=== PATIENT | female | born 1945 | race Caucasian/White ===

== ENCOUNTER 2023-02-20 19:43 | Inpatient (IN) | payer OTHER, SELFPAY ==
[2023-02-20] VITALS (12 sets, daily range): BP systolic 104–128; BP diastolic 59–62; PULSE 92–109; RESP 12–20; TEMP 37.7; O2SAT 92–95
--- NOTE | ~2023-02-20 | US_ITS ---
EXAMINATION:US venous doppler LE LT INDICATION:Left lower extremity redness TECHNIQUE: Multiple grayscale, color flow and Doppler images of the left lower extremity deep venous systems were obtained and reviewed. COMPARISON:No prior studies for comparison. FINDINGS: The common femoral, superficial femoral and popliteal veins demonstrate normal respiratory variation, augmentation and compressibility. Color flow is also seen within the posterior tibial, pe roneal, greater saphenous and profunda veins. IMPRESSION: 1: No lower extremity deep venous thrombosis. Reviewed, dictated and finalized at location A.
--- NOTE | ~2023-02-20 | CT_ITS ---
EXAMINATION: CT pelvis w con DATE: 02/21/2023 14:33 INDICATION: Cellulitis. Concern for pelvic abscess. TECHNIQUE: Computed tomography (CT) of the pelvis was performed with 100 mL Omnipaque-350 intravenous contrast. Automated exposure control and iterative reconstruction technique were employed.The dose-l ength product was 977.03 mGy-cm. COMPARISON: None FINDINGS: The anterior wall of the sigmoid colon extends into a widemouthed ventral hernia. There is a smaller more caudal fat-containing ventral hernia. Status post bilateral ureterostomies with ureters extendin g to a right lower quadrant ileal conduit. Decompressed bladder. No bowel obstruction. Partially visu alized exophytic cyst measuring at least 6.4 cm arising from the lower pole of the left kidney. The u terus is not identified and has likely been surgically resected. No free intraperitoneal fluid in the visualized pelvis. Moderate asymmetric fatty atrophy of the musculature of the pelvis mild fatty atr ophy of the musculature in the proximal thighs. Bilateral severe lower lumbar facet osteoarthritis. S clerotic lesion at the right iliac crest has likely either a bone island or enchondroma. There is juan e skin thickening and stranding in the underlying subcutaneous fat overlying the left hip. Due to pat ient body habitus a portion of the subcutaneous tissues are excluded from the field of view. No hip j oint effusion, abscess or other abnormal fluid collections. IMPRESSION: 1. Skin thickening and subcutaneous stranding overlying the left hip consistent with provided history of cellulitis. No abscess identified although a small portion of the superficial subcutaneous tissue s are excluded from the dfrli-od-kfxz due to patient body habitus. 2. Ventral hernias containing fat and anterior portion of a short segment of nonobstructed sigmoid co dee. 3. Bilateral ureterostomies with right lower quadrant ileal conduit. Reviewed, dictated and finalized at location A. IMPRESSION: 1. Skin thickening and subcutaneous stranding overlying the left hip consistent with provided history of cellulitis. No abscess identified although a small po rtion of the superficial subcutaneous tissues are excluded from the field-of-vi ew due to patient body habitus. 2. Ventral hernias containing fat and anterior portion of a short segment of no nobstructed sigmoid colon. 3. Bilateral ureterostomies with right lower quadrant ileal conduit.
--- NOTE | 2023-02-20 20:04 | ED.WOUNDLAC ---
HPI - Wound/Laceration General Chief Complaint: Wound/Laceration Stated Complaint: red spot on hip Time Seen by Provider: 02/20/23 19:50 History of Present Illness HPI narrative: Patient is a 77 year old female with history of Spina bifida here with leg redness from her facility. she thinks that the leg redness began about a week ago. She notes that it is painful over the region of her hip and seems to be worsening. It has been associated with a subjective fever as well as decreased appetite over the same amount of time. As a result, she has had decreased PO intake. She does note that not too long ago she had cellulitis in the same area, was treated with clindamycin, believes that is what she needs now. She notes allergy to penicillins. She denies any prior cardiac history or history of PE/DVT. Does not take any blood thinners. Related Data Allergies Allergy/AdvReac Type Severity Reaction Status Date / Time codeine Allergy Unknown Verified 02/20/23 20:04 NSAIDS (Non-Steroidal Allergy Unknown Verified 02/20/23 20:04 Anti-Inflamma Penicillins Allergy Hives Verified 02/20/23 20:04 Sulfa (Sulfonamide Allergy Hives Verified 02/20/23 20:04 Antibiotics) Review of Systems Review of Systems: All systems reviewed & are unremarkable except as noted in HPI and below Exam Narrative: GENERAL: Well-appearing, well-nourished, and in no acute distress. HEAD: Normocephalic, atraumatic. EYES: PERRLA and EOMI. ENT: Nares clear. Mucous membranes moist. NECK: Supple. CHEST: Clear to auscultation. No respiratory distress. HEART: Regular rate and rhythm. Normal peripheral pulses. ABDOMEN: Soft, nontender, nondistended. Urostomy present in RLQ, appears clean and dry. EXTREMITIES: Normal range of motion. Edema present on LLE diffusely. SKIN: Warm, erythema present over the lateral left thigh extending from the hip to about 3 inches above the knee. Warm to touch, no crepitus. She has some additional redness in the medial aspect of the left thigh, does not extend to the genital region. NEURO: No focal deficits. Alert and oriented x3. PSYCH: Normal mood and affect. Course Course Emergency Course: Chart review performed. Patient her with L red thigh and hip pain. Triage vitals show febrile at 100F. No prior visits in our system. Patient seen evaluated, no acute distress. Exam consistent with cellulitis over the left leg, no crepitus or blistering, very low suspicion for necrotizing infection. Sepsis orders placed. LLE doppler ordered. Anticipate admission given sheer volume of extremity covered. Vancomycin ordered. Lab work reviewed, white blood cell count of 22.9, lactic normal. CMP grossly normal. Troponin negative. Urine concerning for UTI, will add on coverage for UTI. Doppler negative for DVT. Will work on admitting. Patient reevaluated and updated on plan of care. She is agreeable. I attempted to contact listed guardian, Daniella Chilel at [phone], no answer. DNR code status listed on prison paperwork. Spoke with Dr. Mack, accepts patient for admission. Vital Signs Vital signs: Vital Signs Temperature 100 F H 02/20/23 19:50 Pulse Rate 99 02/20/23 19:50 Respiratory Rate 14 02/20/23 19:50 Blood Pressure 104/62 02/20/23 19:50 Pulse Oximetry 95 02/20/23 19:50 Oxygen Delivery Room Air 02/20/23 19:50 Temperature 100 F H 02/20/23 19:50 Pulse Rate 99 02/20/23 19:50 Respiratory Rate 14 02/20/23 19:50 Blood Pressure 104/62 02/20/23 19:50 Pulse Oximetry 95 02/20/23 19:50 Oxygen Delivery Room Air 02/20/23 19:50 MDM - Wound/Laceration Lab Data 02/20/23 21:04 02/20/23 21:04 Labs: Lab Results 02/20/23 02/20/23 Range/Units 21:04 21:32 WBC 22.9 H (4.5-10.0) K/mm3 RBC 4.22 (4.2-5.4) M/mm3 Hgb 12.2 (12.0-15.0) g/dL Hct 37.9 (37.0-47.0) % MCV 89.8 (80-100) fl MCH 28.9 (26-34) pg MCHC 32.2 (32-36)
[2023-02-20] MEDS: SODIUM CHLORIDE 0.9% IV 1,000 ML 999 ML IV CONT (21:03)
[2023-02-20] MEDS: ACETAMINOPHEN 500 MG TABLET 1000 MG PO (21:03)
[2023-02-20 21:13] LABS: Basophils Absolute Auto 0.1 K/mm3 (0.0-0.1); Basophils Percent Auto 0.3 % (0.2-1.2); Hematocrit 37.9 % (37.0-47.0); Hemoglobin 12.2 g/dL (12.0-15.0); Immature Granulocyte Absolute 0.12 K/mm3 (0.00-0.031); Immature Granulocyte Percent A 0.5 % (0-0.5); Lymphocytes Absolute Auto 1.73 K/mm3 (0.9-3.2); Lymphocytes Percent Auto 7.6 % (18.3-44.2); Mean Corpuscular HGB Conc 32.2 g/dl (32-36); Mean Corpuscular Hemoglobin 28.9 pg (26-34); Mean Corpuscular Volume 89.8 fl (80-100); Mean Platelet Volume 9.8 fl (7.4-10.4); Monocytes Absolute Auto 0.8 K/mm3 (0.1-0.6); Monocytes Percent Auto 3.5 % (2.6-8.5); Neutrophils Absolute Auto 20.2 K/mm3 (1.3-6.7); Neutrophils Percent Auto 88.1 % (45.5-73.1); Platelet Count Result 344 k/mm3 (150-375); Red Blood Count 4.22 M/mm3 (4.2-5.4); Red Cell Distribution Width 14.9 % (11.5-14.5); White Blood Count 22.9 K/mm3 (4.5-10.0)
[2023-02-20 21:24] LABS: INR 1.1; Prothrombin Time 15.1 Seconds (11.1-14.7)
[2023-02-20 21:25] LABS: Lactic Acid Reflex 1.2 mmol/L (0.7-2.0); Partial Thromboplastin Time 32.9 SECONDS (22.3-36.8)
[2023-02-20 21:33] LABS: Alanine Aminotransferase 30 U/L (6-35); Albumin Level 4.1 g/dL (3.5-5.1); Alkaline Phosphatase 129 U/L (38-126); Anion Gap 10 mmol/L (8-16); Aspartate Amino Transferase 32 U/L (14-36); Blood Urea Nitrogen 21 mg/dL (7-17); Calcium 9.2 mg/dL (8.4-10.2); Carbon Dioxide 28 mmol/L (22-30); Chloride 97 mmol/L (98-107); Estimated CRCL calculation 72 ml/min; Estimated Glomerular Filt Rate > 60; Glucose 129 mg/dL (65-110); Potassium 3.6 mmol/L (3.4-5.0); Sodium 135 mmol/L (137-145)
[2023-02-20 21:38] LABS: Troponin I < 0.012 ng/mL (0.000-0.034)
[2023-02-20 22:06] LABS: Appearance Urine Turbid (Clear); Bacteria Urine 4+ /hpf; Bilirubin Urine Negative (Negative); Blood Urine 1+ (Negative); Color Urine Dark Yellow (Yellow); Glucose Urine UA Negative (Negative); Ketones Urine Negative (Negative); Leukocyte Esterase Ur 3+ LEU/UL (Negative); Need Manual Microscopic Reviewed; Nitrate Urine Negative (Negative); Protein Urine 1+ mg/dL (Negative); Specific Grav Ur 1.017 (1.001-1.035); Squamous Epithelial Cell Urine None seen /hpf (Few); WBC Urine >100 /hpf
[2023-02-20 22:08] LABS: Add Urine Microscopic? YES
[2023-02-20 23:30] LABS: CRP 33.6 mg/dL (<1.0)
--- NOTE | 2023-02-20 23:54 | PM.IMHP ---
H&P: HPI History of Present Illness Date/Time: 02/20/23 23:54 Chief Complaint: Patient sent to the ER for evaluation from her nursing facility with left leg redness Narrative: She is very unfortunate paraplegic lady with spinal bifida who is complaining of pain and redness over her left hip for the last couple of days which is worsening. She also gives history of fever and decreased appetite as well. She is not eating or drinking much. She lives in a nursing facility which got concerned and sent patient to ER for evaluation. Workup was done which shows cellulitis of the left leg as well as UTI. Patient has a chronic urostomy tube in place. She has been started on IV antibiotics and is being admitted for medical management, Urology evaluation and close monitoring. Review of Systems Review of Systems: she denies any chest pain, falls, abdominal pain or any loss of consciousness All systems reviewed & are unremarkable except as noted in HPI and below PMFSH Past Medical History Medical History (Updated 02/21/23 @ 02:58 by Matt Mack MD) Morbid obesity due to excess calories Presence of urostomy Spina bifida of lumbar spine Social History Social History Smoking status: Former smoker Alcohol intake: never Substance use: never Lack of Transportation: No Lack of Food: Never True Current Housing: I Have Housing Concerned About Future Housing: No Difficulty Paying Gas/Electric Bills: No Difficulty Paying for Meds: No Currently Unemployed: No Education: High School Diploma/GED Difficulty w/ Childcare or Family Care: No Spiritual care concerns: No Meds Home Medications and Allergies Home Medications Medication Instructions Recorded Confirmed Type Ca 600 mg-D3 800 unit-magnes 40 1 tablet PO BID 02/21/23 02/21/23 History ki-xnlz-ent-leydi-boron chewable tablet (Caltrate 600-D Plus Minerals) acetaminophen 650 mg tablet 650 mg PO Q4H PRN mild pain 02/21/23 02/21/23 History atorvastatin 10 mg tablet 10 mg PO HS 02/21/23 02/21/23 History bisacodyl 10 mg rectal suppository 10 mg RECTAL DAILY PRN if no 02/21/23 02/21/23 [place] [facility] [place] 6.5 % ear drops 5 drp EACH EAR Q12H 02/21/23 02/21/23 History (Debrox) collagenase clostridium histo. 250 1 applic topical DAILY 02/21/23 02/21/23 History unit/gram topical ointment (Santyl) duloxetine 60 mg capsule,delayed 60 mg PO DAILY 02/21/23 02/21/23 History release fluticasone propionate 50 2 spray intranasal DAILY 02/21/23 02/21/23 History mcg/actuation nasal spray,suspension (Flonase Allergy Relief) furosemide 20 mg tablet (Lasix) 20 mg PO DAILY 02/21/23 02/21/23 History furosemide 40 mg tablet (Lasix) 40 mg PO DAILY 02/21/23 02/21/23 History guaifenesin 400 mg tablet 400 mg PO Q4H PRN cough or 02/21/23 02/21/23 History congestion guaifenesin 600 mg tablet, 600 mg PO BID 02/21/23 02/21/23 History extended release 12 hr (Mucinex) loratadine 10 mg tablet 10 mg PO DAILY 02/21/23 02/21/23 History magnesium hydroxide 400 mg/5 mL 400 mg PO HS PRN constipation if 02/21/23 02/21/23 History oral suspension no BM for 3 days nystatin 100,000 unit/gram topical 1 applic topical TID 02/21/23 02/21/23 History powder ondansetron 4 mg disintegrating 4 mg PO Q6H PRN Nausea 02/21/23 02/21/23 History tablet polyethylene glycol 3350 17 gram 17 g PO DAILY 02/21/23 02/21/23 History oral powder packet (Miralax) potassium chloride 10 mEq 10 meq PO DAILY 02/21/23 02/21/23 History capsule,extended release trazodone 100 mg tablet 100 mg PO HS 02/21/23 02/21/23 History Allergies Allergy/AdvReac Type Severity Reaction Status Date / Time codeine Allergy Unknown Verified 02/20/23 20:04 NSAIDS (Non-Steroidal Allergy Unknown Verified 02/20/23 20:04 Anti-Inflamma Penicillins Allergy Hives Verified 02/20/23 20:04 Sulfa (Sulfonamide A
[2023-02-21] VITALS (9 sets, daily range): BP systolic 95–121; BP diastolic 49–62; PULSE 85–99; RESP 16–17; TEMP 36.2–36.5; O2SAT 95–100; BMI 38.3
--- NOTE | 2023-02-21 01:10 | ADMGEN ---
This patient, Sadia Toledo, was admitted to [facility] Surg Room 330-01. Patient/family oriented to hospital policies and general routines including ID bracelet, bed and alarms, visiting hours, pain management, procedures, bathroom and other care routines, personal items, smoking policy, room service/diet, and visiting hours. Information on how to activate the Rapid Response Team has been discussed. Patient/Family are encouraged to report perceived risks to care and to ask questions if they do not understand what they are told or what they should do.
[2023-02-21] MEDS: KCL 20 MEQ/D5/0.45% SOD CHL 1,000 ML 100 ML IV CONT (05:48)
[2023-02-21 06:30] LABS: Basophils Absolute Auto 0.1 K/mm3 (0.0-0.1); Basophils Percent Auto 0.4 % (0.2-1.2); Eosinophils Absolute Auto 0.1 K/mm3 (0-0.3); Eosinophils Percent Auto 0.3 % (0-4.4); Hematocrit 36.4 % (37.0-47.0); Hemoglobin 10.6 g/dL (12.0-15.0); Immature Granulocyte Absolute 0.07 K/mm3 (0.00-0.031); Immature Granulocyte Percent A 0.4 % (0-0.5); Lymphocytes Absolute Auto 2.02 K/mm3 (0.9-3.2); Lymphocytes Percent Auto 12.2 % (18.3-44.2); Mean Corpuscular HGB Conc 29.1 g/dl (32-36); Mean Corpuscular Hemoglobin 29.1 pg (26-34); Mean Platelet Volume 9.5 fl (7.4-10.4); Monocytes Absolute Auto 0.8 K/mm3 (0.1-0.6); Monocytes Percent Auto 4.8 % (2.6-8.5); Neutrophils Absolute Auto 13.5 K/mm3 (1.3-6.7); Neutrophils Percent Auto 81.9 % (45.5-73.1); Platelet Count Result 277 k/mm3 (150-375); Red Blood Count 3.64 M/mm3 (4.2-5.4); White Blood Count 16.5 K/mm3 (4.5-10.0)
[2023-02-21 08:12] LABS: Anion Gap 6 mmol/L (8-16); Blood Urea Nitrogen 19 mg/dL (7-17); CRP 24.1 mg/dL (<1.0); Calcium 8.8 mg/dL (8.4-10.2); Carbon Dioxide 30 mmol/L (22-30); Chloride 99 mmol/L (98-107); Estimated CRCL calculation 79 ml/min; Estimated Glomerular Filt Rate > 60; Glucose 112 mg/dL (65-110); Potassium 3.6 mmol/L (3.4-5.0); Sodium 135 mmol/L (137-145)
[2023-02-21] MEDS: LORATADINE 10 MG TABLET PO (08:42)
[2023-02-21] MEDS: polyethylene glycoL 3350 17 GM POWD.PACK PO (08:42)
[2023-02-21] MEDS: guaiFENesin 12 HR 600 MG TABCR PO ×2 (08:42→21:44)
[2023-02-21] MEDS: POTASSIUM CHLORIDE 10 MEQ ER TABLET PO (08:42)
[2023-02-21] MEDS: FUROSEMIDE 20 MG TABLET PO (08:42)
[2023-02-21] MEDS: FLUTICASONE PROPIONATE 0.05% NA SPR 16 GM BTL (*BKC) 2 SPRAY NASAL (08:42)
[2023-02-21] MEDS: DULoxetine HCL 60 MG CAPSULE.DR PO (08:42)
[2023-02-21] MEDS: TOLNAFTATE 1% POWDER 45 GM BTL 1 APPLIC TOPICAL ×2 (08:43→22:36)
[2023-02-21] MEDS: CARBAMIDE PEROXIDE 6.5% OT SOLN 15 ML BTL 5 DROP EACH EAR ×2 (08:43→21:44)
--- NOTE | 2023-02-21 09:51 | WPDURCON ---
Assessment and Plan Assessment and plan (1) Presence of urostomy: Code(s): Z93.6 - Other artificial openings of urinary tract status Status: Acute (2) Spina bifida of lumbar spine: Code(s): Q05.7 - Lumbar spina bifida without hydrocephalus Status: Acute (3) Asymptomatic bacteriuria: Code(s): R82.71 - Bacteriuria Status: Acute Plan She has had urostomy since age 16. She has no particular complaints related to this urostomy. She clinically does not have a urinary tract infection. 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 All patients with urostomy have chronic colonization. It is impossible to sterilize the urinary system. As long as she is not having blood in the urine or other symptoms that could be attributable to urinary tract infection this does not require active treatment. Her infection symptoms are likely more related to her cellulitis than urinary tract. Urology Consult Note HPI Date Seen: 02/21/23 Requesting Physician: Matt Mack MD Primary Care Provider: Mook Herrera MD Consult Narrative Narrative: Sadia Toledo is a 77 year old female with a history of spina bifida. She has urostomy. She has had this since age 16. She has no particular issues relating to her urostomy. She is currently admitted for cellulitis of the left hip area. She has an abnormal urinalysis. This represents colonization and is due to her presence of urostomy. She has no clinical urinary tract infection symptoms. No visible blood in the urine. No cloudy urine. No fevers. She is on antibiotics for her cellulitis she has a normal creatinine. Review of Systems Review of Systems: All systems reviewed & are unremarkable except as noted in HPI and below PMFSH Past Medical History Medical History Morbid obesity due to excess calories Presence of urostomy Spina bifida of lumbar spine Social History Social History Smoking status: Former smoker Alcohol intake: never Substance use: never Lack of Transportation: No Lack of Food: Never True Current Housing: I Have Housing Concerned About Future Housing: No Difficulty Paying Gas/Electric Bills: No Difficulty Paying for Meds: No Currently Unemployed: No Education: High School Diploma/GED Difficulty w/ Childcare or Family Care: No Spiritual care concerns: No Meds Home Medications and Allergies Home Medications Medication Instructions Recorded Confirmed Type Ca 600 mg-D3 800 unit-magnes 40 1 tablet PO BID 02/21/23 02/21/23 History kf-mmfz-zrq-leydi-boron chewable tablet (Caltrate 600-D Plus Minerals) acetaminophen 650 mg tablet 650 mg PO Q4H PRN mild pain 02/21/23 02/21/23 History atorvastatin 10 mg tablet 10 mg PO HS 02/21/23 02/21/23 History bisacodyl 10 mg rectal suppository 10 mg RECTAL DAILY PRN if no 02/21/23 02/21/23 History results from [facility] carbamide peroxide 6.5 % ear drops 5 drp EACH EAR Q12H 02/21/23 02/21/23 History (Debrox) collagenase clostridium histo. 250 1 applic topical DAILY 02/21/23 02/21/23 History unit/gram topical ointment (Santyl) duloxetine 60 mg capsule,delayed 60 mg PO DAILY 02/21/23 02/21/23 History release fluticasone propionate 50 2 spray intranasal DAILY 02/21/23 02/21/23 History mcg/actuation nasal spray,suspension (Flonase Allergy Relief) furosemide 20 mg tablet (Lasix) 20 mg PO DAILY 02/21/23 02/21/23 History furosemide 40 mg tablet (Lasix) 40 mg PO DAILY 02/21/23 02/21/23 History guaifenesin 400 mg tablet 400 mg PO Q4H PRN cough or 02/21/23 02/21/23 History congestion guaifenesin 600 mg tablet, 600 mg PO BID 02/21/23 02/21/23 History extended release 12 hr (Mucinex) loratadine 10 mg tablet 10 mg PO DAILY 02/21/23 02/21/23 History magnesium hydroxide 400 mg/5 mL 400 mg PO HS PRN constipation if 02/21/23 02/21/23 History
[2023-02-21] MEDS: ENOXAPARIN 40 MG/0.4 ML SYRINGE SUB-Q (10:57)
--- NOTE | 2023-02-21 11:17 | PM.IMPN ---
Progress Note: A&P Assessment and Plan (1) Cellulitis of left leg: Code(s): L03.116 - Cellulitis of left lower limb Status: Acute Assessment and Plan: IV antibiotics, monitor symptoms closely Check CT hip, r/u SQ air/abscess (2) Acute urinary tract infection: Code(s): N39.0 - Urinary tract infection, site not specified Status: Acute Assessment and Plan: Do not suspect active infection, appreciate urology consultation (3) Presence of urostomy: Code(s): Z93.6 - Other artificial openings of urinary tract status Status: Acute (4) Leukocytosis: Code(s): D72.829 - Elevated white blood cell count, unspecified Status: Acute (5) Paraplegia: Code(s): G82.20 - Paraplegia, unspecified Status: Acute (6) Spina bifida of lumbar spine: Code(s): Q05.7 - Lumbar spina bifida without hydrocephalus Status: Acute (7) Morbid obesity due to excess calories: Code(s): E66.01 - Morbid (severe) obesity due to excess calories Status: Acute Plan DVT prophylaxis with SCDs GI prophylaxis not indicated Code status DNR Subjective Date/time seen: 02/21/23 11:17 Interval history: 77-year-old female with spina bifida, paraplegia and chronic indwelling urostomy is presenting with hip pain and redness and is currently being treated for cellulitis. No overnight events noted. No chest pain or shortness of breath. No nausea, vomiting or diarrhea. No fevers or chills. Review of Systems Review of Systems: 12 point review of systems was assessed and was negative except as noted in the HPI Exam Narrative: General: No acute distress, alert and oriented per baseline HEENT: Atraumatic, normocephalic, mucous membranes moist CV: Regular rate and rhythm, S1, S2 Lungs: Clear to auscultation bilaterally, no rales or crackles noted, no wheezes, good air entry Abdomen: Soft, nontender, nondistended Extremities: significant redness and swelling noted over left lateral hip Skin: No rashes noted, no lesions or wounds seen Psych: Euthymic, normal affect Objective Data Vital Signs Vital Signs: Vital Signs - 24 hr 02/20/23 19:50 02/20/23 19:55 02/20/23 19:59 Temperature 100 F H Pulse Rate 99 98 102 H Respiratory Rate 14 17 12 Blood Pressure 104/62 104/62 Pulse Oximetry 95 94 93 Oxygen Delivery Room Air 02/20/23 20:00 02/20/23 20:15 02/20/23 20:30 Temperature Pulse Rate 107 H 92 109 H Respiratory Rate 17 16 16 Blood Pressure Pulse Oximetry 95 95 94 Oxygen Delivery 02/20/23 20:35 02/20/23 20:45 02/20/23 21:00 Temperature Pulse Rate 108 H 105 H 104 H Respiratory Rate 12 12 13 Blood Pressure 128/59 L Pulse Oximetry 93 94 Oxygen Delivery 02/20/23 21:15 02/20/23 21:30 02/20/23 22:58 Temperature Pulse Rate 102 H 96 102 H Respiratory Rate 16 15 20 Blood Pressure 112/60 Pulse Oximetry 93 94 92 Oxygen Delivery 02/21/23 01:05 02/21/23 02:38 02/21/23 05:20 Temperature 97.5 F L 97.2 F L Pulse Rate 89 95 Respiratory Rate 16 16 Blood Pressure 95/49 L 99/49 L Pulse Oximetry 100 95 Oxygen Delivery Room Air 02/21/23 07:54 02/21/23 08:00 02/21/23 01:24 Temperature 97.4 F L 97.5 F L Pulse Rate 85 85 89 Respiratory Rate 17 17 16 Blood Pressure 121/60 95/49 L Pulse Oximetry 99 99 100 Oxygen Delivery Room Air Intake/Output Intake/Output: Intake & Output 02/18/23 02/19/23 02/20/23 02/21/23 23:59 23:59 23:59 23:59 Intake Total 1050 500 Output Total 450 Balance 1050 50 Meds/Results Medications: Active Medications Generic Name Dose Route Start Last Admin Trade Name Freq PRN Reason Stop Dose Admin Acetaminophen 650 mg 02/21/23 03:04 Acetaminophen 325 Mg Tablet PO Q4H PRN Mild Pain (1-3) or Fever Al Hydrox/Mg Hydrox/Simethicone 30 ml 02/21/23 03:04 Mag Hydrox/Al Hydrox/Simeth 30 Ml Udc PO QID PRN Dysp
[2023-02-21] MEDS: COLLAGENASE OINT 30 GM TUBE 1 APPLIC TOPICAL (15:21)
[2023-02-21] MEDS: traZODone HCL 50 MG TABLET 100 MG PO (21:44)
[2023-02-21] MEDS: ATORVASTATIN 10 MG TABLET PO (21:44)
[2023-02-21] MEDS: ACETAMINOPHEN 325 MG TABLET 650 MG PO (22:29)
[2023-02-22 00:17] VITALS: BP 91/63; PULSE 8; RESP 14; TEMP 36.4; O2SAT 92
[2023-02-22 04:55] VITALS: BP 90/48; PULSE 87; RESP 16; TEMP 36.3; O2SAT 93
[2023-02-22 05:48] LABS: Basophils Absolute Auto 0.1 K/mm3 (0.0-0.1); Basophils Percent Auto 0.5 % (0.2-1.2); Eosinophils Absolute Auto 0.3 K/mm3 (0-0.3); Eosinophils Percent Auto 3.2 % (0-4.4); Hematocrit 34.3 % (37.0-47.0); Hemoglobin 10.6 g/dL (12.0-15.0); Immature Granulocyte Absolute 0.06 K/mm3 (0.00-0.031); Immature Granulocyte Percent A 0.6 % (0-0.5); Lymphocytes Absolute Auto 2.02 K/mm3 (0.9-3.2); Lymphocytes Percent Auto 18.8 % (18.3-44.2); Mean Corpuscular HGB Conc 30.9 g/dl (32-36); Monocytes Absolute Auto 0.6 K/mm3 (0.1-0.6); Monocytes Percent Auto 5.9 % (2.6-8.5); Neutrophils Absolute Auto 7.7 K/mm3 (1.3-6.7); Platelet Count Result 276 k/mm3 (150-375); Red Blood Count 3.65 M/mm3 (4.2-5.4); Red Cell Distribution Width 14.8 % (11.5-14.5); White Blood Count 10.8 K/mm3 (4.5-10.0)
[2023-02-22 06:19] LABS: Anion Gap 6 mmol/L (8-16); Blood Urea Nitrogen 13 mg/dL (7-17); Calcium 8.7 mg/dL (8.4-10.2); Carbon Dioxide 28 mmol/L (22-30); Chloride 98 mmol/L (98-107); Estimated CRCL calculation 79 ml/min; Estimated Glomerular Filt Rate > 60; Glucose 90 mg/dL (65-110); Potassium 3.6 mmol/L (3.4-5.0); Sodium 132 mmol/L (137-145)
[2023-02-22 06:29] LABS: CRP 17.8 mg/dL (<1.0)
--- NOTE | 2023-02-22 09:39 | PM.IMPN ---
Progress Note: A&P Assessment and Plan (1) Cellulitis of left leg: Code(s): L03.116 - Cellulitis of left lower limb Status: Acute Assessment and Plan: Continue vancomycin, initiated 02/20, monitor symptoms closely, clinically improving 02/21: check CT hip, r/o SQ air/abscess: No abscess seen (2) Acute urinary tract infection: Code(s): N39.0 - Urinary tract infection, site not specified Status: Acute Assessment and Plan: Do not suspect active infection, appreciate urology consultation (3) Presence of urostomy: Code(s): Z93.6 - Other artificial openings of urinary tract status Status: Acute (4) Leukocytosis: Code(s): D72.829 - Elevated white blood cell count, unspecified Status: Acute (5) Paraplegia: Code(s): G82.20 - Paraplegia, unspecified Status: Acute (6) Spina bifida of lumbar spine: Code(s): Q05.7 - Lumbar spina bifida without hydrocephalus Status: Acute (7) Morbid obesity due to excess calories: Code(s): E66.01 - Morbid (severe) obesity due to excess calories Status: Acute Plan DVT prophylaxis with SCDs GI prophylaxis not indicated Code status DNR Subjective Date/time seen: 02/22/23 09:39 Interval history: 77-year-old female with spina bifida, paraplegia and chronic indwelling urostomy is presenting with hip pain and redness and is currently being treated for cellulitis. No overnight events noted. No chest pain or shortness of breath. No nausea, vomiting or diarrhea. No fevers or chills. Patient states her hip feels a little less painful today than yesterday. Review of Systems Review of Systems: 12 point review of systems was assessed and was negative except as noted in the HPI Exam Narrative: General: No acute distress, alert and oriented per baseline HEENT: Atraumatic, normocephalic, mucous membranes moist CV: Regular rate and rhythm, S1, S2 Lungs: Clear to auscultation bilaterally, no rales or crackles noted, no wheezes, good air entry Abdomen: Soft, nontender, nondistended Extremities: significant redness and swelling noted over left lateral hip, erythema much improved from yesterday Skin: No rashes noted, no lesions or wounds seen Psych: Euthymic, normal affect Objective Data Vital Signs Vital Signs: Vital Signs - 24 hr 02/21/23 11:51 02/21/23 16:44 02/21/23 20:34 Temperature 97.7 F 97.2 F L 97.7 F Pulse Rate 99 90 96 Respiratory Rate 17 17 16 Blood Pressure 110/57 L 107/62 104/61 Pulse Oximetry 96 98 98 Oxygen Delivery 02/22/23 00:17 02/21/23 20:48 02/22/23 04:55 Temperature 97.5 F L 97.3 F L Pulse Rate 8 L 87 Respiratory Rate 14 16 Blood Pressure 91/63 L 90/48 L Pulse Oximetry 92 98 93 Oxygen Delivery Room Air Intake/Output Intake/Output: Intake & Output 02/19/23 02/20/23 02/21/23 02/22/23 23:59 23:59 23:59 23:59 Intake Total 1050 740 Output Total 1100 400 Balance 1050 -360 -400 Meds/Results Medications: Active Medications Generic Name Dose Route Start Last Admin Trade Name Ronaldq PRN Reason Stop Dose Admin Acetaminophen 650 mg 02/21/23 03:04 02/21/23 22:29 Acetaminophen 325 Mg Tablet PO 650 mg Q4H PRN Administration Mild Pain (1-3) or Fever Al Hydrox/Mg Hydrox/Simethicone 30 ml 02/21/23 03:04 Mag Hydrox/Al Hydrox/Simeth 30 Ml Udc PO QID PRN Dyspepsia Atorvastatin Calcium 10 mg 02/21/23 21:00 02/21/23 21:44 Atorvastatin 10 Mg Tablet PO 10 mg HS ALEXIS Administration Bisacodyl 10 mg 02/21/23 03:13 Bisacodyl 10 Mg Suppository RECTAL DAILY PRN if no [place] [facility] [place]cium Carbonate 500 mg 02/21/23 09:00 02/21/23 16:42 Calcium/Vitamin D 500 Mg Tablet PO 500 mg BID ALEXIS Administration Carbamide Peroxide 5 drop 02/21/23 09:00 02/21/23 21:44 Carbamide Peroxide 6.5% Ot Soln 15 Ml Btl EACH EAR 5 drop Q12HR ALEXIS Administration Colla
[2023-02-22] MEDS: POTASSIUM CHLORIDE 10 MEQ ER TABLET PO (10:21)
[2023-02-22] MEDS: guaiFENesin 12 HR 600 MG TABCR PO ×2 (10:21→20:51)
[2023-02-22] MEDS: FUROSEMIDE 20 MG TABLET PO (10:21)
[2023-02-22] MEDS: polyethylene glycoL 3350 17 GM POWD.PACK PO (10:21)
[2023-02-22] MEDS: DULoxetine HCL 60 MG CAPSULE.DR PO (10:21)
[2023-02-22] MEDS: LORATADINE 10 MG TABLET PO (10:21)
[2023-02-22] MEDS: ENOXAPARIN 40 MG/0.4 ML SYRINGE SUB-Q (10:22)
[2023-02-22 10:40] VITALS: BP 109/50; PULSE 82; RESP 16; TEMP 36.8; O2SAT 98
--- NOTE | 2023-02-22 10:41 | PCPTNOTE ---
Per chart review, pt appears to be at baseline being a depending [facility] resident. Attempted to call resident but was unable to contact at this time. Will reattempt contact for verification to cancel PT orders.
--- NOTE | 2023-02-22 12:28 | PCPTNOTE ---
Spoke with provider, pt appears to be at baseline dependent for mobility and is halfway resident. Thus not appropriate for PT at this time.
[2023-02-22] MEDS: CARBAMIDE PEROXIDE 6.5% OT SOLN 15 ML BTL 5 DROP EACH EAR (13:39)
[2023-02-22] MEDS: TOLNAFTATE 1% POWDER 45 GM BTL 1 APPLIC TOPICAL ×2 (13:40→20:51)
[2023-02-22] MEDS: FLUTICASONE PROPIONATE 0.05% NA SPR 16 GM BTL (*BKC) 2 SPRAY NASAL (13:40)
[2023-02-22] MEDS: COLLAGENASE OINT 30 GM TUBE 1 APPLIC TOPICAL (13:40)
[2023-02-22 14:40] VITALS: BP 100/69; PULSE 87; RESP 18; TEMP 37; O2SAT 97
[2023-02-22] MEDS: KCL 20 MEQ/D5/0.45% SOD CHL 1,000 ML 100 ML IV CONT (16:43)
[2023-02-22 20:32] VITALS: BP 105/51; PULSE 86; RESP 28; TEMP 36.3; O2SAT 94
[2023-02-22] MEDS: traZODone HCL 50 MG TABLET 100 MG PO (20:50)
[2023-02-22] MEDS: ATORVASTATIN 10 MG TABLET PO (20:50)
[2023-02-23] VITALS (7 sets, daily range): BP systolic 108–129; BP diastolic 47–84; PULSE 77–102; RESP 14–20; TEMP 36.3–37.1; O2SAT 95–100
--- NOTE | 2023-02-23 01:22 | PC.NURSE ---
Daylight Savings Time For Daylight Savings Time Ending in the Fall - Clocks are moved back. For Daylight Savings Time Beginning in the Spring - Clocks are moved ahead. For [facility], the time of change occurs at 0200 hrs. Time is taken from the locomotive observer. This entry on the patient's chart recognizes the change in time reflected during documentation. Example: 2 entries for vital signs may be charted for 0200 hrs.
[2023-02-23] MEDS: KCL 20 MEQ/D5/0.45% SOD CHL 1,000 ML 100 ML IV CONT ×3 (01:55→22:51)
[2023-02-23 03:35] LABS: Basophils Percent Auto 0.5 % (0.2-1.2); Eosinophils Absolute Auto 0.3 K/mm3 (0-0.3); Eosinophils Percent Auto 3.3 % (0-4.4); Hematocrit 34.3 % (37.0-47.0); Hemoglobin 11.1 g/dL (12.0-15.0); Immature Granulocyte Absolute 0.03 K/mm3 (0.00-0.031); Immature Granulocyte Percent A 0.3 % (0-0.5); Lymphocytes Absolute Auto 2.24 K/mm3 (0.9-3.2); Mean Corpuscular HGB Conc 32.4 g/dl (32-36); Mean Corpuscular Volume 89.6 fl (80-100); Mean Platelet Volume 9.8 fl (7.4-10.4); Monocytes Absolute Auto 0.6 K/mm3 (0.1-0.6); Monocytes Percent Auto 7.2 % (2.6-8.5); Neutrophils Absolute Auto 5.4 K/mm3 (1.3-6.7); Neutrophils Percent Auto 62.7 % (45.5-73.1); Platelet Count Result 313 k/mm3 (150-375); Red Blood Count 3.83 M/mm3 (4.2-5.4); Red Cell Distribution Width 14.5 % (11.5-14.5); White Blood Count 8.6 K/mm3 (4.5-10.0)
[2023-02-23 03:53] LABS: Anion Gap 5 mmol/L (8-16); Blood Urea Nitrogen 9 mg/dL (7-17); CRP 7.8 mg/dL (<1.0); Carbon Dioxide 29 mmol/L (22-30); Chloride 101 mmol/L (98-107); Estimated CRCL calculation 79 ml/min; Estimated Glomerular Filt Rate > 60; Glucose 121 mg/dL (65-110); Potassium 3.5 mmol/L (3.4-5.0); Sodium 135 mmol/L (137-145)
[2023-02-23] MEDS: guaiFENesin 12 HR 600 MG TABCR PO ×2 (10:38→21:11)
[2023-02-23] MEDS: POTASSIUM CHLORIDE 10 MEQ ER TABLET PO (10:38)
[2023-02-23] MEDS: FUROSEMIDE 20 MG TABLET PO (10:39)
[2023-02-23] MEDS: LORATADINE 10 MG TABLET PO (10:39)
[2023-02-23] MEDS: DULoxetine HCL 60 MG CAPSULE.DR PO (10:39)
[2023-02-23] MEDS: ENOXAPARIN 40 MG/0.4 ML SYRINGE SUB-Q (10:39)
[2023-02-23] MEDS: CARBAMIDE PEROXIDE 6.5% OT SOLN 15 ML BTL 5 DROP EACH EAR ×2 (10:40→21:12)
[2023-02-23] MEDS: FLUTICASONE PROPIONATE 0.05% NA SPR 16 GM BTL (*BKC) 2 SPRAY NASAL (10:40)
[2023-02-23] MEDS: TOLNAFTATE 1% POWDER 45 GM BTL 1 APPLIC TOPICAL ×2 (10:41→21:12)
--- NOTE | 2023-02-23 11:47 | PCOTNOTE ---
Per chart review, pt appears to be at baseline being a depending [facility] resident. Attempted to call resident but was unable to contact at this time. Will reattempt contact for verification to cancel OT orders.
--- NOTE | 2023-02-23 15:50 | PM.IMPN ---
Progress Note: A&P Assessment and Plan (1) Cellulitis of left leg: Code(s): L03.116 - Cellulitis of left lower limb Status: Acute Assessment and Plan: Continue vancomycin, initiated 02/20, monitor symptoms closely, clinically improving 02/21: check CT hip, r/o SQ air/abscess: No abscess seen 02/23: improving (2) Acute urinary tract infection: Code(s): N39.0 - Urinary tract infection, site not specified Status: Acute Assessment and Plan: Do not suspect active infection, appreciate urology consultation (3) Presence of urostomy: Code(s): Z93.6 - Other artificial openings of urinary tract status Status: Acute (4) Leukocytosis: Code(s): D72.829 - Elevated white blood cell count, unspecified Status: Acute (5) Paraplegia: Code(s): G82.20 - Paraplegia, unspecified Status: Acute (6) Spina bifida of lumbar spine: Code(s): Q05.7 - Lumbar spina bifida without hydrocephalus Status: Acute (7) Morbid obesity due to excess calories: Code(s): E66.01 - Morbid (severe) obesity due to excess calories Status: Acute Plan DVT prophylaxis with SCDs GI prophylaxis not indicated Code status DNR Subjective Date/time seen: 02/23/23 15:50 Interval history: 77-year-old female with spina bifida, paraplegia and chronic indwelling urostomy is presenting with hip pain and redness and is currently being treated for cellulitis. No overnight events noted. No chest pain or shortness of breath. No nausea, vomiting or diarrhea. No fevers or chills. Patient's hip pain is much improved and swelling is improved. Review of Systems Review of Systems: 12 point review of systems was assessed and was negative except as noted in the HPI Exam Narrative: General: No acute distress, alert and oriented per baseline HEENT: Atraumatic, normocephalic, mucous membranes moist CV: Regular rate and rhythm, S1, S2 Lungs: Clear to auscultation bilaterally, no rales or crackles noted, no wheezes, good air entry Abdomen: Soft, nontender, nondistended Extremities: minimal erythema and swelling, much improved Skin: No rashes noted, no lesions or wounds seen Psych: Euthymic, normal affect Objective Data Vital Signs Vital Signs: Vital Signs - 24 hr 02/22/23 20:32 02/22/23 20:00 02/23/23 00:00 Temperature 97.4 F L 97.4 F L Pulse Rate 86 79 Respiratory Rate 28 H 20 Blood Pressure 105/51 L 116/84 Pulse Oximetry 94 97 Oxygen Delivery Room Air 02/23/23 04:25 02/23/23 08:00 02/23/23 12:00 Temperature 97.3 F L 97.7 F 97.9 F Pulse Rate 77 85 96 Respiratory Rate 18 19 16 Blood Pressure 108/57 L 124/58 L 109/47 L Pulse Oximetry 97 97 100 Oxygen Delivery Intake/Output Intake/Output: Intake & Output 02/20/23 02/21/23 02/22/23 02/23/23 23:59 23:59 23:59 22:59 Intake Total 1050 1240 2330 2670 Output Total 4164 581 6540 Balance 5750 006 7304 -230 Meds/Results Medications: Active Medications Generic Name Dose Route Start Last Admin Trade Name Freq PRN Reason Stop Dose Admin Acetaminophen 650 mg 02/21/23 03:04 02/21/23 22:29 Acetaminophen 325 Mg Tablet PO 650 mg Q4H PRN Administration Mild Pain (1-3) or Fever Al Hydrox/Mg Hydrox/Simethicone 30 ml 02/21/23 03:04 Mag Hydrox/Al Hydrox/Simeth 30 Ml Udc PO QID PRN Dyspepsia Atorvastatin Calcium 10 mg 02/21/23 21:00 02/22/23 20:50 Atorvastatin 10 Mg Tablet PO 10 mg HS ALEXIS Administration Bisacodyl 10 mg 02/21/23 03:13 Bisacodyl 10 Mg Suppository RECTAL DAILY PRN if no results from [facility] Calcium Carbonate 500 mg 02/21/23 09:00 02/23/23 10:38 Calcium/Vitamin D 500 Mg Tablet PO 500 mg BID ALEXIS Administration Carbamide Peroxide 5 drop 02/21/23 09:00 02/23/23 10:40 Carbamide Peroxide 6.5% Ot Soln 15 Ml Btl EACH EAR 5 drop Q12HR ALEXIS Administration Collagenase 1 applic 02/21/23
[2023-02-23] MEDS: ACETAMINOPHEN 325 MG TABLET 650 MG PO (18:11)
[2023-02-23] MEDS: traZODone HCL 50 MG TABLET 100 MG PO (21:12)
[2023-02-23] MEDS: ATORVASTATIN 10 MG TABLET PO (21:12)
[2023-02-24] VITALS: BP 117/52; PULSE 82; RESP 20; TEMP 36.1; O2SAT 93
[2023-02-24 04:00] VITALS: BP 120/72; PULSE 85; RESP 18; TEMP 35.7; O2SAT 98
[2023-02-24 06:32] LABS: Basophils Absolute Auto 0.1 K/mm3 (0.0-0.1); Basophils Percent Auto 0.7 % (0.2-1.2); Eosinophils Absolute Auto 0.3 K/mm3 (0-0.3); Eosinophils Percent Auto 4.5 % (0-4.4); Hematocrit 36.6 % (37.0-47.0); Hemoglobin 11.4 g/dL (12.0-15.0); Immature Granulocyte Absolute 0.06 K/mm3 (0.00-0.031); Immature Granulocyte Percent A 0.9 % (0-0.5); Lymphocytes Absolute Auto 2.34 K/mm3 (0.9-3.2); Lymphocytes Percent Auto 34.1 % (18.3-44.2); Mean Corpuscular HGB Conc 31.1 g/dl (32-36); Mean Corpuscular Hemoglobin 28.4 pg (26-34); Mean Platelet Volume 9.6 fl (7.4-10.4); Monocytes Absolute Auto 0.6 K/mm3 (0.1-0.6); Monocytes Percent Auto 9.2 % (2.6-8.5); Neutrophils Absolute Auto 3.5 K/mm3 (1.3-6.7); Neutrophils Percent Auto 50.6 % (45.5-73.1); Platelet Count Result 369 k/mm3 (150-375); Red Blood Count 4.02 M/mm3 (4.2-5.4); Red Cell Distribution Width 14.4 % (11.5-14.5); White Blood Count 6.9 K/mm3 (4.5-10.0)
[2023-02-24 06:41] LABS: Anion Gap 3 mmol/L (8-16); Blood Urea Nitrogen 5 mg/dL (7-17); Calcium 9.1 mg/dL (8.4-10.2); Carbon Dioxide 32 mmol/L (22-30); Chloride 106 mmol/L (98-107); Estimated CRCL calculation 79 ml/min; Estimated Glomerular Filt Rate > 60; Glucose 120 mg/dL (65-110); Potassium 3.5 mmol/L (3.4-5.0); Sodium 141 mmol/L (137-145)
[2023-02-24 08:00] VITALS: BP 120/65; PULSE 84; RESP 22; TEMP 36.2; O2SAT 99
[2023-02-24] MEDS: KCL 20 MEQ/D5/0.45% SOD CHL 1,000 ML 100 ML IV CONT (10:16)
[2023-02-24] MEDS: ENOXAPARIN 40 MG/0.4 ML SYRINGE SUB-Q (10:16)
[2023-02-24] MEDS: guaiFENesin 12 HR 600 MG TABCR PO ×2 (10:17→21:15)
[2023-02-24] MEDS: POTASSIUM CHLORIDE 10 MEQ ER TABLET PO (10:17)
[2023-02-24] MEDS: polyethylene glycoL 3350 17 GM POWD.PACK PO (10:17)
[2023-02-24] MEDS: DULoxetine HCL 60 MG CAPSULE.DR PO (10:17)
[2023-02-24] MEDS: ACETAMINOPHEN 325 MG TABLET 650 MG PO ×2 (10:18→16:41)
[2023-02-24] MEDS: FUROSEMIDE 20 MG TABLET PO (10:18)
[2023-02-24] MEDS: LORATADINE 10 MG TABLET PO (10:18)
[2023-02-24] MEDS: TOLNAFTATE 1% POWDER 45 GM BTL 1 APPLIC TOPICAL ×2 (10:20→21:16)
[2023-02-24] MEDS: CARBAMIDE PEROXIDE 6.5% OT SOLN 15 ML BTL 5 DROP EACH EAR ×2 (10:20→21:17)
[2023-02-24] MEDS: FLUTICASONE PROPIONATE 0.05% NA SPR 16 GM BTL (*BKC) 2 SPRAY NASAL (10:21)
[2023-02-24] MEDS: COLLAGENASE OINT 30 GM TUBE 1 APPLIC TOPICAL (10:21)
[2023-02-24 12:00] VITALS: BP 130/84; PULSE 84; RESP 20; TEMP 36.3; O2SAT 98
--- NOTE | 2023-02-24 13:58 | PM.DS ---
DS: Admitting Diagnosis Discharge Date 02/24/23 Admitting Diagnosis hip pain DS: Discharge Diagnosis Discharge Diagnosis (1) Cellulitis of left leg: Code(s): L03.116 - Cellulitis of left lower limb Status: Acute Assessment and Plan: Continue vancomycin, initiated 02/20, monitor symptoms closely, clinically improving 02/21: check CT hip, r/o SQ air/abscess: No abscess seen 02/23: improving (2) Acute urinary tract infection: Code(s): N39.0 - Urinary tract infection, site not specified Status: Acute Assessment and Plan: Do not suspect active infection, appreciate urology consultation (3) Presence of urostomy: Code(s): Z93.6 - Other artificial openings of urinary tract status Status: Acute (4) Leukocytosis: Code(s): D72.829 - Elevated white blood cell count, unspecified Status: Acute (5) Paraplegia: Code(s): G82.20 - Paraplegia, unspecified Status: Acute (6) Spina bifida of lumbar spine: Code(s): Q05.7 - Lumbar spina bifida without hydrocephalus Status: Acute (7) Morbid obesity due to excess calories: Code(s): E66.01 - Morbid (severe) obesity due to excess calories Status: Acute Plan DVT prophylaxis with SCDs GI prophylaxis not indicated Code status DNR DS: Summary Hospital Course Hospital Course: 77-year-old female with spina bifida, paraplegia and chronic indwelling urostomy is presenting with hip pain and redness and is currently being treated for cellulitis. Patient's symptoms improved dramatically on vancomycin. Urine culture negative for infection. Blood cultures negative for infection. She was discharged in stable condition with close outpatient follow-up on oral doxycycline. Please see above and med rec for details. Time Spent with Patient Time attestation: Total time spent providing and/or coordinating discharge services: Exam Narrative: General: No acute distress, alert and oriented per baseline HEENT: Atraumatic, normocephalic, mucous membranes moist CV: Regular rate and rhythm, S1, S2 Lungs: Clear to auscultation bilaterally, no rales or crackles noted, no wheezes, good air entry Abdomen: Soft, nontender, nondistended Extremities: minimal erythema and swelling, much improved Skin: No rashes noted, no lesions or wounds seen Psych: Euthymic, normal affect DS: Data Data Completed and Pending Labs on day of discharge: Labs from last 24 hours 02/24/23 06:15 WBC 6.9 RBC 4.02 L Hgb 11.4 L Hct 36.6 L MCV 91.0 MCH 28.4 MCHC 31.1 L RDW 14.4 Plt Count 369 MPV 9.6 Immature Gran % (Auto) 0.9 H Neut % (Auto) 50.6 Lymph % (Auto) 34.1 [place] % (Auto) 9.2 H Eos % (Auto) 4.5 H Baso % (Auto) 0.7 Lymph # (Auto) 2.34 [place] # (Auto) 0.6 Eos # (Auto) 0.3 Baso # (Auto) 0.1 Abs Immat Gran (auto) 0.06 H Absolute Neuts (auto) 3.5 Absolute Nucleated RBC 0.0 Nucleated RBC % 0.0 Sodium 141 Potassium 3.5 Chloride 106 Carbon Dioxide 32 H Anion Gap 3 L BUN 5 L Creatinine 0.50 L Estim Creat Clear Calc 79 Estimated GFR > 60 Glucose 120 H Calcium 9.1 Preliminary micro results at discharge 02/20/23 20:46 Blood Culture - Preliminary Blood 02/20/23 21:04 Blood Culture - Preliminary Blood Discharge Plan Discharge Attending physician on discharge: Thais Sutton Consulting providers: Tereso Hurtado Discharging Clinician: Thais Sutton Patient Disposition: SNF Activity: as tolerated Diet: as tolerated Patient Instructions: Antibiotic Form Stand Alone Forms: General Discharge Information Follow-up/Referrals: Tereso Hurtado MD [Physician] - Mook Herrera MD [Primary Care Provider] - Discharge Medications: New doxycycline hyclate 100 mg Tablet 100 mg PO Q12HR 8 Days Qty: 16 0RF Continued atorvastatin 10 mg tablet 10 mg PO HS acetaminophen 650 mg Tablet 650 mg PO Q4H
--- NOTE | 2023-02-24 14:41 | PCPTNOTE ---
Spoke with current hospitalist, Dr. Lesley SALDANA to discharge therapy orders due to pt being dependent at baseline.
[2023-02-24 16:00] VITALS: BP 100/49; PULSE 88; RESP 18; TEMP 36.5; O2SAT 94
[2023-02-24] MEDS: DOXYCYCLINE HYCLATE 100 MG TABLET PO ×2 (16:36→21:15)
[2023-02-24 18:50] LABS: SARS-CoV-2 RNA PCR Negative (Negative)
[2023-02-24] MEDS: ATORVASTATIN 10 MG TABLET PO (21:15)
[2023-02-24] MEDS: traZODone HCL 50 MG TABLET 100 MG PO (21:15)
== END 2023-02-24 20:45 | DRG 603 ==
LOC: ANHED 23:50 → ANH3MEDSUR 02-21 00:27
PROVIDERS: Admitting Provider Family Medicine; Emergency Provider Student in an Organized Health Care Education/Training Program; PCP Hospitalist; Visit Provider Student in an Organized Health Care Education/Training Program
DX: L03.116 Cellulitis of left lower limb (principal); G82.20 Paraplegia, unspecified; D72.829 Elevated white blood cell count, unspecified; R82.71 Bacteriuria; E66.01 Morbid (severe) obesity due to excess calories; Z68.38 Body mass index [BMI] 38.0-38.9, adult; Z93.6 Other artificial openings of urinary tract status; Q05.7 Lumbar spina bifida without hydrocephalus; Z11.52 Encounter for screening for COVID-19; Z66 Do not resuscitate
CPT/HCPCS: 36415; 72193; 80048; 80053; 80202; 81001; 83605; 83735; 84100; 84484; 85025; 85610; 85730; 86140; 87040; 87077; 87081; 87086; 87186; 87635; 93971; 96361; 96365; 99285; A9270; J0696; J1650; J3370; J3480; J7030; Q9967

== ENCOUNTER 2024-07-07 20:41 | Inpatient (IN) | payer OTHER, SELFPAY ==
--- NOTE | ~2024-07-07 | XR_ITS ---
CHEST RADIOGRAPH CLINICAL HISTORY: Nausea vomiting . COMPARISON: None available TECHNIQUE: Single portable view of the chest. FINDINGS A small bore catheter extends from the right lateral soft tissues of the neck into the (presumed) rig ht atrium. The remainder of the cardiomediastinal silhouette is otherwise unremarkable. The lungs are clear. Within the minimally visualized stomach are multiple loops of significantly dilated bowel, for which plain film evaluation of the abdomen and pelvis is recommended (versus IV contrast enhanced cross-sec tional imaging). IMPRESSION: No focal infiltrate or effusion. Small bore catheter originates within the right lateral soft tissues of the neck, possibly entering t he right atrium. Multiple loops of dilated bowel within the minimally visualized upper abdomen. Reviewed, dictated and finalized at location A. IMPRESSION: No focal infiltrate or effusion. Small bore catheter originates within the right lateral soft tissues of the nec k, possibly entering the right atrium. Multiple loops of dilated bowel within the minimally visualized upper abdomen.
--- NOTE | ~2024-07-07 | XR_ITS ---
XR abdomen/kub 1V Ordering provider: Bal Camargo MD History: . Right urteral stone . Comparison: None. FINDINGS: BOWEL: Distended bowel loops with gases. Nonobstructive bowel gas pattern. Sigmoid colon is slightly distended but no definite evidence of volvulus seen. ORGANOMEGALY: None. SIGNIFICANT PATHOLOGIC CALCIFICATIONS: 01/09/2020 Stone in the right kidney is highly suggestive. OTHER: No free air is seen under the diaphragm. IMPRESSION: NO ACUTE ABDOMINAL FINDINGS. Highly suggestive stone in the right kidney. Reviewed, dictated and finalized at location A.
--- NOTE | ~2024-07-07 | XR_ITS ---
CHEST RADIOGRAPH CLINICAL HISTORY: Leukocytosis . COMPARISON: 07/07/2024 TECHNIQUE: Single portable view of the chest. FINDINGS Redemonstration of a small bore catheter extending from the soft tissues of the right lateral neck, i nto the right atrium and right ventricle (as seen on CT examination performed 24 hours earlier). The remainder of the cardiomediastinal silhouette is otherwise unremarkable. The lungs are clear. IMPRESSION: No focal infiltrate or effusion. Reviewed, dictated and finalized at location A.
--- NOTE | ~2024-07-07 | XR_ITS ---
Supine and upright views of the abdomen Clinical history: Large amount of stool right colon COMPARISON: 07/08/2024 Findings: There is prominent stool at the rectum. There is gaseous distention of large and small eveline l loops. No free air evident. No abnormal mass lesion or calcification is seen. Osseous structures ar e intact. Impression: Prominent stool at the rectum. Correlate for fecal impaction. Air distended large and small bowel. Reviewed, dictated and finalized at location . Impression: Prominent stool at the rectum. Correlate for fecal impaction. Air distended large and small bowel.
--- NOTE | ~2024-07-07 | XR_ITS ---
Supine and upright views of the abdomen Clinical history: Constipation Findings: Large amount of stool again present. There are air distended large and and small bowel loop s. No definite free air. No abnormal mass lesion or calcification is seen. Osseous structures are int act. Impression: Prominent stool again noted at the rectum and right colon particular. Diffuse air distention of large and small bowel. Reviewed, dictated and finalized at location M. Impression: Prominent stool again noted at the rectum and right colon particular. Diffuse air distention of large and small bowel.
--- NOTE | ~2024-07-07 | CT_ITS ---
CLINICAL INDICATION: Abdominal pain, nausea and vomiting COMPARISON: None. TECHNIQUE: Multiple contiguous axial images of the abdomen and pelvis were performed following the ad ministration of with 100 mL Omnipaque-350 intravenous contrast The dose-length product (DLP) was 1146.52 mGy-cm. Automated exposure control and iterative reconstruction technique were employed. FINDINGS/OBSERVATIONS: Visualized lower thorax: Right basilar atelectasis. A bilobed nodule is identified within the left lung base measuring 19 x 22 mm and 10 x 11 mm, respect ively (axial series, image 17). An additional pulmonary nodule detected within the left lower lobe measuring 8.3 x 7.7 mm (axial seri es, image 10). The heart is enlarged, without pericardial effusion. Small hiatal hernia is present. Liver: Multiple rounded foci of fluid attenuation are identified within the liver, suggesting simple cysts. The remainder of the liver demonstrates otherwise homogeneous enhancement and is not enlarged measuri ng 16 cm in longitudinal dimension. Gallbladder and biliary system: The gallbladder is only minimally distended, and otherwise unremarkable. Pancreas: The pancreas enhances homogeneously without ductal dilatation. Spleen: The spleen enhances homogeneously and is not enlarged measuring 6 cm in longitudinal dimension. Kidneys: Right-sided hydroureteronephrosis extending to the proximal right ureter where a 7 mm stone is identi fied. Hyperemia of the worrell of the collecting system are present consistent with ureteritis. Multiple nonobstructing stones are identified within the right kidney, the largest within the lower p ole measuring 7 mm. Hyperenhancement of the worrell of the left sided ureter and collecting system are also noted consistent with left-sided ureteritis. Adrenal glands: Unremarkable. Gastrointestinal tract: Significant fecal stasis is identified distending the rectum to the level of the L1 vertebral body. Fecal stasis is identified within the remainder of the air and stool-filled colon which is markedly d ilated. The dilatation from the colon demonstrates mass effect on the patient's ileal conduit, likely causing patient's infection (in addition to the obstructing stone). Vasculature: Calcified atherosclerotic disease. Lymph nodes: No pathologically enlarged or morphologically suspicious lymph nodes within the retroperitoneum or at the root of the mesentery. Body wall and musculoskeletal: Stoma extends along the right lower quadrant. Diffuse degenerative disease within the lower thoracic and lumbosacral spines. IMPRESSION: Right-sided hydroureteronephrosis secondary to a 7 mm calculus within the proximal right ureter. Bilateral ureteritis with ascending infection on the left secondary to stasis of the urine within pat ient's urostomy from mass effect of the significantly dilated stool-filled distended colon. Reviewed, dictated and finalized at location A. IMPRESSION: Right-sided hydroureteronephrosis secondary to a 7 mm calculus within the proxi mal right ureter. Bilateral ureteritis with ascending infection on the left secondary to stasis o f the urine within patient's urostomy from mass effect of the significantly dil ated stool-filled distended colon.
[2024-07-07 20:45] VITALS: BP 148/95; PULSE 106; RESP 13; TEMP 36.7; O2SAT 94
--- NOTE | 2024-07-07 20:57 | ECG_ITS ---
Test Date: 2024-07-07 21:23:05 Measurements Intervals [place] Rate: 104 P: 54 CO: 136 QRS: -1 QRSD: 84 T: 10 QT: 348 QTc: 460 Interpretive Statements SINUS TACHYCARDIA WITH OCCASIONAL ECTOPIC PREMATURE COMPLEXES MODERATE T-WAVE ABNORMALITY, CONSIDER ANTERIOR ISCHEMIA [-0.1+ mV T-WAVE IN V3/V4] No previous ECG available for comparison Electronically Signed On 07-08-2024 09:19:48 CDT by Alfa Valero M.D.
[2024-07-07 22:00] VITALS: BP 117/79; PULSE 94; RESP 18; O2SAT 97
--- NOTE | 2024-07-07 22:01 | PC.NURSE ---
Urine sample collected from patient's urostomy bag per ED Charge VOR[facility].
[2024-07-07 22:04] LABS: Basophils Absolute Auto 0.1 K/mm3 (0.0-0.1); Basophils Percent Auto 0.3 % (0.2-1.2); Eosinophils Absolute Auto 0.1 K/mm3 (0-0.3); Eosinophils Percent Auto 0.8 % (0-4.4); Hematocrit 38.4 % (37.0-47.0); Hemoglobin 12.8 g/dL (12.0-15.0); Immature Granulocyte Absolute 0.11 K/mm3 (0.00-0.031); Immature Granulocyte Percent A 0.7 % (0-0.5); Lymphocytes Percent Auto 21.3 % (18.3-44.2); Mean Corpuscular HGB Conc 33.3 g/dl (32-36); Mean Corpuscular Volume 86.9 fl (80-100); Mean Platelet Volume 9.4 fl (7.4-10.4); Monocytes Absolute Auto 0.8 K/mm3 (0.1-0.6); Monocytes Percent Auto 4.8 % (2.6-8.5); Neutrophils Absolute Auto 11.5 K/mm3 (1.3-6.7); Neutrophils Percent Auto 72.1 % (45.5-73.1); Platelet Count Result 671 k/mm3 (150-375); Red Blood Count 4.42 M/mm3 (4.2-5.4); Red Cell Distribution Width 13.6 % (11.5-14.5)
[2024-07-07 22:14] LABS: Alanine Aminotransferase 13 U/L (6-35); Albumin Level 3.8 g/dL (3.5-5.1); Alkaline Phosphatase 122 U/L (38-126); Anion Gap 8 mmol/L (4-12); Aspartate Amino Transferase 25 U/L (14-36); Bilirubin,Total 0.5 mg/dL (0.2-1.3); Blood Urea Nitrogen 18 mg/dL (7-17); Calcium 9.5 mg/dL (8.4-10.2); Carbon Dioxide 33 mmol/L (22-30); Chloride 94 mmol/L (98-107); Estimated CRCL calculation 71 ml/min; Estimated Glomerular Filt Rate > 60; Glucose 108 mg/dL (65-110); Lipase 37 U/L (23-300); Magnesium 1.6 mg/dL (1.6-2.3); Sodium 135 mmol/L (137-145)
[2024-07-07 22:15] LABS: Lactic Acid Reflex 1.1 mmol/L (0.7-2.0); Partial Thromboplastin Time 29.8 Seconds (22.3-36.8); Prothrombin Time 13.8 Seconds (11.1-14.7)
[2024-07-07 22:16] LABS: Add Urine Microscopic? YES; Appearance Urine Turbid (Clear); Bacteria Urine 4+ /hpf; Bilirubin Urine Negative (Negative); Blood Urine Negative (Negative); Color Urine Yellow (Yellow); Glucose Urine UA Negative (Negative); Ketones Urine Trace mg/dL (Negative); Leukocyte Esterase Ur 3+ LEU/UL (Negative); Need Manual Microscopic Reviewed; Nitrate Urine Negative (Negative); Protein Urine 2+ mg/dL (Negative); RBC Urine >100 /hpf (0-2); Specific Grav Ur 1.015 (1.001-1.035); Squamous Epithelial Cell Urine Many /hpf (Few); Urobilinogen Urine 0.2 mg/dL (<2.0); WBC Urine >100 /hpf (0-3); pH Urine 8.5 (5.0-9.0)
[2024-07-07 22:26] LABS: Troponin I < 0.012 ng/mL (0.000-0.034)
--- NOTE | 2024-07-07 23:50 | ED_ITS ---
HPI - General Adult General Chief complaint: Abdominal Pain Stated complaint: GEN ABD PAIN & DISTENTION Time Seen by Provider: 07/07/24 20:46 History of Present Illness HPI narrative: Patient is a 78-year-old female presents from her [facility] after a been having abdominal pain and nausea vomiting. The patient reports been noticing a last several weeks her abdomen has become progressively more distended reports that she had an episode of brownish vomit today the patient has history of colitis also history of spina bifida has a urostomy the patient reports no fever Related Data Home Medications ?Medication ?Instructions ?Recorded ?Confirmed ?Last Taken ?Type acetaminophen 650 mg tablet 650 mg PO Q4H PRN mild pain 02/21/23 02/21/23 Unknown History atorvastatin 10 mg tablet 10 mg PO HS 02/21/23 02/21/23 Unknown History bisacodyl 10 mg rectal suppository 10 mg RECTAL DAILY PRN if no 02/21/23 02/21/23 Unknown History results from [facility] calcium 600 mg-D3 800 unit-mag 40 1 tablet PO BID 02/21/23 02/21/23 Unknown History nk-ggrd-rtfd-leydi-boron chew tablet (Caltrate 600-D Plus Minerals) carbamide peroxide 6.5 % ear drops 5 drp EACH EAR Q12H 02/21/23 02/21/23 Unknown History (Debrox) collagenase clostridium histo. 250 1 applic topical DAILY 02/21/23 02/21/23 Unknown History unit/gram topical ointment (Santyl) duloxetine 60 mg capsule,delayed 60 mg PO DAILY 02/21/23 02/21/23 Unknown History release fluticasone propionate 50 2 spray intranasal DAILY 02/21/23 02/21/23 Unknown History mcg/actuation nasal spray,suspension (Flonase Allergy Relief) furosemide 20 mg tablet (Lasix) 20 mg PO DAILY 02/21/23 02/21/23 Unknown History guaifenesin 400 mg tablet 400 mg PO Q4H PRN cough or 02/21/23 02/21/23 Unknown History congestion guaifenesin 600 mg tablet, 600 mg PO BID 02/21/23 02/21/23 Unknown History extended release 12 hr (Mucinex) loratadine 10 mg tablet 10 mg PO DAILY 02/21/23 02/21/23 Unknown History magnesium hydroxide 400 mg/5 mL 400 mg PO HS PRN constipation if 02/21/23 02/21/23 Unknown History oral suspension no BM for 3 days nystatin 100,000 unit/gram topical 1 applic topical TID 02/21/23 02/21/23 Unknown History powder ondansetron 4 mg disintegrating 4 mg PO Q6H PRN Nausea 02/21/23 02/21/23 Unknown History tablet polyethylene glycol 3350 17 gram 17 g PO DAILY 02/21/23 02/21/23 Unknown History oral powder packet (Miralax) potassium chloride 10 mEq 10 meq PO DAILY 02/21/23 02/21/23 Unknown History capsule,extended release trazodone 100 mg tablet 100 mg PO HS 02/21/23 02/21/23 Unknown History Allergies Allergy/AdvReac Type Severity Reaction Status Date / Time codeine Allergy Unknown Verified 02/20/23 20:04 NSAIDS (Non-Steroidal Allergy Unknown Verified 02/20/23 20:04 Anti-Inflamma Penicillins Allergy Hives Verified 02/20/23 20:04 Sulfa (Sulfonamide Allergy Hives Verified 02/20/23 20:04 Antibiotics) Review of Systems 2 Review of Systems: A 10 system review of systems was completed on the patient and is negative except for what is stated in the HPI. Nursing and ancillary documentation was reviewed. [facility] Past Medical History Medical History Morbid obesity due to excess calories Spina bifida of lumbar spine Presence of urostomy Social History Social History Smoking status: Former smoker Alcohol intake: never Substance use: never Lack of Transportation: No Lack of Food: Never True Current Housing: I Have Housing Concerned About Future Housing: No Difficulty Paying Gas/Electric Bills: No Difficulty Paying for Meds: No Currently Unemployed: No Education: High School Diploma/GED Difficulty w/ Childcare or Family Care: No Spiritual care concerns: No Exam 2 Narrative: GENERAL: Well-appearing, well-nourished, and in no acute distress. HEAD: Normocephalic, atraumatic. EYES: PERRLA and EOMI. ENT: Nares clear, no rhinorrhea or epistaxis. Mucous membranes moist. NECK: Supple. CHEST: Clear to auscultation. No respiratory distress. HEART: Regular rate and rhythm. No murmur heard. Normal peripheral pulses. ABDOMEN: Soft, diffuse mild tenderness, abdominal distension, normal active bowel sounds. EXTREMITIES: Normal range of motion. No edema. SKIN: Warm, dry, no rash. NEURO: No focal deficits. Alert and oriented x3. PSYCH: Normal mood and affect. Course Vital Signs Vital signs: Vital Signs Temperature 36.7 C 07/07/24 20:45 Pulse Rate 106 H 07/07/24 20:45 Respiratory Rate 13 07/07/24 20:45 Blood Pressure 148/95 H 07/07/24 20:45 Pulse Oximetry 94 07/07/24 20:45 Oxygen Delivery Room Air 07/07/24 20:45 Temperature 36.7 C 07/07/24 20:45 Pulse Rate 94 07/07/24 22:00 Respiratory Rate 18 07/07/24 22:00 Blood Pressure 117/79 07/07/24 22:00 Pulse Oximetry 97 07/07/24 22:00 Oxygen Delivery Room Air 07/07/24 20:45 Medical Decision Making MDM Narrative Medical decision making narrative: Differential diagnosis includes bowel obstruction, ureterolithiasis, pyelonephritis, intra-abdominal infection, colitis, diverticulitis CT scan showed evidence of large stool burden also there was evidence of hydroureteronephrosis and a 6 ureteral stone causing mild hydro the patient did also have a UTI the patient was started on Rocephin cultures were obtained urology was consulted and also the patient be admitted to the hospitalist service with methods to alter the patient's bowel regimen Vital Signs Vital Signs: Vital Signs Temperature 36.7 C 07/07/24 20:45 Pulse Rate 106 H 07/07/24 20:45 Respiratory Rate 13 07/07/24 20:45 Blood Pressure 148/95 H 07/07/24 20:45 Pulse Oximetry 94 07/07/24 20:45 Oxygen Delivery Room Air 07/07/24 20:45 Temperature 36.7 C 07/07/24 20:45 Pulse Rate 94 07/07/24 22:00 Respiratory Rate 18 07/07/24 22:00 Blood Pressure 117/79 07/07/24 22:00 Pulse Oximetry 97 07/07/24 22:00 Oxygen Delivery Room Air 07/07/24 20:45 Lab Data 07/07/24 21:56 07/07/24 21:56 Labs: Lab Results 07/07/24 Range/Units 21:56 WBC 16.0 H (4.5-10.0) K/mm3 RBC 4.42 (4.2-5.4) M/mm3 Hgb 12.8 (12.0-15.0) g/dL Hct 38.4 (37.0-47.0) % MCV 86.9 (80-100) fl MCH 29.0 (26-34) pg MCHC 33.3 (32-36) g/dl RDW 13.6 (11.5-14.5) % Plt Count 671 H D (150-375) k/mm3 MPV 9.4 (7.4-10.4) fl Immature Gran % (Auto) 0.7 H (0-0.5) % Neut % (Auto) 72.1 (45.5-73.1) % Lymph % (Auto) 21.3 (18.3-44.2) % [place] % (Auto) 4.8 (2.6-8.5) % Eos % (Auto) 0.8 (0-4.4) % Baso % (Auto) 0.3 (0.2-1.2) % Lymph # (Auto) 3.40 H (0.9-3.2) K/mm3 [place] # (Auto) 0.8 H (0.1-0.6) K/mm3 Eos # (Auto) 0.1 (0-0.3) K/mm3 Baso # (Auto) 0.1 (0.0-0.1) K/mm3 Abs Immat Gran (auto) 0.11 H (0.00-0.031) K/mm3 Absolute Neuts (auto) 11.5 H (1.3-6.7) K/mm3 Absolute Nucleated RBC 0.000 (0.0-0.012) K/mm3 Nucleated RBC % 0.0 (0.0-0.2) % PT 13.8 (11.1-14.7) Seconds INR 1.0 APTT 29.8 (22.3-36.8) Seconds Sodium 135 L (137-145) mmol/L Potassium 3.0 L (3.4-5.0) mmol/L Chloride 94 L (98-107) mmol/L Carbon Dioxide 33 H (22-30) mmol/L Anion Gap 8 (4-12) mmol/L BUN 18 H D (7-17) mg/dL Creatinine 0.54 L (0.7-1.0) mg/dL Estim Creat Clear Calc 71 ml/min Estimated GFR > 60 (59 - ) Glucose 108 (65-110) mg/dL Lactic Acid 1.1 (0.7-2.0) mmol/L Calcium 9.5 (8.4-10.2) mg/dL Magnesium 1.6 (1.6-2.3) mg/dL Total Bilirubin 0.5 (0.2-1.3) mg/dL AST 25 (14-36) U/L ALT 13 (6-35) U/L Alkaline Phosphatase 122 (38-126) U/L Troponin I < 0.012 (0.000-0.034) ng/mL Total Protein 8.0 (6.3-8.2) g/dL Albumin 3.8 (3.5-5.1) g/dL Lipase 37 (23-300) U/L Urine Color Yellow (Yellow) Urine Appearance Turbid H (Clear) Urine pH 8.5 (5.0-9.0) Ur Specific [place] 1.015 (1.001-1.035) Urine Protein 2+ H (Negative) mg/dL Urine Glucose (UA) Negative (Negative) mg/dL Urine Ketones Trace H (Negative) mg/dL Ur Blood (Man) Negative (Negative) Urine Nitrate Negative (Negative) Urine Bilirubin Negative (Negative) Urine Urobilinogen 0.2 (<2.0) mg/dL Add Ur Microanalysis Reviewed Leukocyte Esterase Rfl 3+ H (Negative) MARIA LUISA/UL Urine RBC >100 H (0-2) /hpf Urine WBC >100 H (0-3) /hpf Ur Squamous Epith Cells Many H (Few) /hpf Urine Bacteria 4+ /hpf Urine Casts 11-20 Discharge Plan Discharge Clinical Impression: Abdominal pain, Acute UTI, Ureterolithiasis, Constipation Patient Disposition: Still a Patient Condition: Stable Instructions: Antibiotic Form Patient Language: [place] Prescriptions: No Action atorvastatin 10 mg tablet 10 mg PO HS acetaminophen 650 mg Tablet 650 mg PO Q4H PRN (Reason: mild pain) bisacodyl 10 mg Suppository 10 mg RECTAL DAILY PRN (Reason: if no results from [facility]) Debrox 6.5 % Drops 5 drp EACH EAR Q12H fluticasone propionate [Flonase Allergy Relief] 50 mcg/actuation [place],Suspension 2 spray INTRANASAL DAILY Rx Instructions: administer into each nostril duloxetine 60 mg capsule,delayed release(DR/EC) 60 mg PO DAILY Caltrate 600-D Plus Minerals 600 mg calcium- 800 unit-40 mg Tablet,Chewable 1 tablet PO BID polyethylene glycol 3350 [Miralax] 17 gram Powder In Packet 17 g PO DAILY magnesium hydroxide 400 mg/5 mL Suspension 400 mg PO HS PRN (Reason: constipation if no BM for 3 days) furosemide [Lasix] 20 mg Tablet 20 mg PO DAILY loratadine 10 mg Tablet 10 mg PO DAILY guaifenesin 400 mg Tablet 400 mg PO Q4H PRN (Reason: cough or congestion) guaifenesin [Mucinex] 600 mg Tablet Extended Release 12hr 600 mg PO BID potassium chloride 10 mEq Capsule, Extended Release 10 meq PO DAILY trazodone 100 mg Tablet 100 mg PO HS nystatin 100,000 unit/gram Powder 1 applic TOPICAL TID Santyl 250 unit/gram Ointment 1 applic TOPICAL DAILY ondansetron 4 mg Tablet,Disintegrating 4 mg PO Q6H PRN (Reason: Nausea) doxycycline hyclate 100 mg Tablet 100 mg PO Q12HR 8 Days Qty: 16 0RF Follow-up/Referrals: UNKNOWN,DOCTOR [Primary Care Provider] - Time of Disposition: 23:54
[2024-07-08 01:03] VITALS: PULSE 102; RESP 72; O2SAT 94
--- NOTE | 2024-07-08 01:03 | PC.NURSE ---
Report called to NISHA Ying. Pt to be taken to floor when phlebotomy obtains blood cultures.
--- NOTE | 2024-07-08 01:48 | ADMGEN ---
This patient, Sadia Toledo, was admitted to Medical Room 345-. Patient/family oriented to hospital policies and general routines including ID bracelet, bed and alarms, visiting hours, pain management, procedures, bathroom and other care routines, personal items, smoking policy, room service/diet, and visiting hours. Information on how to activate the Rapid Response Team has been discussed. Patient/Family are encouraged to report perceived risks to care and to ask questions if they do not understand what they are told or what they should do.
[2024-07-08 01:55] VITALS: BP 104/74; PULSE 105; RESP 18; TEMP 36.4; O2SAT 94; BMI 32.5
[2024-07-08] MEDS: BISACODYL 10 MG SUPPOSITORY RECTAL (02:50)
--- NOTE | 2024-07-08 04:15 | PM.IMHP ---
H&P: HPI History of Present Illness Date/Time: 07/08/24 04:15 Chief Complaint: Abdominal pain. 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 The patient provides the following history. She gives a several week history of generalized abdominal discomfort and abdominal distension which has gotten worse the last 24 hours or so. She feels bloated and constipated. Additionally she reports ongoing nausea and reports having an episode of brownish colored emesis earlier today. She denies fever, chills, sweats, chest pain, shortness of breath, melena, hematochezia, and low back pain. No known sick contacts. In the ED: Vital signs were stable on arrival. Labs were significant for WBC count of 16.0, sodium 135, potassium 3.0, chloride 94, carbon dioxide 33, BUN 18, creatinine 0.54. CT of the abdomen pelvis showed right-sided hydroureteronephrosis secondary to 7 mm calculus within the proximal right ureter, bilateral urethra right S with ascending infection on the left secondary to stasis of urine within patient's urostomy from mass effect of the significantly dilated stool-filled distended colon. She was given ceftriaxone 1 g, a soapsuds enema, and Dulcolax suppository and she is being admitted in this setting for further treatment and evaluation. Review of Systems Review of Systems: 12 systems were reviewed and are negative except for as per HPI. [facility] Past Medical History Medical History (Updated 07/08/24 @ 04:22 by Demi Rain PA-C) Hyperlipidemia Depression with anxiety Spina bifida of lumbar spine Surgical History Surgical History (Updated 07/08/24 @ 04:20 by Demi Rain PA-C) History of hysterectomy History of tonsillectomy History of appendectomy History of urostomy Family History Family History Father Cancer Social History Social History (Updated 07/08/24 @ 04:21 by Demi Rain PA-C) Social History: Legal guardian: Daniella Chilel ([phone]). Code status: Do not resuscitate. Smoking status: Never smoker Alcohol intake: never Substance use: never Substance use type: does not use Do You Feel Safe in your Home?: Yes Lack of Transportation: No Lack of Food: Never True Current Housing: I Have Housing Concerned About Future Housing: No Difficulty Paying Gas/Electric Bills: No Difficulty Paying for Meds: No Currently Unemployed: No Education: High School Diploma/GED Difficulty w/ Childcare or Family Care: No Spiritual care concerns: No Meds Home Medications and Allergies Home Medications ?Medication ?Instructions ?Recorded ?Confirmed ?Type acetaminophen 650 mg tablet 650 mg PO Q4H PRN mild pain 02/21/23 07/08/24 History atorvastatin 10 mg tablet 10 mg PO HS 02/21/23 07/08/24 History calcium 600 mg-D3 800 unit-mag 40 1 tablet PO BID 02/21/23 07/08/24 History tx-enlt-fsja-leydi-boron chew tablet (Caltrate 600-D Plus Minerals) duloxetine 60 mg capsule,delayed 60 mg PO DAILY 02/21/23 07/08/24 History release fluticasone propionate 50 2 spray intranasal DAILY 02/21/23 07/08/24 History mcg/actuation nasal spray,suspension (Flonase Allergy Relief) furosemide 20 mg tablet (Lasix) 60 mg PO DAILY 02/21/23 07/08/24 History guaifenesin 600 mg tablet, 600 mg PO BID 02/21/23 07/08/24 History extended release 12 hr (Mucinex) loratadine 10 mg tablet 10 mg PO DAILY 02/21/23 07/08/24 History magnesium hydroxide 400 mg/5 mL 400 mg PO HS PRN constipation if 02/21/23 07/08/24 History oral suspension no BM for 3 days nystatin 100,000 unit/gram topical 1 applic topical DAILY PRN moistu 02/21/23 07/08/24 History powder polyethylene glycol 3350 17 gram 17 g PO DAILY 02/21/23 07/08/24 History oral powder packet (Miralax) potassium chloride 10 mEq 10 meq PO DAILY 02/21/23 07/08/24 History capsule,extended release trazodone 100 mg tablet 100 mg PO HS 02/21/23 07/08/24 History cholecalciferol (vitamin D3) 50 50 mcg PO DAILY 07/08/24 07/08/24 History mcg (2,000 unit) capsule multivitamin (Daily Multi-Vitamin 1 tablet PO DAILY 07/08/24 07/08/24 History tablet) Allergies Allergy/AdvReac Type Severity Reaction Status Date / Time codeine Allergy Unknown Verified 02/20/23 20:04 NSAIDS (Non-Steroidal Allergy Unknown Verified 02/20/23 20:04 Anti-Inflamma Penicillins Allergy Hives Verified 02/20/23 20:04 Sulfa (Sulfonamide Allergy Hives Verified 02/20/23 20:04 Antibiotics) Vital Signs Vital Signs - 24 hr 07/07/24 20:45 07/07/24 22:00 07/08/24 01:03 Temperature 98.0 F Pulse Rate 106 H 94 102 H Respiratory Rate 13 18 72 H Blood Pressure 148/95 H 117/79 Pulse Oximetry 94 97 94 Oxygen Delivery Room Air 07/08/24 01:55 07/08/24 02:29 Temperature 97.5 F L Pulse Rate 105 H Respiratory Rate 18 Blood Pressure 104/74 Pulse Oximetry 94 Oxygen Delivery Room Air Exam Narrative: General: Nontoxic-appearing female in the semi-Peacock position in bed in no acute distress. Weight: 75.7 kg. BMI: 32.6. HEENT: Dysconjugate gaze. Conjunctiva mildly injected. Tacky mucous membranes. Neck: Supple. Respiratory: Respirations are nonlabored and lungs are clear to auscultation. Cardiovascular: Regular rate and rhythm with S1-S2. Gastrointestinal: Abdomen is slightly firm and distended with positive bowel sounds. Patient remarks that her abdomen is significantly softer after having a bowel movement. Urostomy bag draining clear yellow urine. Skin: Warm and dry. Extremities: No cyanosis or clubbing. Mild lower extremity edema. Neurological: Alert. Cranial nerves 2-12 are grossly intact. No gross focal deficits to casual conversation. Psychiatric: Pleasant and cooperative with appropriate mood. H&P: Results Labs Labs: Short CBC 07/07/24 Range/Units 21:56 WBC 16.0 H (4.5-10.0) K/mm3 Hgb 12.8 (12.0-15.0) g/dL Hct 38.4 (37.0-47.0) % Plt Count 671 H D (150-375) k/mm3 BMP 07/07/24 21:56 Sodium 135 L Potassium 3.0 L Chloride 94 L Carbon Dioxide 33 H BUN 18 H D Creatinine 0.54 L Glucose 108 Calcium 9.5 Cardiac Enzymes 07/07/24 Range/Units 21:56 Troponin I < 0.012 (0.000-0.034) ng/mL Liver Function 07/07/24 Range/Units 21:56 Total Bilirubin 0.5 (0.2-1.3) mg/dL AST 25 (14-36) U/L ALT 13 (6-35) U/L Alkaline Phosphatase 122 (38-126) U/L Albumin 3.8 (3.5-5.1) g/dL Urine 07/07/24 Range/Units 21:56 Urine Color Yellow (Yellow) Urine Appearance Turbid H (Clear) Urine pH 8.5 (5.0-9.0) Ur Specific [place] 1.015 (1.001-1.035) Urine Protein 2+ H (Negative) mg/dL Urine Glucose (UA) Negative (Negative) mg/dL Impressions Chest X-Ray 07/07/24 21:51 IMPRESSION: No focal infiltrate or effusion. Small bore catheter originates within the right lateral soft tissues of the neck, possibly entering the right atrium. Multiple loops of dilated bowel within the minimally visualized upper abdomen. Abdomen/Pelvis CT 07/07/24 22:55 IMPRESSION: Right-sided hydroureteronephrosis secondary to a 7 mm calculus within the proximal right ureter. Bilateral ureteritis with ascending infection on the left secondary to stasis of the urine within patient's urostomy from mass effect of the significantly dilated stool-filled distended colon. Assessment and Plan Assessment and plan (1) Right ureteral stone: Code(s): N20.1 - Calculus of ureter Status: Acute (2) Hydroureteronephrosis: Code(s): N13.30 - Unspecified hydronephrosis Status: Acute (3) Electrolyte abnormality: Code(s): E87.8 - Other disorders of electrolyte and fluid balance, not elsewhere classified Status: Acute (4) Constipation: Code(s): K59.00 - Constipation, unspecified Status: Acute (5) Spina bifida of lumbar spine: Code(s): Q05.7 - Lumbar spina bifida without hydrocephalus Status: Acute Plan The patient presented to the emergency department for evaluation of abdominal pain and distension as detailed in HPI. Labs, imaging, EKG, and all reports were personally reviewed. CT scan showed fecal stasis distending the rectum to the level of L1 vertebral body. She was given an enema and Dulcolax suppository with some results however she will probably need another enema later on today. Dilation of the colon seems to be exerting mass effect on her ileal conduit leading to right-sided hydroureteronephrosis in addition to a 7 mm stone in the proximal right ureter. Urology has been consulted history will be NPO after midnight as she may need go to the OR. Potassium will be replaced and monitored. She looks a bit dry on exam and by labs and will be hydrated overnight. Vital signs were reviewed and they are stable. Her home medications will be reviewed and resumed as appropriate. Findings and treatment plan were discussed with the patient. Questions were solicited and answered to satisfaction. The patient's medical management will be taken over by the hospitalist team in a.m. Quality VTE Prophylaxis VTE prophylaxis: mechanical ordered If No VTE Prophylaxis Answer both mechanical and pharmacologic: Reason no pharmacologic proph: medical contraindication (may need to go to the OR) The patient has been admitted under observation status. Hospitalist [facility] Advance Care Plan I have confirmed that the patient's Advanced Care Plan is present, code status is documented, or surrogate decision maker is listed in patient medical record.: Yes Medication Reconciliation I have utilized all available resources to obtain, update and review the patients current medications (includes all prescriptions, OTC, herbals, cannabis, and nutritional supplements).: Yes
[2024-07-08] MEDS: POTASSIUM CHLORIDE INJ 40 MEQ in SODIUM CHLORIDE 0.9% IV 500 ML 130 MEQ IVPB ×2 (05:05→10:29)
[2024-07-08 05:15] VITALS: BP 128/58; PULSE 103; RESP 16; TEMP 36.8; O2SAT 94
[2024-07-08 06:21] LABS: Hematocrit 37.5 % (37.0-47.0); Mean Corpuscular Hemoglobin 29.1 pg (26-34); Mean Platelet Volume 9.5 fl (7.4-10.4); Platelet Count Result 597 k/mm3 (150-375); Red Blood Count 4.12 M/mm3 (4.2-5.4); Red Cell Distribution Width 13.9 % (11.5-14.5); White Blood Count 16.2 K/mm3 (4.5-10.0)
[2024-07-08 06:43] LABS: Anion Gap 10 mmol/L (4-12); Blood Urea Nitrogen 15 mg/dL (7-17); Calcium 9.3 mg/dL (8.4-10.2); Carbon Dioxide 31 mmol/L (22-30); Chloride 96 mmol/L (98-107); Estimated CRCL calculation 68 ml/min; Estimated Glomerular Filt Rate > 60; Glucose 87 mg/dL (65-110); Magnesium 1.5 mg/dL (1.6-2.3); Potassium 3.3 mmol/L (3.4-5.0); Sodium 137 mmol/L (137-145)
--- NOTE | 2024-07-08 07:06 | WPDURCON ---
Assessment and Plan Assessment and plan (1) Right ureteral stone: Code(s): N20.1 - Calculus of ureter Status: Acute (2) Hydroureteronephrosis: Code(s): N13.30 - Unspecified hydronephrosis Status: Acute (3) Asymptomatic bacteriuria: Code(s): R82.71 - Bacteriuria Status: Acute (4) Presence of urostomy: Code(s): Z93.6 - Other artificial openings of urinary tract status Status: Acute Assessment and Plan: I suspect this 7 mm right proximal ureteral stone is a coincidental finding and, hopefully, not the source of her abdominal pain or leukocytosis. My initial plan will be to treat whatever urinary tract infection she may have followed by elective right ESWL in a couple weeks. 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 He has not noted have any urological problems. She presents to the ER with abdominal pain. CT imaging demonstrates massive constipation and, coincidentally, a 7 mm obstructing right proximal ureteral stone. She denies flank pain and denies fevers chills. Her urine shows pyuria but that can be misleading because of her urinary tract diversion. Overnight, with successful endeavors to alleviate constipation, she is feeling much better. Review of Systems Review of Systems: All systems reviewed & are unremarkable except as noted in HPI and below [facility] Past Medical History Medical History (Updated 07/08/24 @ 04:22 by Demi Rain PA-C) Hyperlipidemia Depression with anxiety Spina bifida of lumbar spine Surgical History Surgical History (Updated 07/08/24 @ 04:20 by Demi Rain PA-C) History of hysterectomy History of tonsillectomy History of appendectomy History of urostomy Family History Family History Father Cancer Social History Social History (Updated 07/08/24 @ 04:21 by Demi Rain PA-C) Social History: Legal guardian: Daniella Chilel ([phone]). Code status: Do not resuscitate. Smoking status: Never smoker Alcohol intake: never Substance use: never Substance use type: does not use Do You Feel Safe in your Home?: Yes Lack of Transportation: No Lack of Food: Never True Current Housing: I Have Housing Concerned About Future Housing: No Difficulty Paying Gas/Electric Bills: No Difficulty Paying for Meds: No Currently Unemployed: No Education: High School Diploma/GED Difficulty w/ Childcare or Family Care: No Spiritual care concerns: No Meds Home Medications and Allergies Home Medications ?Medication ?Instructions ?Recorded ?Confirmed ?Type acetaminophen 650 mg tablet 650 mg PO Q4H PRN mild pain 02/21/23 07/08/24 History atorvastatin 10 mg tablet 10 mg PO HS 02/21/23 07/08/24 History calcium 600 mg-D3 800 unit-mag 40 1 tablet PO BID 02/21/23 07/08/24 History zu-pkbp-vctd-leydi-boron chew tablet (Caltrate 600-D Plus Minerals) duloxetine 60 mg capsule,delayed 60 mg PO DAILY 02/21/23 07/08/24 History release fluticasone propionate 50 2 spray intranasal DAILY 02/21/23 07/08/24 History mcg/actuation nasal spray,suspension (Flonase Allergy Relief) furosemide 20 mg tablet (Lasix) 60 mg PO DAILY 02/21/23 07/08/24 History guaifenesin 600 mg tablet, 600 mg PO BID 02/21/23 07/08/24 History extended release 12 hr (Mucinex) loratadine 10 mg tablet 10 mg PO DAILY 02/21/23 07/08/24 History magnesium hydroxide 400 mg/5 mL 400 mg PO HS PRN constipation if 02/21/23 07/08/24 History oral suspension no BM for 3 days nystatin 100,000 unit/gram topical 1 applic topical DAILY PRN moistu 02/21/23 07/08/24 History powder polyethylene glycol 3350 17 gram 17 g PO DAILY 02/21/23 07/08/24 History oral powder packet (Miralax) potassium chloride 10 mEq 10 meq PO DAILY 02/21/23 07/08/24 History capsule,extended release trazodone 100 mg tablet 100 mg PO HS 02/21/23 07/08/24 History cholecalciferol (vitamin D3) 50 50 mcg PO DAILY 07/08/24 07/08/24 History mcg (2,000 unit) capsule multivitamin (Daily Multi-Vitamin 1 tablet PO DAILY 07/08/24 07/08/24 History tablet) Allergies Allergy/AdvReac Type Severity Reaction Status Date / Time codeine Allergy Unknown Verified 02/20/23 20:04 NSAIDS (Non-Steroidal Allergy Unknown Verified 02/20/23 20:04 Anti-Inflamma Penicillins Allergy Hives Verified 02/20/23 20:04 Sulfa (Sulfonamide Allergy Hives Verified 02/20/23 20:04 Antibiotics) Vital Signs Vital Signs - 24 hr 07/07/24 20:45 07/07/24 22:00 07/08/24 01:03 Temperature 98.0 F Pulse Rate 106 H 94 102 H Respiratory Rate 13 18 72 H Blood Pressure 148/95 H 117/79 Pulse Oximetry 94 97 94 Oxygen Delivery Room Air 07/08/24 01:55 07/08/24 02:29 07/08/24 05:15 Temperature 97.5 F L 98.3 F Pulse Rate 105 H 103 H Respiratory Rate 18 16 Blood Pressure 104/74 128/58 L Pulse Oximetry 94 94 Oxygen Delivery Room Air Results Labs 07/08/24 05:44 07/08/24 05:44 Labs: Short CBC 07/07/24 07/08/24 Range/Units 21:56 05:44 WBC 16.0 H 16.2 H (4.5-10.0) K/mm3 Hgb 12.8 12.0 (12.0-15.0) g/dL Hct 38.4 37.5 (37.0-47.0) % Plt Count 671 H D 597 H (150-375) k/mm3 BMP 07/07/24 07/08/24 21:56 05:44 Sodium 135 L 137 Potassium 3.0 L 3.3 L Chloride 94 L 96 L Carbon Dioxide 33 H 31 H BUN 18 H D 15 Creatinine 0.54 L 0.53 L Glucose 108 87 Calcium 9.5 9.3 Cardiac Enzymes 07/07/24 Range/Units 21:56 Troponin I < 0.012 (0.000-0.034) ng/mL Liver Function 07/07/24 Range/Units 21:56 Total Bilirubin 0.5 (0.2-1.3) mg/dL AST 25 (14-36) U/L ALT 13 (6-35) U/L Alkaline Phosphatase 122 (38-126) U/L Albumin 3.8 (3.5-5.1) g/dL Urine 07/07/24 Range/Units 21:56 Urine Color Yellow (Yellow) Urine Appearance Turbid H (Clear) Urine pH 8.5 (5.0-9.0) Ur Specific [place] 1.015 (1.001-1.035) Urine Protein 2+ H (Negative) mg/dL Urine Glucose (UA) Negative (Negative) mg/dL
--- NOTE | 2024-07-08 09:24 | P.PNIM_ITS ---
Progress Note: A&P Assessment and Plan (1) Right ureteral stone: Code(s): N20.1 - Calculus of ureter Status: Acute Assessment and Plan: Urology consulted Likely not the cause of her abdominal pain Recommendations for Treat urinary tract infection she may have followed by elective right ESWL in a couple weeks (2) Hydroureteronephrosis: Code(s): N13.30 - Unspecified hydronephrosis Status: Acute Assessment and Plan: Secondary to above If she fails to improve with management of her constipation and supportive care urology may have to consider placement of a right percutaneous nephrostomy tube (3) Electrolyte abnormality: Code(s): E87.8 - Other disorders of electrolyte and fluid balance, not elsewhere classified Status: Acute Assessment and Plan: Hypo magnesium and hypokalemia Replete as needed Daily BMP, Mag phos (4) Constipation: Code(s): K59.00 - Constipation, unspecified Status: Acute Assessment and Plan: KUB Prominent stool again noted at the rectum and right colon particular. Lactulose enema GI consulted recommendations for optimize bowel regimen, no need to repeat colonoscopy. Okay for diet discharged on Prucalopride 2 mg daily and Miralax as needed if she goes more than 2 days without a BM. Unable to start the patient on the medication while inpatient as it is not formulary. Prucalorpide will replace daily Miralax and PRN magnesium. Lactulose b.i.d. Mag citrate Repeat KUB in morning (5) Spina bifida of lumbar spine: Code(s): Q05.7 - Lumbar spina bifida without hydrocephalus Status: Acute Assessment and Plan: Chronic (6) Leukocytosis: Qualifiers: Leukocytosis type: unspecified Qualified Code(s): D72.829 - Elevated white blood cell count, unspecified Code(s): D72.829 - Elevated white blood cell count, unspecified Status: Acute Assessment and Plan: Unknown cause UA appears to be contaminated Blood cultures pending Chest x-ray pending No signs of soft tissue infection (7) History of urostomy: Code(s): Z98.890 - Other specified postprocedural states Status: Acute Assessment and Plan: UA appears to be contaminated No antibiotics indicated at this time Time Spent With Patient Time with patient: Greater than 35 minutes Subjective Date/time seen: 07/08/24 09:24 Interval history: 78-year-old female with paraplegia related to spinal 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 She denies fever, chills, sweats, chest pain, shortness of breath, melena, hematochezia, and low back pain. Patient was seen by Urology and bleeds of the stone is not the cause of her pain. Her pain is improved this morning bowel movement, acute abdominal pain is likely due to large amount stool in the ascending colon. Review of Systems Review of Systems: 12 systems were reviewed and are negativ e except for as per HPI. Exam Narrative: General: Nontoxic-appearing female in the semi-Peacock position in bed in no acute distress. Weight: 75.7 kg. BMI: 32.6. HEENT: Dysconjugate gaze. Conjunctiva mildly injected. Moist mucous membranes. Neck: Supple. Respiratory: Respirations are nonlabored and lungs are clear to auscultation. Cardiovascular: Regular rate and rhythm with S1-S2. Gastrointestinal: Abdomen is slightly soft and distended with positive bowel sounds. Patient remarks that her abdomen is significantly softer after having a bowel movement. Urostomy bag draining clear yellow urine. Skin: Warm and dry. Extremities: No cyanosis or clubbing. Mild lower extremity edema. Neurological: Alert. No gross focal deficits to casual conversation. Psychiatric: Pleasant and cooperative with appropriate mood. Objective Data Vital Signs Vital Signs: Vital Signs - 24 hr 07/07/24 20:45 07/07/24 22:00 07/08/24 01:03 Temperature 98.0 F Pulse Rate 106 H 94 102 H Respiratory Rate 13 18 72 H Blood Pressure 148/95 H 117/79 Pulse Oximetry 94 97 94 Oxygen Delivery Room Air 07/08/24 01:55 07/08/24 02:29 07/08/24 05:15 Temperature 97.5 F L 98.3 F Pulse Rate 105 H 103 H Respiratory Rate 18 16 Blood Pressure 104/74 128/58 L Pulse Oximetry 94 94 Oxygen Delivery Room Air Intake/Output Intake/Output: Intake & Output 07/05/24 07/06/24 07/07/24 07/08/24 23:59 23:59 23:59 23:59 Intake Total 50 Output Total 200 Balance -150 Meds/Results Medications: Active Medications Generic Name Dose Route Start Last Admin Trade Name Freq PRN Reason Stop Dose Admin Fluticasone Propionate 2 spray 07/08/24 09:00 Fluticasone Propionate 0.05% Na Spr 16 Gm Btl (*Bkc) NASAL DAILY ALEXIS Ceftriaxone Sodium 1 gm in 50 mls @ 100 mls/hr 07/08/24 23:00 Rocephin 1 Gm/Ns 50 Ml IVPB Q24H ALEXIS Sodium Chloride 1,000 mls @ 100 mls/hr 07/08/24 04:25 Normal Saline Iv IV CONT 07/08/24 14:24 .Q10H ONE Radiology Results: ITS Impressions Chest X-Ray 07/07/24 21:51 IMPRESSION: No focal infiltrate or effusion. Small bore catheter originates within the right lateral soft tissues of the neck, possibly entering the right atrium. Multiple loops of dilated bowel within the minimally visualized upper abdomen. Abdomen/Pelvis CT 07/07/24 22:55 IMPRESSION: Right-sided hydroureteronephrosis secondary to a 7 mm calculus within the proximal right ureter. Bilateral ureteritis with ascending infection on the left secondary to stasis of the urine within patient's urostomy from mass effect of the significantly dilat ed stool-filled distended colon. Abdomen X-Ray 07/08/24 07:40 Impression: Prominent stool again noted at the rectum and right colon particular. Diffuse air distention of large and small bowel. Labs Labs: Laboratory Results - last 24 hr 07/07/24 07/08/24 21:56 05:44 WBC 16.0 H 16.2 H RBC 4.42 4.12 L Hgb 12.8 12.0 Hct 38.4 37.5 MCV 86.9 91.0 MCH 29.0 29.1 MCHC 33.3 32.0 RDW 13.6 13.9 Plt Count 671 H D 597 H MPV 9.4 9.5 Immature Gran % (Auto) 0.7 H Neut % (Auto) 72.1 Lymph % (Auto) 21.3 Wake % (Auto) 4.8 Eos % (Auto) 0.8 Baso % (Auto) 0.3 Lymph # (Auto) 3.40 H [place] # (Auto) 0.8 H Eos # (Auto) 0.1 Baso # (Auto) 0.1 Abs Immat Gran (auto) 0.11 H Absolute Neuts (auto) 11.5 H Absolute Nucleated RBC 0.000 Nucleated RBC % 0.0 PT 13.8 INR 1.0 APTT 29.8 Sodium 135 L 137 Potassium 3.0 L 3.3 L Chloride 94 L 96 L Carbon Dioxide 33 H 31 H Anion Gap 8 10 BUN 18 H D 15 Creatinine 0.54 L 0.53 L Estim Creat Clear Calc 71 68 Estimated GFR > 60 > 60 Glucose 108 87 Lactic Acid 1.1 Calcium 9.5 9.3 Magnesium 1.6 1.5 L Total Bilirubin 0.5 AST 25 ALT 13 Alkaline Phosphatase 122 Troponin I < 0.012 Total Protein 8.0 Albumin 3.8 Lipase 37 Urine Color Yellow Urine Appearance Turbid H Urine pH 8.5 Ur Specific [place] 1.015 Urine Protein 2+ H Urine Glucose (UA) Negative Urine Ketones Trace H Ur Blood (Man) Negative Urine Nitrate Negative Urine Bilirubin Negative Urine Urobilinogen 0.2 Add Ur Microanalysis Reviewed Leukocyte Esterase Rfl 3+ H Urine RBC >100 H Urine WBC >100 H Ur Squamous Epith Cells Many H Urine Bacteria 4+ Urine Casts 11-20 Quality VTE Prophylaxis VTE prophylaxis: mechanical ordered
[2024-07-08] MEDS: SODIUM CHLORIDE 0.9% IV 1,000 ML 100 ML IV CONT (10:25)
[2024-07-08] MEDS: MAGNESIUM SULF 2 GM/WATER 50ML 2 GM/50 ML BAG IVPB (10:27)
[2024-07-08] MEDS: FLUTICASONE PROPIONATE 0.05% NA SPR 16 GM BTL (*BKC) 2 SPRAY NASAL (10:43)
--- NOTE | 2024-07-08 10:48 | P.CONGI_ITS ---
Assessment and Plan Assessment and plan (1) Chronic constipation: Code(s): K59.09 - Other constipation Status: Acute (2) Abdominal pain: Qualifiers: Abdominal location: generalized Qualified Code(s): R10.84 - Generalized abdominal pain Code(s): R10.9 - Unspecified abdominal pain Status: Acute (3) Abdominal distention: Code(s): R14.0 - Abdominal distension (gaseous) Status: Acute (4) Acute UTI: Code(s): N39.0 - Urinary tract infection, site not specified Status: Acute (5) Hydroureteronephrosis: Code(s): N13.30 - Unspecified hydronephrosis Status: Acute (6) Paraplegia: Code(s): G82.20 - Paraplegia, unspecified Status: Acute (7) Spina bifida of lumbar spine: Qualifiers: Presence of hydrocephalus: unspecified hydrocephalus presence Qualified Code(s): Q05.7 - Lumbar spina bifida without hydrocephalus Code(s): Q05.7 - Lumbar spina bifida without hydrocephalus Status: Acute (8) Leukocytosis: Qualifiers: Leukocytosis type: unspecified Qualified Code(s): D72.829 - Elevated white blood cell count, unspecified Code(s): D72.829 - Elevated white blood cell count, unspecified Status: Acute Plan 1. Chronic constipation/generalized abdominal pain/abdominal distention/spina bifida/paraplegia: Per patient her last colonoscopy was performed in [facility] around 2 years ago and she denies any known Hx of abnormal colonoscopy. Family Hx negative for CRC or IBD. Patient was given an lactulose enema and Dulcolax suppository in the ER with some response but there is likely a large amount of stool still in the colon given what was shown on imaging. Abdominal X-Ray yesterday showed a large amount of stool again present. There are air distended large and and small bowel loops. No definite free air. No abnormal mass lesion or calcification is seen. CT showed bilateral ureteritis with ascending infection on the left secondary to stasis of the urine within patient's urostomy from mass effect of the significantly dilated stool-filled distended colon. Prior to admission it appears that the patient was on Miralax daily and magnesium hydroxide 400 mg as needed if she went 3 days without a BM. She states that she normally has a BM every 1-3 days that requires straining and this constipation is chronic for her and she does not feel it is well controlled on her current bowel regimen with daily Miralax and magnesium Q 3 days as needed. Patient states that her abdominal pain has resolved and she is now having only a dull discomfort but still has some abdominal bloating. She is passing gas. DDX: Motility disorder vs medication induced vs low fiber diet vs pelvic floor dysfunction vs other etiology * start more aggressive bowel regimen to help prevent future episodes of severe constipation * Recommend patient be discharged on Prucalopride 2 mg daily and Miralax as needed if she goes more than 2 days without a BM. Unable to start the patient on the medication while inpatient as it is not formulary. Prucalorpide will replace daily Miralax and PRN magnesium. * Repeat enema this evening * Magnesium Citrate 150 ml now and if no BM repeat 150 ml in the evening in combination with enema * while inpatient will use lactulose BID to keep the patient moving to start tomorrow 2. UTI/hydroureteronephrosis/leukocytosis: Patient s/p ileal loop urinary diversion at the age of 16 as a result to spina bifida. No known Hx of chronic urology issues. Problem #1 likely a partial contributing factor to acute infection. Urology on patients case with plans to treat acute UTI and plan for elective right ESWL in a few weeks. * patient on antibiotics * Urology and primary care team to continue monitoring and treat Thank you very much for allowing me to share in the care of this very nice patient. This report may have been done utilizing a voice recognition system. Attempts have been made to correct errors. However, there may be uncorrected grammatical, spelling, and recognition errors present. GI Consult Note Consult date/time: 07/08/24 10:48 Reason for consult: Constipation HPI: Sadia Toledo is a 78 year old female with PMSH of paraplegia secondary to spinal bifida, S/P urostomy done at age 16, HLD, depression, anxiety, hysterectomy and appendectomy. She presented to the ER yesterday with complaints of abdominal pain and distention. GI has been consulted for constipation and colonic distention noted on imaging. Patient was having abdominal pain and distention prior to admission. She struggles with chronic constipation and does not feel that her current bowel regimen of daily Miralax and PRN magnesium is effective. She is normally having a BM every 1-3 days that requires straining. She states that she does have rectal sensation with BM's. Since admission and BM her abdominal pain has almost resolved and her bloating has improved but not resolved. She is passing gas. Denies nausea, vomiting, odynophagia, dysphagia, reflux, regurgitation, appetite loss, weight loss, early satiety, diarrhea, hematochezia or melena. Denies NSAID, aspirin or anticoag use. Family Hx negative for CRC or IBD. ENDOSCOPY HISTORY: EGD: Patient denies prior Hx of EGD COLONOSCOPY: Per patient last colonoscopy < 2 years ago done in [facility] was unremarkable, reports not available at todays visit LABS AND STOOL STUDIES: Labs 07/08/2024: Sodium 137, potassium 3.3, BUN 15, creatinine 0.53, GFR >60 WBC 16, Hgb 12, Hct 38, MCV 91, platelets 597, INR 1.0 Total bilirubin 0.5, AST 25, ALT 13, Alkaline Phos 122, albumin 3.8 Calcium 9.3, magnesium 1.5 and lipase 37 IMAGING: Abdominal Xray 07/07/2024: Findings: Large amount of stool again present. There are air distended large and and small bowel loops. No definite free air. No abnormal mass lesion or calcification is seen. Osseous structures are intact. Impression: Prominent stool again noted at the rectum and right colon particular. Diffuse air distention of large and small bowel. CT abd/pelvis w/contrast 07/07/2024: FINDINGS/OBSERVATIONS: Visualized lower thorax: Right basilar atelectasis. A bilobed nodule is identified within the left lung base measuring 19 x 22 mm and 10 x 11 mm, respectively (axial series, image 17). An additional pulmonary nodule detected within the left lower lobe measuring 8.3 x 7.7 mm (axial series, image 10). The heart is enlarged, without pericardial effusion. Small hiatal hernia is present. Liver: Multiple rounded foci of fluid attenuation are identified within the liver, suggesting simple cysts. The remainder of the liver demonstrates otherwise homogeneous enhancement and is not enlarged measuring 16 cm in longitudinal dimension. Gallbladder and biliary system: The gallbladder is only minimally distended, and otherwise unremarkable. Pancreas: The pancreas enhances homogeneously without ductal dilatation. Spleen: The spleen enhances homogeneously and is not enlarged measuring 6 cm in longitudinal dimension. Kidneys: Right-sided hydroureteronephrosis extending to the proximal right ureter where a 7 mm stone is identified. Hyperemia of the worrell of the collecting system are present consistent with ureteritis. Multiple nonobstructing stones are identified within the right kidney, the largest within the lower pole measuring 7 mm. Hyperenhancement of the worrell of the left sided ureter and collecting system are also noted consistent with left- sided ureteritis. Adrenal glands: Unremarkable. Gastrointestinal tract: Significant fecal stasis is identified distending the rectum to the level of the L1 vertebral body. Fecal stasis is identified within the remainder of the air and stool-filled colon which is markedly dilated. The dilatation from the colon demonstrates mass effect on the patient's ileal conduit, likely causing patient's infection (in addition to the obstructing stone). Vasculature: Calcified atherosclerotic disease. Lymph nodes: No pathologically enlarged or morphologically suspicious lymph nodes within the retroperitoneum or at the root of the mesentery. Body wall and musculoskeletal: Stoma extends along the right lower quadrant. Diffuse degenerative disease within the lower thoracic and lumbosacral spines. IMPRESSION: Right-sided hydroureteronephrosis secondary to a 7 mm calculus within the proximal right ureter. Bilateral ureteritis with ascending infection on the left secondary to stasis of the urine within patient's urostomy from mass effect of the significantly dilated stool-filled distended colon. Review of Systems 2 Constitutional: Constitutional: Reports as per HPI ENT: Reports as per HPI Cardiovascular: Cardiovascular: Reports as per HPI, Denies chest pain, Denies leg edema, Denies palpitations and Denies dyspnea Respiratory: Respiratory: Denies cough and Denies dyspnea Gastrointestinal: Gastrointestinal: Reports as per HPI Genitourinary: Comments: urostomy Musculoskeletal: Musculoskeletal: Reports as per HPI Integumentary/Breasts: Skin/Breast: Reports as per HPI Neurologic: Comments: paraplegic Psychiatric: Psychiatric: Reports as per HPI Endocrine: Endocrine: Reports no additional endocrine complaints Hematologic/Lymphatic: Hematologic/Lymphatic: Reports no additional hematologic/lymphatic complaints FOR[facility]LY [facility], [facility] Past Medical History Medical History (Updated 03/20/25 @ 10:55 by Zoey Avendaño APRN) Hyperlipidemia Depression with anxiety Spina bifida of lumbar spine Surgical History Surgical History (Updated 07/08/24 @ 04:20 by Demi Rain PA-C) History of hysterectomy History of tonsillectomy History of appendectomy History of urostomy Family History Family History Father Cancer Social History Social History (Updated 07/08/24 @ 04:21 by Demi Rain PA-C) Social History: Legal guardian: Daniella Chilel ([phone]). Code status: Do not resuscitate. Smoking status: Never smoker Alcohol intake: never Substance use: never Substance use type: does not use Do You Feel Safe in your Home?: Yes Lack of Transportation: No Lack of Food: Never True Current Housing: I Have Housing Concerned About Future Housing: No Difficulty Paying Gas/Electric Bills: No Difficulty Paying for Meds: No Currently Unemployed: No Education: High School Diploma/GED Difficulty w/ Childcare or Family Care: No Spiritual care concerns: No Meds Home Medications and Allergies Home Medications ?Medication ?Instructions ?Recorded ?Confirmed ?Type acetaminophen 650 mg tablet 650 mg PO Q4H PRN mild pain 02/21/23 07/08/24 History atorvastatin 10 mg tablet 10 mg PO HS 02/21/23 07/08/24 History calcium 600 mg-D3 800 unit-mag 40 1 tablet PO BID 02/21/23 07/08/24 History ci-ledo-cfza-leydi-boron chew tablet (Caltrate 600-D Plus Minerals) duloxetine 60 mg capsule,delayed 60 mg PO DAILY 02/21/23 07/08/24 History release fluticasone propionate 50 2 spray intranasal DAILY 02/21/23 07/08/24 History mcg/actuation nasal spray,suspension (Flonase Allergy Relief) furosemide 20 mg tablet (Lasix) 60 mg PO DAILY 02/21/23 07/08/24 History guaifenesin 600 mg tablet, 600 mg PO BID 02/21/23 07/08/24 History extended release 12 hr (Mucinex) loratadine 10 mg tablet 10 mg PO DAILY 02/21/23 07/08/24 History magnesium hydroxide 400 mg/5 mL 400 mg PO HS PRN constipation if 02/21/23 07/08/24 History oral suspension no BM for 3 days nystatin 100,000 unit/gram topical 1 applic topical DAILY PRN moistu 02/21/23 07/08/24 History powder polyethylene glycol 3350 17 gram 17 g PO DAILY 02/21/23 07/08/24 History oral powder packet (Miralax) potassium chloride 10 mEq 10 meq PO DAILY 02/21/23 07/08/24 History capsule,extended release trazodone 100 mg tablet 100 mg PO HS 02/21/23 07/08/24 History cholecalciferol (vitamin D3) 50 50 mcg PO DAILY 07/08/24 07/08/24 History mcg (2,000 unit) capsule multivitamin (Daily Multi-Vitamin 1 tablet PO DAILY 07/08/24 07/08/24 History tablet) Allergies Allergy/AdvReac Type Severity Reaction Status Date / Time codeine Allergy Unknown Verified 02/20/23 20:04 NSAIDS (Non-Steroidal Allergy Unknown Verified 02/20/23 20:04 Anti-Inflamma Penicillins Allergy Hives Verified 02/20/23 20:04 Sulfa (Sulfonamide Allergy Hives Verified 02/20/23 20:04 Antibiotics) Vital Signs Vital Signs - 24 hr 07/07/24 20:45 07/07/24 22:00 07/08/24 01:03 Temperature 98.0 F Pulse Rate 106 H 94 102 H Respiratory Rate 13 18 72 H Blood Pressure 148/95 H 117/79 Pulse Oximetry 94 97 94 Oxygen Delivery Room Air 07/08/24 01:55 07/08/24 02:29 07/08/24 05:15 Temperature 97.5 F L 98.3 F Pulse Rate 105 H 103 H Respiratory Rate 18 16 Blood Pressure 104/74 128/58 L Pulse Oximetry 94 94 Oxygen Delivery Room Air Exam 2 Const: General: cooperative, healthy appearing, comfortable, no acute distress and well developed Orientation/consciousness: oriented to person, oriented to place, oriented to time and patient oriented x3 HENMT: Head: normal to inspection, normocephalic and atraumatic Mouth: Yes Normal oral and palatal mucosa present and Yes moist mucous membranes Eyes: General: appearance normal, both eyes and all related structures C onjunctivae: conjunctivae normal Sclera: sclerae normal Pupils: Equal, round and reactive pupils present Neck: Neck: normal visual inspection Chest: Chest palpation & inspection: normal inspection of the chest Resp: Effort & Inspection: normal respiratory effort and able to speak in complete sentences Auscultation: clear to auscultation bilaterally Cardio: Jugular venous distension: no JVD Rate: regular rate Rhythm: r egular rhythm Heart sounds: S1 normal heart sound present and S2 normal heart sound present GI: Inspection: normal to inspection GI Palp: Yes Soft to palpation, No Firmness to palpation present (GI), No Tenderness to palpation present (GI), No Guarding due to palpation present (GI) and Yes No hepatosplenomegaly present Auscultation: normal bowel sounds Rectal Exam: deferred Skin: General skin exam: normal color and no rashes or lesions noted Neuro: General: oriented to person, oriented to place, oriented to time and patient oriented x3 Cranial nerves: Yes Equal, round and reactive pupils present Speech: normal speech Other: paraplegic Extrem: General: normal to inspection, no clubbing, cyanosis or edema, no edema and no pedal edema Psych: Appearance: grossly normal and well kempt Affect: normal affect Results Labs 07/08/24 05:44 07/08/24 05:44 Labs: Short CBC 07/07/24 07/08/24 Range/Units 21:56 05:44 WBC 16.0 H 16.2 H (4.5-10.0) K/mm3 Hgb 12.8 12.0 (12.0-15.0) g/dL Hct 38.4 37.5 (37.0-47.0) % Plt Count 671 H D 597 H (150-375) k/mm3 BMP 07/07/24 07/08/24 21:56 05:44 Sodium 135 L 137 Potassium 3.0 L 3.3 L Chloride 94 L 96 L Carbon Dioxide 33 H 31 H BUN 18 H D 15 Creatinine 0.54 L 0.53 L Glucose 108 87 Calcium 9.5 9.3 Cardiac Enzymes 07/07/24 Range/Units 21:56 Troponin I < 0.012 (0.000-0.034) ng/mL Liver Function 07/07/24 Range/Units 21:56 Total Bilirubin 0.5 (0.2-1.3) mg/dL AST 25 (14-36) U/L ALT 13 (6-35) U/L Alkaline Phosphatase 122 (38-126) U/L Albumin 3.8 (3.5-5.1) g/dL Urine 07/07/24 Range/Units 21:56 Urine Color Yellow (Yellow) Urine Appearance Turbid H (Clear) Urine pH 8.5 (5.0-9.0) Ur Specific [place] 1.015 (1.001-1.035) Urine Protein 2+ H (Negative) mg/dL Urine Glucose (UA) Negative (Negative) mg/dL
[2024-07-08] MEDS: LACTULOSE ENEMA 200 GM/1,000 ML ENEMA RECTAL (11:30)
--- NOTE | 2024-07-08 13:07 | PC.NURSE ---
Unable to obtain IV access at this time. Pt does not have appropriate veins for mid or picc at this time as well. Ok to have no IV per hospitalist.
[2024-07-08 14:49] VITALS: BP 115/77; PULSE 68; RESP 18; TEMP 36.3; O2SAT 100
[2024-07-08] MEDS: MAGNESIUM CITRATE 300 ML BTL PO (15:06)
[2024-07-08 20:15] VITALS: BP 118/70; PULSE 110; RESP 16; TEMP 36.4; O2SAT 94
[2024-07-09 05:53] LABS: Hematocrit 39.6 % (37.0-47.0); Hemoglobin 12.6 g/dL (12.0-15.0); Mean Corpuscular HGB Conc 31.8 g/dl (32-36); Mean Corpuscular Hemoglobin 28.8 pg (26-34); Mean Corpuscular Volume 90.4 fl (80-100); Mean Platelet Volume 9.3 fl (7.4-10.4); Platelet Count Result 671 k/mm3 (150-375); Red Blood Count 4.38 M/mm3 (4.2-5.4); Red Cell Distribution Width 13.9 % (11.5-14.5); White Blood Count 13.1 K/mm3 (4.5-10.0)
[2024-07-09 06:00] VITALS: BP 127/89; PULSE 94; RESP 18; TEMP 36.3; O2SAT 96
[2024-07-09 06:10] LABS: Anion Gap 8 mmol/L (4-12); Blood Urea Nitrogen 11 mg/dL (7-17); Calcium 8.4 mg/dL (8.4-10.2); Carbon Dioxide 33 mmol/L (22-30); Chloride 100 mmol/L (98-107); Estimated CRCL calculation 62 ml/min; Estimated Glomerular Filt Rate > 60; Glucose 89 mg/dL (65-110); Magnesium 2.5 mg/dL (1.6-2.3); Phosphorus 3.3 mg/dL (2.5-4.5); Potassium 2.7 mmol/L (3.4-5.0); Sodium 141 mmol/L (137-145)
[2024-07-09] MEDS: POTASSIUM CHLORIDE 20 MEQ PACKET (FOR LIQUID) PO (06:56)
--- NOTE | 2024-07-09 07:11 | P.PNUR_ITS ---
Progress Note: A&P Assessment and Plan (1) Right ureteral stone: Code(s): N20.1 - Calculus of ureter Status: Acute Assessment and Plan: * Comfortable, afebrile and improving leukocytosis. * No indication for placement right nephrostomy tube acutely. * Will plan outpatient right ESWL in next several weeks. Subjective Subjective Date/Time Seen: 07/09/24 07:11 Interval history: Feels much better, abd. discomfort resolved Review of Systems Review of Systems: All systems reviewed & are unremarkable except as noted in HPI and below Exam Const: General: no acute distress Resp: Effort & Inspection: normal respiratory effort GI: Inspection: non-distended GI Palp: No abdominal tenderness and No Guarding due to palpation present (GI) Auscultation: normal bowel sounds Objective Data Vital Signs Vital Signs: Vital Signs - 24 hr 07/08/24 08:00 07/08/24 14:49 07/08/24 20:15 Temperature 97.4 F L 97.5 F L Pulse Rate 68 110 H Respiratory Rate 18 16 Blood Pressure 115/77 118/70 Pulse Oximetry 100 94 Oxygen Delivery Room Air 07/09/24 06:00 Temperature 97.4 F L Pulse Rate 94 Respiratory Rate 18 Blood Pressure 127/89 Pulse Oximetry 96 Oxygen Delivery Intake/Output Intake/Output: Intake & Output 07/06/24 07/07/24 07/08/24 07/09/24 23:59 23:59 23:59 23:59 Intake Total 50 300 Output Total 500 800 Balance -450 -500 Meds/Results Medications: Active Medications Generic Name Dose Route Start Last Admin Trade Name Freq PRN Reason Stop Dose Admin Acetaminophen 650 mg 07/08/24 17:10 Acetaminophen 325 Mg Tablet PO Q4H PRN Mild Pain (1-3) or Fever Enoxaparin Sodium 40 mg 07/09/24 09:00 Enoxaparin 40 Mg/0.4 Ml Syringe SUB-Q DAILY [facility] Fluticasone Propionate 2 spray 07/08/24 09:00 07/08/24 10:43 Fluticasone Propionate 0.05% Na Spr 16 Gm Btl (*Bkc) NASAL 2 spray DAILY ALEXIS Administration Potassium Chloride 40 meq/ 520 mls @ 130 mls/hr 07/09/24 06:35 Sodium Chloride IVPB 07/09/24 10:34 ONCE ONE Lactulose 20 gm 07/09/24 09:00 Lactulose 20 Gm/30 Ml Udc PO BID [facility] Radiology Results: ITS Impressions Abdomen/Pelvis CT 07/07/24 22:55 IMPRESSION: Right-sided hydroureteronephrosis secondary to a 7 mm calculus within the proximal right ureter. Bilateral ureteritis with ascending infection on the left secondary to stasis of the urine within patient's urostomy from mass effect of the significantly dilated stool-filled distended colon. Chest X-Ray 07/08/24 18:12 IMPRESSION: No focal infiltrate or effusion. Abdomen X-Ray 07/09/24 06:30 Impression: Prominent stool at the rectum. Correlate for fecal impaction. Air distended large and small bowel. Labs Labs: Laboratory Results - last 24 hr 07/09/24 05:31 WBC 13.1 H RBC 4.38 Hgb 12.6 Hct 39.6 MCV 90.4 MCH 28.8 MCHC 31.8 L RDW 13.9 Plt Count 671 H MPV 9.3 Sodium 141 Potassium 2.7 L* Chloride 100 Carbon Dioxide 33 H Anion Gap 8 BUN 11 Creatinine 0.59 L Estim Creat Clear Calc 62 Estimated GFR > 60 Glucose 89 Calcium 8.4 Phosphorus 3.3 Magnesium 2.5 H
--- NOTE | 2024-07-09 07:33 | P.PNIM_ITS ---
Progress Note: A&P Assessment and Plan (1) Right ureteral stone: Code(s): N20.1 - Calculus of ureter Status: Acute Assessment and Plan: Urology consulted Likely not the cause of her abdominal pain Recommendations for Treat urinary tract infection she may have followed by elective right ESWL in a couple weeks (2) Hydroureteronephrosis: Code(s): N13.30 - Unspecified hydronephrosis Status: Acute Assessment and Plan: Secondary to above If she fails to improve with management of her constipation and supportive care urology may have to consider placement of a right percutaneous nephrostomy tube (3) Electrolyte abnormality: Code(s): E87.8 - Other disorders of electrolyte and fluid balance, not elsewhere classified Status: Acute Assessment and Plan: Hypo magnesium and hypokalemia Replete as needed Daily BMP, Mag phos 07/09: K 2.7, will replace 40 meq KCl and will monitor (4) Constipation: Code(s): K59.00 - Constipation, unspecified Status: Acute Assessment and Plan: KUB Prominent stool again noted at the rectum and right colon particular. Lactulose enema GI consulted recommendations for optimize bowel regimen, no need to repeat colonoscopy. Okay for diet discharged on Prucalopride 2 mg daily and Miralax as needed if she goes more than 2 days without a BM. Unable to start the patient on the medication while inpatient as it is not formulary. Prucalorpide will replace daily Miralax and PRN magnesium. Lactulose b.i.d. Mag citrate Repeat KUB on 07/09: NO ACUTE ABDOMINAL FINDINGS. Highly suggestive stone in the right kidney (5) Spina bifida of lumbar spine: Qualifiers: Presence of hydrocephalus: unspecified hydrocephalus presence Qualified Code(s): Q05.7 - Lumbar spina bifida without hydrocephalus Code(s): Q05.7 - Lumbar spina bifida without hydrocephalus Status: Acute Assessment and Plan: Chronic (6) Leukocytosis: Qualifiers: Leukocytosis type: unspecified Qualified Code(s): D72.829 - Elevated white blood cell count, unspecified Code(s): D72.829 - Elevated white blood cell count, unspecified Status: Acute Assessment and Plan: Unknown cause UA appears to be contaminated Blood cultures pending Chest x-ray pending No signs of soft tissue infection (7) History of urostomy: Code(s): Z98.890 - Other specified postprocedural states Status: Acute Assessment and Plan: UA appears to be contaminated No antibiotics indicated at this time Subjective Date/time seen: 07/09/24 07:33 Interval history: 78-year-old female with paraplegia 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 She denies fever, chills, sweats, chest pain, shortness of breath, melena, hematochezia, and low back pain. 07/09/24 Patient is sitting comfortably at bedside. She denies any chest pain, shortness a breath, nausea/vomiting, or abdominal pain at this time. She reports passing of stool yesterday but no bowel movements today. Seen by urology today, no indication for placement of right nephrostomy tube, will plan outpatient right ESWL in next few weeks. WBC 13.1, unknown origin. Urine culture likely contaminated, no idications for antibiotics. Monitor bowel movements and advance diet as necessary. Plan for d/c tomorrow if symptoms continue to improve. Review of Systems Review of Systems: 12 systems were reviewed and are negativ e except for as per HPI. Exam Narrative: General: Nontoxic-appearing female in the semi-Peacock position in bed in no acute distress. Weight: 75.7 kg. BMI: 32.6. HEENT: Dysconjugate gaze. Conjunctiva mildly injected. Moist mucous membranes. Neck: Supple. Respiratory: Respirations are nonlabored and lungs are clear to auscultation. Cardiovascular: Regular rate and rhythm with S1-S2. Gastrointestinal: Abdomen is slightly soft and distended with positive bowel sounds. Patient remarks that her abdomen is significantly softer after having a bowel movement. Urostomy bag draining clear yellow urine. Skin: Warm and dry. Extremities: No cyanosis or clubbing. Mild lower extremity edema. Neurological: Alert. No gross focal deficits to casual conversation. Psychiatric: Pleasant and cooperative with appropriate mood. Objective Data Vital Signs Vital Signs: Vital Signs - 24 hr 07/08/24 08:00 07/08/24 14:49 07/08/24 20:15 Temperature 97.4 F L 97.5 F L Pulse Rate 68 110 H Respiratory Rate 18 16 Blood Pressure 115/77 118/70 Pulse Oximetry 100 94 Oxygen Delivery Room Air 07/09/24 06:00 Temperature 97.4 F L Pulse Rate 94 Respiratory Rate 18 Blood Pressure 127/89 Pulse Oximetry 96 Oxygen Delivery Intake/Output Intake/Output: Intake & Output 07/06/24 07/07/24 07/08/24 07/09/24 23:59 23:59 23:59 23:59 Intake Total 50 300 Output Total 500 800 Balance -450 -500 Meds/Results Medications: Active Medications Generic Name Dose Route Start Last Admin Trade Name Freq PRN Reason Stop Dose Admin Acetaminophen 650 mg 07/08/24 17:10 Acetaminophen 325 Mg Tablet PO Q4H PRN Mild Pain (1-3) or Fever Enoxaparin Sodium 40 mg 07/09/24 09:00 Enoxaparin 40 Mg/0.4 Ml Syringe SUB-Q DAILY [facility] Fluticasone Propionate 2 spray 07/08/24 09:00 07/08/24 10:43 Fluticasone Propionate 0.05% Na Spr 16 Gm Btl (*Bkc) NASAL 2 spray DAILY ALEXIS Administration Potassium Chloride 40 meq/ 520 mls @ 130 mls/hr 07/09/24 06:35 Sodium Chloride IVPB 07/09/24 10:34 ONCE ONE Lactulose 20 gm 07/09/24 09:00 Lactulose 20 Gm/30 Ml Udc PO BID [facility] Potassium Chloride 40 meq 07/09/24 09:00 Potassium Chloride 20 Meq Packet (For Liquid) PO BID [facility] Radiology Results: ITS Impressions Abdomen/Pelvis CT 07/07/24 22:55 IMPRESSION: Right-sided hydroureteronephrosis secondary to a 7 mm calculus within the proximal right ureter. Bilateral ureteritis with ascending infection on the left secondary to stasis of the urine within patient's urostomy from mass effect of the significantly dilated stool-filled distended colon. Chest X-Ray 07/08/24 18:12 IMPRESSION: No focal infiltrate or effusion. Abdomen X-Ray 07/09/24 06:30 Impression: Prominent stool at the rectum. Correlate for fecal impaction. Air distended large and small bowel. Labs Labs: Laboratory Results - last 24 hr 07/09/24 05:31 WBC 13.1 H RBC 4.38 Hgb 12.6 Hct 39.6 MCV 90.4 MCH 28.8 MCHC 31.8 L RDW 13.9 Plt Count 671 H MPV 9.3 Sodium 141 Potassium 2.7 L* Chloride 100 Carbon Dioxide 33 H Anion Gap 8 BUN 11 Creatinine 0.59 L Estim Creat Clear Calc 62 Estimated GFR > 60 Glucose 89 Calcium 8.4 Phosphorus 3.3 Magnesium 2.5 H Quality VTE Prophylaxis VTE prophylaxis: mechanical ordered
[2024-07-09 09:00] VITALS: O2SAT 96
[2024-07-09] MEDS: LACTULOSE 20 GM/30 ML UDC PO ×2 (09:01→17:16)
[2024-07-09] MEDS: ENOXAPARIN 40 MG/0.4 ML SYRINGE SUB-Q (09:01)
[2024-07-09] MEDS: FLUTICASONE PROPIONATE 0.05% NA SPR 16 GM BTL (*BKC) 2 SPRAY NASAL (09:02)
[2024-07-09] MEDS: POTASSIUM CHLORIDE 20 MEQ ER TABLET 40 MEQ PO ×2 (10:45→12:57)
[2024-07-09 14:00] VITALS: BP 103/54; PULSE 102; RESP 18; TEMP 36.3; O2SAT 100
--- NOTE | 2024-07-09 15:43 | WPDGIPROGNO ---
Progress Note: A&P Assessment and Plan (1) Chronic constipation: Code(s): K59.09 - Other constipation Status: Acute Assessment and Plan: continue medical management no new issue abdominal pain almost gone and comfortable, good appetite will follow only as needed (2) Abdominal distention: Code(s): R14.0 - Abdominal distension (gaseous) Status: Acute (3) Right ureteral stone: Code(s): N20.1 - Calculus of ureter Status: Acute Assessment and Plan: urology on board (4) History of urostomy: Code(s): Z98.890 - Other specified postprocedural states Status: Acute (5) Paraplegia: Code(s): G82.20 - Paraplegia, unspecified Status: Acute (6) Spina bifida of lumbar spine: Qualifiers: Presence of hydrocephalus: unspecified hydrocephalus presence Qualified Code(s): Q05.7 - Lumbar spina bifida without hydrocephalus Code(s): Q05.7 - Lumbar spina bifida without hydrocephalus Status: Acute Subjective Date/time seen: 07/09/24 15:43 Interval history: she is comfortable, eating, no new issues Review of Systems Review of Systems: All systems reviewed & are unremarkable except as noted in HPI and below Exam Narrative: General: Nontoxic-appearing female HEENT: Dysconjugate gaze. Neck: Supple. Respiratory: lungs are clear to auscultation. Cardiovascular: Regular rate Gastrointestinal: Abdomen is soft. Urostomy bag draining clear yellow urine. Skin: Warm and dry. Extremities: No cyanosis or clubbing. Neurological: Alert. No gross focal deficits Psychiatric: Pleasant and cooperative with appropriate mood. Objective Data Vital Signs Vital Signs: Vital Signs - 24 hr 07/08/24 20:15 07/09/24 06:00 07/09/24 09:00 Temperature 97.5 F L 97.4 F L Pulse Rate 110 H 94 Respiratory Rate 16 18 Blood Pressure 118/70 127/89 Pulse Oximetry 94 96 96 Oxygen Delivery Room Air 07/09/24 14:00 Temperature 97.3 F L Pulse Rate 102 H Respiratory Rate 18 Blood Pressure 103/54 L Pulse Oximetry 100 Oxygen Delivery Intake/Output Intake/Output: Intake & Output 07/06/24 07/07/24 07/08/24 07/09/24 23:59 23:59 23:59 23:59 Intake Total 50 800 Output Total 500 800 Balance -450 0 Meds/Results Medications: Active Medications Generic Name Dose Route Start Last Admin Trade Name Freq PRN Reason Stop Dose Admin Acetaminophen 650 mg 07/08/24 17:10 Acetaminophen 325 Mg Tablet PO Q4H PRN Mild Pain (1-3) or Fever Enoxaparin Sodium 40 mg 07/09/24 09:00 07/09/24 09:01 Enoxaparin 40 Mg/0.4 Ml Syringe SUB-Q 40 mg DAILY ALEXIS Administration Fluticasone Propionate 2 spray 07/08/24 09:00 07/09/24 09:02 Fluticasone Propionate 0.05% Na Spr 16 Gm Btl (*Bkc) NASAL 2 spray DAILY ALEXIS Administration Lactulose 20 gm 07/09/24 09:00 07/09/24 09:01 Lactulose 20 Gm/30 Ml Udc PO 20 gm BID [facility] Administration Radiology Results: ITS Impressions Abdomen/Pelvis CT 07/07/24 22:55 IMPRESSION: Right-sided hydroureteronephrosis secondary to a 7 mm calculus within the proximal right ureter. Bilateral ureteritis with ascending infection on the left secondary to stasis of the urine within patient's urostomy from mass effect of the significantly dilated stool-filled distended colon. Chest X-Ray 07/08/24 18:12 IMPRESSION: No focal infiltrate or effusion. Abdomen X-Ray 07/09/24 10:37 IMPRESSION: NO ACUTE ABDOMINAL FINDINGS. Highly suggestive stone in the right kidney. Labs Labs: Laboratory Results - last 24 hr 07/09/24 05:31 WBC 13.1 H RBC 4.38 Hgb 12.6 Hct 39.6 MCV 90.4 MCH 28.8 MCHC 31.8 L RDW 13.9 Plt Count 671 H MPV 9.3 Sodium 141 Potassium 2.7 L* Chloride 100 Carbon Dioxide 33 H Anion Gap 8 BUN 11 Creatinine 0.59 L Estim Creat Clear Calc 62 Estimated GFR > 60 Glucose 89 Calcium 8.4 Phosphorus 3.3 Magnesium 2.5 H
[2024-07-09 15:48] LABS: Alanine Aminotransferase 15 U/L (6-35); Albumin Level 3.5 g/dL (3.5-5.1); Alkaline Phosphatase 115 U/L (38-126); Anion Gap 8 mmol/L (4-12); Aspartate Amino Transferase 22 U/L (14-36); Bilirubin,Total 0.4 mg/dL (0.2-1.3); Blood Urea Nitrogen 10 mg/dL (7-17); Calcium 8.1 mg/dL (8.4-10.2); Carbon Dioxide 32 mmol/L (22-30); Chloride 99 mmol/L (98-107); Estimated CRCL calculation 58 ml/min; Estimated Glomerular Filt Rate > 60; Glucose 117 mg/dL (65-110); Potassium 3.7 mmol/L (3.4-5.0); Sodium 139 mmol/L (137-145)
[2024-07-09 22:00] VITALS: BP 105/63; PULSE 92; RESP 16; TEMP 36.3; O2SAT 93
[2024-07-10 06:00] VITALS: BP 108/62; PULSE 90; RESP 18; TEMP 36.3; O2SAT 97
[2024-07-10 08:36] LABS: Basophils Absolute Auto 0.1 K/mm3 (0.0-0.1); Basophils Percent Auto 0.5 % (0.2-1.2); Eosinophils Absolute Auto 0.2 K/mm3 (0-0.3); Eosinophils Percent Auto 2.2 % (0-4.4); Hematocrit 34.7 % (37.0-47.0); Immature Granulocyte Absolute 0.15 K/mm3 (0.00-0.031); Immature Granulocyte Percent A 1.4 % (0-0.5); Lymphocytes Percent Auto 36.6 % (18.3-44.2); Mean Corpuscular HGB Conc 31.7 g/dl (32-36); Mean Corpuscular Hemoglobin 28.8 pg (26-34); Mean Corpuscular Volume 90.8 fl (80-100); Mean Platelet Volume 9.3 fl (7.4-10.4); Monocytes Absolute Auto 0.8 K/mm3 (0.1-0.6); Monocytes Percent Auto 7.3 % (2.6-8.5); Neutrophils Absolute Auto 5.4 K/mm3 (1.3-6.7); Platelet Count Result 543 k/mm3 (150-375); Red Blood Count 3.82 M/mm3 (4.2-5.4); Red Cell Distribution Width 14.1 % (11.5-14.5); White Blood Count 10.4 K/mm3 (4.5-10.0)
[2024-07-10 08:49] LABS: Alanine Aminotransferase 12 U/L (6-35); Alkaline Phosphatase 96 U/L (38-126); Anion Gap 5 mmol/L (4-12); Aspartate Amino Transferase 20 U/L (14-36); Bilirubin,Total 0.3 mg/dL (0.2-1.3); Blood Urea Nitrogen 6 mg/dL (7-17); Calcium 8.1 mg/dL (8.4-10.2); Carbon Dioxide 30 mmol/L (22-30); Chloride 103 mmol/L (98-107); Estimated CRCL calculation 84 ml/min; Estimated Glomerular Filt Rate > 60; Glucose 100 mg/dL (65-110); Potassium 3.4 mmol/L (3.4-5.0); Sodium 138 mmol/L (137-145)
[2024-07-10] MEDS: FLUTICASONE PROPIONATE 0.05% NA SPR 16 GM BTL (*BKC) 2 SPRAY NASAL (09:02)
[2024-07-10] MEDS: LACTULOSE 20 GM/30 ML UDC PO (09:03)
[2024-07-10] MEDS: ENOXAPARIN 40 MG/0.4 ML SYRINGE SUB-Q (09:03)
--- NOTE | 2024-07-10 11:45 | P.DS_ITS ---
DS: Admitting Diagnosis Discharge Date 07/10/24 Admitting Diagnosis Right Ureteral Stone, Hydroureteronephrosis, Electrolyte abnormality, Constipation, Spina Bifida DS: Discharge Diagnosis Discharge Diagnosis (1) Right ureteral stone: Code(s): N20.1 - Calculus of ureter Status: Acute Assessment and Plan: Urology consulted Likely not the cause of her abdominal pain Recommendations for Treat urinary tract infection she may have followed by elective right ESWL in a couple weeks 07/10/24: * Keep follow up appointment with Urology as planned. * Abdominal pain has now resolved. (2) Hydroureteronephrosis: Code(s): N13.30 - Unspecified hydronephrosis Status: Acute Assessment and Plan: Secondary to above If she fails to improve with management of her constipation and supportive care urology may have to consider placement of a right percutaneous nephrostomy tube 07/10/24: * See #1 above (3) Electrolyte abnormality: Code(s): E87.8 - Other disorders of electrolyte and fluid balance, not elsewhere classified Status: Acute Assessment and Plan: Hypo magnesium and hypokalemia Replete as needed Daily BMP, Mag phos 07/09: K 2.7, will replace 40 meq KCl and will monitor 07/10/24: * Potassium today improved to 3.4. * Recommend rechecking outpt labs in 3 days. (4) Constipation: Code(s): K59.00 - Constipation, unspecified Status: Resolved Assessment and Plan: KUB Prominent stool again noted at the rectum and right colon particular. Lactulose enema GI consulted recommendations for optimize bowel regimen, no need to repeat colonoscopy. Okay for diet discharged on Prucalopride 2 mg daily and Miralax as needed if she goes more than 2 days without a BM. Unable to start the patient on the medication while inpatient as it is not formulary. Prucalorpide will replace daily Miralax and PRN magnesium. Lactulose b.i.d. Mag citrate Repeat KUB on 07/09: NO ACUTE ABDOMINAL FINDINGS. Highly suggestive stone in the right kidney 07/10/24: * Interval resolution of constipation. * Continue current bowel regimen at discharge. (5) Spina bifida of lumbar spine: Qualifiers: Presence of hydrocephalus: unspecified hydrocephalus presence Qualified Code(s): Q05.7 - Lumbar spina bifida without hydrocephalus Code(s): Q05.7 - Lumbar spina bifida without hydrocephalus Status: Chronic Assessment and Plan: Chronic (6) Leukocytosis: Qualifiers: Leukocytosis type: unspecified Qualified Code(s): D72.829 - Elevated white blood cell count, unspecified Code(s): D72.829 - Elevated white blood cell count, unspecified Status: Resolved Assessment and Plan: Unknown cause UA appears to be contaminated Blood cultures pending Chest x-ray pending No signs of soft tissue infection 07/10/24: * Stable and decreased WBC count. * Urine cx showed contaminate. NO need for outpt abx. 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 She endorsed that for several weeks she experienced a generalized abdominal discomfort and abdominal distension which had worsened over the previous 24 hours prior to presentation to ER. She reported feeling bloated and constipated. Additionally she reported ongoing nausea and reports having an episode of brownish colored emesis earlier in the day. She denied any fever, chills, sweats, chest pain, shortness of breath, melena, hematochezia, and low back pain. No known sick contacts. In the ED: Vital signs were stable on arrival. Labs were significant for WBC count of 16.0, sodium 135, potassium 3.0, chloride 94, carbon dioxide 33, BUN 18, creatinine 0.54. CT of the abdomen pelvis showed right-sided hydroureteronephrosis secondary to 7 mm calculus within the proximal right u reter, bilateral urethra right S with ascending infection on the left secondary to stasis of urine within patient's urostomy from mass effect of the significantly dilated stool-filled distended colon. She was given ceftriaxone 1 g, a soapsuds enema, and Dulcolax suppository. Pt with favorable results from the bowel regimen. Urology was consulted with suggestions that the 7 mm proximal right ureteral stone was a coincidental finding and not the source of her pain or elevated WBC's. He suggested to treat infection and will follow up in a couple of weeks to have right ESWL. Her urine culture ultimately returned contaminated and abx were discontinued. Her pain drastically improved after having bowel movements and she currently is without pain. GI was consulted and it is noted that pt has no new issues for them to address at this time and she is stable for discharge with follow up being in two weeks. Her potassium was low yesterday, (Likely due to the bowel regimen), so she did receive replacement Potassium that is now stable at 3.4. She will need labs drawn in three days to reassess level of electrolytes. Status at Discharge Cognitive/behavioral status at discharge: At baseline Functional status at discharge: wheelchair bound Overall status at discharge: patient is back to baseline Time Spent with Patient Time attestation: Total time spent providing and/or coordinating discharge services: Time spent: Greater than 30 minutes Specific discharge activities: follow up, development of bowel regimen plan for outpt Exam Narrative: General: Nontoxic-appearing female in the semi-Peacock position in bed in no acute distress. Weight: 75.7 kg. BMI: 32.6. HEENT: Dysconjugate gaze. Conjunctiva mildly injected. Moist mucous membranes. Neck: Supple. Respiratory: Respirations are nonlabored and lungs are clear to auscultation. Cardiovascular: Regular rate and rhythm with S1-S2. Gastrointestinal: Abdomen is slightly soft and distended with positive bowel sounds. Patient remarks that her abdomen is significantly softer after having a bowel movement. Urostomy bag draining clear yellow urine. Skin: Warm and dry. Extremities: No cyanosis or clubbing. Mild lower extremity edema. Neurological: Alert. No gross focal deficits to casual conversation. Psychiatric: Pleasant and cooperative with appropriate mood. DS: Data Data Completed and Pending Completed studies during hospitalization: ITS Impressions Chest X-Ray 07/07/24 21:51 IMPRESSION: No focal infiltrate or effusion. Small bore catheter originates within the right lateral soft tissues of the neck, possibly entering the right atrium. Multiple loops of dilated bowel within the minimally visualized upper abdomen. Abdomen/Pelvis CT 07/07/24 22:55 IMPRESSION: Right-sided hydroureteronephrosis secondary to a 7 mm calculus within the proximal right ureter. Bilateral ureteritis with ascending infection on the left secondary to stasis of the urine within patient's urostomy from mass effect of the significantly dilated stool-filled distended colon. Abdomen X-Ray 07/08/24 07:40 Impression: Prominent stool again noted at the rectum and right colon particular. Diffuse air distention of large and small bowel. Chest X-Ray 07/08/24 18:12 IMPRESSION: No focal infiltrate or effusion. Abdomen X-Ray 07/09/24 06:30 Impression: Prominent stool at the rectum. Correlate for fecal impaction. Air distended large and small bowel. Abdomen X-Ray 07/09/24 10:37 IMPRESSION: NO ACUTE ABDOMINAL FINDINGS. Highly suggestive stone in the right kidney. Labs on day of discharge: Labs from last 24 hours 07/10/24 07/09/24 08:23 15:27 WBC 10.4 H RBC 3.82 L Hgb 11.0 L Hct 34.7 L MCV 90.8 MCH 28.8 MCHC 31.7 L RDW 14.1 Plt Count 543 H MPV 9.3 Immature Gran % (Auto) 1.4 H Neut % (Auto) 52.0 Lymph % (Auto) 36.6 [place] % (Auto) 7.3 Eos % (Auto) 2.2 Baso % (Auto) 0.5 Lymph # (Auto) 3.80 H [place] # (Auto) 0.8 H Eos # (Auto) 0.2 Baso # (Auto) 0.1 Abs Immat Gran (auto) 0.15 H Absolute Neuts (auto) 5.4 Absolute Nucleated RBC 0.000 Nucleated RBC % 0.0 Sodium 138 139 Potassium 3.4 3.7 Chloride 103 99 Carbon Dioxide 30 32 H Anion Gap 5 8 BUN 6 L 10 Creatinine 0.42 L 0.64 L Estim Creat Clear Calc 84 58 Estimated GFR > 60 > 60 Glucose 100 117 H Calcium 8.1 L 8.1 L Total Bilirubin 0.3 0.4 AST 20 22 ALT 12 15 Alkaline Phosphatase 96 115 Total Protein 6.0 L 7.0 Albumin 3.0 L 3.5 Preliminary micro results at discharge 07/08/24 01:19 Blood Culture - Preliminary Blood 07/08/24 01:19 Blood Culture - Preliminary Blood Discharge Plan Discharge Attending physician on discharge: Tootie Joseph Consulting providers: Bal Camargo; Jose E العراقي Discharging Clinician: Tootie Joseph Anticipated Discharge Date/Time: 07/10/24 11:59 Patient Disposition: [facility] Nursing Home/Asst Living Activity: as tolerated and other - see discharge instructions Diet: as tolerated and regular Discharge Instructions: Continue assistive devices of Wheelchair/Ramirez as needed. Keep upcoming appointment with Urology in two weeks. No abx needed for discharge as her urine culture appeared contaminated and pt is having improved pain. Patient Language: Czech Stand Alone Forms: [facility] Discharge Follow-up/Referrals: Abigail,MD Jimmy [Primary Care Provider] - Call for Appointment Bal Camargo MD [Physician] - 2 Weeks Discharge Medications: New lactulose 10 gram/15 mL solution 10 g PO DAILY PRN (Reason: constipation) Qty: 473 0RF Rx Instructions: Give if no BM within 72 hours prior, or if feeling constipated. Continued atorvastatin 10 mg tablet 10 mg PO HS acetaminophen 650 mg Tablet 650 mg PO Q4H PRN (Reason: mild pain) fluticasone propionate [Flonase Allergy Relief] 50 mcg/actuation [place],Suspension 2 spray INTRANASAL DAILY Rx Instructions: administer into each nostril duloxetine 60 mg capsule,delayed release(DR/EC) 60 mg PO DAILY Caltrate 600-D Plus Minerals 600 mg calcium- 800 unit-40 mg Tablet,Chewable 1 tablet PO BID polyethylene glycol 3350 [Miralax] 17 gram Powder In Packet 17 g PO DAILY magnesium hydroxide 400 mg/5 mL Suspension 400 mg PO HS PRN (Reason: constipation if no BM for 3 days) furosemide [Lasix] 20 mg Tablet 60 mg PO DAILY loratadine 10 mg Tablet 10 mg PO DAILY guaifenesin [Mucinex] 600 mg Tablet Extended Release 12hr 600 mg PO BID potassium chloride 10 mEq Capsule, Extended Release 10 meq PO DAILY trazodone 100 mg Tablet 100 mg PO HS nystatin 100,000 unit/gram Powder 1 applic TOPICAL DAILY PRN (Reason: moistu) cholecalciferol (vitamin D3) 50 mcg (2,000 unit) capsule 50 mcg PO DAILY multivitamin [Daily Multi-Vitamin] Tablet 1 tablet PO DAILY Other Ambulatory Orders: Complete Blood Count with Diff (Routine) Timeframe: 3 Days Location: Determined by Patient Ordered By: Tootie Joseph Comprehensive Metabolic Panel (Routine) Timeframe: 3 Days Location: Determined by Patient Ordered By: Tootie Joseph Date of admission: 07/08/24 11:26 Primary Care Provider: AbigailJimmy Admitting Provider: Nakul Blackwood Attending physician on admission: Tootie Joseph Condition: Stable Quality VTE Prophylaxis VTE prophylaxis: pharmacologic ordered Hospitalist MIPS Heart Failure (Exclusion) Patient has history of Heart Transplant or Left Ventricular Assistive Device?: No IF YES, STOP HERE Heart Failure (Qualifier) Patient has current or prior documentation of LVEF less than or equal to 40%, or mod/servere depressed LVSF?: No IF NO, STOP HERE
[2024-07-10 14:06] VITALS: BP 119/71; PULSE 89; RESP 17; TEMP 36.9; O2SAT 97
--- NOTE | 2024-07-12 06:32 | P.CDI_ITS ---
CDI Query Clarification Request Please clarify if UTI was ruled in or ruled out Patient is a 78-year-old female presents from her [facility] after a been having abdominal pain and nausea vomiting. The patient reports been noticing a last several weeks her abdomen has become progressively more distended reports that she had an episode of brownish vomit today the patient has history of colitis also history of spina bifida has a urostomy the patient reports no fever Documented UTI in ER Urology documented: * I suspect this 7 mm right proximal ureteral stone is a coincidental finding and, hopefully, not the source of her abdominal pain or leukocytosis. * My initial plan will be to treat whatever urinary tract infection she may have followed by elective right ESWL in a couple weeks. * If she fails to improve with management of her constipation and supportive care we may have to consider placement of a righht percutaneous nephrostomy tube Hospitalist documented: (7) History of urostomy: Code(s): Z98.890 - Other specified postprocedural states Status: Acute Assessment and Plan: UA appears to be contaminated No antibiotics indicated at this time treatment: IV abx <Alyssa Bailey RN - Last Filed: 07/12/24 06:38> Clarified Diagnosis Clarified Diagnosis: Acute Urinary Tract Infection - Providencia stuartii - Treatment per PCP. <FLOWER Hanson - Last Filed: 08/04/24 09:01>
== END 2024-07-10 16:55 | DRG 690 ==
LOC: ANHED 23:54 → ANH3MED 07-08 00:35
PROVIDERS: Nurse Practitioner Gerontology; Physician Assistant; Admitting Provider Hospitalist; Emergency Provider Emergency Medicine; PCP Internal Medicine; Visit Provider Nurse Practitioner Adult Health
DX: N13.6 Pyonephrosis (principal); G82.20 Paraplegia, unspecified; F41.8 Other specified anxiety disorders; K59.09 Other constipation; E83.42 Hypomagnesemia; E87.6 Hypokalemia; E78.5 Hyperlipidemia, unspecified; D72.829 Elevated white blood cell count, unspecified; Z66 Do not resuscitate; Q05.7 Lumbar spina bifida without hydrocephalus; Z98.890 Other specified postprocedural states; Z93.6 Other artificial openings of urinary tract status; Z90.49 Acquired absence of other specified parts of digestive tract; Z90.710 Acquired absence of both cervix and uterus
CPT/HCPCS: 36415; 71045; 74018; 74177; 80048; 80053; 81001; 83605; 83690; 83735; 84100; 84484; 85025; 85027; 85610; 85730; 87040; 93005; 96365; 96375; 99285; A9270; G0378; J0696; J1650; J3475; J3480; J7030; J7040; Q9967

== ENCOUNTER 2024-12-07 11:49 | Inpatient (IN) | payer MEDICARE, MEDICAID, SELFPAY ==
--- NOTE | ~2024-12-07 | CT_ITS ---
EXAMINATION: CT biopsy lung w/imaging DATE: 12/09/2024 12:08 INDICATION: Left lung mass TECHNIQUE: The procedure including the risks and benefits was discussed with the patient's niece and power of compliance attorney. Risks discussed included infection, symptomatic hemorrhage beyond mild hemoptysis, pneumothorax, potentially severe enough to warrant chest tube placement. The patient's niece understood the risks and agreed to proceed. The patient was placed in the right lateral decubitus position. The skin overlying the posterior left lower chest was prepped and draped in sterile fashion. Anesthetic was administered with 1% lidocaine subcutaneously. A 19 gauge outer needle was advanced under CT guidance to the lesion of interest. A 20 gauge core biopsy needle was then used to obtain 5 core biopsy specimens. The needle was removed and the entry site was cleaned and dressed. There were no immediate complications. The dose-length product was 214.19 mGy-cm. FINDINGS: CT images demonstrate the outer needle tip just within a 3.1 x 2.5 cm partially cavitary mass with spiculated margins in the left lower lobe. IMPRESSION: 1. Successful CT-guided biopsy of a 3.1 x 2.5 cm left lower lobe mass. Reviewed, dictated and finalized at location A.
--- NOTE | ~2024-12-07 | XR_ITS ---
EXAMINATION: XR chest 1V 12/09/2024 12:12 INDICATION: Post left lung biopsy. TECHNIQUE:A single AP sitting frontal image of the chest was obtained. COMPARISON: CTA chest 12/08/2024 FINDINGS: Heart is not enlarged. No pneumothorax identified. No free air under the diaphragm. There is a known spiculated mass in the left lower lobe and loculated masslike structures in the right lower lobe. Right-sided central venous catheter with its tip bending to the left and projects over the left mid cardiomediastinal silhouette The central venous catheter should the replaced IMPRESSION: 1: No pneumothorax identified. 2. There is a known spiculated mass in the left lower lobe and loculated masslike structures in the right lower lobe. 3. Right-sided central venous catheter with its tip bending to the left and projects over the left mid cardiomediastinal silhouette. The central venous catheter should the replaced Reviewed, dictated and finalized at location A. IMPRESSION: 1: No pneumothorax identified. 2. There is a known spiculated mass in the left lower lobe and loculated massl charles structures in the right lower lobe. 3. Right-sided central venous catheter with its tip bending to the left and pr ojects over the left mid cardiomediastinal silhouette. The central venous emily ter should the replaced
--- NOTE | ~2024-12-07 | CT_ITS ---
EXAMINATION: CT abdomen pelvis w con DATE: 12/07/2024 15:32 INDICATION: Left lower quadrant abdominal pain. Tunneling coccygeal wound. TECHNIQUE: Computed tomography (CT) of the abdomen and pelvis was performed with 100 mL Omnipaque-350 intravenous contrast. Automated exposure control and iterative reconstruction technique were employed. The dose-length product was 1116.55 mGy-cm. COMPARISON: CT dated 07/07/2024 FINDINGS: Interval increase in size of a 3.4 x 2.1 cm mass in the posterior left lower lobe with some gas-filled central cavitation. No significant change in a more medial 7 mm satellite nodule. Persistent volume loss in the right lower lobe with no interval change in a few thoracic bandlike opacities in the dependent right lower lobe with configuration most consistent with atelectasis. Portion of the posterior medial aspect of the band of likely atelectasis has a more discrete nodular appearance measuring 1.3 x 1.0 cm. Heart size is normal. There is a catheter extending caudally from the visualized caudal superior vena cava into the right ventricle with distal tip near the pulmonary outflow tract. This potentially represents a ventricular shunt given reported history of hydrocephalus and the suggestion of the catheter extends cephalad along the right neck on prior radiograph dated 07/08/2024. No pericardial or pleural effusion. Multiple well-defined fluid attenuation hepatic cysts the largest measuring up to 5.2 cm. There is more irregular subcapsular region of decreased attenuation with multiple small peripheral foci of high attenuation material along the anterior dome of the liver with appearance suggesting a decompressed cavitary lesion with either peripheral dystrophic calcifications or potentially prior embolization material. Gallbladder, spleen, pancreas and right adrenal gland are normal. Unchanged nodular thickening of the left adrenal gland. Moderate right renal atrophy with multiple small regions of cortical scarring likely sequela prior infection or infarction. 2 mm nonobstructive stone in upper pole calyx of right kidney and larger 9 mm stone at a lower pole calyx. Couple small nonobstructing stones in left kidney the largest measuring 2 mm. There are also couple left renal cysts the largest measuring 6.3 cm. 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 No hydronephrosis. Large amount of stool in the sigmoid colon and rectum measuring up to 8 cm maximal diameter with associated wall thickening and some perirectal inflammatory stranding consistent with stercoral colitis. No dilated small bowel to suggest obstruction. The anterior portion of a short segment of the proximal transverse colon extends into a widemouthed ventral hernia. There is also a more caudal small fat-containing ventral hernia along a midline surgical scar. No free intraperitoneal gas or fluid. No pathologically enlarged abdominal or pelvic lymphadenopathy. There is a deep sacral decubitus ulcer with packing material which extends to contact the posterior margin of the caudal aspect of the sacrum where there is some interval ostial lysis with cortical erosion, new since the prior study and consistent with secondary osteomyelitis. No abscess. Unchanged extensive high attenuation material in the thecal sac of the lumbar and visualized thoracic spine. IMPRESSION: 1. Deep sacral decubitus ulcer with osteomyelitis along the caudal aspect of the sacrum which is new since the prior study. 2. Interval increase in size of a likely cavitary mass at the dependent left lower lobe which raises concern for malignancy. Would recommend CT-guided biopsy. 3. Smaller 1.3 x 1.0 cm nodule along a band of discoid atelectasis in the right lower lobe. Consider either short interval follow-up in 3 months or further evaluation with PET/CT. 4. Stable appearance of a subcapsular flat hypodense region along the dome of the liver suggestive of a collapsed cyst or region of scarring with multiple peripheral high attenuation foci, unclear whether calcifications or potentially embolization material. Correlate with clinical history and with any prior outside imaging for comparison. 5. Bilateral nonobstructing nephrolithiasis. 6. 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 There is urothelial enhancement at the lateral renal collecting systems suspicious for secondary ascending urinary tract infection. Correlate with urinalysis. Recurrent infections could account for the moderate atrophy with cortical scarring at the right kidney. 7. Large amount of stool in the sigmoid colon and rectum with associated wall thickening and perirectal stranding consistent with secondary stercoral colitis. 8. Couple ventral hernias, one containing fat and the second anterior wall of a short segment of nonobstructed proximal transverse colon. 9. Unchanged extensive high attenuation material within the thecal sac the lumbar and visualized lower thoracic spine suggesting retained Pantopaque. Correlate with clinical history. Reviewed, dictated and finalized at location A. IMPRESSION: 1. Deep sacral decubitus ulcer with osteomyelitis along the caudal aspect of th e sacrum which is new since the prior study. 2. Interval increase in size of a likely cavitary mass at the dependent left lo wer lobe which raises concern for malignancy. Would recommend CT-guided biopsy. 3. Smaller 1.3 x 1.0 cm nodule along a band of discoid atelectasis in the right lower lobe. Consider either short interval follow-up in 3 months or further ev aluation with PET/CT. 4. Stable appearance of a subcapsular flat hypodense region along the dome of t he liver suggestive of a collapsed cyst or region of scarring with multiple per ipheral high attenuation foci, unclear whether calcifications or potentially em bolization material. Correlate with clinical history and with any prior outside imaging for comparison. 5. Bilateral nonobstructing nephrolithiasis. 6. Postoperative change of prior cystectomy with right lower quadrant ileal con duit formation. There is urothelial enhancement at the lateral renal collecting systems suspicious for secondary ascending urinary tract infection. Correlate with urinalysis. Recurrent infections could account for the moderate atrophy wi th cortical scarring at the right kidney. 7. Large amount of stool in the sigmoid colon and rectum with associated wall t hickening and perirectal stranding consistent with secondary stercoral colitis. 8. Couple ventral hernias, one containing fat and the second anterior wall of a short segment of nonobstructed proximal transverse colon. 9. Unchanged extensive high attenuation material within the thecal sac the lumb ar and visualized lower thoracic spine suggesting retained Pantopaque. Correlat e with clinical history.
--- NOTE | ~2024-12-07 | XR_ITS ---
Clinical history:Left lung biopsy EXAM:X-ray chest one view portable TECHNIQUE:A single AP semiupright portable frontal image of the chest was obtained. Comparisons:Chest x-ray 07/09/2024; chest CT 12/08/2024 FINDINGS: Heart size is unchanged. Stable biopsied mass projecting over the left infrahilar region. No significant change in the opacities in both lungs as compared to the most recent study from 12/09/2024. Redemonstration of the right ventricular drain chest with its distal tip projecting over the region of the right ventricular outflow tract. IMPRESSION: No pleural effusion. No pneumothorax. Left lower lobe mass. Findings as above. Reviewed, dictated and finalized at location Q.
--- NOTE | ~2024-12-07 | XR_ITS ---
EXAMINATION: XR chest 1V portable DATE: 12/09/2024 13:57 INDICATION: Left lung biopsy TECHNIQUE: frontal view of the chest was obtained. COMPARISON: Chest radiograph dated 12/09/2024 at 12 6:[address] and radiographs dated 12/08/2024 FINDINGS: Unchanged oblique linear band of discoid atelectasis/scarring in the left midlung zone.. The biopsied mass can be seen is a subtle opacity projecting over the infrahilar region of the left lower lung zone. Reticular pattern of hypoattenuation in the right lung base projecting over the right hemidiaphragm suggestive of some aspirated barium. No pleural effusion or pneumothorax. Heart size is normal. Right ventricular drainage shunt with distal tip projecting over the region of the right ventricular outflow tract. IMPRESSION: 1. No pleural effusion or pneumothorax post percutaneous biopsy of a left lower lobar mass concerning for primary bronchogenic carcinoma. Reviewed, dictated and finalized at location A.
--- NOTE | ~2024-12-07 | CT_ITS ---
EXAMINATION: CT diagnostic chest wo con DATE: 12/08/2024 09:41 INDICATION: Lung mass TECHNIQUE: Computed tomography (CT) of the chest was performed without intravenous contrast. The dose-length product was 255.26 mGy-cm. COMPARISON: CT abdomen and pelvis 12/07/2024 and 07/07/2024 FINDINGS: Upper abdomen is similar to the CT study from 12/07/2024. No enlarged mediastinal or hilar lymph nodes. Heart is not enlarged. Thoracic aorta is not aneurysmal. Mild atherosclerotic disease in the thoracic aorta. No pneumothorax. Tiny left-sided pleural effusion. Tracheobronchial tree is patent. The study is slightly limited due to motion artifact. There is a 4.2 x 3.9 x 3.3 cm spiculated mass in the left lower lobe posteriorly which is partially cavitated. A malignant process needs to be excluded. There is a 3.0 x 0 1 x 5.1 cm lobulated masslike structure in the right lower lobe posteriorly. Evaluation is limited due to motion artifact. Differential includes atelectasis, pneumonia or malignancy. A PET/CT and/or biopsy is recommended. There is extensive high attenuation material in the thecal sac in the thorax which is seen extending into the abdomen. Bones appear osteopenic. Multilevel degenerative change in the visualized spine. IMPRESSION: 1. There is a 4.2 x 3.9 x 3.3 cm spiculated mass in the left lower lobe posteriorly which is partially cavitated and extends to the pleura. A malignant process needs to be excluded. A biopsy is recommended. 2. There is a 3.0 x 0 1 x 5.1 cm lobulated masslike structure in the right lower lobe posteriorly which extends to the pleura. Evaluation is limited due to motion artifact. Differential includes atelectasis, pneumonia or malignancy. A PET/CT and/or biopsy is recommended. 3. No lymphadenopathy in the chest. 4. Tiny left-sided pleural effusion. 5. Left adrenal gland is prominent but unchanged. An adrenal mass MRI or PET/CT is recommended. Reviewed, dictated and finalized at location A. IMPRESSION: 1. There is a 4.2 x 3.9 x 3.3 cm spiculated mass in the left lower lobe posteri omar which is partially cavitated and extends to the pleura. A malignant proces s needs to be excluded. A biopsy is recommended. 2. There is a 3.0 x 0 1 x 5.1 cm lobulated masslike structure in the right lowe r lobe posteriorly which extends to the pleura. Evaluation is limited due to mo tion artifact. Differential includes atelectasis, pneumonia or malignancy. A PE T/CT and/or biopsy is recommended. 3. No lymphadenopathy in the chest. 4. Tiny left-sided pleural effusion. 5. Left adrenal gland is prominent but unchanged. An adrenal mass MRI or PET/CT is recommended.
[2024-12-07 11:51] VITALS: BP 111/75; PULSE 105; RESP 14; TEMP 37.1; O2SAT 97
--- OUTSIDE RECORDS SUMMARY | 2024-12-07 12:19 | XMS_ITS | Clinical Summary ---
[facility] Address [address] [place] [address] Care Team Providers Care Muck Hauler Name Role Phone Marii Blackburn MD Primary Care Provider [phone] Allergies Active Allergy Reactions Criticality Noted Date Comments Codeine Nausea only Low Ibuprofen Nsaids (Non-Steroidal Anti-Inflammatory Drug) Penicillins Rash,Hives Medium Reaction: Rash, , Sulfa (Sulfonamide Antibiotics) Rash,Hives Medium Reaction: rash, hives, , Medications calcium carbonate-bimal min D3 (CALTRATE 600 + D) 600 mg (1,500 mg)-800 unit tablet,chewabl e take one pill twice daily 60 3 4 Active docusate sodium (COLACE) 100 mg capsule TAKE ONE (1) CAPSULE BY MOUTH TWICE DAILY 90 capsule 3 9 Active carbamide peroxide (DEBROX) 6.5 % otic solutionIndica tions:Impacted Cerumen Administer 5 drops into each ear 2 (two) times a day As needed for excessive ear wax 15 mL 9 Active loratadine (CLARITIN) 10 mg tablet TAKE ONE (1) TABLET BY MOUTH EVERY DAY 90 tablet 10 0 Active Amitiza 24 mcg capsule TAKE 1 CAPSULE (24MCG) BY MOUTH 2 TIMES A DAY WITH FOOD AND WATER. 180 capsule 3 0 Active fluticasone propionate (FLONASE) 50 mcg/actuation nasal spray Administer 2 sprays into each nostril daily Active atorvastatin (LIPITOR) 10 mg tablet Take 1 tablet (10 mg total) by mouth daily Active DULoxetine DR (CYMBALTA) 60 mg capsule Take 1 capsule (60 mg total) by mouth 2 (two) times a day Active traZODone (DESYREL) 100 mg tablet Take 1 tablet (100 mg total) by mouth nightly 90 each 5 Active acetaminophen (TYLENOL) 500 mg tablet Acetaminophen 500 MG Oral Tablet QTY: 120 tablet Days: 30 Refills: 0 Written: 11/23/15 Patient Instructions: 1-2 tabs every 4-6 hours as needed 6 Active busPIRone (BUSPAR) 10 mg tablet 2 times daily 7 Active lactulose 0.67 gram/mL solution 5 Active furosemide (LASIX) 40 mg tablet 5 Active Active Problems Problem Noted Date Diagnosed Date Constipation 07/30/2024 Gram negative sepsis 07/30/2024 Nausea and vomiting, unspecified vomiting type 0 07/29/2024 Colitis 05/07/2020 Stercoral ulcer of large intestine 05/07/2020 Lung mass 05/07/2020 Impaction of colon 05/07/2020 Overview (05/09/2020): Added automatically from request for surgery [id number] DNR (do not resuscitate) 01/17/2020 Dependent edema 01/17/2020 Unable to bear weight 08/15/2017 Assessment & Plan (08/15/2017 2:09 PM CDT): Patient wheelchair bound due to neurological condition. 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 12/30/2016 Chronic idiopathic constipation 12/30/2016 Generalized anxiety disorder 12/30/2016 Hx of ventricular shunt 12/30/2016 Congenital hydrocephalus 10/18/2015 Cephalalgia 12/31/2010 Resolved Problems Problem Noted Date Diagnosed Date Resolved Date DNR (do not resuscitate) discussion 01/17/2020 01/17/2020 Acute URI 08/15/2017 01/05/2018 Assessment & Plan (08/15/2017 2:06 PM CDT): Recommended for patient to take antibiotics as prescribed, continue Claritin daily as previously prescribed, nasal rinses, humidifier or vaporizer use and I would also benefit cough and congestion, increase fluids and rest. Close follow-up outpatient there is any worsening or little improvement symptoms. Encounters Date Type Department Care Team Description 10/26/2024 Results Follow-Up [facility] at [place] [address] [facility] [address] [place] [id number] Christopher Tracy MD CT Chest WO Contrast 09/29/2024 6:31 AM CDT - 09/29/2024 11:59 PM CDT Hospital Encounter [facility] [address] [place] [address] Lung mass Discharge Disposition: Discharge to home or self care 09/28/[address] [address] Agnes Owusu from Last 3 Months Immunizations Immunization Administration Dates Next Due Influenza, Quadrivalent, Spl it, Preservative Free, Intramuscular 01/04/2020 Influenza, Split 01/09/2012,01/22/2011, 0 Influenza, Trivalent, High D ose, Split, Preservative Free, Intramuscular 01/13/2019,01/05/2018,12/29/2015,02/02,03/01/2014,05/13/2013 Influenza, Trivalent, IM (MDV) 02/20/2009,2007 Pneumococcal Conjugate PCV 13 06/20/2014 Pneumococcal Polysaccharide PPV23 02/06/2010,05/2008 Tdap 02/05/2012 Surgical History Surgery Date Site/Laterality Comments OTHER SURGICAL HISTORY ureterostomy/nephros jayde TOTAL ABDOMINAL HYSTERECTOMY W/ BILATERAL SALPINGOOPHORECTOMY 04/21/2010 - 04/20/2011 Hysterectomy, total abdominal, BSO APPENDECTOMY Medical History Medical History Date Comments Hx Other Medical 01-UROLOGIST Hx Other Medical 02-NEUROSURGEON Hx Other Medical spina bifida wi th hydrocephalus Personal history of other di seases of the digestive system History of constipation - (A dded by TW Conv) Anxiety disorder Anxiety - (Adde d by TW Conv) Personal history of other me ntal and behavioral disorders History of depression - (Add ed by TW Conv) 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 History of spina bifid a - (Added by TW Conv) Spina bifida Family History Medical History Relation Name Comments Bladder Cancer Father Cancer -bladd er; Depression Father Depression; Diabetes Father Diabetes mellit us; Heart disease Father Heart disease; Breast cancer Mother's Sister siri Skin cancer Sister 1 Cancer -skin; Depression Sister 2 Depression; Colon cancer Neg Hx Cancer -colon; Relation Name Status Comments Father Mother Mother's Sister siri Sister 1 Alive Sister 2 Social History Tobacco Use Types Packs/Day Years Used Date Smoking Tobacco: Never Smokeless Tobacco: Never Tobacco Cessation:Counseling Given: Not Answered Alcohol Use Standard Drinks/Week Comments No 0 (1 standard drink = 0.6 oz pur e alcohol) [facility] Utilities Answer Date Recorded In the past 12 months has e electric, gas, oil, or water company threatened to shut off services in your home? No 07/30/2024 Social Connection and Isolation Panel Answer Date Recorded In a typical week, how many times do you talk on the phone with family, friends, or neighbors? More than three times a week 07/30/2024 How often do you get togethe r with friends or relatives? More than three times a week 07/30/2024 How often do you attend chur ch or cheondoism services? Never 07/30/2024 Do you belong to any clubs o r organizations such as pentecostal groups, unions, fraternal or athletic groups, or school groups? No 07/30/2024 How often do you attend meet ings of the clubs or organizations you belong to? Never 07/30/2024 Are you , , di vorced, , never , or living with a partner? Never 07/30/2024 AUDIT-C Answer Date Recorded Q1: How often do you have a drink containing alc ohol? Never 07/29/2024 Average Number of Drinks Not on file 025 Frequency of Binge Drinking Not on file 07/20 Overall Financial Resource Strain (CARDIA) Answe r Date Recorded How hard is it for you to pa y for the very basics like food, housing, medical care, and heating? Not hard at all 07/30/2024 PHQ-2 Answer Date Recorded PHQ-2 Total Score (If total score is 3 or more points, staff should administer the PHQ-9) 0 05/07/2020 Hunger Vital Sign Answer Date Recorded Within the past 12 months, y ou worried that your food would run out before you got the money to buy more. Never true 07/31/19 25 Within the past 12 months, t he food you bought just didn't last and you didn't have money to get more. Never true 07/30/2024 PRAPARE - Transportation Answer Date Re corded In the past 12 months, has l ack of transportation kept you from medical appointments or from getting medications? No 07/20 In the past 12 months, has l ack of transportation kept you from meetings, work, or from getting things needed for daily living? No 07/30/2024 Housing Stability Vital Sign Answer True e Recorded In the last 12 months, was t here a time when you were not able to pay the mortgage or rent on time? No 07/30/2024 In the past 12 months, how m any times have you moved where you were living? 0 07/30/2024 At any time in the past 12 m [facility], were you homeless or living in a jail (including now)? No 07/30/2024 Personal Safety Answer Date Recorded Have you ever been in or are you currently in a harmful physical or emotional relationship or is someone making you feel afraid or unsafe? Denies 07/29/2024 Comments No Sex and Gender Information Value Date Recorded Sex Assigned at Not on file Legal Sex Female 3:05 PM SIGN DESIGNER Gender Identity Not on file Sexual Orientation Not on file Obstetrics History Para Term AB IAB SAB Ectopic Multiple Livin g Live Births 0 0 0 0 0 0 0 0 0 0 0 Last Filed Vital Signs Vital Sign Reading Time Taken Comments Blood Pressure 98/52 09/02/2024 11:44 AM CDT Pulse 95 09/02/2024 11:44 AM CDT Temperature 36.6 C (97.9 F) 09/02/2024 11:44 AM CDT Respiratory Rate 16 08/05/2024 11:09 AM CDT Oxygen Saturation 96% 09/02/2024 11:44 AM CDT Inhaled Oxygen Concentration - - Weight 85.5 kg (188 lb 7.9 oz) 08/05/2024 4:42 A M CDT Height 152.4 cm (5') 09/02/2024 11:44 AM CDT Body Mass Index 36.81 07/30/2024 1:45 AM CDT Plan of Treatment Health Maintenance Due Date Last Done Comments Osteoporosis Screening-Bone Density Scan 1945 Hepatitis B Screening 1963 Zoster Vaccine (1 of 2) 1996 Well Visit 65+ 01/16/2021 01/17/2020, 12/21, 01/05/2018, Additional history exists Depression Screening 05/07/2021 05/07/2020, 01/17/2020, 03/10/2019, Additional history exists DTaP/Tdap/Td Vaccine (2 - Td or Tdap) 02/04/2022 02/05/2012 Colon Cancer Screening-DNA Stool 05/10/2023 05/10/2020, 07/05/2014, 06/27/2014 Influenza Vaccine (#1) 2024 0, 01/13/2019, 01/05/2018, Additional history exists Fall Risk Assessment 08/05/2025 08/05/2024, 01/17/2020, 03/10/2019, Additional history exists Hepatitis C Screening Completed 12/30/2016 Breast Cancer Screening-Mammogram Discontinued 03/02/2020, 03/01/2019, 01/29/2017, Additional history exists Pneumococcal vaccine 65+ Completed 021, 10/13/2020, 06/20/2014, Additional history exists Procedures Procedure Name Priority Date/Time Associated Diagnosis Comments CT CHEST WO CONTRAST Schedule Routine, Read Routine (OP Routine) 09/29/2024 6:59 AM CDT Lung mass COLONOSCOPY 05/10/2020 11:24 AM SIGN DESIGNER SCREENING MAMMOGRAM BILATERAL W LAURENT Schedule Routine, Read Routine (OP Routine) 03/02/2020 1:24 PM SIGN DESIGNER Visit for screening mammogram HEPATITIS C AB REFLEX RNA QUANT PCR Routine 12/30/2016 11:17 AM CDT from Last 3 Months or Most Recently Relevant to Health Maintenance Results * CT Chest WO Contrast (09/29/2024 6:59 AM CDT) Anatomical Region Laterality Modality Body N/A Computed Tomogra phy 10/15/2024 10:0 2 AM CDT Narrative 10/15/2024 10:18 AM CDT EXAM DESCRIPTION: CT CHEST WO CONTRAST REASON FOR STUDY: Abnormal xray - lung nodule (Age >= 35y) Follow up lung mass, no current complaints, non smoker TECHNIQUE: CT scan of the chest performed without intravenous contrast using helical scanning technique. Reconstructed coronal and sagittal MPR images reviewed. All images stored on PACS. Automated exposure control was used as a dose optimization technique for this examination. COMPARISON: 07/29/2024, 05/08/2020 CT chest, 08/02/2024 chest radiograph FINDINGS: The sensitivity for detection of solid visceral lesions is diminished without the use of intravenous contrast. LUNGS: Central airways are patent. Right upper lobe slightly stellate ground-glass opacity measures 1.2 cm on axial image 34 of series 3. Generally unchanged from 07/29/2024 but new from 05/08/2020. Right lower lobe lobular opacity adjacent band like densities persists essentially unchanged possibly related to a region of consolidation. Mass previously suggested not excluded. This is generally unchanged on current image 49. Left lower lobe 1.0 cm nodule image 45 unchanged from 07/29/2024 and new from 05/08/2020. Left lower lobe consolidative opacity current image 49 measuring 3.6 cm unchanged using a similar technique on current image 47. Central air collections may indicate trapped bronchi or subtle cavitation similar previous. No new or enlarging nodules or consolidations. PLEURA: No effusion. No pneumothorax. MEDIASTINUM/FREDY: Nodular component of the right lobe of the thyroid extends in the retrosternal position similar to previous measuring 1.8 cm. Nonenlarged lymph nodes retrocaval pretracheal space, subcarinal space similar to previous. HEART: Heart size is mildly enlarged. No pericardial effusion. CORONARY ARTERY CALCIFICATION: No bulky calcified plaque identified. VASCULATURE: No thoracic aortic aneurysm. AXILLA: No adenopathy. CHEST WALL: No masses. No subcutaneous air. HARDWARE/LINES/TUBES: Leads extending to the heart from right-sided approach. Unchanged. UPPER ABDOMEN: Calcification along the dome of the liver with the adjacent low-density lesions similar to previous. Left adrenal thickening most suggestive of adenoma unchanged. MUSCULOSKELETAL: Redemonstration of density throughout the midthoracic through upper lumbar spinal canal. OTHER: No other significant abnormality. IMPRESSION: 1. No change in bilateral lung nodules and consolidations since prior exam of 07/29/2024. 2. No change in nodular component of right lobe of thyroid. 3. No change left adrenal adenoma. 4. No change in calcification along the dome of the liver with adjacent low-density lesions. 5. No change in density throughout the midthoracic through upper lumbar spinal canal. 6. Consider PET-CT or biopsy if not already performed. Thyroid nodule recommendation: According to guidelines published in the White Paper of the ACR Incidental Thyroid Findings Committee, follow-up recommendations for incidentally detected thyroid nodule are as follows: In patients 35 years with an incidental thyroid nodule ITN detected on CT, MRI, or extrathyroidal ultrasound, the committee recommends further evaluation with dedicated thyroid ultrasound if the nodule is 1.5 cm, without suspicious imaging features, and the patient has normal life expectancy. THIS IS AN ELECTRONICALLY VERIFIED FINAL REPORT 10/15/2024 10:18 AM - Electronically signed by Ang Gan M.D. RB: LEOLA Report ID: [id number] Reading Location: [id number] Procedure Note Ang Gan MD - 10/15/2024 EXAM DESCRIPTION: CT CHEST WO CONTRAST REASON FOR STUDY: Abnormal xray - lung nodule (Age >= 35y) Follow up lung mass, no current complaints, non smoker TECHNIQUE: CT scan of the chest performed without intravenous contrastusing helical scanning technique. Reconstructed coronal and sagittal MPR images reviewed. All images stored on PACS. Automated exposure control was usedas a dose optimization technique for this examination. COMPARISON: 07/29/2024, 05/08/2020 CT chest, 08/02/2024 chest radiograph FINDINGS: The sensitivity for detection of solid visceral lesions is diminishedwithout the use of intravenous contrast. LUNGS: Central airways are patent. Right upper lobe slightly stellate ground-glass opacity measures 1.2 cm on axial image 34 of series 3. Generally unchanged from 07/29/2024 but newfrom 05/08/2020. Right lower lobe lobular opacity adjacent band like densities persists essentially unchanged possibly related to a region of consolidation. Mass previously suggested not excluded. This is generally unchanged on current image 49. Left lower lobe 1.0 cm nodule image 45 unchanged from 07/29/2024 and newfrom 05/08/2020. Left lower lobe consolidative opacity current image 49 measuring 3.6 cm unchanged using a similar technique on current image 47. Central air collections may indicate trapped bronchi or subtle cavitation similar previous. No new or enlarging nodules or consolidations. PLEURA: No effusion. No pneumothorax. MEDIASTINUM/FREDY: Nodular component of the right lobe of the thyroidextends in the retrosternal position similar to previous measuring 1.8 cm. Nonenlarged lymph nodes retrocaval pretracheal space, subcarinal spacesimilar to previous. HEART: Heart size is mildly enlarged. No pericardial effusion. CORONARY ARTERY CALCIFICATION: No bulky calcified plaque identified. VASCULATURE: No thoracic aortic aneurysm. AXILLA: No adenopathy. CHEST WALL: No masses. No subcutaneous air. HARDWARE/LINES/TUBES: Leads extending to the heart from right-sided approach. Unchanged. UPPER ABDOMEN: Calcification along the dome of the liver with theadjacent low-density lesions similar to previous. Left adrenal thickening most suggestive of adenoma unchanged. MUSCULOSKELETAL: Redemonstration of density throughout the midthoracic through upper lumbar spinal canal. OTHER: No other significant abnormality. IMPRESSION: 1. No change in bilateral lung nodules and consolidations since priorexam of 07/29/2024. 2. No change in nodular component of right lobe of thyroid. 3. No change left adrenal adenoma. 4. No change in calcification along the dome of the liver with adjacent low-density lesions. 5. No change in density throughout the midthoracic through upper lumbar spinal canal. 6. Consider PET-CT or biopsy if not already performed. Thyroid nodule recommendation: According to guidelines published in theWhite Paper of the ACR Incidental Thyroid Findings Committee, follow-up recommendations for incidentally detected thyroid nodule are as follows:In patients 35 years with an incidental thyroid nodule ITN detected on CT,MRI, or extrathyroidal ultrasound, the committee recommends further evaluationwith dedicated thyroid ultrasound if the nodule is 1.5 cm, without suspicious imaging features, and the patient has normal life expectancy. THIS IS AN ELECTRONICALLY VERIFIED FINAL REPORT 10/15/2024 10:18 AM - Electronically signed by Ang Gan M.D. RB: LEOLA Report ID: [id number] Reading Location: [id number] us Alice Hagen MD IMG CT PROCEDURES Final Result * COLONOSCOPY (05/10/2020 11:24 AM SIGN DESIGNER) Anatomical Region Laterality Modality Other Narrative Procedure Note Duran James MD - 05/10/2020 11:24 AM CST [facility] Patient Name: Sadia Toledo Procedure Date: 05/10/2020 11:24 AM Date of : 1945 Admit Type: Inpatient Age: 74 Gender: Female Attending MD: Duran James M.D. Room: [facility] ENDOSCOPY ROOM 1 Note Status: Finalized Patient Profile: This is a 74 year old female. Patient admitted withthe loose diarrhea and constipation. CT showed proctitisor colitis. No previous colonoscopy. Colonoscopy for evaluation. Procedure: Colonoscopy Indications: Last colonoscopy: date unknown, Suspected colitis Referring MD: Marii Blackburn M.D. Providers: Duran James M.D. Impression: Large external hemorrhoids with thickening in the perianal area. Erythema and thickening in the rectum and distal sigmoid colon at the rectal sigmoid area fromimpaction. One 5 mm polyp in the descending colon, removed witha jumbo cold forceps. Resected and retrieved. Recommendation: - Continue present medications. - Await pathology results. Advance diet. DailyLinzess. Daily Dulcolax suppositories. Discontinue rectaltube. - Repeat colonoscopy in 5 years for screeningpurposes. Medicines: Monitored Anesthesia Care Complications: No immediate complications. Estimated Blood Loss: Estimated blood loss: none. Procedure: Pre-Anesthesia Assessment: - Prior to the procedure, a History and Physical was performed, and patient medications and allergieswere reviewed. The patient's tolerance of previous anesthesia was also reviewed. The risks and benefitsof the procedure and the sedation options and riskswere discussed with the patient. All questions were answered, and informed consent was obtained. Prior Anticoagulants: The patient has taken no previous anticoagulant or antiplatelet agents. ASA Grade Assessment: III - A patient with severe systemic disease. After reviewing the risks and benefits, the patient was deemed in satisfactory condition toundergo the procedure. The benefits, risks and alternatives of theprocedure and sedation were discussed and informed consent was obtained. All questions were answered. Please referto the signed informed consent document in the medical record. The bowel preparation used was Miralax. The bowel preparation used was bisacodyl tablets. Thebowel preparation used was magnesium citrate. Bowel prepwas administered using a split dose. The scope waspassed under direct vision. The Pediatric Colonoscope PCF-H190L [id number] was introduced through the anusand advanced to the the cecum, identified by appendiceal orifice and ileocecal valve. The quality of thebowel preparation was adequate. Findings: Large external hemorrhoid and thickening in the perineal area notedfrom immobility. A small sacral decubitus ulcer can be seen. . The cecum appeared normal. Spasm encountered throughout the colon suggestive dysmotility. The colon was otherwise overall unremarkable with no inflammatory changes all the way to the distal sigmoid colon when we see erythemain the rectum and distal sigmoid colon with mucosal thickening likelyfrom chronic constipation and impaction. No mass lesions noted A 5 mm polyp was found in the descending colon. The polyp wassessile. The polyp was removed with a jumbo cold forceps. Resection andretrieval were complete. An area of granular mucosa was found in the rectum. Electronically signed by Duran James M.D. Duran James M.D. 05/10/2020 2:21:02 PM Number of Addenda: 0 Note Initiated On: 05/10/2020 11:24 AM Procedure Code(s): --- Professional --- 87200, Colonoscopy, flexible; with biopsy, single or multiple Diagnosis Code(s): --- Professional --- K64.9, Unspecified hemorrhoids D12.4, Benign neoplasm of descending colon K62.89, Other specified diseases of anus and rectum CPT copyright 2017 [employer]. All rights reserved. The codes documented in this report are preliminary and upon applique cutter reviewmay be revised to meet current compliance requirements. Recognized by the [employer] for promoting quality in endoscopy Duran James MD ENDOSCOPY PROCEDURES Final Result * Screening Mammogram Bilateral W Laurent (03/02/2020 1:24 PM SIGN DESIGNER) Anatomical Region Laterality Modality Breast Bilateral Mammography 03/03/2020 9:40 AM SIGN DESIGNER Impressions 03/03/2020 9:53 AM SIGN DESIGNER There is no mammographic evidence of malignancy. A 1 year screening mammogram is recommended. BI-RADS: 1 - Negative. The patient will be entered into a reminder system with a target due date of 1 year for her next mammogram. Electronically signed by: Severo Morel M.D. Narrative 03/03/2020 9:53 AM SIGN DESIGNER EXAMINATION: SCREENING MAMMOGRAM BILATERAL W LAURENT ORDERING HEALTHCARE PROVIDER: MARII BLACKBURN HISTORY: Routine screening mammography. COMPARISON: 03/01/2019, 01/29/2017, 07/04/2014, 08/17/2007. TECHNIQUE: CC and MLO views of the bilateral breasts were obtained with digital technique using breast tomosynthesis with C view. Computer aided detection was utilized. FINDINGS: DENSITY: There are scattered fibroglandular elements in the bilateral breasts. BREASTS: Suboptimal examination secondary to difficulty with patient positioning related to patient's physical condition. The patient was imaged in a wheelchair. There are no suspicious masses, suspicious calcifications, or other suspicious findings in either breast. There has been no suspicious interval change. Marii Blackburn MD IMG MAMMO PROCEDURES Final Res ult * Hepatitis C Antibody Reflex Hepatitis C RNA Quantitative PCR (12/30/2016 11:17 AM CDT) Hep C Ab Negative Negative MAIDA FLORES Blood specimen (specimen) 12/30/2016 11:17 AM CDT 12/30/2016 7:14 PM CDT Marii Blackburn MD LAB MICROBIOLOGY - GENERAL ORD ERABLES Final Result [place] [id number] Stephanie Department of Laboratories [place] [id number] from Last 3 Months or Most Recently Relevant to Health Maintenance Additional Health Concerns Infection Onset Date Last Indicated MDR gram neg/ESBL 07/29/2024 07/29/2024 [place] [address] [place] [address] [facility] MEDICARE IDPA [facility] Advance Directives For more information, please contact: [phone] * Comfort Care Only - DO NOT Resuscitate (Latest Code Status on File) Date Activated Date Inactivated Comments 07/29/2024 2:22 PM 08/05/2024 7:03 PM * Full Code Date Activated Date Inactivated Comments 05/10/2020 11:35 AM 05/12/2020 10:46 PM * Full Code Date Activated Date Inactivated Comments 05/10/2020 11:34 AM 05/10/2020 11:35 AM * Full Code Date Activated Date Inactivated Comments 05/07/2020 5:43 PM 05/10/2020 11:34 AM * LIMITED - No CPR Date Activated Date Inactivated Comments 05/07/2020 4:50 PM 05/07/2020 5:43 PM Question Answer Comments Provide aggressive medical m anagement before a full cardiopulmonary arrest occurs. Use antibiotics, IV Fluids, and medical treatment unless specifically selected below: No intubation Discussed with the following attending physician: no cpr, discussed with pt and daughter Healthcare Agents on File Name [facility] Care Agent Care Teams Muck Hauler Relationship Specialty Start Date End Date Marii Blackburn MD PCP - General 08/28/15
--- OUTSIDE RECORDS SUMMARY | 2024-12-07 12:19 | XMS_ITS | Encounter Summary ---
Author Organization [facility] Healthcare Address [address] [place] [id number] Care Team Providers Care Designated Broker Name Role Phone Perez Blackburn MD Primary Care Provider [phone] Reason for Referral * MRI/CAT/PET Scan (Routine) - Authorized Specialty Diagnoses / Procedures Referred By Contac t Referred To Contact Radiology Diagnoses Lung mass Procedures PET/CT FDG Skull to Thigh Christopher Tracy MD [address] [place] [address] [address] [place] [address] Phone: tel: fax: [address] [phone] Referral ID Status Reason Start Date Expiration Date V isits Requested Visits Authorized [id number] Authorized 10/26/2024 11/25/2025 2 2 Encounter Details Date Type Department Care Team (Late st Contact Info) Description 10/26/2024 Results Follow-Up [facility] Medical Group Pulmonary at [address] [place] [id number] Christopher Tracy MD [address] [place] [address] [address] [place] [address] Chest WO Contrast Social History Tobacco Use Types Packs/Day Years Used Date Smoking Tobacco: Never Smokeless Tobacco: Never Alcohol Use Standard Drinks/Week Comments No 0 (1 standard drink = 0.6 oz pur e alcohol) [facility] Utilities Answer Date Recorded In the past [...] often do you attend chur ch or scientologist services? Never 07/30/2024 Do you belong to any clubs o r organizations such as episcopal groups, unions, fraternal or athletic groups, or [...] any time in the past 12 m [facility], were you homeless or living in a [facility] (including now)? No 07/30/2024 Personal Safety Answer Date Recorded Have you ever been in or are you currently in a harmful physical or emotional relationship or is someone making you feel afraid or unsafe? Denies 07/29/2024 Comments No Sex and Gender Information Value Date Recorded Sex Assigned at Not on file Legal Sex Female 3:05 PM INFORMATICS ANALYST Gender Identity Not on file Sexual Orientation Not on file documented as of this encounter Plan of Treatment Scheduled Orders Name Type Priority Associated Diagnoses Orde r Schedule PET/CT FDG Skull to Thigh Imaging Schedule HYACINTH, Read Routine (Patient lives out of area) Lung mass Expected: 10/26/2024, Expires: 10/26/2025 documented as of this encounter Visit Diagnoses Diagnosis Lung mass- Primary Swelling, mass, or lump in chest documented in this encounter Additional Health Concerns Infection Onset Date Last Indicated Resolved Time MDR gram neg/ESBL 07/29/2024 07/29/2024 documented as of this encounter Care Teams Designated Broker Relationship Specialty Start Date End Date Perez Blackburn MD PCP - General 08/28/15 documented as of this encounter
--- OUTSIDE RECORDS SUMMARY | 2024-12-07 12:19 | XMS_ITS | Encounter Summary ---
Author Organization [facility] Medical Group Address [address] [place] [address] Care Team Providers Care Distribution Superintendent Name Role Phone Perez Blackburn MD Primary Care Provider [phone] Perez Blackburn MD Primary Care Provider [phone] Natalia Sloan Unavailable [phone] Lizette Lizarraga MA Unavailable Encounter Details Date Type Department Care Team (Late st Contact Info) Description 06/27/2014 Orders Only [facility] Health Information Management [address] [place] [address] Perez Blackburn MD [address] [place] [address] [address] Social History Tobacco Use Types Packs/Day Years Used Date Smoking Tobacco: Never Alcohol Use Standard Drinks/Week Comments No 0 (1 standard drink = 0.6 oz pur e alcohol) Comments Unknown Sex and Gender Information Value Date Recorded Sex Assigned at Not on file Legal Sex Female 3:05 PM SPEECH THERAPIST Gender Identity Not on file Sexual Orientation Not on file documented as of this encounter Plan of Treatment Not on file documented as of this encounter Procedures Procedure Name Priority Date/Time Associated Diagnosis Comments STOOL DNA COLOGUARD Routine 06/27/2014 documented in this encounter Results * Stool DNA - Cologuard (06/27/2014) Stool us Historical Provider LAB BODY FLUIDS AND STOOL S ORDERABLES Final Result documented in this encounter Visit Diagnoses Not on filedocumented in this encounter Additional Health Concerns Infection Onset Date Last Indicated Resolved Time COVID: Suspected 04/26/2020 04/26/2020 04/26/2020 5:40 PM SPEECH THERAPIST Respiratory Infection (ARDEN), contact + droplet Comment:Automatically added due to negative COVID-19 result. 04/26/2020 04/26/2020 05/08/2020 11: 37 AM SPEECH THERAPIST COVID: Suspected 05/07/2020 05/07/2020 05/07/2020 2:51 PM SPEECH THERAPIST MDR gram neg/ESBL 07/29/2024 07/29/2024 C. difficile suspected 2024 08/04/202408/04 5:55 PM CDT documented as of this encounter Care Teams Distribution Superintendent Relationship Specialty Start Date End Date Perez Blackburn MD PCP - General 08/28/15 Perez Blackburn MD PCP - General 02/01/08 08/27/15 Natalia Sloan [address] [place] [address] [address] [place] [address] ACO Care Director Of Workforce Development 05/15/20 06/12/20 Lizette Lizarraga MA [address] [place] [address] ACO Care Director Of Workforce Development 06/15/20 06/19/20 documented as of this encounter
--- NOTE | 2024-12-07 12:52 | ECG_ITS ---
Test Date: 2024-12-07 15:41:46 Measurements Intervals Bee Rate: 114 P: 63 WV: 164 QRS: 61 QRSD: 85 T: 58 QT: 432 QTc: 597 Interpretive Statements SINUS TACHYCARDIA EARLY PRECORDIAL R/S TRANSITION NONSPECIFIC ST & T-WAVE ABNORMALITY- DIFFUSE LEADS BASELINE ARTIFACT- I, III, AVR, AVL, AVF, V1-V6 ABNORMAL ECG Compared to ECG 07/07/2024 21:23:05 HEART RATE HAS INCREASED Electronically Signed On 12-07-2024 16:56:08 CDT by David Sanchez D.O.
--- NOTE | 2024-12-07 12:53 | ED.WOUNDLAC ---
HPI - Wound/Laceration General Chief Complaint: Wound/Laceration Stated Complaint: wound issues Time Seen by Provider: 12/07/24 12:00 History of Present Illness HPI narrative: This is a 79-year-old female with history of hyperlipidemia, spina bifida who presents to the ED for sacral wound. Patient states that she is unsure why she was sent here. She was told that she is hurting side patient only complains of left lower quadrant abdominal pain. Per EMS report, wound with there is no additional information at that time. Related Data Home Medications ?Medication ?Instructions ?Recorded ?Confirmed ?Last Taken ?Type acetaminophen 650 mg tablet 650 mg PO Q4H PRN mild pain 02/21/23 07/08/24 07/01/24 History atorvastatin 10 mg tablet 10 mg PO HS 02/21/23 07/08/24 07/06/24 History calcium 600 mg-D3 800 unit-mag 40 1 tablet PO BID 02/21/23 07/08/24 07/07/24 History rr-myam-kycl-leydi-boron chew tablet (Caltrate 600-D Plus Minerals) duloxetine 60 mg capsule,delayed 60 mg PO DAILY 02/21/23 07/08/24 07/07/24 History release fluticasone propionate 50 2 spray intranasal DAILY 02/21/23 07/08/24 07/07/24 History mcg/actuation nasal spray,suspension (Flonase Allergy Relief) furosemide 20 mg tablet (Lasix) 60 mg PO DAILY 02/21/23 07/08/24 07/07/24 History guaifenesin 600 mg tablet, 600 mg PO BID 02/21/23 07/08/24 07/07/24 History extended release 12 hr (Mucinex) loratadine 10 mg tablet 10 mg PO DAILY 02/21/23 07/08/24 07/07/24 History magnesium hydroxide 400 mg/5 mL 400 mg PO HS PRN constipation if 02/21/23 07/08/24 Unknown History oral suspension no BM for 3 days nystatin 100,000 unit/gram topical 1 applic topical DAILY PRN moistu 02/21/23 07/08/24 Unknown History powder polyethylene glycol 3350 17 gram 17 g PO DAILY 02/21/23 07/08/24 07/07/24 History oral powder packet (Miralax) potassium chloride 10 mEq 10 meq PO DAILY 02/21/23 07/08/24 07/07/24 History capsule,extended release trazodone 100 mg tablet 100 mg PO HS 02/21/23 07/08/24 07/06/24 History cholecalciferol (vitamin D3) 50 50 mcg PO DAILY 07/08/24 07/08/24 07/07/24 History mcg (2,000 unit) capsule multivitamin (Daily Multi-Vitamin 1 tablet PO DAILY 07/08/24 07/08/24 07/07/24 History tablet) Allergies Allergy/AdvReac Type Severity Reaction Status Date / Time codeine Allergy Unknown Verified 12/07/24 12:24 NSAIDS (Non-Steroidal Allergy Unknown Verified 12/07/24 12:24 Anti-Inflamma Penicillins Allergy Hives Verified 12/07/24 12:24 Sulfa (Sulfonamide Allergy Hives Verified 12/07/24 12:24 Antibiotics) Review of Systems Review of Systems: Gen.: Denies fevers or chills Eyes: Denies eye pain or visual change ENT: Denies congestion Respiratory: Denies shortness of breath or cough CV: Denies chest pain or palpitations GI: Denies abdominal pain nausea, emesis or diarrhea denies burning, urgency, frequency or hematuria Musculoskeletal: Denies back pain or muscle pain Neuro: Denies numbness, tingling, weakness or focal weakness Skin: Denies rash Except as documented, all other systems reviewed and negative [facility] Past Medical History Medical History Hyperlipidemia Depression with anxiety Spina bifida of lumbar spine Surgical History Surgical History History of hysterectomy History of tonsillectomy History of appendectomy History of urostomy Family History Family History Father Cancer Social History Social History Social History: Legal guardian: Daniella Chilel ([phone]). Code status: Do not resuscitate. Smoking status: Never smoker Alcohol intake: never Substance use: never Substance use type: does not use Do You Feel Safe in your Home?: Yes Lack of Transportation: No Lack of Food: Never True Current Housing: I Have Housing Concerned About Future Housing: No Difficulty Paying Gas/Electric Bills: No Difficulty Paying for Meds: No Currently Unemployed: No Education: High School Diploma/GED Difficulty w/ Childcare or Family Care: No Spiritual care concerns: No Exam Narrative: APPEARANCE: No acute distress, nontoxic, resting in bed EYES: EOMI HEENT: Normocephalic, atraumatic, OMM RESPIRATORY: No respiratory distress Clear to auscultation bilaterally with no rhonchi wheezing or rales. CARDIOVASCULAR: Regular rate and rhythm without murmurs rubs or gallops. ABDOMINAL: Soft, mild tenderness to palpation to the left lower quadrant, also notably firm. Ostomy in place to the right lower quadrant. MUSCULOSKELETAl: Moves all extremities. No clubbing, cyanosis or edema. NEURO: Awake and alert. Following commands, speech normal, no focal deficits SKIN:: 3 x 4 cm tunneling sacral ulcer no active drainage but extremely foul smell. There is also a small 1 x 1 cm wound to the right posterior proximal thigh with no drainage and granulation tissue. PSYCHIATRIC: Normal affect/mood, Course Vital Signs Vital signs: Vital Signs Temperature 98.7 F 12/07/24 11:51 Pulse Rate 105 H 12/07/24 11:51 Respiratory Rate 14 12/07/24 11:51 Blood Pressure 111/75 12/07/24 11:51 Pulse Oximetry 97 12/07/24 11:51 Oxygen Delivery Room Air 12/07/24 11:51 Temperature 98.7 F 12/07/24 11:51 Pulse Rate 105 H 12/07/24 11:51 Respiratory Rate 14 12/07/24 11:51 Blood Pressure 111/75 12/07/24 11:51 Pulse Oximetry 97 12/07/24 11:51 Oxygen Delivery Room Air 12/07/24 11:51 MDM - Wound/Laceration MDM Narrative Medical decision making narrative: 71-year-old female presented to the ED from long term for concerns for sacral wound. On initial evaluation, patient was tachycardic but remaining vitals stable. She did have a large sacral wound that did appear to be tunneling. She did have a leukocytosis at 15. Mild hypokalemia at 3. CT abdomen/pelvis was obtained and did reveal a telling sacral wound with evidence of sacral osteomyelitis. Also noted stercoral colitis. Did speak with , general surgery, who will see the patient as a consult. Patient was started on vanc/cefepime. Given the stercoral colitis, I did attempt to dispense the patient in the office some stool service well patient will require admission for IV and further management. Patient was agreeable to this plan. Differential Diagnosis Differential diagnosis: Likely other (abscess, decubitus ulcer, osteomyelitis, constipation, cancer) Lab Data Attestation: I reviewed the patient's lab results. 12/07/24 14:32 12/07/24 14:32 Labs: Lab Results 12/07/24 12/07/24 Range/Units 14:32 14:36 WBC 15.0 H (4.5-10.0) K/mm3 RBC 4.29 (4.2-5.4) M/mm3 Hgb 11.8 L (12.0-15.0) g/dL Hct 37.1 (37.0-47.0) % MCV 86.5 (80-100) fl MCH 27.5 (26-34) pg MCHC 31.8 L (32-36) g/dl RDW 14.4 (11.5-14.5) % Plt Count 687 H (150-375) k/mm3 MPV 9.3 (7.4-10.4) fl Immature Gran % (Auto) 0.4 (0-0.5) % Neut % (Auto) 73.1 (45.5-73.1) % Lymph % (Auto) 18.0 L (18.3-44.2) % [place] % (Auto) 6.5 (2.6-8.5) % Eos % (Auto) 1.7 (0-4.4) % Baso % (Auto) 0.3 (0.2-1.2) % Lymph # (Auto) 2.70 (0.9-3.2) K/mm3 [place] # (Auto) 1.0 H (0.1-0.6) K/mm3 Eos # (Auto) 0.3 (0-0.3) K/mm3 Baso # (Auto) 0.1 (0.0-0.1) K/mm3 Abs Immat Gran (auto) 0.06 H (0.00-0.031) K/mm3 Absolute Neuts (auto) 11.0 H (1.3-6.7) K/mm3 Absolute Nucleated RBC 0.000 (0.0-0.012) K/mm3 Nucleated RBC % 0.0 (0.0-0.2) % % Immature Plt Fraction 2.1 (0.9-11.2) % PT 13.8 (11.1-14.7) Seconds INR 1.0 APTT 23.4 (22.3-36.8) Seconds Sodium 137 (137-145) mmol/L Potassium 3.0 L (3.4-5.0) mmol/L Chloride 92 L (98-107) mmol/L Carbon Dioxide 38 H (22-30) mmol/L Anion Gap 7 (4-12) mmol/L BUN 13 D (7-17) mg/dL Creatinine 0.46 L (0.7-1.0) mg/dL Estim Creat Clear Calc Not Reportable Estimated GFR > 60 (59 - ) Glucose 105 (65-110) mg/dL Lactic Acid 1.9 (0.7-2.0) mmol/L Calcium 9.2 (8.4-10.2) mg/dL Total Bilirubin 0.6 (0.2-1.3) mg/dL AST 27 (14-36) U/L ALT 14 (6-35) U/L Alkaline Phosphatase 120 (38-126) U/L C-Reactive Protein 27.1 H (<1.0) mg/dL Total Protein 7.8 (6.3-8.2) g/dL Albumin 3.7 (3.5-5.1) g/dL Imaging Data Radiologist's impression: Impressions Abdomen/Pelvis CT 12/07/24 15:35 IMPRESSION: 1. Deep sacral decubitus ulcer with osteomyelitis along the caudal aspect of the sacrum which is new since the prior study. 2. Interval increase in size of a likely cavitary mass at the dependent left lower lobe which raises concern for malignancy. Would recommend CT-guided biopsy. 3. Smaller 1.3 x 1.0 cm nodule along a band of discoid atelectasis in the right lower lobe. Consider either short interval follow-up in 3 months or further evaluation with PET/CT. 4. Stable appearance of a subcapsular flat hypodense region along the dome of the liver suggestive of a collapsed cyst or region of scarring with multiple peripheral high attenuation foci, unclear whether calcifications or potentially embolization material. Correlate with clinical history and with any prior outside imaging for comparison. 5. Bilateral nonobstructing nephrolithiasis. 6. 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 There is urothelial enhancement at the lateral renal collecting systems suspicious for secondary ascending urinary tract infection. Correlate with urinalysis. Recurrent infections could account for the moderate atrophy with cortical scarring at the right kidney. 7. Large amount of stool in the sigmoid colon and rectum with associated wall thickening and perirectal stranding consistent with secondary stercoral colitis. 8. Couple ventral hernias, one containing fat and the second anterior wall of a short segment of nonobstructed proximal transverse colon. 9. Unchanged extensive high attenuation material within the thecal sac the lumbar and visualized lower thoracic spine suggesting retained Pantopaque. Correlate with clinical history. ADDENDUM: 12/07/24 1619 ADDENDUM: There is also a 1.8 x 1.5 cm left hilar lymph node which could be either reactive or metastatic. ECG Data EKG #1: Attestation: I personally reviewed and interpreted this ECG as follows: ECG completion date: 12/07/24 ECG completion time: 15:41 Interpretation: Sinus tachycardia rate of 114, normal axis, normal intervals, nonspecific ST and T-wave changes. Discharge Plan Discharge Clinical Impression: Stercoral colitis, Acute hypokalemia Osteomyelitis Qualifiers: Osteomyelitis type: unspecified type Osteomyelitis location: other site Qualified Code(s): M86.9 - Osteomyelitis, unspecified Decubitus ulcer Qualifiers: Pressure injury location: sacral region Pressure injury stage: unstageable Qualified Code(s): L89.150 - Pressure ulcer of sacral region, unstageable Patient Disposition: Still a Patient Condition: Stable Patient Language: Telugu Prescriptions: No Action atorvastatin 10 mg tablet 10 mg PO HS acetaminophen 650 mg Tablet 650 mg PO Q4H PRN (Reason: mild pain) fluticasone propionate [Flonase Allergy Relief] 50 mcg/actuation [place],Suspension 2 spray INTRANASAL DAILY Rx Instructions: administer into each nostril duloxetine 60 mg capsule,delayed release(DR/EC) 60 mg PO DAILY Caltrate 600-D Plus Minerals 600 mg calcium- 800 unit-40 mg Tablet,Chewable 1 tablet PO BID polyethylene glycol 3350 [Miralax] 17 gram Powder In Packet 17 g PO DAILY magnesium hydroxide 400 mg/5 mL Suspension 400 mg PO HS PRN (Reason: constipation if no BM for 3 days) furosemide [Lasix] 20 mg Tablet 60 mg PO DAILY loratadine 10 mg Tablet 10 mg PO DAILY guaifenesin [Mucinex] 600 mg Tablet Extended Release 12hr 600 mg PO BID potassium chloride 10 mEq Capsule, Extended Release 10 meq PO DAILY trazodone 100 mg Tablet 100 mg PO HS nystatin 100,000 unit/gram Powder 1 applic TOPICAL DAILY PRN (Reason: moistu) cholecalciferol (vitamin D3) 50 mcg (2,000 unit) capsule 50 mcg PO DAILY multivitamin [Daily Multi-Vitamin] Tablet 1 tablet PO DAILY lactulose 10 gram/15 mL solution 10 g PO DAILY PRN (Reason: constipation) Qty: 473 0RF Rx Instructions: Give if no BM within 72 hours prior, or if feeling constipated. Follow-up/Referrals: Abigail,MD Jimmy [Primary Care Provider, Unknown]
--- NOTE | 2024-12-07 13:26 | PC.NURSE ---
3 unsuccessful attempts to start IV-another RN will attempt. Patient tolerated well
--- NOTE | 2024-12-07 14:07 | PC.NURSE ---
Ultrasound at bedside attempting IV start
[2024-12-07 14:52] LABS: Hematocrit 37.1 % (37.0-47.0); Hemoglobin 11.8 g/dL (12.0-15.0); Immature Granulocyte Percent A 0.4 % (0-0.5); Immature Platelet Fraction Pct 2.1 % (0.9-11.2); Lymphocytes Absolute Auto 2.70 K/mm3 (0.9-3.2); Mean Corpuscular HGB Conc 31.8 g/dl (32-36); Mean Corpuscular Hemoglobin 27.5 pg (26-34); Mean Corpuscular Volume 86.5 fl (80-100); Nucleated Red Blood Cells Absolute Auto 0.000 K/mm3 (0.0-0.012); Nucleated Red Blood Cells Perc 0.0 % (0.0-0.2); Platelet Count Result 687 k/mm3 (150-375); Red Blood Count 4.29 M/mm3 (4.2-5.4); White Blood Count 15.0 K/mm3 (4.5-10.0)
--- NOTE | 2024-12-07 14:53 | PC.NURSE ---
per LINWOOD Szymanski, phlebotomy called to obtain 2nd set of blood cultures.
[2024-12-07] MEDS: SODIUM CHLORIDE 0.9% IV 1,000 ML 999 ML IV CONT ×2 (14:55→14:56)
[2024-12-07] MEDS: SODIUM CHLORIDE 0.9% IV 300 ML 999 ML IV CONT (14:56)
--- NOTE | 2024-12-07 14:56 | PC.NURSE ---
Old Urostomy bag appliance removed and replaced after skin care given-patient tolerated well
--- NOTE | 2024-12-07 14:58 | PC.NURSE ---
Spoke with Tiffanie KWOK at [facility] and updated on patient condition and got more of a report. Apparently wound care come once a week-today housekeeping and laundry team leader from [facility] came in and it was decided that patient needed to come to hospital for debridement so was sent by EMS
[2024-12-07 15:05] LABS: INR 1.0; Prothrombin Time 13.8 Seconds (11.1-14.7)
[2024-12-07 15:06] LABS: Alanine Aminotransferase 14 U/L (6-35); Albumin Level 3.7 g/dL (3.5-5.1); Alkaline Phosphatase 120 U/L (38-126); Anion Gap 7 mmol/L (4-12); Aspartate Amino Transferase 27 U/L (14-36); Bilirubin,Total 0.6 mg/dL (0.2-1.3); Blood Urea Nitrogen 13 mg/dL (7-17); Calcium 9.2 mg/dL (8.4-10.2); Carbon Dioxide 38 mmol/L (22-30); Chloride 92 mmol/L (98-107); Estimated Glomerular Filt Rate > 60; Glucose 105 mg/dL (65-110); Partial Thromboplastin Time 23.4 Seconds (22.3-36.8); Potassium 3.0 mmol/L (3.4-5.0); Sodium 137 mmol/L (137-145); Total Protein 7.8 g/dL (6.3-8.2)
[2024-12-07] MEDS: POTASSIUM CHLORIDE 20 MEQ ER TABLET 40 MEQ PO (15:57)
[2024-12-07 16:07] LABS: CRP 27.1 mg/dL (<1.0)
[2024-12-07] MEDS: CEFEPIME 2 GM in SODIUM CHLORIDE 0.9% IV 50 ML 100 ML IVPB ×2 (16:59→23:11)
--- NOTE | 2024-12-07 17:10 | PC.NURSE ---
Patient tolerated fecal disimpaction by Dr Márquez without difficulty after procedure explained
[2024-12-07] MEDS: VANCOMYCIN 1,750 MG/NS 500 ML 1,750 MG/500 ML BAG 250 MG IVPB (18:19)
[2024-12-07 19:00] VITALS: BP 103/66; PULSE 120; RESP 12; TEMP 37.1; O2SAT 96
--- NOTE | 2024-12-07 19:31 | PM.IMHP ---
H&P: HPI History of Present Illness Date/Time: 12/07/24 19:31 Chief Complaint: Sacral wound Narrative: This is a 79-year-old female [facility] presented to the ED for sacral wound. This has been present for past few months however patient is not sure about this. Patient complains of hurting on the side. In the ED evaluation she was mildly tachycardic but afebrile. On evaluation she had a large sacral wound. Laboratory workup revealed WBC 15 K hemoglobin 11.8 platelet count 687. Sodium of 137 potassium 3.0 chloride 92 bicarbonate 38 BUN 13 creatinine 0.46. Blood glucose of 105. Lactate was normal at 1.9 LFTs were normal CRP was 27.1. CT abdomen pelvis showed deep sacral decubitus ulcer with osteomyelitis along the caudal aspect of the sacrum which is new. Interval increase in size of likely cavitary mass at the dependent left lower lobe which raises concern for malignancy. Recommend CT-guided biopsy. Smaller 1.3 x 1.0 cm nodule along the band of discoid atelectasis in the right lower lobe. Stable appearance of a subcapsular flat hypodense region along the dome of liver suggestive of a collapsed cyst are region of scarring with multiple peripheral high attenuation foci unclear whether this calcifications are potentially embolization material. Bilateral nonobstructing nephrolithiasis. Postoperative change of prior cystectomy with right lower quadrant ideal conduit formation. There is urothelial enhancement at the lateral renal collecting system suspicious for secondary ascending urinary tract infection. Correlate with urinalysis. Recurrent infection could confirm a moderate atrophy with cortical scarring at the right kidney. Large amount of stool in the sigmoid colon rectum with associated wall thickening and perirectal stranding consistent with secondary stercoral colitis. Ventral hernias 1 containing fat and 2nd anterior at wall of a short segment of nonobstructed proximal transverse colon. Unchanged extensive high attenuation material within the thecal sac the lumbar and visualized lower thoracic spine suggestive off retained plan to pick. There is also 1.8 x 1.5 cm left hilar lymph node which could be either reactive or metastatic. EKG showed sinus tachycardia with nonspecific ST-T changes Patient has been started on vancomycin and cefepime. General surgery has been consulted. She is admitted in the setting for further treatment. Review of Systems Review of Systems: - CONSTITUTIONAL: Denies weight loss, fever and chills. - HEENT: Denies changes in vision and hearing - RESPIRATORY: Denies SOB and cough. - CV: Denies palpitations and CP. - GI: Reports left lower abdominal pain, denies nausea, vomiting and diarrhea. - : Denies dysuria and urinary frequency. - MSK: Denies myalgia and joint pain. - SKIN: Denies rash and pruritus. - NEUROLOGICAL: Denies headache and syncope. - PSYCHIATRIC: Denies recent changes in mood. Denies anxiety and depression. [facility] Past Medical History Medical History Hyperlipidemia Depression with anxiety Spina bifida of lumbar spine Surgical History Surgical History History of hysterectomy History of tonsillectomy History of appendectomy History of urostomy Family History Family History Father Cancer Social History Social History Social History: Legal guardian: Daniella Chilel ([phone]). Code status: Do not resuscitate. Smoking status: Never smoker Alcohol intake: never Substance use: never Substance use type: does not use Do You Feel Safe in your Home?: Yes Lack of Transportation: No Lack of Food: Never True Current Housing: I Have Housing Concerned About Future Housing: No Difficulty Paying Gas/Electric Bills: No Difficulty Paying for Meds: No Currently Unemployed: No Education: High School Diploma/GED Difficulty w/ Childcare or Family Care: No Spiritual care concerns: No Meds Home Medications and Allergies Home Medications ?Medication ?Instructions ?Recorded ?Confirmed ?Type acetaminophen 650 mg tablet 650 mg PO Q4H PRN mild pain 02/21/23 07/08/24 History atorvastatin 10 mg tablet 10 mg PO HS 02/21/23 07/08/24 History calcium 600 mg-D3 800 unit-mag 40 1 tablet PO BID 02/21/23 07/08/24 History ed-cger-qzpf-leydi-boron chew tablet (Caltrate 600-D Plus Minerals) duloxetine 60 mg capsule,delayed 60 mg PO DAILY 02/21/23 07/08/24 History release fluticasone propionate 50 2 spray intranasal DAILY 02/21/23 07/08/24 History mcg/actuation nasal spray,suspension (Flonase Allergy Relief) furosemide 20 mg tablet (Lasix) 60 mg PO DAILY 02/21/23 07/08/24 History guaifenesin 600 mg tablet, 600 mg PO BID 02/21/23 07/08/24 History extended release 12 hr (Mucinex) loratadine 10 mg tablet 10 mg PO DAILY 02/21/23 07/08/24 History magnesium hydroxide 400 mg/5 mL 400 mg PO HS PRN constipation if 02/21/23 07/08/24 History oral suspension no BM for 3 days nystatin 100,000 unit/gram topical 1 applic topical DAILY PRN moistu 02/21/23 07/08/24 History powder polyethylene glycol 3350 17 gram 17 g PO DAILY 02/21/23 07/08/24 History oral powder packet (Miralax) potassium chloride 10 mEq 10 meq PO DAILY 02/21/23 07/08/24 History capsule,extended release trazodone 100 mg tablet 100 mg PO HS 02/21/23 07/08/24 History cholecalciferol (vitamin D3) 50 50 mcg PO DAILY 07/08/24 07/08/24 History mcg (2,000 unit) capsule multivitamin (Daily Multi-Vitamin 1 tablet PO DAILY 07/08/24 07/08/24 History tablet) lactulose 10 gram/15 mL oral 10 g (15 mL) PO DAILY PRN 07/10/24 Rx solution constipation #473 mL Allergies Allergy/AdvReac Type Severity Reaction Status Date / Time codeine Allergy Unknown Verified 12/07/24 12:24 NSAIDS (Non-Steroidal Allergy Unknown Verified 12/07/24 12:24 Anti-Inflamma Penicillins Allergy Hives Verified 12/07/24 12:24 Sulfa (Sulfonamide Allergy Hives Verified 12/07/24 12:24 Antibiotics) Vital Signs Vital Signs - 24 hr 12/07/24 11:51 Temperature 98.7 F Pulse Rate 105 H Respiratory Rate 14 Blood Pressure 111/75 Pulse Oximetry 97 Oxygen Delivery Room Air Exam Narrative: APPEARANCE: No acute distress, nontoxic, resting in bed EYES: EOMI HEENT: Normocephalic, atraumatic, OMM RESPIRATORY: No respiratory distress Clear to auscultation bilaterally with no rhonchi wheezing or rales. CARDIOVASCULAR: Mildly tachycardic, regular rhythm without murmurs rubs or gallops. ABDOMINAL: Soft, mild tenderness to palpation to the left lower quadrant, also notably firm. Ostomy in place to the right lower quadrant. Ventral hernia noted MUSCULOSKELETAl: Moves all extremities. No clubbing, cyanosis or edema. NEURO: Awake and alert. Following commands, speech normal, no focal deficits SKIN:: 3 x 4 cm tunneling sacral ulcer no active drainage but extremely foul smell. There is also a small 1 x 1 cm wound to the right posterior proximal thigh with no drainage and granulation tissue. PSYCHIATRIC: Normal affect/mood, H&P: Results Labs Labs: Short CBC 12/07/24 Range/Units 14:32 WBC 15.0 H (4.5-10.0) K/mm3 Hgb 11.8 L (12.0-15.0) g/dL Hct 37.1 (37.0-47.0) % Plt Count 687 H (150-375) k/mm3 BMP 12/07/24 14:32 Sodium 137 Potassium 3.0 L Chloride 92 L Carbon Dioxide 38 H BUN 13 D Creatinine 0.46 L Glucose 105 Calcium 9.2 Liver Function 12/07/24 Range/Units 14:32 Total Bilirubin 0.6 (0.2-1.3) mg/dL AST 27 (14-36) U/L ALT 14 (6-35) U/L Alkaline Phosphatase 120 (38-126) U/L Albumin 3.7 (3.5-5.1) g/dL Assessment and Plan Assessment and plan (1) Depression with anxiety: Code(s): F41.8 - Other specified anxiety disorders Status: Acute (2) Hyperlipidemia: Code(s): E78.5 - Hyperlipidemia, unspecified Status: Acute (3) Morbid obesity due to excess calories: Code(s): E66.01 - Morbid (severe) obesity due to excess calories Status: Acute (4) Chronic constipation: Code(s): K59.09 - Other constipation Status: Acute (5) Stercoral colitis: Code(s): K52.89 - Other specified noninfective gastroenteritis and colitis Status: Acute (6) Acute hypokalemia: Code(s): E87.6 - Hypokalemia Status: Acute (7) History of urostomy: Code(s): Z98.890 - Other specified postprocedural states Status: Acute (8) Osteomyelitis: Qualifiers: Osteomyelitis location: other site Osteomyelitis type: unspecified type Qualified Code(s): M86.9 - Osteomyelitis, unspecified Code(s): M86.9 - Osteomyelitis, unspecified Status: Acute (9) Decubitus ulcer: Qualifiers: Pressure injury location: sacral region Pressure injury stage: unstageable Qualified Code(s): L89.150 - Pressure ulcer of sacral region, unstageable Code(s): L89.90 - Pressure ulcer of unspecified site, unspecified stage Status: Acute (10) Paraplegia: Code(s): G82.20 - Paraplegia, unspecified Status: Acute (11) Spina bifida of lumbar spine: Qualifiers: Presence of hydrocephalus: unspecified hydrocephalus presence Qualified Code(s): Q05.7 - Lumbar spina bifida without hydrocephalus Code(s): Q05.7 - Lumbar spina bifida without hydrocephalus Status: Chronic Plan This is a 79-year-old female [facility] presented to the ED for sacral wound. This has been present for past few months however patient is not sure about this. Patient complains of hurting on the side. In the ED evaluation she was mildly tachycardic but afebrile. On evaluation she had a large sacral wound. Laboratory workup revealed WBC 15 K hemoglobin 11.8 platelet count 687. Sodium of 137 potassium 3.0 chloride 92 bicarbonate 38 BUN 13 creatinine 0.46. Blood glucose of 105. Lactate was normal at 1.9 LFTs were normal CRP was 27.1. CT abdomen pelvis showed deep sacral decubitus ulcer with osteomyelitis along the caudal aspect of the sacrum which is new. Interval increase in size of likely cavitary mass at the dependent left lower lobe which raises concern for malignancy. Recommend CT-guided biopsy. Smaller 1.3 x 1.0 cm nodule along the band of discoid atelectasis in the right lower lobe. Stable appearance of a subcapsular flat hypodense region along the dome of liver suggestive of a collapsed cyst are region of scarring with multiple peripheral high attenuation foci unclear whether this calcifications are potentially embolization material. Bilateral nonobstructing nephrolithiasis. Postoperative change of prior cystectomy with right lower quadrant ideal conduit formation. There is urothelial enhancement at the lateral renal collecting system suspicious for secondary ascending urinary tract infection. Correlate with urinalysis. Recurrent infection could confirm a moderate atrophy with cortical scarring at the right kidney. Large amount of stool in the sigmoid colon rectum with associated wall thickening and perirectal stranding consistent with secondary stercoral colitis. Ventral hernias 1 containing fat and 2nd anterior at wall of a short segment of nonobstructed proximal transverse colon. Unchanged extensive high attenuation material within the thecal sac the lumbar and visualized lower thoracic spine suggestive off retained plan to pick. There is also 1.8 x 1.5 cm left hilar lymph node which could be either reactive or metastatic. EKG showed sinus tachycardia with nonspecific ST-T changes Patient has been started on vancomycin and cefepime. General surgery has been consulted. She is admitted in the setting for further treatment. Sacral decubitus ulcer with sacral osteomyelitis on vanc and cefepime. Wound culture obtained. General surgery consulted. CRP elevated at 27. Wound care consult Left lower lobe cavitary mass interval increase in size will get dedicated CT chest to further evaluate. Pulmonary consult Stercoral colitis with chronic constipation. Continue bowel regimen Hypokalemia replace and monitor check Mag. History of urostomy abnormal urothelial system on CT. Check UA Paraplegia related to spina bifid a status post urostomy at age 16 History of kidney stone/obstructive uropathy DVT prophylaxis Lovenox Code status do not resuscitate Hospitalist MIPS Advance Care Plan I have confirmed that the patient's Advanced Care Plan is present, code status is documented, or surrogate decision maker is listed in patient medical record.: Yes Medication Reconciliation I have utilized all available resources to obtain, update and review the patients current medications (includes all prescriptions, OTC, herbals, cannabis, and nutritional supplements).: Yes
[2024-12-07 20:00] VITALS: BP 104/60; PULSE 118; RESP 18; TEMP 37.3; O2SAT 93
[2024-12-07 20:42] VITALS: BMI 32.4
[2024-12-07 21:19] LABS: Magnesium 1.8 mg/dL (1.6-2.3)
--- NOTE | 2024-12-07 21:29 | ADMGEN ---
This patient, Sadia Toledo, was admitted to 3 [facility] Surg Room 303-01. Patient/family oriented to hospital policies and general routines including ID bracelet, bed and alarms, visiting hours, pain management, procedures, bathroom and other care routines, personal items, smoking policy, room service/diet, and visiting hours. Information on how to activate the Rapid Response Team has been discussed. Patient/Family are encouraged to report perceived risks to care and to ask questions if they do not understand what they are told or what they should do.
[2024-12-07 21:58] LABS: Add Urine Microscopic? YES; Appearance Urine Clear (Clear); Glucose Urine UA Negative (Negative); Leukocyte Esterase Ur 2+ LEU/UL (Negative); Nitrate Urine Negative (Negative); Non Pathogenic Casts 0-2; Specific Grav Ur > 1.045 (1.001-1.035)
[2024-12-07 22:20] VITALS: O2SAT 98
[2024-12-08] VITALS (13 sets, daily range): BP systolic 93–126; BP diastolic 46–91; PULSE 89–105; RESP 12–19; TEMP 36–36.7; O2SAT 95–100
[2024-12-08 06:09] LABS: Hematocrit 37.0 % (37.0-47.0); Hemoglobin 11.2 g/dL (12.0-15.0); Immature Granulocyte Percent A 0.5 % (0-0.5); Lymphocytes Absolute Auto 3.84 K/mm3 (0.9-3.2); Mean Corpuscular HGB Conc 30.3 g/dl (32-36); Mean Corpuscular Hemoglobin 27.1 pg (26-34); Mean Corpuscular Volume 89.6 fl (80-100); Nucleated Red Blood Cells Absolute Auto 0.000 K/mm3 (0.0-0.012); Nucleated Red Blood Cells Perc 0.0 % (0.0-0.2); Platelet Count Result 624 k/mm3 (150-375); Red Blood Count 4.13 M/mm3 (4.2-5.4); White Blood Count 15.0 K/mm3 (4.5-10.0)
[2024-12-08 06:25] LABS: Alanine Aminotransferase 12 U/L (6-35); Albumin Level 3.4 g/dL (3.5-5.1); Alkaline Phosphatase 123 U/L (38-126); Anion Gap 8 mmol/L (4-12); Aspartate Amino Transferase 23 U/L (14-36); Bilirubin,Total 0.7 mg/dL (0.2-1.3); Blood Urea Nitrogen 7 mg/dL (7-17); Calcium 8.4 mg/dL (8.4-10.2); Carbon Dioxide 28 mmol/L (22-30); Chloride 98 mmol/L (98-107); Estimated CRCL calculation 82 ml/min; Estimated Glomerular Filt Rate > 60; Glucose 98 mg/dL (65-110); Magnesium 1.8 mg/dL (1.6-2.3); Potassium 3.1 mmol/L (3.4-5.0); Sodium 134 mmol/L (137-145); Total Protein 7.2 g/dL (6.3-8.2)
[2024-12-08] MEDS: CEFEPIME 2 GM in SODIUM CHLORIDE 0.9% IV 50 ML 100 ML IVPB ×3 (08:10→23:12)
[2024-12-08] MEDS: ENOXAPARIN 40 MG/0.4 ML SYRINGE SUB-Q (08:22)
--- NOTE | 2024-12-08 09:14 | PM.CNGS ---
Assessment and Plan Assessment and plan (1) Decubitus ulcer: Qualifiers: Pressure injury location: sacral region Pressure injury stage: unstageable Qualified Code(s): L89.150 - Pressure ulcer of sacral region, unstageable Code(s): L89.90 - Pressure ulcer of unspecified site, unspecified stage Status: Acute Assessment and Plan: Patient presented to the ED last night for a sacral decubitus ulcer. Ulcer is large and deep with sacral bone exposed with changes suggestive of osteomyelitis. Foul odor. WBC 15.0. CT demonstrated deep sacral decubitus ulcer with osteomyelitis along the caudal aspect of the sacrum which is new since the prior study about 5 months ago. Patient is currently NPO. She was scheduled to have lung biopsy today, but this was postponed until tomorrow due to her having her Lovenox this morning. We will plan for surgical debridement of sacral decubitus wound today in the OR. Keep patient NPO. Continue with IV vancomycin and cefepime. (2) Morbid obesity due to excess calories: Code(s): E66.01 - Morbid (severe) obesity due to excess calories Status: Acute (3) Stercoral colitis: Code(s): K52.89 - Other specified noninfective gastroenteritis and colitis Status: Acute (4) Presence of urostomy: Code(s): Z93.6 - Other artificial openings of urinary tract status Status: Acute (5) Osteomyelitis: Qualifiers: Osteomyelitis location: other site Osteomyelitis type: unspecified type Qualified Code(s): M86.9 - Osteomyelitis, unspecified Code(s): M86.9 - Osteomyelitis, unspecified Status: Acute Plan Discussed patient's case and plan of care with Dr. Olson. History of Present Illness Consult details Consult date: 12/08/24 Reason for consult: other (sacral decubitus ulcer) Requesting physician: Gerson Márquez MD Narrative: Patient is a 79 year old female with history of spina bifida who we have been asked to see in surgical consultation for a sacral decubitus ulcer. Patient presented to the ED last night for a sacral wound. Patient unsure of why she was sent there. She complained of LLQ abdominal pain. Patient does not remember when sacral wound first appeared. Still having bowel movements. She does have a urostomy bag. No nausea vomiting or other complaints. Patient was recently hospitalized here at [place] in June of 2024 for abdominal distension, nausea and vomiting. She was found have a 7 mm ureteral stone and UTI. Urology was consulted and planned for outpatient right ESWL. Upon admission to the ED, white blood cell count was 15.0. Afebrile. CT scan was obtained and demonstrated deep sacral decubitus ulcer with osteomyelitis along the caudal aspect of the sacrum which is new since the prior study in June of this year. Interval increase in size of a 3.4 x 2.1 cm mass in the posterior left lower lobe with some gas-filled central cavitation which raises concern for malignancy. Large amount of stool in the sigmoid colon and rectum with associated wall thickening and perirectal stranding consistent with secondary stercoral colitis. Pulmonology was consulted and planned for lung biopsy today but since patient had Lovenox this morning this test was postponed until tomorrow. Patient currently NPO. She states she is not hungry. [facility] Past Medical History Medical History Hyperlipidemia Depression with anxiety Spina bifida of lumbar spine Surgical History Surgical History History of hysterectomy History of tonsillectomy History of appendectomy History of urostomy Family History Family History Father Cancer Social History Social History Social History: Legal guardian: Daniella Chilel ([phone]). Code status: Do not resuscitate. Smoking status: Never smoker Alcohol intake: never Substance use: never Substance use type: does not use Do You Feel Safe in your Home?: Yes Lack of Transportation: No Lack of Food: Never True Current Housing: I Have Housing Concerned About Future Housing: No Difficulty Paying Gas/Electric Bills: No Difficulty Paying for Meds: No Currently Unemployed: No Education: Grade School Difficulty w/ Childcare or Family Care: No Spiritual care concerns: Yes Meds Home Medications and Allergies Home Medications ?Medication ?Instructions ?Recorded ?Confirmed ?Type acetaminophen 650 mg tablet 650 mg PO Q4H PRN mild pain 02/21/23 12/07/24 History atorvastatin 10 mg tablet 10 mg PO HS 02/21/23 12/07/24 History calcium 600 mg-D3 800 unit-mag 40 1 tablet PO BID 02/21/23 12/07/24 History ly-qcao-ivah-leydi-boron chew tablet (Caltrate 600-D Plus Minerals) duloxetine 60 mg capsule,delayed 60 mg PO BID 02/21/23 12/07/24 History release fluticasone propionate 50 2 spray intranasal DAILY 02/21/23 12/07/24 History mcg/actuation nasal spray,suspension (Flonase Allergy Relief) furosemide 20 mg tablet (Lasix) 60 mg PO DAILY 02/21/23 12/07/24 History loratadine 10 mg tablet 10 mg PO DAILY 02/21/23 12/07/24 History magnesium hydroxide 400 mg/5 mL 400 mg PO HS PRN constipation if 02/21/23 12/07/24 History oral suspension no BM for 3 days nystatin 100,000 unit/gram topical 1 applic topical DAILY 02/21/23 12/07/24 History powder polyethylene glycol 3350 17 gram 17 g PO DAILY 02/21/23 12/07/24 History oral powder packet (Miralax) trazodone 100 mg tablet 75 mg PO HS 02/21/23 12/07/24 History cholecalciferol (vitamin D3) 50 50 mcg PO DAILY 07/08/24 12/07/24 History mcg (2,000 unit) capsule multivitamin (Daily Multi-Vitamin 1 tablet PO DAILY 07/08/24 12/07/24 History tablet) lactulose 10 gram/15 mL oral 10 g (15 mL) PO DAILY PRN 07/10/24 12/07/24 Rx solution constipation #473 mL ascorbic acid (vitamin C) 500 mg 500 mg PO BID 12/07/24 12/07/24 History chewable tablet (Acerola C) collagenase clostridium histo. 250 1 applic topical DAILY 12/07/24 12/07/24 History unit/gram topical ointment (Santyl) mirtazapine 7.5 mg tablet 7.5 mg PO HS 12/07/24 12/07/24 History ondansetron 4 mg disintegrating 4 mg PO Q6H PRN NAUSEA 12/07/24 12/07/24 History tablet zinc sulfate 50 mg zinc (220 mg) 50 mg PO DAILY 12/07/24 12/07/24 History capsule (Zinc-220) Allergies Allergy/AdvReac Type Severity Reaction Status Date / Time codeine Allergy Unknown Verified 12/07/24 21:18 NSAIDS (Non-Steroidal Allergy Unknown Verified 12/07/24 21:18 Anti-Inflamma Penicillins Allergy Hives Verified 12/07/24 21:18 Sulfa (Sulfonamide Allergy Hives Verified 12/07/24 21:18 Antibiotics) Vital Signs Vital Signs - 24 hr 12/07/24 11:51 12/07/24 19:00 12/07/24 20:00 Temperature 98.7 F 98.7 F 99.1 F Pulse Rate 105 H 120 H 118 H Respiratory Rate 14 12 18 Blood Pressure 111/75 103/66 104/60 Pulse Oximetry 97 96 93 Oxygen Delivery Room Air Fraction of Inspired Oxygen 12/07/24 22:20 12/08/24 05:12 Temperature 97.7 F Pulse Rate 97 Respiratory Rate 16 Blood Pressure 98/49 L Pulse Oximetry 98 96 Oxygen Delivery Room Air Fraction of Inspired Oxygen 21 Exam Const: General: comfortable and no acute distress Eyes: General: appearance normal, both eyes and all related structures Neck: Neck: supple Resp: Effort & Inspection: normal respiratory effort Cardio: Rate: regular rate GI: Inspection: non-distended : Other: Urostomy bag with clear yellow urine Skin: Wounds: wounds noted Other: Stage IV 4.5 x 6.5 x 2.5 sacral decubitus ulcer. Foul odor present. Wound bed with pink, brown, yellow tissue. Sharp sacral bone exposed. Bone appeared nonviable with friability consistent with osteomyelitis. Tracking laterally to the right. Multiple loculations broken up with blunt dissection. No sensation intact. Small right ischium pressure ulcer with yellow slough. No erythema or warmth present Psych: Other: Dementia Results Labs 12/08/24 05:17 12/08/24 05:17 Labs: Abnormal lab results 12/07/24 12/07/24 12/08/24 Range/Units 14:32 21:47 05:17 WBC 15.0 H 15.0 H (4.5-10.0) K/mm3 RBC 4.13 L (4.2-5.4) M/mm3 Hgb 11.8 L 11.2 L (12.0-15.0) g/dL MCHC 31.8 L 30.3 L (32-36) g/dl Plt Count 687 H 624 H (150-375) k/mm3 Lymph % (Auto) 18.0 L (18.3-44.2) % Lymph # (Auto) 3.84 H (0.9-3.2) K/mm3 [place] # (Auto) 1.0 H 1.0 H (0.1-0.6) K/mm3 Abs Immat Gran (auto) 0.06 H 0.08 H (0.00-0.031) K/mm3 Absolute Neuts (auto) 11.0 H 9.8 H (1.3-6.7) K/mm3 Sodium 134 L (137-145) mmol/L Potassium 3.0 L 3.1 L (3.4-5.0) mmol/L Chloride 92 L (98-107) mmol/L Carbon Dioxide 38 H (22-30) mmol/L Creatinine 0.46 L 0.42 L (0.7-1.0) mg/dL C-Reactive Protein 27.1 H (<1.0) mg/dL Albumin 3.4 L (3.5-5.1) g/dL Ur Specific [place] > 1.045 H (1.001-1.035) Urine Protein 1+ H (Negative) mg/dL Leukocyte Esterase Rfl 2+ H (Negative) MARIA LUISA/UL Urine WBC 51-100 H (0-3) /hpf Diabetes panel 12/07/24 12/08/24 Range/Units 14:32 05:17 Sodium 137 134 L (137-145) mmol/L Potassium 3.0 L 3.1 L (3.4-5.0) mmol/L Chloride 92 L 98 (98-107) mmol/L Carbon Dioxide 38 H 28 (22-30) mmol/L BUN 13 D 7 D (7-17) mg/dL Creatinine 0.46 L 0.42 L (0.7-1.0) mg/dL Glucose 105 98 (65-110) mg/dL Calcium 9.2 8.4 (8.4-10.2) mg/dL AST 27 23 (14-36) U/L ALT 14 12 (6-35) U/L Alkaline Phosphatase 120 123 (38-126) U/L Total Protein 7.8 7.2 (6.3-8.2) g/dL Albumin 3.7 3.4 L (3.5-5.1) g/dL Calcium panel 12/07/24 12/08/24 Range/Units 14:32 05:17 Calcium 9.2 8.4 (8.4-10.2) mg/dL Albumin 3.7 3.4 L (3.5-5.1) g/dL Pituitary panel 12/07/24 12/08/24 Range/Units 14:32 05:17 Sodium 137 134 L (137-145) mmol/L Potassium 3.0 L 3.1 L (3.4-5.0) mmol/L Chloride 92 L 98 (98-107) mmol/L Carbon Dioxide 38 H 28 (22-30) mmol/L BUN 13 D 7 D (7-17) mg/dL Creatinine 0.46 L 0.42 L (0.7-1.0) mg/dL Glucose 105 98 (65-110) mg/dL Calcium 9.2 8.4 (8.4-10.2) mg/dL Adrenal panel 12/07/24 12/08/24 Range/Units 14:32 05:17 Sodium 137 134 L (137-145) mmol/L Potassium 3.0 L 3.1 L (3.4-5.0) mmol/L Chloride 92 L 98 (98-107) mmol/L Carbon Dioxide 38 H 28 (22-30) mmol/L BUN 13 D 7 D (7-17) mg/dL Creatinine 0.46 L 0.42 L (0.7-1.0) mg/dL Glucose 105 98 (65-110) mg/dL Calcium 9.2 8.4 (8.4-10.2) mg/dL Total Bilirubin 0.6 0.7 (0.2-1.3) mg/dL AST 27 23 (14-36) U/L ALT 14 12 (6-35) U/L Alkaline Phosphatase 120 123 (38-126) U/L Total Protein 7.8 7.2 (6.3-8.2) g/dL Albumin 3.7 3.4 L (3.5-5.1) g/dL All other labs normal.
[2024-12-08] MEDS: POTASSIUM CHLORIDE INJ 40 MEQ in SODIUM CHLORIDE 0.9% IV 500 ML 130 MEQ IVPB (09:48)
--- NOTE | 2024-12-08 11:29 | PM.CNPUL ---
Assessment and Plan Assessment and plan (1) Lung mass: Code(s): R91.8 - Other nonspecific abnormal finding of lung field Status: Acute Assessment and Plan: Patient is a never smoker but exposed to secondhand smoke from both her parents. CT scan of the chest on 12/08/2024 compared with 07/07/2024 demonstrates an enlarging left lower lobe mass with central cavitation. In addition there is a right lower lobe nodular mass. Patient has increased cough and phlegm over the last 2 months but no other infectious complaints. Currently she is on room air with saturations 97%. Etiology left lower lobe lung mass includes cancer and or infection. Plan: CT-guided biopsy has been ordered for 12/09/2024. Lovenox has been discontinued. Patient has sacral decubitus with a adjacent osteomyelitis and is currently placed on vancomycin and cefepime. I have discussed with ID pharmacy and would favor adding anaerobic coverage for possible lung abscess. Hospitalist team will be contacted. Patient is scheduled for decubitus debridement later today by General surgery. Patient complains of sinus congestion that has responded to Flonase and Claritin in the past. Will place her on Flonase 2 sprays each nostril twice a day and Claritin 10 mg p.o. q.day. Discussed with Dr. Estevez, will follow with you. History of Present Illness History of Present Illness Consult date: 12/08/24 Chief complaint: Sacral decubitus ulcer, stercoral colitis Narrative: 12/08/2024: This is a new pulmonary consult for lung mass. 79-year-old with a history of spina bifida with urostomy at age 16 and a SCHOOL SECRETARY shunt at age 31, history of constipation, progressive weakness requiring a wheelchair 5 years ago. Patient presented to the emergency department because of her sacral wound on . blood pressure 111/75, heart rate 105, respirations 14, room air saturation 97%. Lungs were clear to auscultation. White blood cell count 15.0, creatinine 0.46, CRP 27.1. CT scan of the abdomen and pelvis compared with 07/07/2024 showed an increased 4.1 x 2.1 left lower lobe mass with a central cavitation, right lower lobe atelectasis with no change and more nodule right lower lobe 1.3 x 1.1 abnormality. patient was empirically started on vancomycin and cefepime. 12/08/2024: Patient tells me she has no history of asthma, bronchitis, pneumonias, aspiration. She is a never smoker but was exposed to secondhand smoke from both her parents. She has never had a job. She has no sand blasting, welding, asbestos, professional painting, steel mill, coal mining or construction exposure. The patient tells me she has had increased cough for the last 3 or 4 months and increased phlegm for the last 2 months. At baseline she would make to expectorations a day and now she is making 4 expectorations. She denies any rest or exertional shortness of breath. She is afebrile. White blood cell count 15.0, creatinine 0.42 she is positive 1.5 L and her weight today is 75.4. Dedicated chest CT scan shows a 4.2 x 3.9 x 3.3 cm spiculated mass with central cavitation that extends to the pleura. 3.0 by 5.1 cm lobulated mass in the right lower lobe which extends to the pleural. No lymphadenopathy in the chest, tiny left-sided pleural effusion, left adrenal gland is prominent but unchanged. DATA: 12/08/24: EXAMINATION: CT diagnostic chest wo con INDICATION: Lung mass COMPARISON: CT abdomen and pelvis 12/07/2024 and 07/07/2024 FINDINGS: Upper abdomen is similar to the CT study from 12/07/2024. No enlarged mediastinal or hilar lymph nodes. Heart is not enlarged. Thoracic aorta is not aneurysmal. Mild atherosclerotic disease in the thoracic aorta. No pneumothorax. Tiny left-sided pleural effusion. Tracheobronchial tree is patent. The study is slightly limited due to motion artifact. There is a 4.2 x 3.9 x 3.3 cm spiculated mass in the left lower lobe posteriorly which is partially cavitated. A malignant process needs to be excluded. There is a 3.0 x 0 1 x 5.1 cm lobulated masslike structure in the right lower lobe posteriorly. Evaluation is limited due to motion artifact. Differential includes atelectasis, pneumonia or malignancy. A PET/CT and/or biopsy is recommended. There is extensive high attenuation material in the thecal sac in the thorax which is seen extending into the abdomen. Bones appear osteopenic. Multilevel degenerative change in the visualized spine. IMPRESSION: 1. There is a 4.2 x 3.9 x 3.3 cm spiculated mass in the left lower lobe posteriorly which is partially cavitated and extends to the pleura. A malignant process needs to be excluded. A biopsy is recommended. 2. There is a 3.0 x 0 1 x 5.1 cm lobulated masslike structure in the right lower lobe posteriorly which extends to the pleura. Evaluation is limited due to motion artifact. Differential includes atelectasis, pneumonia or malignancy. A PET/CT and/or biopsy is recommended. 3. No lymphadenopathy in the chest. 4. Tiny left-sided pleural effusion. 5. Left adrenal gland is prominent but unchanged. An adrenal mass MRI or PET/CT is recommended. 12/07/24: EXAMINATION: CT abdomen pelvis w con INDICATION: Left lower quadrant abdominal pain. Tunneling coccygeal wound. COMPARISON: CT dated 07/07/2024 FINDINGS: Interval increase in size of a 3.4 x 2.1 cm mass in the posterior left lower lobe with some gas-filled central cavitation. No significant change in a more medial 7 mm satellite nodule. Persistent volume loss in the right lower lobe with no interval change in a few thoracic bandlike opacities in the dependent right lower lobe with configuration most consistent with atelectasis. Portion of the posterior medial aspect of the band of likely atelectasis has a more discrete nodular appearance measuring 1.3 x 1.0 cm. Heart size is normal. There is a catheter extending caudally from the visualized caudal superior vena cava into the right ventricle with distal tip near the pulmonary outflow tract. This potentially represents a ventricular shunt given reported history of hydrocephalus and the suggestion of the catheter extends cephalad along the right neck on prior radiograph dated 07/08/2024. No pericardial or pleural effusion. Multiple well-defined fluid attenuation hepatic cysts the largest measuring up to 5.2 cm. There is more irregular subcapsular region of decreased attenuation with multiple small peripheral foci of high attenuation material along the anterior dome of the liver with appearance suggesting a decompressed cavitary lesion with either peripheral dystrophic calcifications or potentially prior embolization material. Gallbladder, spleen, pancreas and right adrenal gland are normal. Unchanged nodular thickening of the left adrenal gland. Moderate right renal atrophy with multiple small regions of cortical scarring likely sequela prior infection or infarction. 2 mm nonobstructive stone in upper pole calyx of right kidney and larger 9 mm stone at a lower pole calyx. Couple small nonobstructing stones in left kidney the largest measuring 2 mm. There are also couple left renal cysts the largest measuring 6.3 cm. 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 No hydronephrosis. Large amount of stool in the sigmoid colon and rectum measuring up to 8 cm maximal diameter with associated wall thickening and some perirectal inflammatory stranding consistent with stercoral colitis. No dilated small bowel to suggest obstruction. The anterior portion of a short segment of the proximal transverse colon extends into a widemouthed ventral hernia. There is also a more caudal small fat-containing ventral hernia along a midline surgical scar. No free intraperitoneal gas or fluid. No pathologically enlarged abdominal or pelvic lymphadenopathy. There is a deep sacral decubitus ulcer with packing material which extends to contact the posterior margin of the caudal aspect of the sacrum where there is some interval ostial lysis with cortical erosion, new since the prior study and consistent with secondary osteomyelitis. No abscess. Unchanged extensive high attenuation material in the thecal sac of the lumbar and visualized thoracic spine. IMPRESSION: 1. Deep sacral decubitus ulcer with osteomyelitis along the caudal aspect of the sacrum which is new since the prior study. 2. Interval increase in size of a likely cavitary mass at the dependent left lower lobe which raises concern for malignancy. Would recommend CT-guided biopsy. 3. Smaller 1.3 x 1.0 cm nodule along a band of discoid atelectasis in the right lower lobe. Consider either short interval follow-up in 3 months or further evaluation with PET/CT. 4. Stable appearance of a subcapsular flat hypodense region along the dome of the liver suggestive of a collapsed cyst or region of scarring with multiple peripheral high attenuation foci, unclear whether calcifications or potentially embolization material. Correlate with clinical history and with any prior outside imaging for comparison. 5. Bilateral nonobstructing nephrolithiasis. 6. 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 There is urothelial enhancement at the lateral renal collecting systems suspicious for secondary ascending urinary tract infection. Correlate with urinalysis. Recurrent infections could account for the moderate atrophy with cortical scarring at the right kidney. 7. Large amount of stool in the sigmoid colon and rectum with associated wall thickening and perirectal stranding consistent with secondary stercoral colitis. 8. Couple ventral hernias, one containing fat and the second anterior wall of a short segment of nonobstructed proximal transverse colon. 9. Unchanged extensive high attenuation material within the thecal sac the lumbar and visualized lower thoracic spine suggesting retained Pantopaque. Correlate with clinical history. 12/07/24: ADDENDUM: There is also a 1.8 x 1.5 cm left hilar lymph node which could be either reactive or metastatic. 07/07/2024: CLINICAL INDICATION: Abdominal pain, nausea and vomiting COMPARISON: None. FINDINGS/OBSERVATIONS: Visualized lower thorax: Right basilar atelectasis. A bilobed nodule is identified within the left lung base measuring 19 x 22 mm and 10 x 11 mm, respectively (axial series, image 17). An additional pulmonary nodule detected within the left lower lobe measuring 8.3 x 7.7 mm (axial series, image 10). The heart is enlarged, without pericardial effusion. Small hiatal hernia is present. Liver: Multiple rounded foci of fluid attenuation are identified within the liver, suggesting simple cysts. The remainder of the liver demonstrates otherwise homogeneous enhancement and is not enlarged measuring 16 cm in longitudinal dimension. Gallbladder and biliary system: The gallbladder is only minimally distended, and otherwise unremarkable. Pancreas: The pancreas enhances homogeneously without ductal dilatation. Spleen: The spleen enhances homogeneously and is not enlarged measuring 6 cm in longitudinal dimension. Kidneys: Right-sided hydroureteronephrosis extending to the proximal right ureter where a 7 mm stone is identified. Hyperemia of the worrell of the collecting system are present consistent with ureteritis. Multiple nonobstructing stones are identified within the right kidney, the largest within the lower pole measuring 7 mm. Hyperenhancement of the worrell of the left sided ureter and collecting system are also noted consistent with left-sided ureteritis. Adrenal glands: Unremarkable. Gastrointestinal tract: Significant fecal stasis is identified distending the rectum to the level of the L1 vertebral body. Fecal stasis is identified within the remainder of the air and stool-filled colon which is markedly dilated. The dilatation from the colon demonstrates mass effect on the patient's ileal conduit, likely causing patient's infection (in addition to the obstructing stone). Vasculature: Calcified atherosclerotic disease. Lymph nodes: No pathologically enlarged or morphologically suspicious lymph nodes within the retroperitoneum or at the root of the mesentery. Body wall and musculoskeletal: Stoma extends along the right lower quadrant. Diffuse degenerative disease within the lower thoracic and lumbosacral spines. IMPRESSION: Right-sided hydroureteronephrosis secondary to a 7 mm calculus within the proximal right ureter. Bilateral ureteritis with ascending infection on the left secondary to stasis of the urine within patient's urostomy from mass effect of the significantly dilated stool-filled distended colon. Review of Systems Constitutional: Constitutional: Reports no additional constitutional complaints Eyes: Eyes: Reports no additional eye complaints ENT: Reports system reviewed and no additional complaints, except as documented Cardiovascular: Cardiovascular: Reports no additional cardiovascular complaints Respiratory: Respiratory: Reports no additional respiratory complaints Gastrointestinal: Gastrointestinal: Reports no additional gastrointestinal complaints Musculoskeletal: Musculoskeletal: Reports no additional musculoskeletal complaints Neurologic: Reports system reviewed and no additional complaints, except as documented Psychiatric: Psychiatric: Reports no additional psychiatric complaints Endocrine: Endocrine: Reports no additional endocrine complaints Hematologic/Lymphatic: Hematologic/Lymphatic: Reports no additional hematologic/lymphatic complaints Allergic/Immunologic: Allergic/Immunologic: Reports no additional allergic/immunologic complaints PMF Past Medical History Medical History Hyperlipidemia Depression with anxiety Spina bifida of lumbar spine Surgical History Surgical History History of hysterectomy History of tonsillectomy History of appendectomy History of urostomy Family History Family History Father Cancer Social History Social History Social History: Legal guardian: Daniella Chilel ([phone]). Code status: Do not resuscitate. Smoking status: Never smoker Alcohol intake: never Substance use: never Substance use type: does not use Do You Feel Safe in your Home?: Yes Lack of Transportation: No Lack of Food: Never True Current Housing: I Have Housing Concerned About Future Housing: No Difficulty Paying Gas/Electric Bills: No Difficulty Paying for Meds: No Currently Unemployed: No Education: Grade School Difficulty w/ Childcare or Family Care: No Spiritual care concerns: Yes Meds Home Medications and Allergies Home Medications ?Medication ?Instructions ?Recorded ?Confirmed ?Type acetaminophen 650 mg tablet 650 mg PO Q4H PRN mild pain 02/21/23 12/07/24 History atorvastatin 10 mg tablet 10 mg PO HS 02/21/23 12/07/24 History calcium 600 mg-D3 800 unit-mag 40 1 tablet PO BID 02/21/23 12/07/24 History et-qvwp-xxvw-leydi-boron chew tablet (Caltrate 600-D Plus Minerals) duloxetine 60 mg capsule,delayed 60 mg PO BID 02/21/23 12/07/24 History release fluticasone propionate 50 2 spray intranasal DAILY 02/21/23 12/07/24 History mcg/actuation nasal spray,suspension (Flonase Allergy Relief) furosemide 20 mg tablet (Lasix) 60 mg PO DAILY 02/21/23 12/07/24 History loratadine 10 mg tablet 10 mg PO DAILY 02/21/23 12/07/24 History magnesium hydroxide 400 mg/5 mL 400 mg PO HS PRN constipation if 02/21/23 12/07/24 History oral suspension no BM for 3 days nystatin 100,000 unit/gram topical 1 applic topical DAILY 02/21/23 12/07/24 History powder polyethylene glycol 3350 17 gram 17 g PO DAILY 02/21/23 12/07/24 History oral powder packet (Miralax) trazodone 100 mg tablet 75 mg PO HS 02/21/23 12/07/24 History cholecalciferol (vitamin D3) 50 50 mcg PO DAILY 07/08/24 12/07/24 History mcg (2,000 unit) capsule multivitamin (Daily Multi-Vitamin 1 tablet PO DAILY 07/08/24 12/07/24 History tablet) lactulose 10 gram/15 mL oral 10 g (15 mL) PO DAILY PRN 07/10/24 12/07/24 Rx solution constipation #473 mL ascorbic acid (vitamin C) 500 mg 500 mg PO BID 12/07/24 12/07/24 History chewable tablet (Acerola C) collagenase clostridium histo. 250 1 applic topical DAILY 12/07/24 12/07/24 History unit/gram topical ointment (Santyl) mirtazapine 7.5 mg tablet 7.5 mg PO HS 12/07/24 12/07/24 History ondansetron 4 mg disintegrating 4 mg PO Q6H PRN NAUSEA 12/07/24 12/07/24 History tablet zinc sulfate 50 mg zinc (220 mg) 50 mg PO DAILY 12/07/24 12/07/24 History capsule (Zinc-220) Allergies Allergy/AdvReac Type Severity Reaction Status Date / Time codeine Allergy Unknown Verified 12/07/24 21:18 NSAIDS (Non-Steroidal Allergy Unknown Verified 12/07/24 21:18 Anti-Inflamma Penicillins Allergy Hives Verified 12/08/24 11:03 Sulfa (Sulfonamide Allergy Hives Verified 12/07/24 21:18 Antibiotics) Vital Signs Vital Signs - 24 hr 12/07/24 11:51 12/07/24 19:00 12/07/24 20:00 Temperature 37.1 C 37.1 C 37.3 C Pulse Rate 105 H 120 H 118 H Respiratory Rate 14 12 18 Blood Pressure 111/75 103/66 104/60 Pulse Oximetry 97 96 93 Oxygen Delivery Room Air Fraction of Inspired Oxygen 12/07/24 22:20 12/08/24 05:12 12/08/24 08:10 Temperature 36.5 C Pulse Rate 97 Respiratory Rate 16 Blood Pressure 98/49 L Pulse Oximetry 98 96 Oxygen Delivery Room Air Room Air Fraction of Inspired Oxygen 21 Exam Const: General: cooperative, comfortable and no acute distress Orientation/consciousness: oriented to person, oriented to place and oriented to time HENMT: Head: normal to inspection Ears: hearing grossly normal bilaterally Eyes: General: appearance normal, both eyes and all related structures Other: Dysconjugate gaze Neck: Neck: normal visual inspection Chest: Chest palpation & inspection: normal inspection of the chest Resp: Effort & Inspection: normal respiratory effort and able to speak in complete sentences Auscultation: no crackles, no rales, no rhonchi, no wheezes and lung sounds not diminished Cardio: Jugular venous distension: no JVD GI: Inspection: normal to inspection GI Palp: No abdominal tenderness Other: Urostomy bag in place. Skin: General skin exam: normal color Neuro: General: oriented to person, oriented to place and oriented to time Other: patient can raise her right leg greater than left leg, she cannot wiggle her toes. Extrem: General: normal to inspection Psych: Appearance: grossly normal Results Laboratory Findings 12/08/24 05:17 12/08/24 05:17 ABG, PT/INR, D-dimer: PT/INR, D-dimer PT 13.8 Seconds (11.1-14.7) 12/07/24 14:32 INR 1.0 12/07/24 14:32 Abnormal lab findings: Abnormal Labs 12/07/24 12/07/24 12/08/24 14:32 21:47 05:17 WBC 15.0 H 15.0 H RBC 4.13 L Hgb 11.8 L 11.2 L MCHC 31.8 L 30.3 L Plt Count 687 H 624 H Lymph % (Auto) 18.0 L Lymph # (Auto) 3.84 H [place] # (Auto) 1.0 H 1.0 H Abs Immat Gran (auto) 0.06 H 0.08 H Absolute Neuts (auto) 11.0 H 9.8 H Sodium 134 L Potassium 3.0 L 3.1 L Chloride 92 L Carbon Dioxide 38 H Creatinine 0.46 L 0.42 L C-Reactive Protein 27.1 H Albumin 3.4 L Ur Specific [place] > 1.045 H Urine Protein 1+ H Leukocyte Esterase Rfl 2+ H Urine WBC 51-100 H Diagnostic Findings Additional studies: ITS Impressions Abdomen/Pelvis CT 12/07/24 15:35 IMPRESSION: 1. Deep sacral decubitus ulcer with osteomyelitis along the caudal aspect of the sacrum which is new since the prior study. 2. Interval increase in size of a likely cavitary mass at the dependent left lower lobe which raises concern for malignancy. Would recommend CT-guided biopsy. 3. Smaller 1.3 x 1.0 cm nodule along a band of discoid atelectasis in the right lower lobe. Consider either short interval follow-up in 3 months or further evaluation with PET/CT. 4. Stable appearance of a subcapsular flat hypodense region along the dome of the liver suggestive of a collapsed cyst or region of scarring with multiple peripheral high attenuation foci, unclear whether calcifications or potentially embolization material. Correlate with clinical history and with any prior outside imaging for comparison. 5. Bilateral nonobstructing nephrolithiasis. 6. 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 There is urothelial enhancement at the lateral renal collecting systems suspicious for secondary ascending urinary tract infection. Correlate with urinalysis. Recurrent infections could account for the moderate atrophy with cortical scarring at the right kidney. 7. Large amount of stool in the sigmoid colon and rectum with associated wall thickening and perirectal stranding consistent with secondary stercoral colitis. 8. Couple ventral hernias, one containing fat and the second anterior wall of a short segment of nonobstructed proximal transverse colon. 9. Unchanged extensive high attenuation material within the thecal sac the lumbar and visualized lower thoracic spine suggesting retained Pantopaque. Correlate with clinical history. ADDENDUM: 12/07/24 1619 ADDENDUM: There is also a 1.8 x 1.5 cm left hilar lymph node which could be either reactive or metastatic. Chest CT 12/08/24 10:11
[2024-12-08] MEDS: ACETAMINOPHEN 325 MG TABLET 650 MG PO (12:17)
[2024-12-08] MEDS: VANCOMYCIN 1,250 MG/NS 250 ML 1,250 MG/250 ML BAG 166.67 MG IVPB (13:58)
--- NOTE | 2024-12-08 14:01 | P.PNIM_ITS ---
Progress Note: A&P Assessment and Plan (1) Depression with anxiety: Code(s): F41.8 - Other specified anxiety disorders Status: Acute (2) Hyperlipidemia: Code(s): E78.5 - Hyperlipidemia, unspecified Status: Acute (3) Morbid obesity due to excess calories: Code(s): E66.01 - Morbid (severe) obesity due to excess calories Status: Acute (4) Chronic constipation: Code(s): K59.09 - Other constipation Status: Acute (5) Stercoral colitis: Code(s): K52.89 - Other specified noninfective gastroenteritis and colitis Status: Acute (6) Acute hypokalemia: Code(s): E87.6 - Hypokalemia Status: Acute (7) History of urostomy: Code(s): Z98.890 - Other specified postprocedural states Status: Acute (8) Osteomyelitis: Qualifiers: Osteomyelitis location: other site Osteomyelitis type: unspecified type Qualified Code(s): M86.9 - Osteomyelitis, unspecified Code(s): M86.9 - Osteomyelitis, unspecified Status: Acute (9) Decubitus ulcer: Qualifiers: Pressure injury location: sacral region Pressure injury stage: unstageable Qualified Code(s): L89.150 - Pressure ulcer of sacral region, unstageable Code(s): L89.90 - Pressure ulcer of unspecified site, unspecified stage Status: Acute (10) Paraplegia: Code(s): G82.20 - Paraplegia, unspecified Status: Acute (11) Spina bifida of lumbar spine: Qualifiers: Presence of hydrocephalus: unspecified hydrocephalus presence Qualified Code(s): Q05.7 - Lumbar spina bifida without hydrocephalus Code(s): Q05.7 - Lumbar spina bifida without hydrocephalus Status: Chronic Plan Osteomyelitis, infected wound Surgery team on board. Plan for sacral decubitus wound today. Continue with Antibiotics vancomycin and cefepime. Flagyl added. Surgery team about Follow cultures Sepsis Leukocytosis, hypotension Plan as above Line cavity/mass 4.2 x 3.9 x 3.3 cm spiculated mass in the left lower lobe posteriorly which is partially cavitated. A malignant process needs to be excluded. There is a 3.0 x 0 1 x 5.1 cm lobulated masslike structure in the right lower lobe posteriorly Pulmonary team on board. Continue Antibiotics vancomycin and cefepime. Flagyl added. Plan for lung biopsy tomorrow. Follow-up biopsy results Left adrenal gland is prominent but unchanged. An adrenal mass MRI or PET/CT as outpatient HLD Statin Depression [employer] meds Subjective Date/time seen: 12/08/24 14:01 Interval history: per HPI: This is a 79-[facility]-old female [facility] presented to the ED for sacral wound. This has been present for past few months however patient is not sure about this. Patient complains of hurting on the side. In the ED evaluation she was mildly tachycardic but afebrile. On evaluation she had a large sacral wound. Laboratory workup revealed WBC 15 K hemoglobin 11.8 platelet count 687. Sodium of 137 potassium 3.0 chloride 92 bicarbonate 38 BUN 13 creatinine 0.46. Blood glucose of 105. Lactate was normal at 1.9 LFTs were normal CRP was 27.1. CT abdomen pelvis showed deep sacral decubitus ulcer with osteomyelitis along the caudal aspect of the sacrum which is new. Interval increase in size of likely cavitary mass at the dependent left lower lobe which raises concern for malignancy. Recommend CT-guided biopsy. Smaller 1.3 x 1.0 cm nodule along the band of discoid atelectasis in the right lower lobe. Stable appearance of a subcapsular flat hypodense region along the dome of liver suggestive of a collapsed cyst are region of scarring with multiple peripheral high attenuation foci unclear whether this calcifications are potentially embolization material. Bilateral nonobstructing nephrolithiasis. Postoperative change of prior cystectomy with right lower quadrant ideal conduit formation. There is urothelial enhancement at the lateral renal collecting system suspicious for secondary ascending urinary tract infection. Correlate with urinalysis. Recurr ent infection could confirm a moderate atrophy with cortical scarring at the right kidney. Large amount of stool in the sigmoid colon rectum with associated wall thickening and perirectal stranding consistent with secondary stercoral colitis. Ventral hernias 1 containing fat and 2nd anterior at wall of a short segment of nonobstructed proximal transverse colon. Unchanged extensive high attenuation material within the thecal sac the lumbar and visualized lower thoracic spine suggestive off retained plan to pick. There is also 1.8 x 1.5 cm left hilar lymph node which could be either reactive or metastatic. EKG showed sinus tachycardia with nonspecific ST-T changes Patient has been started on vancomycin and cefepime. General surgery has been consulted. She is admitted in the setting for further treatment 12/08/24 Patient was seen and examined bedside. She is feeling fine. Denies any chest pain, shortness off present abdomen pain, nausea vomiting. Blood pressure improved. Continue with IV fluid. Surgery team on board. Plan for sacral decubitus wound today. Pulmonary team about. Antibiotics vancomycin and cefepime. Flagyl added. Plan for lung biopsy tomorrow. Review of Systems Review of Systems: - CONSTITUTIONAL: Denies weight loss, fe shy and chills. - HEENT: Denies changes in vision and he aring - RESPIRATORY: Denies SOB and cough. - CV: Denies palpitations and CP. - GI: Reports left lower abdominal pain , denies nausea, vomiting and diarrhea. - : Denies dysuria and urinary frequen cy. - MSK: Denies myalgia and joint pain. - SKIN: Denies rash and pruritus. - NEUROLOGICAL: Denies headache and sync ope. - PSYCHIATRIC: Denies recent changes in mood. Denies anxiety and depression. Exam Narrative: APPEARANCE: No acute distress, nontoxic, resting in bed EYES: EOMI HEENT: Normocephalic, atraumatic, OMM RESPIRATORY: No respiratory distress Clear to auscultation bilaterally with no rhonchi wheezing or rales. CARDIOVASCULAR: Mildly tachycardic, regular rhythm without murmurs rubs or gallops. ABDOMINAL: Soft, mild tenderness to palpation to the left lower quadrant, also notably firm. Ostomy in place to the right lower quadrant. Ventral hernia n oted MUSCULOSKELETAl: Moves all extremities. No clubbing, cyanosis or edema. NEURO: Awake and alert. Following commands, speech normal, no focal deficits SKIN:: 3 x 4 cm tunneling sacral ulcer no active drainage but extremely foul smell. There is also a small 1 x 1 cm wound to the right posterior proximal thigh with no drainage and granulation tissue. PSYCHIATRIC: Normal affect/mood, Objective Data Vital Signs Vital Signs: Vital Signs - 24 hr 12/07/24 19:00 12/07/24 20:00 12/07/24 22:20 Temperature 98.7 F 99.1 F Pulse Rate 120 H 118 H Respiratory Rate 12 18 Blood Pressure 103/66 104/60 Pulse Oximetry 96 93 98 Oxygen Delivery Room Air Fraction of Inspired Oxygen 21 08/20/25 05:12 12/08/24 08:10 Temperature 97.7 F Pulse Rate 97 Respiratory Rate 16 Blood Pressure 98/49 L Pulse Oximetry 96 Oxygen Delivery Room Air Fraction of Inspired Oxygen Intake/Output Intake/Output: Intake & Output 12/05/24 12/06/24 12/07/24 12/08/24 23:59 23:59 23:59 23:59 Intake Total 2400 50 Output Total 900 0 Balance 1500 50 Meds/Results Medications: Active Medications Generic Name Dose Route Start Last Admin Trade Name Freq PRN Reason Stop Dose Admin Acetaminophen 650 mg 12/08/24 11:54 12/08/24 12:17 Acetaminophen 325 Mg Tablet PO 650 mg Q6H PRN Administration Mild Pain (1-3) or Fever Fluticasone Propionate 2 spray 12/08/24 11:45 Fluticasone Propionate 0.05% Na Spr 16 Gm Btl (*Bkc) NASAL Q12HR ALEXIS Vancomycin HCl 1,250 mg in 250 mls @ 166.667 mls/hr 12/08/24 12:00 12/08/24 13:58 Vancomycin 1,250 Mg/Ns 250 Ml IVPB 166.67 mls/hr Q18H ALEXIS Administration Cefepime HCl 2 gm/ Sodium 50 mls @ 100 mls/hr 12/08/24 00:00 12/08/24 08:40 Chloride IVPB Infused Q8H ALEXIS Infusion Metronidazole 500 mg in 100 mls @ 100 mls/hr 12/08/24 14:00 Flagyl 500 Mg/Iso Soln 100 Ml IVPB Q8H ALEXIS Loratadine 10 mg 12/09/24 09:00 Loratadine 10 Mg Tablet PO QAM [facility] Radiology Results: ITS Impressions Abdomen/Pelvis CT 12/07/24 15:35 IMPRESSION: 1. Deep sacral decubitus ulcer with osteomyelitis along the caudal aspect of the sacrum which is new since the prior study. 2. Interval increase in size of a likely cavitary mass at the dependent left lower lobe which raises concern for malignancy. Would recommend CT-guided biopsy. 3. Smaller 1.3 x 1.0 cm nodule along a band of discoid atelectasis in the right lower lobe. Consider either short interval follow-up in 3 months or further evaluation with PET/CT. 4. Stable appearance of a subcapsular flat hypodense region along the dome of the liver suggestive of a collapsed cyst or region of scarring with multiple peripheral high attenuation foci, unclear whether calcifications or potentially embolization material. Correlate with clinical history and with any prior outside imaging for comparison. 5. Bilateral nonobstructing nephrolithiasis. 6. 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 There is urothelial enhancement at the lateral renal collecting systems suspicious for secondary ascending urinary tract infection. Correlate with urinalysis. Recurrent infections could account for the moderate atrophy with cortical scarring at the right kidney. 7. Large amount of stool in the sigmoid colon and rectum with associated wall thickening and perirectal stranding consistent with secondary stercoral colitis. 8. Couple ventral hernias, one containing fat and the second anterior wall of a short segment of nonobstructed proximal transverse colon. 9. Unchanged extensive high attenuation material within the thecal sac the lumbar and visualized lower thoracic spine suggesting retained Pantopaque. Correlate with clinical history. ADDENDUM: 12/07/24 1619 ADDENDUM: There is also a 1.8 x 1.5 cm left hilar lymph node which could be either reactive or metastatic. Chest CT 12/08/24 10:11 IMPRESSION: 1. There is a 4.2 x 3.9 x 3.3 cm spiculated mass in the left lower lobe posteriorly which is partially cavitated and extends to the pleura. A malignant process needs to be excluded. A biopsy is recommended. 2. There is a 3.0 x 0 1 x 5.1 cm lobulated masslike structure in the right lower lobe posteriorly which extends to the pleura. Evaluation is limited due to motion artifact. Differential includes atelectasis, pneumonia or malignancy. A PET/CT and/or biopsy is recommended. 3. No lymphadenopathy in the chest. 4. Tiny left-sided pleural effusion. 5. Left adrenal gland is prominent but unchanged. An adrenal mass MRI or PET/CT is recommended. Labs Labs: Laboratory Results - last 24 hr 12/07/24 12/07/24 12/07/24 14:32 14:36 21:47 WBC 15.0 H RBC 4.29 Hgb 11.8 L Hct 37.1 MCV 86.5 MCH 27.5 MCHC 31.8 L RDW 14.4 Plt Count 687 H MPV 9.3 Immature Gran % (Auto) 0.4 Neut % (Auto) 73.1 Lymph % (Auto) 18.0 L [place] % (Auto) 6.5 Eos % (Auto) 1.7 Baso % (Auto) 0.3 Lymph # (Auto) 2.70 [place] # (Auto) 1.0 H Eos # (Auto) 0.3 Baso # (Auto) 0.1 Abs Immat Gran (auto) 0.06 H Absolute Neuts (auto) 11.0 H Absolute Nucleated RBC 0.000 Nucleated RBC % 0.0 % Immature Plt Fraction 2.1 PT 13.8 INR 1.0 APTT 23.4 Sodium 137 Potassium 3.0 L Chloride 92 L Carbon Dioxide 38 H Anion Gap 7 BUN 13 D Creatinine 0.46 L Estim Creat Clear Calc Not Reportable Estimated GFR > 60 Glucose 105 Lactic Acid 1.9 Calcium 9.2 Magnesium 1.8 Total Bilirubin 0.6 AST 27 ALT 14 Alkaline Phosphatase 120 C-Reactive Protein 27.1 H Total Protein 7.8 Albumin 3.7 Urine Color Yellow Urine Appearance Clear Urine pH 7.0 Ur Specific [place] > 1.045 H Urine Protein 1+ H Urine Glucose (UA) Negative Urine Ketones Negative Ur Blood (Man) Negative Urine Nitrate Negative Urine Bilirubin Negative Urine Urobilinogen 0.2 Leukocyte Esterase Rfl 2+ H Urine RBC 0-2 Urine WBC 51-100 H Ur Squamous Epith Cells None seen Urine Bacteria None seen Urine Casts 0-2 12/08/24 05:17 WBC 15.0 H RBC 4.13 L Hgb 11.2 L Hct 37.0 MCV 89.6 MCH 27.1 MCHC 30.3 L RDW 14.5 Plt Count 624 H MPV 9.2 Immature Gran % (Auto) 0.5 Neut % (Auto) 65.4 Lymph % (Auto) 25.6 [place] % (Auto) 6.7 Eos % (Auto) 1.5 Baso % (Auto) 0.3 Lymph # (Auto) 3.84 H [place] # (Auto) 1.0 H Eos # (Auto) 0.2 Baso # (Auto) 0.1 Abs Immat Gran (auto) 0.08 H Absolute Neuts (auto) 9.8 H Absolute Nucleated RBC 0.000 Nucleated RBC % 0.0 % Immature Plt Fraction PT INR APTT Sodium 134 L Potassium 3.1 L Chloride 98 Carbon Dioxide 28 Anion Gap 8 BUN 7 D Creatinine 0.42 L Estim Creat Clear Calc 82 Estimated GFR > 60 Glucose 98 Lactic Acid Calcium 8.4 Magnesium 1.8 Total Bilirubin 0.7 AST 23 ALT 12 Alkaline Phosphatase 123 C-Reactive Protein Total Protein 7.2 Albumin 3.4 L Urine Color Urine Appearance Urine pH Ur Specific [place] Urine Protein Urine Glucose (UA) Urine Ketones Ur Blood (Man) Urine Nitrate Urine Bilirubin Urine Urobilinogen Leukocyte Esterase Rfl Urine RBC Urine WBC Ur Squamous Epith Cells Urine Bacteria Urine Casts
[2024-12-08] MEDS: metroNIDAZOLE 500 MG/ISO 100ML 500 MG/100 ML BAG 100 MG IVPB ×2 (15:58→23:12)
[2024-12-08] MEDS: FLUTICASONE PROPIONATE 0.05% NA SPR 16 GM BTL (*BKC) 2 SPRAY NASAL ×2 (16:09→20:15)
--- NOTE | 2024-12-08 16:30 | PC.NURSE ---
To OR via bed.
[2024-12-08] MEDS: LACTATED RINGERS 1,000 ML 30 ML IV CONT (16:45)
--- NOTE | 2024-12-08 16:55 | WPDHPUPDATE1 ---
History and Physical Update Update Date/Time: 12/08/24 16:55 History and Physical has been reviewed, including an updated exam of the patient. There are NO changes in the patient's condition. Risks, benefits, and alternatives have been discussed and questions answered. Patient agrees to proceed with procedure.
--- NOTE | 2024-12-08 17:10 | WPDANESEPPF ---
Anes - Initial Pre Proc Eval Procedure: Operation Date: 12/08/24 17:45 Proposed Procedures p Sacral Decubitus Debridement - Jerod Olson DO Date/Time: 12/08/24 17:10 Surgeon: Crystal Haider MD Pre Op Diagnosis: Sacral decubitus ulcer, stercoral colitis Patient Data Age: 79 Gender: F Height: 1.52 m Weight: 75.4 kg Last Vital Signs Temp 97.5 F L 12/08/24 16:45 Pulse 104 H 12/08/24 16:45 Resp 16 12/08/24 16:45 BP 126/71 12/08/24 16:45 Pulse Ox 95 12/08/24 16:45 O2 Del Method Room Air 12/08/24 16:45 FiO2 21 12/07/24 22:20 Allergies Allergy/AdvReac Type Severity Reaction Status Date / Time codeine Allergy Unknown Verified 12/08/24 16:55 NSAIDS (Non-Steroidal Allergy Unknown Verified 12/08/24 16:55 Anti-Inflamma Penicillins Allergy Hives Verified 12/08/24 16:55 Sulfa (Sulfonamide Allergy Hives Verified 12/08/24 16:55 Antibiotics) Home Medications ?Medication ?Instructions ?Recorded ?Confirmed ?Type acetaminophen 650 mg tablet 650 mg PO Q4H PRN mild pain 02/21/23 12/07/24 History atorvastatin 10 mg tablet 10 mg PO HS 02/21/23 12/07/24 History calcium 600 mg-D3 800 unit-mag 40 1 tablet PO BID 02/21/23 12/07/24 History bq-shdy-ljme-leydi-boron chew tablet (Caltrate 600-D Plus Minerals) duloxetine 60 mg capsule,delayed 60 mg PO BID 02/21/23 12/07/24 History release fluticasone propionate 50 2 spray intranasal DAILY 02/21/23 12/07/24 History mcg/actuation nasal spray,suspension (Flonase Allergy Relief) furosemide 20 mg tablet (Lasix) 60 mg PO DAILY 02/21/23 12/07/24 History loratadine 10 mg tablet 10 mg PO DAILY 02/21/23 12/07/24 History magnesium hydroxide 400 mg/5 mL 400 mg PO HS PRN constipation if 02/21/23 12/07/24 History oral suspension no BM for 3 days nystatin 100,000 unit/gram topical 1 applic topical DAILY 02/21/23 12/07/24 History powder polyethylene glycol 3350 17 gram 17 g PO DAILY 02/21/23 12/07/24 History oral powder packet (Miralax) trazodone 100 mg tablet 75 mg PO HS 02/21/23 12/07/24 History cholecalciferol (vitamin D3) 50 50 mcg PO DAILY 07/08/24 12/07/24 History mcg (2,000 unit) capsule multivitamin (Daily Multi-Vitamin 1 tablet PO DAILY 07/08/24 12/07/24 History tablet) lactulose 10 gram/15 mL oral 10 g (15 mL) PO DAILY PRN 07/10/24 12/07/24 Rx solution constipation #473 mL ascorbic acid (vitamin C) 500 mg 500 mg PO BID 12/07/24 12/07/24 History chewable tablet (Acerola C) collagenase clostridium histo. 250 1 applic topical DAILY 12/07/24 12/07/24 History unit/gram topical ointment (Santyl) mirtazapine 7.5 mg tablet 7.5 mg PO HS 12/07/24 12/07/24 History ondansetron 4 mg disintegrating 4 mg PO Q6H PRN NAUSEA 12/07/24 12/07/24 History tablet zinc sulfate 50 mg zinc (220 mg) 50 mg PO DAILY 12/07/24 12/07/24 History capsule (Zinc-220) Laboratory Tests 12/07/24 12/07/24 12/07/24 14:32 20:00 21:47 WBC RBC Hgb Hct MCV MCH MCHC RDW Plt Count MPV Immature Gran % (Auto) Neut % (Auto) Lymph % (Auto) [place] % (Auto) Eos % (Auto) Baso % (Auto) Lymph # (Auto) [place] # (Auto) Eos # (Auto) Baso # (Auto) Abs Immat Gran (auto) Absolute Neuts (auto) Absolute Nucleated RBC Nucleated RBC % Sodium Potassium Chloride Carbon Dioxide Anion Gap BUN Creatinine Estim Creat Clear Calc Estimated GFR Glucose Calcium Magnesium 1.8 mg/dL (1.6-2.3) Total Bilirubin AST ALT Alkaline Phosphatase Total Protein Albumin Urine Color Yellow (Yellow) Urine Appearance Clear (Clear) Urine pH 7.0 (5.0-9.0) Ur Specific [place] > 1.045 H (1.001-1.035) Urine Protein 1+ H mg/dL (Negative) Urine Glucose (UA) Negative mg/dL (Negative) Urine Ketones Negative mg/dL (Negative) Ur Blood (Man) Negative (Negative) Urine Nitrate Negative (Negative) Urine Bilirubin Negative (Negative) Urine Urobilinogen 0.2 mg/dL (<2.0) Leukocyte Esterase Rfl 2+ H MARIA LUISA/UL (Negative) Urine RBC 0-2 /hpf (0-2) Urine WBC 51-100 H /hpf (0-3) Ur Squamous Epith Cells None seen /hpf (Few) Urine Bacteria None seen /hpf Urine Casts 0-2 Miscellaneous Test Pending 12/08/24 05:17 WBC 15.0 H K/mm3 (4.5-10.0) RBC 4.13 L M/mm3 (4.2-5.4) Hgb 11.2 L g/dL (12.0-15.0) Hct 37.0 % (37.0-47.0) MCV 89.6 fl (80-100) MCH 27.1 pg (26-34) MCHC 30.3 L g/dl (32-36) RDW 14.5 % (11.5-14.5) Plt Count 624 H k/mm3 (150-375) MPV 9.2 fl (7.4-10.4) Immature Gran % (Auto) 0.5 % (0-0.5) Neut % (Auto) 65.4 % (45.5-73.1) Lymph % (Auto) 25.6 % (18.3-44.2) [place] % (Auto) 6.7 % (2.6-8.5) Eos % (Auto) 1.5 % (0-4.4) Baso % (Auto) 0.3 % (0.2-1.2) Lymph # (Auto) 3.84 H K/mm3 (0.9-3.2) [place] # (Auto) 1.0 H K/mm3 (0.1-0.6) Eos # (Auto) 0.2 K/mm3 (0-0.3) Baso # (Auto) 0.1 K/mm3 (0.0-0.1) Abs Immat Gran (auto) 0.08 H K/mm3 (0.00-0.031) Absolute Neuts (auto) 9.8 H K/mm3 (1.3-6.7) Absolute Nucleated RBC 0.000 K/mm3 (0.0-0.012) Nucleated RBC % 0.0 % (0.0-0.2) Sodium 134 L mmol/L (137-145) Potassium 3.1 L mmol/L (3.4-5.0) Chloride 98 mmol/L (98-107) Carbon Dioxide 28 mmol/L (22-30) Anion Gap 8 mmol/L (4-12) BUN 7 D mg/dL (7-17) Creatinine 0.42 L mg/dL (0.7-1.0) Estim Creat Clear Calc 82 ml/min Estimated GFR > 60 (59 - ) Glucose 98 mg/dL (65-110) Calcium 8.4 mg/dL (8.4-10.2) Magnesium 1.8 mg/dL (1.6-2.3) Total Bilirubin 0.7 mg/dL (0.2-1.3) AST 23 U/L (14-36) ALT 12 U/L (6-35) Alkaline Phosphatase 123 U/L (38-126) Total Protein 7.2 g/dL (6.3-8.2) Albumin 3.4 L g/dL (3.5-5.1) Urine Color Urine Appearance Urine pH Ur Specific [place] Urine Protein Urine Glucose (UA) Urine Ketones Ur Blood (Man) Urine Nitrate Urine Bilirubin Urine Urobilinogen Leukocyte Esterase Rfl Urine RBC Urine WBC Ur Squamous Epith Cells Urine Bacteria Urine Casts Miscellaneous Test Patient hx anesthesia problems: none Family hx anesthesia problems: none Results Review: All pre-operative results and documents have been reviewed as part of the pre-operative evaluation. [facility] Past Medical History Medical History Hyperlipidemia Depression with anxiety Spina bifida of lumbar spine Surgical History Surgical History History of hysterectomy History of tonsillectomy History of appendectomy History of urostomy Family History Family History Father Cancer Social History Social History Social History: Legal guardian: Daniella Chilel ([phone]). Code status: Do not resuscitate. Smoking status: Never smoker Alcohol intake: never Substance use: never Substance use type: does not use Do You Feel Safe in your Home?: Yes Lack of Transportation: No Lack of Food: Never True Current Housing: I Have Housing Concerned About Future Housing: No Difficulty Paying Gas/Electric Bills: No Difficulty Paying for Meds: No Currently Unemployed: No Education: Grade School Difficulty w/ Childcare or Family Care: No Spiritual care concerns: Yes Anes - Eval Final PreProcedure Day of Procedure 12/08/24 17:10 Patient weight: obese Lungs: normal air movement Airway: Mallampati scale class II Neurological: alert and oriented Last oral intake: >/= 8 hours ASA classification: III Emergent: no Anesthetic plan: proceed Anesthesia type and monitoring: general LMA and standard monitoring Results Review: All pre-operative results and documents have been reviewed as part of the pre-operative evaluation. Pt w longstanding paraplegia, hyperlipidemia, debility, now for sacral I and D. Pt has jail wishes of DNR, full discussion w pt as she has capacity to decide. She and I have selected option 3 on the DNR suspension document. Informed Consent: The patient's anesthetic plan and its attendant risks and benefits were discussed with the patient/family/POA. Questions were solicited and answers provided to the satisfaction of the patient/family/POA.
--- NOTE | 2024-12-08 17:20 | SUR.PREOP ---
Patient was A&O x2 and had no family present with her so gathering pre-op info was kind of difficult for RN.
--- NOTE | 2024-12-08 17:47 | S_PTH ---
PATIENT: Sadia Toledo LOC: [id number] U#:[id number] AGE/SX: 79/F ROOM: 303 RE12/07/[address]: Adam Pittman MD : [id number] BED: 01 DIS: 12/15/2024 SPEC #: [id number] RECD: 12/09/24 09:41 STATUS: HUGO ESPINOZA #: [id number] HEIDE: 12/08/24 17:[address]: Jerod Olson DEPT: [facility] Surgical RECD BY: Liat Smith ENTERED: 12/09/24 09:41 SP TYPE: Surgical OTHR DR: Jimmy Hayes, MD Tony Figueroa MD Michael J. Walter, MD Tissues: A - Bone Procedures: Hematoxylin and Eosin Stain Gross and Microscopic Level 6 Decalcification
--- NOTE | 2024-12-08 18:05 | W.PM.PROC2 ---
Procedure Note - Detailed Date of Procedure 12/08/24 Pre-op Diagnosis Sacral decubitus ulcer, stercoral colitis Post-op Diagnosis Same (Stage IV sacral decubitus ulcer tracking towards right ischium) Procedure Performed Sharp excisional debridement of stage IV sacral decubitus ulcer measuring 10 cm x 6 cm including skin, subcutaneous fat, fascia, and bone Surgeon Jerod Olson, DO Anesthesia Other (LMA) Indications This is a 79-year-old woman who presented with a sacral wound that was worsening. She has a history of spina bifida and is bed ridden. She has a large foul-smelling sacral ulcer that appears to be likely involving the sacrum. Discussions were made with the patient about treatment options and decision was made to proceed with debridement of the sacral wound in the OR. Findings Sharp excisional debridement was performed using a 15 blade scalpel. The debridement included skin, subcutaneous fat, fascia, and bone. The 12 o'clock location all the way to about the 5 o'clock location appeared to have some necrotic tissue involved. This was also tracking towards the right ischium. An incision was made the overlying skin in the area where was tracking. This allowed me to open the area up wide enough to hopefully allow for adequate wound care. After debriding the tissue to healthy appearing bleeding tissue, the wound was measuring about 10 cm x 6 cm. Several biopsies of the sacrum were taken for pathology. The wound was then irrigated with sterile saline and packed with Betadine-soaked 4 in Kerlix gauze. Description of Procedure Procedure as well as risks, benefits, and alternatives were discussed with the patient. Written consent was obtained and placed in chart prior to procedure. Patient was brought back to surgical suite. She was placed supine on operating table. Time-out was done to confirm patient and procedure. She was then intubated by the anesthesia department. She was then repositioned to left lateral decubitus position. Her sacrum area was prepped and draped in sterile fashion using Betadine prep. Sharp excisional debridement was then carried out using a 15 blade scalpel. The necrotic tissue was debrided all the way back to healthy-appearing bleeding tissue. This included skin, subcutaneous fat, and fascia in the area of the 12 o'clock location all the way towards the 5 o'clock location. The base of the wound bed also appeared to have some necrotic tissue and some soft bone exposed. The bone was debrided with a rongeur and samples of the bone were sent to the lab for pathology. The wound also appeared to track towards the right ischium and around the 5 o'clock location. An incision was made over this area using a 15 blade scalpel. Electrocautery was used for hemostasis and for dissection through the subcutaneous tissue. The wound area was opened up and further debrided using the 15 blade scalpel. The majority of the necrotic tissue appeared adequately debrided. Wound bed was then irrigated with sterile saline. Hemostasis was achieved with electrocautery. The wound was then packed with Betadine-soaked 4 in Kerlix gauze. The wound measured 10 cm x 6 cm. 4 x 4 gauze, ABD pads, and Medipore tape were then applied. The patient was then awakened from anesthesia, extubated, and transferred to recovery. Estimated Blood Loss 10 Urine Output 0 Pathology Yes (Sacrum) Complications No immediate complications Condition Stable Disposition Floor [facility] Billing Surgery - Charge Forward: Surgery Billing
--- NOTE | 2024-12-08 19:12 | PC.NURSE ---
Back from OR via bed.
[2024-12-08] MEDS: LACTATED RINGERS 1,000 ML 100 ML IV CONT (20:09)
[2024-12-08] MEDS: DULoxetine HCL 60 MG CAPSULE.DR PO (20:11)
[2024-12-08] MEDS: HYDROcodone/acetaminophen (*CRX) 5-325 MG TABLET 1 TAB PO (20:11)
[2024-12-08] MEDS: MIRTAZAPINE 7.5 MG TABLET PO (20:11)
[2024-12-08] MEDS: ASCORBIC ACID 500 MG TABLET PO (20:11)
[2024-12-08] MEDS: ATORVASTATIN 10 MG TABLET PO (20:11)
[2024-12-09] VITALS (7 sets, daily range): BP systolic 96–142; BP diastolic 45–98; PULSE 70–115; RESP 13–17; TEMP 36.1–36.6; O2SAT 93–100
[2024-12-09 07:03] LABS: Hematocrit 28.1 % (37.0-47.0); Hemoglobin 8.8 g/dL (12.0-15.0); Immature Granulocyte Percent A 0.6 % (0-0.5); Lymphocytes Absolute Auto 1.65 K/mm3 (0.9-3.2); Mean Corpuscular HGB Conc 31.3 g/dl (32-36); Mean Corpuscular Hemoglobin 27.4 pg (26-34); Mean Corpuscular Volume 87.5 fl (80-100); Nucleated Red Blood Cells Absolute Auto 0.000 K/mm3 (0.0-0.012); Nucleated Red Blood Cells Perc 0.0 % (0.0-0.2); Platelet Count Result 506 k/mm3 (150-375); Red Blood Count 3.21 M/mm3 (4.2-5.4); White Blood Count 11.7 K/mm3 (4.5-10.0)
[2024-12-09 07:27] LABS: Alanine Aminotransferase 10 U/L (6-35); Albumin Level 2.6 g/dL (3.5-5.1); Alkaline Phosphatase 104 U/L (38-126); Anion Gap 6 mmol/L (4-12); Aspartate Amino Transferase 18 U/L (14-36); Bilirubin,Total 0.5 mg/dL (0.2-1.3); Blood Urea Nitrogen 5 mg/dL (7-17); Calcium 8.0 mg/dL (8.4-10.2); Carbon Dioxide 29 mmol/L (22-30); Chloride 100 mmol/L (98-107); Estimated CRCL calculation 85 ml/min; Estimated Glomerular Filt Rate > 60; Glucose 93 mg/dL (65-110); Potassium 3.0 mmol/L (3.4-5.0); Sodium 135 mmol/L (137-145); Total Protein 5.5 g/dL (6.3-8.2)
[2024-12-09] MEDS: CEFEPIME 2 GM in SODIUM CHLORIDE 0.9% IV 50 ML 100 ML IVPB ×2 (08:06→16:55)
[2024-12-09] MEDS: FLUTICASONE PROPIONATE 0.05% NA SPR 16 GM BTL (*BKC) 2 SPRAY NASAL ×2 (08:14→20:37)
--- NOTE | 2024-12-09 08:46 | P.PNIM_ITS ---
Progress Note: A&P Assessment and Plan (1) Depression with anxiety: Code(s): F41.8 - Other specified anxiety disorders Status: Acute (2) Hyperlipidemia: Code(s): E78.5 - Hyperlipidemia, unspecified Status: Acute (3) Morbid obesity due to excess calories: Code(s): E66.01 - Morbid (severe) obesity due to excess calories Status: Acute (4) Chronic constipation: Code(s): K59.09 - Other constipation Status: Acute (5) Stercoral colitis: Code(s): K52.89 - Other specified noninfective gastroenteritis and colitis Status: Acute (6) Acute hypokalemia: Code(s): E87.6 - Hypokalemia Status: Acute (7) History of urostomy: Code(s): Z98.890 - Other specified postprocedural states Status: Acute (8) Osteomyelitis: Qualifiers: Osteomyelitis location: other site Osteomyelitis type: unspecified type Qualified Code(s): M86.9 - Osteomyelitis, unspecified Code(s): M86.9 - Osteomyelitis, unspecified Status: Acute (9) Decubitus ulcer: Qualifiers: Pressure injury location: sacral region Pressure injury stage: unstageable Qualified Code(s): L89.150 - Pressure ulcer of sacral region, unstageable Code(s): L89.90 - Pressure ulcer of unspecified site, unspecified stage Status: Acute (10) Paraplegia: Code(s): G82.20 - Paraplegia, unspecified Status: Acute (11) Spina bifida of lumbar spine: Qualifiers: Presence of hydrocephalus: unspecified hydrocephalus presence Qualified Code(s): Q05.7 - Lumbar spina bifida without hydrocephalus Code(s): Q05.7 - Lumbar spina bifida without hydrocephalus Status: Chronic Plan Osteomyelitis, infected wound Stage IV sacral decubitus ulcer Underwent I&Ds yesterday Continue with Antibiotics vancomycin and cefepime, Flagyl. Follow cultures Surgery team on board. . Sepsis Leukocytosis, hypotension Plan as above Line cavity/mass 4.2 x 3.9 x 3.3 cm spiculated mass in the left lower lobe posteriorly which is partially cavitated. A malignant process needs to be excluded. There is a 3.0 x 0 1 x 5.1 cm lobulated masslike structure in the right lower lo be posteriorly Pulmonary team on board. Continue Antibiotics vancomycin and cefepime. Flagyl added. Plan for lung biopsy today. Follow-up biopsy results pulmonary team on board Left adrenal gland is prominent but unchanged. An adrenal mass MRI or PET/CT as outpatient HLD Statin Depression BI ARCHITECT meds hyponatremia monitor for now hypokalemia will give IV K continue to monitor Subjective Date/time seen: 12/09/24 08:46 Interval history: per HPI: This is a 79-year-old female senior living resident presented to the ED for sacral wound. This has been present for past few months however patient is not sure about this. Patient complains of hurting on the side. In the ED evaluation she was mildly tachycardic but afebrile. On evaluation she had a large sacral wound. Laboratory workup revealed WBC 15 K hemoglobin 11.8 platelet count 687. Sodium of 137 potassium 3.0 chloride 92 bicarbonate 38 BUN 13 creatinine 0.46. Blood glucose of 105. Lactate was normal at 1.9 LFTs were normal CRP was 27.1. CT abdomen pelvis showed deep sacral decubitus ulcer with osteomyelitis along the caudal aspect of the sacrum which is new. Interval increase in size of likely cavitary mass at the dependent left lower lobe which raises concern for malignancy. Recommend CT-guided biopsy. Smaller 1.3 x 1.0 cm nodule along the band of discoid atelectasis in the right lower lobe. Stable appearance of a subcapsular flat hypodense region along the dome of liver suggestive of a collapsed cyst are region of scarring with multiple peripheral high attenuation foci unclear whether this calcifications are potentially embolization material. Bilateral nonobstructing nephrolithiasis. Postoperative change of prior cystectomy with right lower quadrant ideal conduit formation. There is urothelial enhancement at the lateral renal collecting system suspicious for secondary ascending urinary tract infection. Correlate with urinalysis. Recurrent infection could confirm a moderate atrophy with cortical scarring at the right kidney. Large amount of stool in the sigmoid colon rectum with associated wall thickening and perirectal stranding consistent with secondary stercoral colitis. Ventral hernias 1 containing fat and 2nd anterior at wall of a short segment of nonobstructed proximal transverse colon. Unchanged extensive high attenuation material within the thecal sac the lumbar and visualized lower thoracic spine suggestive off retained plan to pick. There is also 1.8 x 1.5 cm left hilar lymph node which could be either reactive or metastatic. EKG showed sinus tachycardia with nonspecific ST-T changes Patient has been started on vancomycin and cefepime. General surgery has been consulted. She is admitted in the setting for further treatment 12/08/24 Patient was seen and examined bedside. She is feeling fine. Denies any chest pain, shortness off present abdomen pain, nausea vomiting. Blood pressure improved. Continue with IV fluid. Surgery team on board. Plan for sacral decubitus wound today. Pulmonary team about. Antibiotics vancomycin and cefepime. Flagyl added. Plan for lung biopsy tomorrow. 12/09/24 Patient was seen and examined at bedside. she is feeling fine denies any chest pain, SOB, N/V. Underwent excisional debridement of stage IV sacral decubitus ulcer yesterday. plan for lung biopsy today. WBC improved to 11.7. hb 8.8 , K 3 Review of Systems Review of Systems: - CONSTITUTIONAL: Denies weight loss, fe shy and chills. - HEENT: Denies changes in vision and he aring - RESPIRATORY: Denies SOB and cough. - CV: Denies palpitations and CP. - GI: Reports left lower abdominal pain , denies nausea, vomiting and diarrhea. - : Denies dysuria and urinary frequen cy. - MSK: Denies myalgia and joint pain. - SKIN: Denies rash and pruritus. - NEUROLOGICAL: Denies headache and sync ope. - PSYCHIATRIC: Denies recent changes in mood. Denies anxiety and depression. Exam Narrative: APPEARANCE: No acute distress, nontoxic, resting in bed EYES: EOMI HEENT: Normocephalic, atraumatic, OMM RESPIRATORY: No respiratory distress Clear to auscultation bilaterally with no rhonchi wheezing or rales. CARDIOVASCULAR: Mildly tachycardic, regular rhythm without murmurs rubs or gallops. ABDOMINAL: Soft, mild tenderness to palpation to the left lower quadrant, also notably firm. Ostomy in place to the right lower quadrant. Ventral hernia noted MUSCULOSKELETAl: Moves all extremities. No clubbing, cyanosis or edema. NEURO: Awake and alert. Following commands, speech normal, no focal deficits SKIN:: stag 4 decubitus ulcer S/P I&Ds PSYCHIATRIC: Normal affect/mood, Objective Data Vital Signs Vital Signs: Vital Signs - 24 hr 12/08/24 14:00 12/08/24 16:45 12/08/24 18:01 Temperature 96.8 F L 97.5 F L 97.3 F L Pulse Rate 96 104 H 89 Respiratory Rate 16 16 12 Blood Pressure 101/46 L 126/71 93/54 L Pulse Oximetry 98 95 100 Oxygen Delivery Room Air Simple Face Mask Oxygen Flow Rate 6 12/08/24 18:15 12/08/24 18:30 12/08/24 18:45 Temperature Pulse Rate 95 98 98 Respiratory Rate 18 16 16 Blood Pressure 109/54 L 107/73 106/63 Pulse Oximetry 98 98 97 Oxygen Delivery Simple Face Mask Room Air Room Air Oxygen Flow Rate 6 12/08/24 19:00 12/08/24 19:12 12/08/24 19:27 Temperature 97.5 F L 97.7 F Pulse Rate 97 102 H 101 H Respiratory Rate 16 19 18 Blood Pressure 102/57 L 95/77 L 111/64 Pulse Oximetry 96 98 99 Oxygen Delivery Room Air Oxygen Flow Rate 12/08/24 19:57 12/08/24 20:00 12/08/24 20:00 Temperature 98.1 F 97.7 F Pulse Rate 105 H 101 H Respiratory Rate 18 18 Blood Pressure 117/91 H 111/64 Pulse Oximetry 100 99 Oxygen Delivery Room Air Oxygen Flow Rate 12/08/24 20:57 12/09/24 00:57 12/09/24 04:57 Temperature 97.3 F L 97 F L 96.9 F L Pulse Rate 101 H 102 H 84 Respiratory Rate 17 16 13 Blood Pressure 123/72 116/61 113/54 L Pulse Oximetry 97 93 95 Oxygen Delivery Oxygen Flow Rate Intake/Output Intake/Output: Intake & Output 12/06/24 12/07/24 12/08/24 12/09/24 23:59 23:59 23:59 23:59 Intake Total 2400 1020 500 Output Total 900 340 700 Balance 1500 680 -200 Meds/Results Medications: Active Medications Generic Name Dose Route Start Last Admin Trade Name Freq PRN Reason Stop Dose Admin Acetaminophen 650 mg 12/08/24 15:11 Acetaminophen 325 Mg Tablet BY MOUTH Q4H PRN mild pain Hydrocodone Bitart/Acetaminophen 1 tab 12/08/24 19:12 12/08/24 20:11 Hydrocodone/Acetaminophen (*Crx) 5-325 Mg Tablet PO 1 tab Q4H PRN Administration Pain Rated 4-6 Hydrocodone Bitart/Acetaminophen 1 tab 12/08/24 19:12 Hydrocodone/Acetaminophen (*Crx) 7.5-325 Mg Tablet PO Q4H PRN Pain Rated 7-10 Ascorbic Acid 500 mg 12/08/24 17:00 12/08/24 20:11 Ascorbic Acid 500 Mg Tablet PO 500 mg BID ALEXIS Administration Atorvastatin Calcium 10 mg 12/08/24 21:00 12/08/24 20:11 Atorvastatin 10 Mg Tablet PO 10 mg HS ALEXIS Administration Collagenase 1 applic 12/09/24 09:00 Collagenase Oint 30 Gm Tube TOPICAL DAILY ALEXIS Duloxetine HCl 60 mg 12/08/24 17:00 12/08/24 20:11 Duloxetine Hcl 60 Mg Capsule.Dr PO 60 mg BID ALEXIS Administration Fentanyl Citrate 25 mcg 12/08/24 17:12 Fentanyl Citrate Inj (*Crx) 100 Mcg/2 Ml Vial IV PUSH Q2M PRN Pain Fluticasone Propionate 2 spray 12/08/24 11:45 12/09/24 08:14 Fluticasone Propionate 0.05% Na Spr 16 Gm Btl (*Bkc) NASAL 2 spray Q12HR ALEXIS Administration Cefepime HCl 2 gm/ Sodium 50 mls @ 100 mls/hr 12/08/24 00:00 12/09/24 08:06 Chloride IVPB 100 mls/hr Q8H ALEXIS Administration Metronidazole 500 mg in 100 mls @ 100 mls/hr 12/08/24 16:00 12/09/24 00:12 Flagyl 500 Mg/Iso Soln 100 Ml IVPB Infused Q8H ALEXIS Infusion Vancomycin HCl 1,500 mg in 500 mls @ 250 mls/hr 12/09/24 09:00 Vancomycin 1,500 Mg/Ns 500 Ml IVPB Q12H ALEXIS Loratadine 10 mg 12/09/24 09:00 Loratadine 10 Mg Tablet PO QAM ALEXIS Mirtazapine 7.5 mg 12/08/24 21:00 12/08/24 20:11 Mirtazapine 7.5 Mg Tablet PO 7.5 mg HS ALEXIS Administration Miscellaneous Information 1 each 12/08/24 15:03 Central Supply Item XX 12/09/24 15:02 PRN PRN Informational Multivitamins Therapeutic 1 tablet 12/09/24 09:00 Multivitamins Therapeutic Tab (*Bkc) PO DAILY [facility] Naloxone HCl 0.1 mg 12/08/24 19:12 Naloxone Hcl 0.4 Mg/Ml Vial IV PUSH Q2M PRN Opiate Reversal Ondansetron HCl 4 mg 12/08/24 19:12 Ondansetron Inj 4 Mg/2 Ml Vial IV PUSH Q4H PRN Nausea And Vomiting Polyethylene Glycol 17 gm 12/09/24 09:00 Polyethylene Glycol 3350 17 Gm Powd.Pack PO QAM [facility] Povidone Iodine 180 ml 12/09/24 04:43 Povidone-Iodine 10% Solution 118 Ml Bottle TOPICAL PRN PRN dressing changes Trazodone HCl 75 mg 12/08/24 21:00 12/08/24 20:11 Trazodone Hcl 25 Mg Tablet PO 75 mg HS [facility] Administration Vitamin D 50 mcg 12/09/24 09:00 Cholecalciferol (Vitamin D3) 25 Mcg (1,000 Units) Tablet PO DAILY [facility] Zinc Sulfate 50 mg 12/09/24 09:00 Zinc Sulfate 220 Mg Capsule PO DAILY [facility] Radiology Results: ITS Impressions Abdomen/Pelvis CT 12/07/24 15:35 IMPRESSION: 1. Deep sacral decubitus ulcer with osteomyelitis along the caudal aspect of the sacrum which is new since the prior study. 2. Interval increase in size of a likely cavitary mass at the dependent left lower lobe which raises concern for malignancy. Would recommend CT-guided biopsy. 3. Smaller 1.3 x 1.0 cm nodule along a band of discoid atelectasis in the right lower lobe. Consider either short interval follow-up in 3 months or further evaluation with PET/CT. 4. Stable appearance of a subcapsular flat hypodense region along the dome of the liver suggestive of a collapsed cyst or region of scarring with multiple peripheral high attenuation foci, unclear whether calcifications or potentially embolization material. Correlate with clinical history and with any prior outside imaging for comparison. 5. Bilateral nonobstructing nephrolithiasis. 6. 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 There is urothelial enhancement at the lateral renal collecting systems suspicious for secondary ascending urinary tract infection. Correlate with urinalysis. Recurrent infections could account for the moderate atrophy with cortical scarring at the right kidney. 7. Large amount of stool in the sigmoid colon and rectum with associated wall thickening and perirectal stranding consistent with secondary stercoral colitis. 8. Couple ventral hernias, one containing fat and the second anterior wall of a short segment of nonobstructed proximal transverse colon. 9. Unchanged extensive high attenuation material within the thecal sac the lumbar and visualized lower thoracic spine suggesting retained Pantopaque. Correlate with clinical history. ADDENDUM: 12/07/24 1619 ADDENDUM: There is also a 1.8 x 1.5 cm left hilar lymph node which could be either reactive or metastatic. Chest CT 12/08/24 10:11 IMPRESSION: 1. There is a 4.2 x 3.9 x 3.3 cm spiculated mass in the left lower lobe posteriorly which is partially cavitated and extends to the pleura. A malignant process needs to be excluded. A biopsy is recommended. 2. There is a 3.0 x 0 1 x 5.1 cm lobulated masslike structure in the right lower lobe posteriorly which extends to the pleura. Evaluation is limited due to motion artifact. Differential includes atelectasis, pneumonia or malignancy. A PET/CT and/or biopsy is recommended. 3. No lymphadenopathy in the chest. 4. Tiny left-sided pleural effusion. 5. Left adrenal gland is prominent but unchanged. An adrenal mass MRI or PET/CT is recommended. Labs Labs: Laboratory Results - last 24 hr 12/09/24 06:55 WBC 11.7 H RBC 3.21 L Hgb 8.8 L Hct 28.1 L MCV 87.5 MCH 27.4 MCHC 31.3 L RDW 14.3 Plt Count 506 H MPV 8.8 Immature Gran % (Auto) 0.6 H Neut % (Auto) 75.5 H Lymph % (Auto) 14.1 L [place] % (Auto) 6.6 Eos % (Auto) 2.9 Baso % (Auto) 0.3 Lymph # (Auto) 1.65 [place] # (Auto) 0.8 H Eos # (Auto) 0.3 Baso # (Auto) 0.0 Abs Immat Gran (auto) 0.07 H Absolute Neuts (auto) 8.9 H Absolute Nucleated RBC 0.000 Nucleated RBC % 0.0 Sodium 135 L Potassium 3.0 L Chloride 100 Carbon Dioxide 29 Anion Gap 6 BUN 5 L Creatinine 0.40 L Estim Creat Clear Calc 85 Estimated GFR > 60 Glucose 93 Calcium 8.0 L Total Bilirubin 0.5 AST 18 ALT 10 Alkaline Phosphatase 104 Total Protein 5.5 L Albumin 2.6 L Vancomycin Trough 9.6 L
--- NOTE | 2024-12-09 09:07 | PM.PNPUL ---
Progress Note: A&P Assessment and Plan (1) Lung mass: Code(s): R91.8 - Other nonspecific abnormal finding of lung field Status: Acute Assessment and Plan: Patient is a never smoker but exposed to secondhand smoke from both her parents. CT scan of the chest on 12/08/2024 compared with 07/07/2024 demonstrates an enlarging left lower lobe mass with central cavitation. In addition there is a right lower lobe nodular mass. Patient has increased cough and phlegm over the last 2 months but no other infectious complaints. Currently she is on room air with saturations 97%. Etiology left lower lobe lung mass includes cancer and or infection. Plan: CT-guided biopsy has been ordered for 12/09/2024. Lovenox has been discontinued. Patient has sacral decubitus with a adjacent osteomyelitis and is currently placed on vancomycin and cefepime. I have discussed with ID pharmacy and would favor adding anaerobic coverage for possible lung abscess. Hospitalist team will be contacted. Patient is scheduled for decubitus debridement later today by General surgery. Patient complains of sinus congestion that has responded to Flonase and Claritin in the past. Will place her on Flonase 2 sprays each nostril twice a day and Claritin 10 mg p.o. q.day. Later in the day patient went to the OR and had wound debridement under general anesthesia. no complications. 12/09/2024. Patient states she is breathing normal. Overall her cough is improved and the volume of her phlegm is decreased. Her sinus congestion is better. she is on room air with saturations 97%. She is afebrile. White blood cell count 11.7, creatinine 0.4. Plan: Patient to have CT-guided lung biopsy later today. Decubitus ulcer and possible lung abscess being treated with cefepime, day 3, vancomycin day 3, and Flagyl day 2. Her sinus congestion is improved on Flonas 2 sprays each nostril twice a day and Claritin 10 mg a day. Discussed with Dr. Estevez, will follow with you. Subjective Date/time seen: 12/09/24 09:07 Interval history: 12/08/2024: This is a new pulmonary consult for lung mass. 79-year-old with a history of spina bifida with urostomy at age 16 and a LADLE FILLER shunt at age 31, history of constipation, progressive weakness requiring a wheelchair 5 years ago. Patient presented to the emergency department because of her sacral wound on . blood pressure 111/75, heart rate 105, respirations 14, room air saturation 97%. Lungs were clear to auscultation. White blood cell count 15.0, creatinine 0.46, CRP 27.1. CT scan of the abdomen and pelvis compared with 07/07/2024 showed an increased 4.1 x 2.1 left lower lobe mass with a central cavitation, right lower lobe atelectasis with no change and more nodule right lower lobe 1.3 x 1.1 abnormality. patient was empirically started on vancomycin and cefepime. 12/08/2024: Patient tells me she has no history of asthma, bronchitis, pneumonias, aspiration. She is a never smoker but was exposed to secondhand smoke from both her parents. She has never had a job. She has no sand blasting, welding, asbestos, professional painting, steel mill, coal mining or construction exposure. The patient tells me she has had increased cough for the last 3 or 4 months and increased phlegm for the last 2 months. At baseline she would make to expectorations a day and now she is making 4 expectorations. She denies any rest or exertional shortness of breath. She is afebrile. White blood cell count 15.0, creatinine 0.42 she is positive 1.5 L and her weight today is 75.4. Dedicated chest CT scan shows a 4.2 x 3.9 x 3.3 cm spiculated mass with central cavitation that extends to the pleura. 3.0 by 5.1 cm lobulated mass in the right lower lobe which extends to the pleural. No lymphadenopathy in the chest, tiny left-sided pleural effusion, left adrenal gland is prominent but unchanged. Later in the day patient went to the OR and had wound debridement under general anesthesia. no complications. 12/09/2024. Patient states she is breathing normal. Overall her cough is improved and the volume of her phlegm is decreased. Her sinus congestion is better. she is on room air with saturations 97%. She is afebrile. White blood cell count 11.7, creatinine 0.4. DATA: 8/20/25: EXAMINATION: CT diagnostic chest wo con INDICATION: Lung mass COMPARISON: CT abdomen and pelvis 12/07/2024 and 07/07/2024 FINDINGS: Upper abdomen is similar to the CT study from 12/07/2024. No enlarged mediastinal or hilar lymph nodes. Heart is not enlarged. Thoracic aorta is not aneurysmal. Mild atherosclerotic disease in the thoracic aorta. No pneumothorax. Tiny left-sided pleural effusion. Tracheobronchial tree is patent. The study is slightly limited due to motion artifact. There is a 4.2 x 3.9 x 3.3 cm spiculated mass in the left lower lobe posteriorly which is partially cavitated. A malignant process needs to be excluded. There is a 3.0 x 0 1 x 5.1 cm lobulated masslike structure in the right lower lobe posteriorly. Evaluation is limited due to motion artifact. Differential includes atelectasis, pneumonia or malignancy. A PET/CT and/or biopsy is recommended. There is extensive high attenuation material in the thecal sac in the thorax which is seen extending into the abdomen. Bones appear osteopenic. Multilevel degenerative change in the visualized spine. IMPRESSION: 1. There is a 4.2 x 3.9 x 3.3 cm spiculated mass in the left lower lobe posteriorly which is partially cavitated and extends to the pleura. A malignant process needs to be excluded. A biopsy is recommended. 2. There is a 3.0 x 0 1 x 5.1 cm lobulated masslike structure in the right lower lobe posteriorly which extends to the pleura. Evaluation is limited due to motion artifact. Differential includes atelectasis, pneumonia or malignancy. A PET/CT and/or biopsy is recommended. 3. No lymphadenopathy in the chest. 4. Tiny left-sided pleural effusion. 5. Left adrenal gland is prominent but unchanged. An adrenal mass MRI or PET/CT is recommended. 12/07/24: EXAMINATION: CT abdomen pelvis w con INDICATION: Left lower quadrant abdominal pain. Tunneling coccygeal wound. COMPARISON: CT dated 07/07/2024 FINDINGS: Interval increase in size of a 3.4 x 2.1 cm mass in the posterior left lower lobe with some gas-filled central cavitation. No significant change in a more medial 7 mm satellite nodule. Persistent volume loss in the right lower lobe with no interval change in a few thoracic bandlike opacities in the dependent right lower lobe with configuration most consistent with atelectasis. Portion of the posterior medial aspect of the band of likely atelectasis has a more discrete nodular appearance measuring 1.3 x 1.0 cm. Heart size is normal. There is a catheter extending caudally from the visualized caudal superior vena cava into the right ventricle with distal tip near the pulmonary outflow tract. This potentially represents a ventricular shunt given reported history of hydrocephalus and the suggestion of the catheter extends cephalad along the right neck on prior radiograph dated 07/08/2024. No pericardial or pleural effusion. Multiple well-defined fluid attenuation hepatic cysts the largest measuring up to 5.2 cm. There is more irregular subcapsular region of decreased attenuation with multiple small peripheral foci of high attenuation material along the anterior dome of the liver with appearance suggesting a decompressed cavitary lesion with either peripheral dystrophic calcifications or potentially prior embolization material. Gallbladder, spleen, pancreas and right adrenal gland are normal. Unchanged nodular thickening of the left adrenal gland. Moderate right renal atrophy with multiple small regions of cortical scarring likely sequela prior infection or infarction. 2 mm nonobstructive stone in upper pole calyx of right kidney and larger 9 mm stone at a lower pole calyx. Couple small nonobstructing stones in left kidney the largest measuring 2 mm. There are also couple left renal cysts the largest measuring 6.3 cm. 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 No hydronephrosis. Large amount of stool in the sigmoid colon and rectum measuring up to 8 cm maximal diameter with associated wall thickening and some perirectal inflammatory stranding consistent with stercoral colitis. No dilated small bowel to suggest obstruction. The anterior portion of a short segment of the proximal transverse colon extends into a widemouthed ventral hernia. There is also a more caudal small fat-containing ventral hernia along a midline surgical scar. No free intraperitoneal gas or fluid. No pathologically enlarged abdominal or pelvic lymphadenopathy. There is a deep sacral decubitus ulcer with packing material which extends to contact the posterior margin of the caudal aspect of the sacrum where there is some interval ostial lysis with cortical erosion, new since the prior study and consistent with secondary osteomyelitis. No abscess. Unchanged extensive high attenuation material in the thecal sac of the lumbar and visualized thoracic spine. IMPRESSION: 1. Deep sacral decubitus ulcer with osteomyelitis along the caudal aspect of the sacrum which is new since the prior study. 2. Interval increase in size of a likely cavitary mass at the dependent left lower lobe which raises concern for malignancy. Would recommend CT-guided biopsy. 3. Smaller 1.3 x 1.0 cm nodule along a band of discoid atelectasis in the right lower lobe. Consider either short interval follow-up in 3 months or further evaluation with PET/CT. 4. Stable appearance of a subcapsular flat hypodense region along the dome of the liver suggestive of a collapsed cyst or region of scarring with multiple peripheral high attenuation foci, unclear whether calcifications or potentially embolization material. Correlate with clinical history and with any prior outside imaging for comparison. 5. Bilateral nonobstructing nephrolithiasis. 6. 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 There is urothelial enhancement at the lateral renal collecting systems suspicious for secondary ascending urinary tract infection. Correlate with urinalysis. Recurrent infections could account for the moderate atrophy with cortical scarring at the right kidney. 7. Large amount of stool in the sigmoid colon and rectum with associated wall thickening and perirectal stranding consistent with secondary stercoral colitis. 8. Couple ventral hernias, one containing fat and the second anterior wall of a short segment of nonobstructed proximal transverse colon. 9. Unchanged extensive high attenuation material within the thecal sac the lumbar and visualized lower thoracic spine suggesting retained Pantopaque. Correlate with clinical history. 12/07/24: ADDENDUM: There is also a 1.8 x 1.5 cm left hilar lymph node which could be either reactive or metastatic. 07/07/2024: CLINICAL INDICATION: Abdominal pain, nausea and vomiting COMPARISON: None. FINDINGS/OBSERVATIONS: Visualized lower thorax: Right basilar atelectasis. A bilobed nodule is identified within the left lung base measuring 19 x 22 mm and 10 x 11 mm, respectively (axial series, image 17). An additional pulmonary nodule detected within the left lower lobe measuring 8.3 x 7.7 mm (axial series, image 10). The heart is enlarged, without pericardial effusion. Small hiatal hernia is present. Liver: Multiple rounded foci of fluid attenuation are identified within the liver, suggesting simple cysts. The remainder of the liver demonstrates otherwise homogeneous enhancement and is not enlarged measuring 16 cm in longitudinal dimension. Gallbladder and biliary system: The gallbladder is only minimally distended, and otherwise unremarkable. Pancreas: The pancreas enhances homogeneously without ductal dilatation. Spleen: The spleen enhances homogeneously and is not enlarged measuring 6 cm in longitudinal dimension. Kidneys: Right-sided hydroureteronephrosis extending to the proximal right ureter where a 7 mm stone is identified. Hyperemia of the worrell of the collecting system are present consistent with ureteritis. Multiple nonobstructing stones are identified within the right kidney, the largest within the lower pole measuring 7 mm. Hyperenhancement of the worrell of the left sided ureter and collecting system are also noted consistent with left-sided ureteritis. Adrenal glands: Unremarkable. Gastrointestinal tract: Significant fecal stasis is identified distending the rectum to the level of the L1 vertebral body. Fecal stasis is identified within the remainder of the air and stool-filled colon which is markedly dilated. The dilatation from the colon demonstrates mass effect on the patient's ileal conduit, likely causing patient's infection (in addition to the obstructing stone). Vasculature: Calcified atherosclerotic disease. Lymph nodes: No pathologically enlarged or morphologically suspicious lymph nodes within the retroperitoneum or at the root of the mesentery. Body wall and musculoskeletal: Stoma extends along the right lower quadrant. Diffuse degenerative disease within the lower thoracic and lumbosacral spines. IMPRESSION: Right-sided hydroureteronephrosis secondary to a 7 mm calculus within the proximal right ureter. Bilateral ureteritis with ascending infection on the left secondary to stasis of the urine within patient's urostomy from mass effect of the significantly dilated stool-filled distended colon. Review of Systems Constitutional: Constitutional: Reports no additional constitutional complaints Eyes: Eyes: Reports no additional eye complaints ENT: Reports system reviewed and no additional complaints, except as documented Cardiovascular: Cardiovascular: Reports no additional cardiovascular complaints Respiratory: Respiratory: Reports no additional respiratory complaints Gastrointestinal: Gastrointestinal: Reports no additional gastrointestinal complaints Musculoskeletal: Musculoskeletal: Reports no additional musculoskeletal complaints Neurologic: Reports system reviewed and no additional complaints, except as documented Psychiatric: Psychiatric: Reports no additional psychiatric complaints Endocrine: Endocrine: Reports no additional endocrine complaints Hematologic/Lymphatic: Hematologic/Lymphatic: Reports no additional hematologic/lymphatic complaints Allergic/Immunologic: Allergic/Immunologic: Reports no additional allergic/immunologic complaints Exam Const: General: cooperative, comfortable and no acute distress Orientation/consciousness: oriented to person, oriented to place and oriented to time HENMT: Head: normal to inspection Ears: hearing grossly normal bilaterally Eyes: General: appearance normal, both eyes and all related structures Other: Dysconjugate gaze Neck: Neck: normal visual inspection Chest: Chest palpation & inspection: normal inspection of the chest Resp: Effort & Inspection: normal respiratory effort and able to speak in complete sentences Auscultation: no crackles, no rales, no rhonchi, no wheezes and lung sounds not diminished Cardio: Jugular venous distension: no JVD GI: Inspection: normal to inspection Other: Urostomy bag in place. Skin: General skin exam: normal color Neuro: General: oriented to person, oriented to place and oriented to time Other: patient can raise her right leg greater than left leg, she cannot wiggle her toes. Extrem: General: normal to inspection Psych: Appearance: grossly normal Objective Data Vital Signs Vital Signs: Vital Signs - 24 hr 12/08/24 14:00 12/08/24 16:45 12/08/24 18:01 Temperature 36.0 C L 36.4 C L 36.3 C L Pulse Rate 96 104 H 89 Respiratory Rate 16 16 12 Blood Pressure 101/46 L 126/71 93/54 L Pulse Oximetry 98 95 100 Oxygen Delivery Room Air Simple Face Mask Oxygen Flow Rate 6 12/08/24 18:15 12/08/24 18:30 12/08/24 18:45 Temperature Pulse Rate 95 98 98 Respiratory Rate 18 16 16 Blood Pressure 109/54 L 107/73 106/63 Pulse Oximetry 98 98 97 Oxygen Delivery Simple Face Mask Room Air Room Air Oxygen Flow Rate 6 12/08/24 19:00 12/08/24 19:12 12/08/24 19:27 Temperature 36.4 C L 36.5 C Pulse Rate 97 102 H 101 H Respiratory Rate 16 19 18 Blood Pressure 102/57 L 95/77 L 111/64 Pulse Oximetry 96 98 99 Oxygen Delivery Room Air Oxygen Flow Rate 12/08/24 19:57 12/08/24 20:00 12/08/24 20:00 Temperature 36.7 C 36.5 C Pulse Rate 105 H 101 H Respiratory Rate 18 18 Blood Pressure 117/91 H 111/64 Pulse Oximetry 100 99 Oxygen Delivery Room Air Oxygen Flow Rate 12/08/24 20:57 12/09/24 00:57 12/09/24 04:57 Temperature 36.3 C L 36.1 C L 36.1 C L Pulse Rate 101 H 102 H 84 Respiratory Rate 17 16 13 Blood Pressure 123/72 116/61 113/54 L Pulse Oximetry 97 93 95 Oxygen Delivery Oxygen Flow Rate Intake/Output Intake/Output: Intake & Output 12/06/24 12/07/24 12/08/24 12/09/24 23:59 23:59 23:59 23:59 Intake Total 2400 1020 500 Output Total 900 340 700 Balance 1500 680 -200 Meds/Results Medications: Active Medications Generic Name Dose Route Start Last Admin Trade Name Freq PRN Reason Stop Dose Admin Acetaminophen 650 mg 12/08/24 15:11 Acetaminophen 325 Mg Tablet BY MOUTH Q4H PRN mild pain Hydrocodone Bitart/Acetaminophen 1 tab 12/08/24 19:12 12/08/24 20:11 Hydrocodone/Acetaminophen (*Crx) 5-325 Mg Tablet PO 1 tab Q4H PRN Administration Pain Rated 4-6 Hydrocodone Bitart/Acetaminophen 1 tab 12/08/24 19:12 Hydrocodone/Acetaminophen (*Crx) 7.5-325 Mg Tablet PO Q4H PRN Pain Rated 7-10 Ascorbic Acid 500 mg 12/08/24 17:00 12/08/24 20:11 Ascorbic Acid 500 Mg Tablet PO 500 mg BID ALEXIS Administration Atorvastatin Calcium 10 mg 12/08/24 21:00 12/08/24 20:11 Atorvastatin 10 Mg Tablet PO 10 mg HS ALEXIS Administration Collagenase 1 applic 12/09/24 09:00 Collagenase Oint 30 Gm Tube TOPICAL DAILY ALEXIS Duloxetine HCl 60 mg 12/08/24 17:00 12/08/24 20:11 Duloxetine Hcl 60 Mg Capsule.Dr PO 60 mg BID ALEXIS Administration Fentanyl Citrate 25 mcg 12/08/24 17:12 Fentanyl Citrate Inj (*Crx) 100 Mcg/2 Ml Vial IV PUSH Q2M PRN Pain Fluticasone Propionate 2 spray 12/08/24 11:45 12/09/24 08:14 Fluticasone Propionate 0.05% Na Spr 16 Gm Btl (*Bkc) NASAL 2 spray Q12HR ALEXIS Administration Cefepime HCl 2 gm/ Sodium 50 mls @ 100 mls/hr 12/08/24 00:00 12/09/24 08:06 Chloride IVPB 100 mls/hr Q8H ALEXIS Administration Metronidazole 500 mg in 100 mls @ 100 mls/hr 12/08/24 16:00 12/09/24 00:12 Flagyl 500 Mg/Iso Soln 100 Ml IVPB Infused Q8H ALEXIS Infusion Vancomycin HCl 1,500 mg in 500 mls @ 250 mls/hr 12/09/24 09:00 Vancomycin 1,500 Mg/Ns 500 Ml IVPB Q12H ALEXIS Potassium Chloride 100 mls @ 50 mls/hr 12/09/24 08:53 Kcl 20 Meq/Sw 100 Ml IVPB 12/09/24 10:52 ONCE ONE Loratadine 10 mg 12/09/24 09:00 Loratadine 10 Mg Tablet PO QAM [facility]1983 Mirtazapine 7.5 mg 12/08/24 21:00 12/08/24 20:11 Mirtazapine 7.5 Mg Tablet PO 7.5 mg HS [facility]1983 Administration Miscellaneous Information 1 each 12/08/24 15:03 Central Supply Item XX 12/09/24 15:02 PRN PRN Informational Multivitamins Therapeutic 1 tablet 12/09/24 09:00 Multivitamins Therapeutic Tab (*Bkc) PO DAILY [facility]1983 Naloxone HCl 0.1 mg 12/08/24 19:12 Naloxone Hcl 0.4 Mg/Ml Vial IV PUSH Q2M PRN Opiate Reversal Ondansetron HCl 4 mg 12/08/24 19:12 Ondansetron Inj 4 Mg/2 Ml Vial IV PUSH Q4H PRN Nausea And Vomiting Polyethylene Glycol 17 gm 12/09/24 09:00 Polyethylene Glycol 3350 17 Gm Powd.Pack PO QAM [facility]1983 Povidone Iodine 180 ml 12/09/24 04:43 Povidone-Iodine 10% Solution 118 Ml Bottle TOPICAL PRN PRN dressing changes Trazodone HCl 75 mg 12/08/24 21:00 12/08/24 20:11 Trazodone Hcl 25 Mg Tablet PO 75 mg HS [facility]1983 Administration Vitamin D 50 mcg 12/09/24 09:00 Cholecalciferol (Vitamin D3) 25 Mcg (1,000 Units) Tablet PO DAILY [facility]1983 Zinc Sulfate 50 mg 12/09/24 09:00 Zinc Sulfate 220 Mg Capsule PO DAILY ALEXIS Radiology Results: ITS Impressions Abdomen/Pelvis CT 12/07/24 15:35 IMPRESSION: 1. Deep sacral decubitus ulcer with osteomyelitis along the caudal aspect of the sacrum which is new since the prior study. 2. Interval increase in size of a likely cavitary mass at the dependent left lower lobe which raises concern for malignancy. Would recommend CT-guided biopsy. 3. Smaller 1.3 x 1.0 cm nodule along a band of discoid atelectasis in the right lower lobe. Consider either short interval follow-up in 3 months or further evaluation with PET/CT. 4. Stable appearance of a subcapsular flat hypodense region along the dome of the liver suggestive of a collapsed cyst or region of scarring with multiple peripheral high attenuation foci, unclear whether calcifications or potentially embolization material. Correlate with clinical history and with any prior outside imaging for comparison. 5. Bilateral nonobstructing nephrolithiasis. 6. 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 There is urothelial enhancement at the lateral renal collecting systems suspicious for secondary ascending urinary tract infection. Correlate with urinalysis. Recurrent infections could account for the moderate atrophy with cortical scarring at the right kidney. 7. Large amount of stool in the sigmoid colon and rectum with associated wall thickening and perirectal stranding consistent with secondary stercoral colitis. 8. Couple ventral hernias, one containing fat and the second anterior wall of a short segment of nonobstructed proximal transverse colon. 9. Unchanged extensive high attenuation material within the thecal sac the lumbar and visualized lower thoracic spine suggesting retained Pantopaque. Correlate with clinical history. ADDENDUM: 12/07/24 1619 ADDENDUM: There is also a 1.8 x 1.5 cm left hilar lymph node which could be either reactive or metastatic. Chest CT 12/08/24 10:11 IMPRESSION: 1. There is a 4.2 x 3.9 x 3.3 cm spiculated mass in the left lower lobe posteriorly which is partially cavitated and extends to the pleura. A malignant process needs to be excluded. A biopsy is recommended. 2. There is a 3.0 x 0 1 x 5.1 cm lobulated masslike structure in the right lower lobe posteriorly which extends to the pleura. Evaluation is limited due to motion artifact. Differential includes atelectasis, pneumonia or malignancy. A PET/CT and/or biopsy is recommended. 3. No lymphadenopathy in the chest. 4. Tiny left-sided pleural effusion. 5. Left adrenal gland is prominent but unchanged. An adrenal mass MRI or PET/CT is recommended. Labs Labs: Laboratory Results - last 24 hr 12/09/24 06:55 WBC 11.7 H RBC 3.21 L Hgb 8.8 L Hct 28.1 L MCV 87.5 MCH 27.4 MCHC 31.3 L RDW 14.3 Plt Count 506 H MPV 8.8 Immature Gran % (Auto) 0.6 H Neut % (Auto) 75.5 H Lymph % (Auto) 14.1 L [place] % (Auto) 6.6 Eos % (Auto) 2.9 Baso % (Auto) 0.3 Lymph # (Auto) 1.65 [place] # (Auto) 0.8 H Eos # (Auto) 0.3 Baso # (Auto) 0.0 Abs Immat Gran (auto) 0.07 H Absolute Neuts (auto) 8.9 H Absolute Nucleated RBC 0.000 Nucleated RBC % 0.0 Sodium 135 L Potassium 3.0 L Chloride 100 Carbon Dioxide 29 Anion Gap 6 BUN 5 L Creatinine 0.40 L Estim Creat Clear Calc 85 Estimated GFR > 60 Glucose 93 Calcium 8.0 L Total Bilirubin 0.5 AST 18 ALT 10 Alkaline Phosphatase 104 Total Protein 5.5 L Albumin 2.6 L Vancomycin Trough 9.6 L
[2024-12-09] MEDS: KCL 20 MEQ/SW 100 ML 100 ML 50 MEQ IVPB (09:16)
[2024-12-09] MEDS: metroNIDAZOLE 500 MG/ISO 100ML 500 MG/100 ML BAG 100 MG IVPB ×2 (09:16→17:30)
[2024-12-09] MEDS: VANCOMYCIN 1,500 MG/NS 500 ML 1,500 MG/500 ML BAG 250 MG IVPB ×2 (10:21→20:38)
--- NOTE | 2024-12-09 10:50 | PC.NURSE ---
pt to radiology via bed
--- NOTE | 2024-12-09 11:01 | PM.PNGS ---
Progress Note: A&P Assessment and Plan (1) Decubitus ulcer: Qualifiers: Pressure injury location: sacral region Pressure injury stage: unstageable Qualified Code(s): L89.150 - Pressure ulcer of sacral region, unstageable Code(s): L89.90 - Pressure ulcer of unspecified site, unspecified stage Status: Acute Assessment and Plan: S/p excisional debridement on 12/08. Continue local wound care, will discuss dressing options with wound care nurses Continue frequent turning/pressure offloading (2) Osteomyelitis: Qualifiers: Osteomyelitis location: other site Osteomyelitis type: unspecified type Qualified Code(s): M86.9 - Osteomyelitis, unspecified Code(s): M86.9 - Osteomyelitis, unspecified Status: Acute Assessment and Plan: Biopsies of the sacrum sent for pathology, which is pending. Continue IV antibiotics (3) Morbid obesity due to excess calories: Code(s): E66.01 - Morbid (severe) obesity due to excess calories Status: Acute (4) Stercoral colitis: Code(s): K52.89 - Other specified noninfective gastroenteritis and colitis Status: Acute (5) Presence of urostomy: Code(s): Z93.6 - Other artificial openings of urinary tract status Status: Acute Plan Discussed patient's case and plan of care with Dr. Olson. Subjective Subjective Date/Time Seen: 12/09/24 11:01 Post Op day: 1 (Sharp excisional debridement of stage IV sacral decubitus ulcer measuring 10 cm x 6 cm including skin, subcutaneous fat, fascia, and bone) Interval history: No specific complaints at the time of my exam. No acute changes overnight per nursing. Exam Const: General: comfortable and no acute distress Skin: Other: Sacral decubitus ulcer dressing removed, there is no purulent drainage or foul odor, about 70% of the wound bed appears to have pink viable tissue and 30% with yellow slough and a small area of dark colbert tissue on the right. Bone is exposed at the sacrum. There is some tunneling at 5 o'clock towards the right inferior buttock. No surrounding skin erythema. Objective Data Vital Signs Vital Signs: Vital Signs - 24 hr 12/08/24 14:00 12/08/24 16:45 12/08/24 18:01 Temperature 96.8 F L 97.5 F L 97.3 F L Pulse Rate 96 104 H 89 Respiratory Rate 16 16 12 Blood Pressure 101/46 L 126/71 93/54 L Pulse Oximetry 98 95 100 Oxygen Delivery Room Air Simple Face Mask Oxygen Flow Rate 6 12/08/24 18:15 12/08/24 18:30 12/08/24 18:45 Temperature Pulse Rate 95 98 98 Respiratory Rate 18 16 16 Blood Pressure 109/54 L 107/73 106/63 Pulse Oximetry 98 98 97 Oxygen Delivery Simple Face Mask Room Air Room Air Oxygen Flow Rate 6 12/08/24 19:00 12/08/24 19:12 12/08/24 19:27 Temperature 97.5 F L 97.7 F Pulse Rate 97 102 H 101 H Respiratory Rate 16 19 18 Blood Pressure 102/57 L 95/77 L 111/64 Pulse Oximetry 96 98 99 Oxygen Delivery Room Air Oxygen Flow Rate 12/08/24 19:57 12/08/24 20:00 12/08/24 20:00 Temperature 98.1 F 97.7 F Pulse Rate 105 H 101 H Respiratory Rate 18 18 Blood Pressure 117/91 H 111/64 Pulse Oximetry 100 99 Oxygen Delivery Room Air Oxygen Flow Rate 12/08/24 20:57 12/09/24 00:57 12/09/24 04:57 Temperature 97.3 F L 97 F L 96.9 F L Pulse Rate 101 H 102 H 84 Respiratory Rate 17 16 13 Blood Pressure 123/72 116/61 113/54 L Pulse Oximetry 97 93 95 Oxygen Delivery Oxygen Flow Rate 12/09/24 08:57 Temperature 97.5 F L Pulse Rate 111 H Respiratory Rate 15 Blood Pressure 130/98 H Pulse Oximetry 97 Oxygen Delivery Oxygen Flow Rate Intake/Output Intake/Output: Intake & Output 12/06/24 12/07/24 12/08/24 12/09/24 23:59 23:59 23:59 23:59 Intake Total 2400 1020 550 Output Total 900 340 700 Balance 1500 680 -150 Meds/Results Medications: Active Medications Generic Name Dose Route Start Last Admin Trade Name Freq PRN Reason Stop Dose Admin Acetaminophen 650 mg 12/08/24 15:11 Acetaminophen 325 Mg Tablet BY MOUTH Q4H PRN mild pain Hydrocodone Bitart/Acetaminophen 1 tab 12/08/24 19:12 12/08/24 20:11 Hydrocodone/Acetaminophen (*Crx) 5-325 Mg Tablet PO 1 tab Q4H PRN Administration Pain Rated 4-6 Hydrocodone Bitart/Acetaminophen 1 tab 12/08/24 19:12 Hydrocodone/Acetaminophen (*Crx) 7.5-325 Mg Tablet PO Q4H PRN Pain Rated 7-10 Ascorbic Acid 500 mg 12/08/24 17:00 12/08/24 20:11 Ascorbic Acid 500 Mg Tablet PO 500 mg BID ALEXIS Administration Atorvastatin Calcium 10 mg 12/08/24 21:00 12/08/24 20:11 Atorvastatin 10 Mg Tablet PO 10 mg HS ALEXIS Administration Collagenase 1 applic 12/09/24 09:00 Collagenase Oint 30 Gm Tube TOPICAL DAILY ALEXIS Duloxetine HCl 60 mg 12/08/24 17:00 12/08/24 20:11 Duloxetine Hcl 60 Mg Capsule.Dr PO 60 mg BID ALEXIS Administration Fentanyl Citrate 25 mcg 12/08/24 17:12 Fentanyl Citrate Inj (*Crx) 100 Mcg/2 Ml Vial IV PUSH Q2M PRN Pain Fluticasone Propionate 2 spray 12/08/24 11:45 12/09/24 08:14 Fluticasone Propionate 0.05% Na Spr 16 Gm Btl (*Bkc) NASAL 2 spray Q12HR ALEXIS Administration Cefepime HCl 2 gm/ Sodium 50 mls @ 100 mls/hr 12/08/24 00:00 12/09/24 08:36 Chloride IVPB Infused Q8H ALEXIS Infusion Metronidazole 500 mg in 100 mls @ 100 mls/hr 12/08/24 16:00 12/09/24 09:16 Flagyl 500 Mg/Iso Soln 100 Ml IVPB 100 mls/hr Q8H ALEXIS Administration Vancomycin HCl 1,500 mg in 500 mls @ 250 mls/hr 12/09/24 09:00 12/09/24 10:21 Vancomycin 1,500 Mg/Ns 500 Ml IVPB 250 mls/hr Q12H ALEXIS Administration Loratadine 10 mg 12/09/24 09:00 Loratadine 10 Mg Tablet PO QAM ALEXIS Mirtazapine 7.5 mg 12/08/24 21:00 12/08/24 20:11 Mirtazapine 7.5 Mg Tablet PO 7.5 mg HS ALEXIS Administration Miscellaneous Information 1 each 12/08/24 15:03 Central Supply Item XX 12/09/24 15:02 PRN PRN Informational Multivitamins Therapeutic 1 tablet 12/09/24 09:00 Multivitamins Therapeutic Tab (*Bkc) PO DAILY [facility] Naloxone HCl 0.1 mg 12/08/24 19:12 Naloxone Hcl 0.4 Mg/Ml Vial IV PUSH Q2M PRN Opiate Reversal Ondansetron HCl 4 mg 12/08/24 19:12 Ondansetron Inj 4 Mg/2 Ml Vial IV PUSH Q4H PRN Nausea And Vomiting Polyethylene Glycol 17 gm 12/09/24 09:00 Polyethylene Glycol 3350 17 Gm Powd.Pack PO QAM [facility] Povidone Iodine 180 ml 12/09/24 04:43 Povidone-Iodine 10% Solution 118 Ml Bottle TOPICAL PRN PRN dressing changes Trazodone HCl 75 mg 12/08/24 21:00 12/08/24 20:11 Trazodone Hcl 25 Mg Tablet PO 75 mg HS [facility] Administration Vitamin D 50 mcg 12/09/24 09:00 Cholecalciferol (Vitamin D3) 25 Mcg (1,000 Units) Tablet PO DAILY [facility] Zinc Sulfate 50 mg 12/09/24 09:00 Zinc Sulfate 220 Mg Capsule PO DAILY [facility] Radiology Results: ITS Impressions Abdomen/Pelvis CT 12/07/24 15:35 IMPRESSION: 1. Deep sacral decubitus ulcer with osteomyelitis along the caudal aspect of the sacrum which is new since the prior study. 2. Interval increase in size of a likely cavitary mass at the dependent left lower lobe which raises concern for malignancy. Would recommend CT-guided biopsy. 3. Smaller 1.3 x 1.0 cm nodule along a band of discoid atelectasis in the right lower lobe. Consider either short interval follow-up in 3 months or further evaluation with PET/CT. 4. Stable appearance of a subcapsular flat hypodense region along the dome of the liver suggestive of a collapsed cyst or region of scarring with multiple peripheral high attenuation foci, unclear whether calcifications or potentially embolization material. Correlate with clinical history and with any prior outside imaging for comparison. 5. Bilateral nonobstructing nephrolithiasis. 6. 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 There is urothelial enhancement at the lateral renal collecting systems suspicious for secondary ascending urinary tract infection. Correlate with urinalysis. Recurrent infections could account for the moderate atrophy with cortical scarring at the right kidney. 7. Large amount of stool in the sigmoid colon and rectum with associated wall thickening and perirectal stranding consistent with secondary stercoral colitis. 8. Couple ventral hernias, one containing fat and the second anterior wall of a short segment of nonobstructed proximal transverse colon. 9. Unchanged extensive high attenuation material within the thecal sac the lumbar and visualized lower thoracic spine suggesting retained Pantopaque. Correlate with clinical history. ADDENDUM: 12/07/24 1619 ADDENDUM: There is also a 1.8 x 1.5 cm left hilar lymph node which could be either reactive or metastatic. Chest CT 12/08/24 10:11 IMPRESSION: 1. There is a 4.2 x 3.9 x 3.3 cm spiculated mass in the left lower lobe posteriorly which is partially cavitated and extends to the pleura. A malignant process needs to be excluded. A biopsy is recommended. 2. There is a 3.0 x 0 1 x 5.1 cm lobulated masslike structure in the right lower lobe posteriorly which extends to the pleura. Evaluation is limited due to motion artifact. Differential includes atelectasis, pneumonia or malignancy. A PET/CT and/or biopsy is recommended. 3. No lymphadenopathy in the chest. 4. Tiny left-sided pleural effusion. 5. Left adrenal gland is prominent but unchanged. An adrenal mass MRI or PET/CT is recommended. Labs Labs: Laboratory Results - last 24 hr 12/09/24 06:55 WBC 11.7 H RBC 3.21 L Hgb 8.8 L Hct 28.1 L MCV 87.5 MCH 27.4 MCHC 31.3 L RDW 14.3 Plt Count 506 H MPV 8.8 Immature Gran % (Auto) 0.6 H Neut % (Auto) 75.5 H Lymph % (Auto) 14.1 L [place] % (Auto) 6.6 Eos % (Auto) 2.9 Baso % (Auto) 0.3 Lymph # (Auto) 1.65 [place] # (Auto) 0.8 H Eos # (Auto) 0.3 Baso # (Auto) 0.0 Abs Immat Gran (auto) 0.07 H Absolute Neuts (auto) 8.9 H Absolute Nucleated RBC 0.000 Nucleated RBC % 0.0 Sodium 135 L Potassium 3.0 L Chloride 100 Carbon Dioxide 29 Anion Gap 6 BUN 5 L Creatinine 0.40 L Estim Creat Clear Calc 85 Estimated GFR > 60 Glucose 93 Calcium 8.0 L Total Bilirubin 0.5 AST 18 ALT 10 Alkaline Phosphatase 104 Total Protein 5.5 L Albumin 2.6 L Vancomycin Trough 9.6 L
--- NOTE | 2024-12-09 11:48 | S_PTH ---
PATIENT: Sadia Toledo LOC: [id number] U#:[id number] AGE/SX: 79/F ROOM: 303 RE12/07/[address]: Adam Pittman MD : 1945 BED: 01 DIS: 12/15/2024 SPEC #: [id number] RECD: 12/09/24 14:29 STATUS: HUGO RELilibeth #: [id number] HEIDE: 12/09/24 11:[address]: Crystal Haider DEPT: [facility] Surgical RECD BY: Liat Smith ENTERED: 12/09/24 14:30 SP TYPE: Surgical OTHR DR: Jimmy Hayes, MD Warner Rogers, MD Jerod Olson, DO Tissues: A - Lung Biopsy Procedures: P63 TTF Unstained Slides Hematoxylin and Eosin Stain Gross and Microscopic Level 4 Napsin A
--- NOTE | 2024-12-09 13:36 | WPDANESPN ---
Anes - Prog Note Post-Op Date/Time: 12/09/24 13:36 Cardiovascular status: normal Respiratory status: normal Airway patency: baseline Mental status: baseline Post-Op hydration status: normal Vital Signs: Last Vital Signs Temp 36.4 C L 12/09/24 08:57 Pulse 108 H 12/09/24 12:39 Resp 16 12/09/24 12:39 BP 110/45 L 12/09/24 12:39 Pulse Ox 100 12/09/24 12:39 O2 Del Method Room Air 12/09/24 08:30 O2 Flow Rate 6 12/08/24 18:15 FiO2 21 12/07/24 22:20 Pain Score (VAS): 0 I/O: Intake & Output 12/08/24 12/09/24 12/09/24 23:59 07:59 15:59 Intake Total 200 500 250 Output Total 340 700 Balance -140 -200 250 Laboratory Tests 12/09/24 06:55 12/09/24 06:55 12/09/24 06:55 WBC 11.7 H RBC 3.21 L Hgb 8.8 L Hct 28.1 L MCV 87.5 MCH 27.4 MCHC 31.3 L RDW 14.3 Plt Count 506 H MPV 8.8 Immature Gran % (Auto) 0.6 H Neut % (Auto) 75.5 H Lymph % (Auto) 14.1 L [place] % (Auto) 6.6 Eos % (Auto) 2.9 Baso % (Auto) 0.3 Lymph # (Auto) 1.65 [place] # (Auto) 0.8 H Eos # (Auto) 0.3 Baso # (Auto) 0.0 Abs Immat Gran (auto) 0.07 H Absolute Neuts (auto) 8.9 H Absolute Nucleated RBC 0.000 Nucleated RBC % 0.0 Sodium 135 L Potassium 3.0 L Chloride 100 Carbon Dioxide 29 Anion Gap 6 BUN 5 L Creatinine 0.40 L Estim Creat Clear Calc 85 Estimated GFR > 60 Glucose 93 Calcium 8.0 L Total Bilirubin 0.5 AST 18 ALT 10 Alkaline Phosphatase 104 Total Protein 5.5 L Albumin 2.6 L Vancomycin Trough 9.6 L Post-procedural complaints: none Patient Feedback: Patient satisfied with anesthetic care.
[2024-12-09] MEDS: MIRTAZAPINE 7.5 MG TABLET PO (20:37)
[2024-12-09] MEDS: ATORVASTATIN 10 MG TABLET PO (20:37)
[2024-12-10] VITALS (7 sets, daily range): BP systolic 93–124; BP diastolic 45–74; PULSE 94–103; RESP 16–20; TEMP 35.8–36.2; O2SAT 98–100
[2024-12-10] MEDS: CEFEPIME 2 GM in SODIUM CHLORIDE 0.9% IV 50 ML 100 ML IVPB ×2 (00:08→09:27)
[2024-12-10] MEDS: SOD HYPOCHLORITE 1/4 STRENGTH 473 ML 1 APPLIC TOPICAL ×2 (00:41→11:18)
[2024-12-10] MEDS: metroNIDAZOLE 500 MG/ISO 100ML 500 MG/100 ML BAG 100 MG IVPB ×2 (00:42→09:27)
[2024-12-10 06:18] LABS: Hematocrit 29.7 % (37.0-47.0); Hemoglobin 9.1 g/dL (12.0-15.0); Immature Granulocyte Percent A 0.6 % (0-0.5); Lymphocytes Absolute Auto 2.26 K/mm3 (0.9-3.2); Mean Corpuscular HGB Conc 30.6 g/dl (32-36); Mean Corpuscular Hemoglobin 26.8 pg (26-34); Mean Corpuscular Volume 87.6 fl (80-100); Nucleated Red Blood Cells Absolute Auto 0.000 K/mm3 (0.0-0.012); Nucleated Red Blood Cells Perc 0.0 % (0.0-0.2); Platelet Count Result 538 k/mm3 (150-375); Red Blood Count 3.39 M/mm3 (4.2-5.4); White Blood Count 10.0 K/mm3 (4.5-10.0)
[2024-12-10 06:40] LABS: Alanine Aminotransferase 8 U/L (6-35); Albumin Level 2.7 g/dL (3.5-5.1); Alkaline Phosphatase 101 U/L (38-126); Anion Gap 6 mmol/L (4-12); Aspartate Amino Transferase 16 U/L (14-36); Bilirubin,Total 0.5 mg/dL (0.2-1.3); Blood Urea Nitrogen 5 mg/dL (7-17); Calcium 8.3 mg/dL (8.4-10.2); Carbon Dioxide 28 mmol/L (22-30); Chloride 103 mmol/L (98-107); Estimated CRCL calculation 80 ml/min; Estimated Glomerular Filt Rate > 60; Glucose 74 mg/dL (65-110); Potassium 2.8 mmol/L (3.4-5.0); Sodium 137 mmol/L (137-145); Total Protein 5.8 g/dL (6.3-8.2)
[2024-12-10 09:01] LABS: CRP 26.6 mg/dL (<1.0)
[2024-12-10] MEDS: CHOLECALCIFEROL (VITAMIN D3) 25 MCG (1,000 UNITS) TABLET 50 MCG PO (09:27)
[2024-12-10] MEDS: MULTIVITAMINS THERAPEUTIC TAB (*BKC) 1 TABLET PO (09:27)
[2024-12-10] MEDS: ASCORBIC ACID 500 MG TABLET PO ×2 (09:27→16:24)
[2024-12-10] MEDS: LORATADINE 10 MG TABLET PO (09:27)
[2024-12-10] MEDS: DULoxetine HCL 60 MG CAPSULE.DR PO ×2 (09:27→16:24)
--- NOTE | 2024-12-10 09:27 | PCPTNOTE ---
Pt completely dependent at baseline with mobility and ADLs. Skilled therapy not indicated at this time per Care coordination. Nursing staff notified of pt needing to be OOB and to carline pt to chair (baseline mobility) if pt is cleared with wound care due to having surgical wound debridement. Charge nurse aware also.
[2024-12-10] MEDS: FLUTICASONE PROPIONATE 0.05% NA SPR 16 GM BTL (*BKC) 2 SPRAY NASAL ×2 (09:28→20:30)
[2024-12-10 09:41] LABS: Procalcitonin 0.1 ng/mL
--- NOTE | 2024-12-10 09:42 | P.PNPL_ITS ---
Progress Note: A&P Assessment and Plan (1) Lung mass: Code(s): R91.8 - Other nonspecific abnormal finding of lung field Status: Acute Assessment and Plan: Patient is a never smoker but exposed to secondhand smoke from both her parents. CT scan of the chest on 12/08/2024 compared with 07/07/2024 demonstrates an enlarging left lower lobe mass with central cavitation. In addition there is a right lower lobe nodular mass. Patient has increased cough and phlegm over the last 2 months but no other infectious complaints. Currently she is on room air with saturations 97%. Etiology left lower lobe lung mass includes cancer and or infection. Plan: CT-guided biopsy has been ordered for 12/09/2024. Lovenox has been discontinued. Patient has sacral decubitus with a adjacent osteomyelitis and is currently placed on vancomycin and cefepime. I have discussed with ID pharmacy and would favor adding anaerobic coverage for possible lung abscess. Hospitalist team will be contacted. Patient is scheduled for decubitus debridement later today by General surgery. Patient complains of sinus congestion that has responded to Flonase and Claritin in the past. Will place her on Flonase 2 sprays each nostril twice a day and Claritin 10 mg p.o. q.day. Later in the day patient went to the OR and had wound debridement under general anesthesia. no complications. 12/09/2024. Patient states she is breathing normal. Overall her cough is improved and the volume of her phlegm is decreased. Her sinus congestion is better. she is on room air with saturations 97%. She is afebrile. White blood cell count 11.7, creatinine 0.4. Plan: Patient to have CT-guided lung biopsy later today. Decubitus ulcer and possible lung abscess being treated with cefepime, day 3, vancomycin day 3, and Flagyl day 2. Her sinus congestion is improved on Flonas 2 sprays each nostril twice a day and Claritin 10 mg a day. Later in the day patient underwent a CT-guided biopsy of the lung without complications. 12/10/24: patient states she is breathing normal. She denies fever, chills, rigors, cough, phlegm production or hemoptysis. She says her sinus congestion is present but improved. Her room air saturations are 96%. Her white blood cell count is 10.0, creatinine 0.44, CRP 26.6, procalcitonin 0.1. Yesterday she was positive 50 mL and his cumulative 1.9 L positive since admission. Her weight is 77.8. Plan: Await pathology results of CT-guided biopsy of the lung. Decubitus ulcer and possible lung abscess being treated with cefepime, day 4, vancomycin day 4, and Flagyl day 3. Her sinus congestion is improved on Flonase 2 sprays each nostril twice a day and Claritin 10 mg a day and will continue. Inpatient pulmonary consult services will resume on 12/13/2024, call on-call physician with questions. Discussed with Dr. Pennington, will follow with you. Subjective Date/time seen: 12/10/24 09:42 Interval history: 12/08/2024: This is a new pulmonary consult for lung mass. 79-year-old with a history of spina bifida with urostomy at age 16 and a [employer] shunt at age 31, history of constipation, progressive weakness requiring a wheelchair 5 years ago. Patient presented to the emergency department because of her sacral wound on . blood pressure 111/75, heart rate 105, respirations 14, room air saturation 97%. Lungs were clear to auscultation. White blood cell count 15.0, creatinine 0.46, CRP 27.1. CT scan of the abdomen and pelvis compared with 07/07/2024 showed an increased 4.1 x 2.1 left lower lobe mass with a central cavitation, right lower lobe atelectasis with no change and more nodule right lower lobe 1.3 x 1.1 abnormality. patient was empirically started on vancomycin and cefepime. 12/08/2024: Patient tells me she has no history of asthma, bronchitis, pneumonias, aspiration. She is a never smoker but was exposed to secondhand smoke from both her parents. She has never had a job. She has no sand blasting, welding, asbestos, professional painting, steel mill, coal mining or construction exposure. The patient tells me she has had increased cough for the last 3 or 4 months and increased phlegm for the last 2 months. At baseline she would make to expectorations a day and now she is making 4 expectorations. She denies any rest or exertional shortness of breath. She is afebrile. White blood cell count 15.0, creatinine 0.42 she is positive 1.5 L and her weight today is 75.4. Dedicated chest CT scan shows a 4.2 x 3.9 x 3.3 cm spiculated mass with central cavitation that extends to the pleura. 3.0 by 5.1 cm lobulated mass in the right lower lobe which extends to the pleural. No lymphadenopathy in the chest, tiny left-sided pleural effusion, left adrenal gland is prominent but unchanged. Later in the day patient went to the OR and had wound debridement under general anesthesia. no complications. 12/09/2024. Patient states she is breathing normal. Overall her cough is improved and the volume of her phlegm is decreased. Her sinus congestion is better. she is on room air with saturations 97%. She is afebrile. White blood cell count 11.7, creatinine 0.4. Later in the day patient underwent a CT-guided biopsy of the lung without complications. 12/10/24: patient states she is breathing normal. She denies fever, chills, rigors, cough, phlegm production or hemoptysis. She says her sinus congestion is present but improved. Her room air saturations are 96%. Her white blood cell count is 10.0, creatinine 0.44, CRP 26.6, procalcitonin 0.1. Yesterday she was positive 50 mL and his cumulative 1.9 L positive since admission. Her weight is 77.8. DATA: 12/08/24: EXAMINATION: CT diagnostic chest wo con INDICATION: Lung mass COMPARISON: CT abdomen and pelvis 12/07/2024 and 07/07/2024 FINDINGS: Upper abdomen is similar to the CT study from 12/07/2024. No enlarged mediastinal or hilar lymph nodes. Heart is not enlarged. Thoracic aorta is not aneurysmal. Mild atherosclerotic disease in the thoracic aorta. No pneumothorax. Tiny left-sided pleural effusion. Tracheobronchial tree is patent. The study is slightly limited due to motion artifact. There is a 4.2 x 3.9 x 3.3 cm spiculated mass in the left lower lobe posteriorly which is partially cavitated. A malignant process needs to be excluded. There is a 3.0 x 0 1 x 5.1 cm lobulated masslike structure in the right lower lobe posteriorly. Evaluation is limited due to motion artifact. Differential includes atelectasis, pneumonia or malignancy. A PET/CT and/or biopsy is recommended. There is extensive high attenuation material in the thecal sac in the thorax which is seen extending into the abdomen. Bones appear osteopenic. Multilevel degenerative change in the visualized spine. IMPRESSION: 1. There is a 4.2 x 3.9 x 3.3 cm spiculated mass in the left lower lobe po steriorly which is partially cavitated and extends to the pleura. A malignant process needs to be excluded. A biopsy is recommended. 2. There is a 3.0 x 0 1 x 5.1 cm lobulated masslike structure in the right lower lobe posteriorly which extends to the pleura. Evaluation is limited due to motion artifact. Differential includes atelectasis, pneumonia or malignancy. A PET/CT and/or biopsy is recommended. 3. No lymphadenopathy in the chest. 4. Tiny left-sided pleural effusion. 5. Left adrenal gland is prominent but unchanged. An adrenal mass MRI or PET/CT is recommended. 12/07/24: EXAMINATION: CT abdomen pelvis w con INDICATION: Left lower quadrant abdominal pain. Tunneling coccygeal wound. COMPARISON: CT dated 07/07/2024 FINDINGS: Interval increase in size of a 3.4 x 2.1 cm mass in the posterior left lower lobe with some gas-filled central cavitation. No significant change in a more medial 7 mm satellite nodule. Persistent volume loss in the right lower lobe with no interval change in a few thoracic bandlike opacities in the dependent right lower lobe with configuration most consistent with atelectasis. Portion of the posterior medial aspect of the band of likely atelectasis has a more discrete nodular appearance measuring 1.3 x 1.0 cm. Heart size is normal. There is a catheter extending caudally from the visualized caudal superior vena cava into the right ventricle with distal tip near the pulmonary outflow tract. This potentially represents a ventricular shunt given reported history of hydrocephalus and the suggestion of the catheter extends cephalad along the right neck on prior radiograph dated 07/08/2024. No pericardial or pleural effusion. Multiple well-defined fluid attenuation hepatic cysts the largest measuring up to 5.2 cm. There is more irregular subcapsular region of decreased attenuation with multiple small peripheral foci of high attenuation material along the anterior dome of the liver with appearance suggesting a decompressed cavitary lesion with either peripheral dystrophic calcifications or potentially prior embolization material. Gallbladder, spleen, pancreas and right adrenal gland are normal. Unchanged nodular thickening of the left adrenal gland. Moderate right renal atrophy with multiple small regions of cortical scarring likely sequela prior infection or infarction. 2 mm nonobstructive stone in upper pole calyx of right kidney and larger 9 mm stone at a lower pole calyx. Couple small nonobstructing stones in left kidney the largest measuring 2 mm. There are also couple left renal cysts the largest measuring 6.3 cm. 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 No hydronephrosis. Large amount of stool in the sigmoid colon and rectum measuring up to 8 cm maximal diameter with associated wall thickening and some perirectal inflammatory stranding consistent with stercoral colitis. No dilated small bowel to suggest obstruction. The anterior portion of a short segment of the proximal transverse colon extends into a widemouthed ventral hernia. There is also a more caudal small fat-containing ventral hernia along a midline surgical scar. No free intraperitoneal gas or fluid. No pathologically enlarged abdominal or pelvic lymphadenopathy. There is a deep sacral decubitus ulcer with packing material which extends to contact the posterior margin of the caudal aspect of the sacrum where there is some interval ostial lysis with cortical erosion, new since the prior study and consistent with secondary osteomyelitis. No abscess. Unchanged extensive high attenuation material in the thecal sac of the lumbar and visualized thoracic spine. IMPRESSION: 1. Deep sacral decubitus ulcer with osteomyelitis along the caudal aspect of the sacrum which is new since the prior study. 2. Interval increase in size of a likely cavitary mass at the dependent left lower lobe which raises concern for malignancy. Would recommend CT-guided biopsy. 3. Smaller 1.3 x 1.0 cm nodule along a band of discoid atelectasis in the right lower lobe. Consider either short interval follow-up in 3 months or further evaluation with PET/CT. 4. Stable appearance of a subcapsular flat hypodense region along the dome of the liver suggestive of a collapsed cyst or region of scarring with multiple peripheral high attenuation foci, unclear whether calcifications or potentially embolization material. Correlate with clinical history and with any prior outside imaging for comparison. 5. Bilateral nonobstructing nephrolithiasis. 6. 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 There is urothelial enhancement at the lateral renal collecting systems suspicious for secondary ascending urinary tract infection. Correlate with urinalysis. Recurrent infections could account for the moderate atrophy with cortical scarring at the right kidney. 7. Large amount of stool in the sigmoid colon and rectum with associated wall thickening and perirectal stranding consistent with secondary stercoral colitis. 8. Couple ventral hernias, one containing fat and the second anterior wall of a short segment of nonobstructed proximal transverse colon. 9. Unchanged extensive high attenuation material within the thecal sac the lumbar and visualized lower thoracic spine suggesting retained Pantopaque. Correlate with clinical history. 12/07/24: ADDENDUM: There is also a 1.8 x 1.5 cm left hilar lymph node which could be either reactive or metastatic. 07/07/2024: CLINICAL INDICATION: Abdominal pain, nausea and vomiting COMPARISON: None. FINDINGS/OBSERVATIONS: Visualized lower thorax: Right basilar atelectasis. A bilobed nodule is identified within the left lung base measuring 19 x 22 mm and 10 x 11 mm, respectively (axial series, image 17). An additional pulmonary nodule detected within the left lower lobe measuring 8.3 x 7.7 mm (axial series, image 10). The heart is enlarged, without pericardial effusion. Small hiatal hernia is present. Liver: Multiple rounded foci of fluid attenuation are identified within the liver, suggesting simple cysts. The remainder of the liver demonstrates otherwise homogeneous enhancement and is not enlarged measuring 16 cm in longitudinal dimension. Gallbladder and biliary system: The gallbladder is only minimally distended, and otherwise unremarkable. Pancreas: The pancreas enhances homogeneously without ductal dilatation. Spleen: The spleen enhances homogeneously and is not enlarged measuring 6 cm in longitudinal dimension. Kidneys: Right-sided hydroureteronephrosis extending to the proximal right ureter where a 7 mm stone is identified. Hyperemia of the worrell of the collecting system are present consistent with ureteritis. Multiple nonobstructing stones are identified within the right kidney, the largest within the lower pole measuring 7 mm. Hyperenhancement of the worrell of the left sided ureter and collecting system are also noted consistent with left- sided ureteritis. Adrenal glands: Unremarkable. Gastrointestinal tract: Significant fecal stasis is identified distending the rectum to the level of the L1 vertebral body. Fecal stasis is identified within the remainder of the air and stool-filled colon which is markedly dilated. The dilatation from the colon demonstrates mass effect on the patient's ileal conduit, likely causing patient's infection (in addition to the obstructing stone). Vasculature: Calcified atherosclerotic disease. Lymph nodes: No pathologically enlarged or morphologically suspicious lymph nodes within the retroperitoneum or at the root of the mesentery. Body wall and musculoskeletal: Stoma extends along the right lower quadrant. Diffuse degenerative disease within the lower thoracic and lumbosacral spines. IMPRESSION: Right-sided hydroureteronephrosis secondary to a 7 mm calculus within the proximal right ureter. Bilateral ureteritis with ascending infection on the left secondary to stasis of the urine within patient's urostomy from mass effect of the significantly dilated stool-filled distended colon. Review of Systems Constitutional: Constitutional: Reports no additional constitutional complaints Eyes: Eyes: Reports no additional eye complaints ENT: Reports system reviewed and no additional complaints, except as documented Cardiovascular: Cardiovascular: Reports no additional cardiovascular complaints Respiratory: Respiratory: Reports no additional respiratory complaints Gastrointestinal: Gastrointestinal: Reports no additional gastrointestinal complaints Musculoskeletal: Musculoskeletal: Reports no additional musculoskeletal complaints Neurologic: Reports system reviewed and no additional complaints, except as documented Psychiatric: Psychiatric: Reports no additional psychiatric complaints Endocrine: Endocrine: Reports no additional endocrine complaints Hematologic/Lymphatic: Hematologic/Lymphatic: Reports no additional hematologic/lymphatic complaints Allergic/Immunologic: Allergic/Immunologic: Reports no additional allergic/immunologic complaints Exam Const: General: cooperative, comfortable and no acute distress Orientation/consciousness: oriented to person, oriented to place and oriented to time HENMT: Head: normal to inspection Ears: hearing grossly normal bilaterally Eyes: General: appearance normal, both eyes and all related structures Other: Dysconjugate gaze Neck: Neck: normal visual inspection Chest: Chest palpation & inspection: normal inspection of the chest Resp: Effort & Inspection: normal respiratory effort and able to speak in complete sentences Auscultation: no crackles, no rales, no rhonchi, no wheezes and lung sounds not diminished Cardio: Jugular venous distension: no JVD GI: Inspection: normal to inspection Other: Urostomy bag in place. Skin: General skin exam: normal color Neuro: General: oriented to person, oriented to place and oriented to time Other: patient can raise her right leg greater than left leg, she cannot wiggle her toes. Extrem: General: normal to inspection Psych: Appearance: grossly normal Objective Data Vital Signs Vital Signs: Vital Signs - 24 hr 12/09/24 12:39 12/09/24 16:57 12/09/24 20:00 Temperature 36.6 C Pulse Rate 108 H 115 H 70 Respiratory Rate 16 17 16 Blood Pressure 110/45 L 142/86 H Pulse Oximetry 100 97 94 Oxygen Delivery Room Air Fraction of Inspired Oxygen 21 12/09/24 20:57 12/10/24 00:20 12/10/24 00:52 Temperature 36.6 C 35.8 C L Pulse Rate 70 94 Respiratory Rate 16 16 Blood Pressure 96/45 L 93/47 L 96/51 L Pulse Oximetry 94 99 Oxygen Delivery Fraction of Inspired Oxygen 12/10/24 00:54 12/10/24 04:00 Temperature 36.2 C L 36.2 C L Pulse Rate 96 Respiratory Rate 16 Blood Pressure 116/74 Pulse Oximetry 100 Oxygen Delivery Fraction of Inspired Oxygen Intake/Output Intake/Output: Intake & Output 12/07/24 12/08/24 12/09/24 12/10/24 23:59 23:59 23:59 23:59 Intake Total 2400 1020 1400 100 Output Total 123 327 5135 350 Balance 1500 680 50 -250 Meds/Results Medications: Active Medications Generic Name Dose Route Start Last Admin Trade Name Ronaldq PRN Reason Stop Dose Admin Acetaminophen 650 mg 12/08/24 15:11 Acetaminophen 325 Mg Tablet BY MOUTH Q4H PRN mild pain Hydrocodone Bitart/Acetaminophen 1 tab 12/08/24 19:12 12/08/24 20:11 Hydrocodone/Acetaminophen (*Crx) 5-325 Mg Tablet PO 1 tab Q4H PRN Administration Pain Rated 4-6 Hydrocodone Bitart/Acetaminophen 1 tab 12/08/24 19:12 Hydrocodone/Acetaminophen (*Crx) 7.5-325 Mg Tablet PO Q4H PRN Pain Rated 7-10 Ascorbic Acid 500 mg 12/08/24 17:00 12/09/24 17:38 Ascorbic Acid 500 Mg Tablet PO Not Given BID ALEXIS Atorvastatin Calcium 10 mg 08/20/25 21:00 12/09/24 20:37 Atorvastatin 10 Mg Tablet PO 10 mg HS ALEXIS Administration Bisacodyl 10 mg 12/10/24 09:07 Bisacodyl 10 Mg Suppository RECTAL QAM PRN Constipation Duloxetine HCl 60 mg 12/08/24 17:00 12/09/24 17:38 Duloxetine Hcl 60 Mg Capsule.Dr PO Not Given BID ALEXIS Fentanyl Citrate 25 mcg 12/08/24 17:12 Fentanyl Citrate Inj (*Crx) 100 Mcg/2 Ml Vial IV PUSH Q2M PRN Pain Fluticasone Propionate 2 spray 12/08/24 11:45 12/09/24 20:37 Fluticasone Propionate 0.05% Na Spr 16 Gm Btl (*Bkc) NASAL 2 spray Q12HR ALEXIS Administration Cefepime HCl 2 gm/ Sodium 50 mls @ 100 mls/hr 12/08/24 00:00 12/10/24 00:08 Chloride IVPB 100 mls/hr Q8H ALEXIS Administration Metronidazole 500 mg in 100 mls @ 100 mls/hr 12/08/24 16:00 12/10/24 00:42 Flagyl 500 Mg/Iso Soln 100 Ml IVPB 100 mls/hr Q8H ALEXIS Administration Vancomycin HCl 1,500 mg in 500 mls @ 250 mls/hr 12/09/24 09:00 12/09/24 20:38 Vancomycin 1,500 Mg/Ns 500 Ml IVPB 250 mls/hr Q12H ALEXIS Administration Loratadine 10 mg 12/09/24 09:00 12/09/24 09:00 Loratadine 10 Mg Tablet PO Not Given QAM ALEXIS Mirtazapine 7.5 mg 12/08/24 21:00 12/09/24 20:37 Mirtazapine 7.5 Mg Tablet PO 7.5 mg HS ALEXIS Administration Multivitamins Therapeutic 1 tablet 12/09/24 09:00 12/09/24 09:00 Multivitamins Therapeutic Tab (*Bkc) PO Not Given DAILY ALEXIS Naloxone HCl 0.1 mg 12/08/24 19:12 Naloxone Hcl 0.4 Mg/Ml Vial IV PUSH Q2M PRN Opiate Reversal Ondansetron HCl 4 mg 12/08/24 19:12 Ondansetron Inj 4 Mg/2 Ml Vial IV PUSH Q4H PRN Nausea And Vomiting Polyethylene Glycol 17 gm 12/09/24 09:00 12/09/24 09:00 Polyethylene Glycol 3350 17 Gm Powd.Pack PO Not Given QAM ALEXIS Sodium Hypochlorite 1 applic 12/09/24 21:00 12/10/24 00:41 Sod Hypochlorite 1/4 Strength 473 Ml TOPICAL 1 applic Q12HR ALEXIS Administration Trazodone HCl 75 mg 12/08/24 21:00 12/09/24 20:37 Trazodone Hcl 25 Mg Tablet PO 75 mg HS ALEXIS Administration Vitamin D 50 mcg 12/09/24 09:00 12/09/24 09:36 Cholecalciferol (Vitamin D3) 25 Mcg (1,000 Units) Tablet PO Not Given DAILY ALEXIS Zinc Sulfate 50 mg 12/09/24 09:00 12/09/24 09:00 Zinc Sulfate 220 Mg Capsule PO Not Given DAILY ALEXIS Radiology Results: ITS Impressions Abdomen/Pelvis CT 12/07/24 15:35 IMPRESSION: 1. Deep sacral decubitus ulcer with osteomyelitis along the caudal aspect of the sacrum which is new since the prior study. 2. Interval increase in size of a likely cavitary mass at the dependent left lower lobe which raises concern for malignancy. Would recommend CT-guided biopsy. 3. Smaller 1.3 x 1.0 cm nodule along a band of discoid atelectasis in the right lower lobe. Consider either short interval follow-up in 3 months or further evaluation with PET/CT. 4. Stable appearance of a subcapsular flat hypodense region along the dome of the liver suggestive of a collapsed cyst or region of scarring with multiple peripheral high attenuation foci, unclear whether calcifications or potentially embolization material. Correlate with clinical history and with any prior outside imaging for comparison. 5. Bilateral nonobstructing nephrolithiasis. 6. 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 There is urothelial enhancement at the lateral renal collecting systems suspicious for secondary ascending urinary tract infection. Correlate with urinalysis. Recurrent infections could account for the moderate atrophy with cortical scarring at the right kidney. 7. Large amount of stool in the sigmoid colon and rectum with associated wall thickening and perirectal stranding consistent with secondary stercoral colitis. 8. Couple ventral hernias, one containing fat and the second anterior wall of a short segment of nonobstructed proximal transverse colon. 9. Unchanged extensive high attenuation material within the thecal sac the lumbar and visualized lower thoracic spine suggesting retained Pantopaque. Correlate with clinical history. ADDENDUM: 12/07/24 1619 ADDENDUM: There is also a 1.8 x 1.5 cm left hilar lymph node which could be either reactive or metastatic. Chest CT 12/08/24 10:11 IMPRESSION: 1. There is a 4.2 x 3.9 x 3.3 cm spiculated mass in the left lower lobe posteriorly which is partially cavitated and extends to the pleura. A malignant process needs to be excluded. A biopsy is recommended. 2. There is a 3.0 x 0 1 x 5.1 cm lobulated masslike structure in the right lower lobe posteriorly which extends to the pleura. Evaluation is limited due to motion artifact. Differential includes atelectasis, pneumonia or malignancy. A PET/CT and/or biopsy is recommended. 3. No lymphadenopathy in the chest. 4. Tiny left-sided pleural effusion. 5. Left adrenal gland is prominent but unchanged. An adrenal mass MRI or PET/CT is recommended. Lung Biopsy CT 12/09/24 15:05 IMPRESSION: 1. Successful CT-guided biopsy of a 3.1 x 2.5 cm left lower lobe mass. Chest X-Ray 12/09/24 15:28 IMPRESSION: No pleural effusion. No pneumothorax. Left lower lobe mass. Findings as above. Labs Labs: Laboratory Results - last 24 hr 12/10/24 05:17 WBC 10.0 RBC 3.39 L Hgb 9.1 L Hct 29.7 L MCV 87.6 MCH 26.8 MCHC 30.6 L RDW 14.4 Plt Count 538 H MPV 9.4 Immature Gran % (Auto) 0.6 H Neut % (Auto) 65.9 Lymph % (Auto) 22.5 [place] % (Auto) 7.0 Eos % (Auto) 3.6 Baso % (Auto) 0.4 Lymph # (Auto) 2.26 [place] # (Auto) 0.7 H Eos # (Auto) 0.4 H Baso # (Auto) 0.0 Abs Immat Gran (auto) 0.06 H Absolute Neuts (auto) 6.6 Absolute Nucleated RBC 0.000 Nucleated RBC % 0.0 Sodium 137 Potassium 2.8 L* Chloride 103 Carbon Dioxide 28 Anion Gap 6 BUN 5 L Creatinine 0.44 L Estim Creat Clear Calc 80 Estimated GFR > 60 Glucose 74 Calcium 8.3 L Total Bilirubin 0.5 AST 16 ALT 8 Alkaline Phosphatase 101 C-Reactive Protein 26.6 H Total Protein 5.8 L Albumin 2.7 L Procalcitonin 0.1
[2024-12-10] MEDS: POTASSIUM CHLORIDE 20 MEQ PACKET (FOR LIQUID) 40 MEQ PO ×2 (11:17→16:24)
[2024-12-10] MEDS: LIDOCAINE 1% PF INJ 5 ML VIAL INFILTRATE (12:00)
[2024-12-10] MEDS: ZINC SULFATE 220 MG CAPSULE PO (13:06)
[2024-12-10] MEDS: CENTRAL LINE FLUSH 10 ML IV PUSH ×4 (14:19→20:45)
[2024-12-10] MEDS: VANCOMYCIN 1,500 MG/NS 500 ML 1,500 MG/500 ML BAG 250 MG IVPB (14:21)
--- NOTE | 2024-12-10 14:56 | WPDONCCN ---
Assessment and Plan Assessment and plan (1) Lung mass: Code(s): R91.8 - Other nonspecific abnormal finding of lung field Status: Acute Assessment and Plan: This is the 79-year-old female without any history of smoking and history of spina bifida, depression anxiety and hyperlipidemia came into the hospital with generalized tiredness and fatigue and found to have osteomyelitis and left-sided decubitus ulcer. She had CT scan chest done that showed 4.2 x 3.9 x 3.3 cm left lower lobe lung mass extending to the pleura along with 3 x 0.1 x 5.1 cm mass in the right lower lobe extending to the pleura and tiny left-sided pleural effusion and no lymphadenopathy in the chest. There was a left at not clear enlargement. Patient had CT-guided biopsy of the left lower lobe mass done and pathology is pending. CT abdomen and pelvis done previously showed deep sacral decubitus ulcer with osteomyelitis. There was also 1.8 x 1.5 cm left hilar lymphadenopathy and 3.4 x 2.1 cm left lower lobe mass. These findings are worrisome for metastatic disease but could be reactive with infection and abscesses as there is no history of previous smoking. I have provided her my office information for follow-up and further management we based on the pathology report. HPI Data of Consult Date/Time: 12/10/24 14:56 Requesting Physician: Crystal Haider MD Primary Care Provider: Jimmy HayesMD Consult Narrative Narrative: Sadia Toledo is a 79 year old female with history of spina bifida, depression/anxiety and hyperlipidemia who is a [facility] came into the ED with tiredness and fatigue and sacral torrez hurting on her side. Labs showed elevated WBC count of 15,000 with hemoglobin of 11.8. C-reactive protein was also elevated. CT scan abdomen and pelvis showed deep sacral decubitus ulcer with osteomyelitis. There was also finding of cavitary mass at the left lower lobe with possibility of underlying malignancy. There was another 1.3 x 1 cm nodule in the right lower lobe. There was 1.8 x 1.5 cm left hilar lymphadenopathy as well. She has no previous history of malignancy. She denies any history of smoking. Father had lung cancer. Patient had CT-guided biopsy of 3.1 x 2.5 cm left lower lobe mass done. Pathology is pending. She denies any other complaint including weight loss, hemoptysis, headaches seizures and bone pain. Denies any chest pain and shortness of breath. Review of Systems Review of Systems: Twelve point review of system was reviewed [facility] Past Medical History Medical History Hyperlipidemia Depression with anxiety Spina bifida of lumbar spine Surgical History Surgical History History of hysterectomy History of tonsillectomy History of appendectomy History of urostomy Family History Family History Father Cancer Social History Social History Social History: Legal guardian: Daniella Chilel ([phone]). Code status: Do not resuscitate. Smoking status: Never smoker Alcohol intake: never Substance use: never Substance use type: does not use Do You Feel Safe in your Home?: Yes Lack of Transportation: No Lack of Food: Never True Current Housing: I Have Housing Concerned About Future Housing: No Difficulty Paying Gas/Electric Bills: No Difficulty Paying for Meds: No Currently Unemployed: No Education: Grade School Difficulty w/ Childcare or Family Care: No Spiritual care concerns: Yes Meds Home Medications and Allergies Home Medications ?Medication ?Instructions ?Recorded ?Confirmed ?Type acetaminophen 650 mg tablet 650 mg PO Q4H PRN mild pain 02/21/23 12/07/24 History atorvastatin 10 mg tablet 10 mg PO HS 02/21/23 12/07/24 History calcium 600 mg-D3 800 unit-mag 40 1 tablet PO BID 02/21/23 12/07/24 History [id number]-rlun-leydi-boron chew tablet (Caltrate 600-D Plus Minerals) duloxetine 60 mg capsule,delayed 60 mg PO BID 02/21/23 12/07/24 History release fluticasone propionate 50 2 spray intranasal DAILY 02/21/23 12/07/24 History mcg/actuation nasal spray,suspension (Flonase Allergy Relief) furosemide 20 mg tablet (Lasix) 60 mg PO DAILY 02/21/23 12/07/24 History loratadine 10 mg tablet 10 mg PO DAILY 02/21/23 12/07/24 History magnesium hydroxide 400 mg/5 mL 400 mg PO HS PRN constipation if 02/21/23 12/07/24 History oral suspension no BM for 3 days nystatin 100,000 unit/gram topical 1 applic topical DAILY 02/21/23 12/07/24 History powder polyethylene glycol 3350 17 gram 17 g PO DAILY 02/21/23 12/07/24 History oral powder packet (Miralax) trazodone 100 mg tablet 75 mg PO HS 02/21/23 12/07/24 History cholecalciferol (vitamin D3) 50 50 mcg PO DAILY 07/08/24 12/07/24 History mcg (2,000 unit) capsule multivitamin (Daily Multi-Vitamin 1 tablet PO DAILY 07/08/24 12/07/24 History tablet) lactulose 10 gram/15 mL oral 10 g (15 mL) PO DAILY PRN 07/10/24 12/07/24 Rx solution constipation #473 mL ascorbic acid (vitamin C) 500 mg 500 mg PO BID 12/07/24 12/07/24 History chewable tablet (Acerola C) collagenase clostridium histo. 250 1 applic topical DAILY 12/07/24 12/07/24 History unit/gram topical ointment (Santyl) mirtazapine 7.5 mg tablet 7.5 mg PO HS 12/07/24 12/07/24 History ondansetron 4 mg disintegrating 4 mg PO Q6H PRN NAUSEA 12/07/24 12/07/24 History tablet zinc sulfate 50 mg zinc (220 mg) 50 mg PO DAILY 12/07/24 12/07/24 History capsule (Zinc-220) Allergies Allergy/AdvReac Type Severity Reaction Status Date / Time codeine Allergy Unknown Verified 12/08/24 16:55 NSAIDS (Non-Steroidal Allergy Unknown Verified 12/08/24 16:55 Anti-Inflamma Penicillins Allergy Hives Verified 12/08/24 16:55 Sulfa (Sulfonamide Allergy Hives Verified 12/08/24 16:55 Antibiotics) Vital Signs Vital Signs - 24 hr 12/09/24 16:57 12/09/24 20:00 12/09/24 20:57 Temperature 36.6 C 36.6 C Pulse Rate 115 H 70 70 Respiratory Rate 17 16 16 Blood Pressure 142/86 H 96/45 L Pulse Oximetry 97 94 94 Oxygen Delivery Room Air Fraction of Inspired Oxygen 21 12/10/24 00:20 12/10/24 00:52 12/10/24 00:54 Temperature 35.8 C L 36.2 C L Pulse Rate 94 Respiratory Rate 16 Blood Pressure 93/47 L 96/51 L Pulse Oximetry 99 Oxygen Delivery Fraction of Inspired Oxygen 12/10/24 04:00 12/10/24 08:00 12/10/24 10:53 Temperature 36.2 C L 36.0 C L Pulse Rate 96 99 Respiratory Rate 16 16 Blood Pressure 116/74 113/65 Pulse Oximetry 100 100 Oxygen Delivery Room Air Fraction of Inspired Oxygen Exam Narrative: Lungs are clear to auscultation bilaterally Cardiovascular regular rate rhythm no murmurs Abdomen soft nontender nondistended bowel sounds are positive Extremities no edema Results Labs 12/10/24 05:17 12/10/24 05:17 Labs: Short CBC 12/10/24 Range/Units 05:17 WBC 10.0 (4.5-10.0) K/mm3 Hgb 9.1 L (12.0-15.0) g/dL Hct 29.7 L (37.0-47.0) % Plt Count 538 H (150-375) k/mm3 BMP 12/10/24 05:17 Sodium 137 Potassium 2.8 L* Chloride 103 Carbon Dioxide 28 BUN 5 L Creatinine 0.44 L Glucose 74 Calcium 8.3 L Liver Function 12/10/24 Range/Units 05:17 Total Bilirubin 0.5 (0.2-1.3) mg/dL AST 16 (14-36) U/L ALT 8 (6-35) U/L Alkaline Phosphatase 101 (38-126) U/L Albumin 2.7 L (3.5-5.1) g/dL
--- NOTE | 2024-12-10 15:01 | P.PNIM_ITS ---
Progress Note: A&P Assessment and Plan (1) Depression with anxiety: Code(s): F41.8 - Other specified anxiety disorders Status: Acute (2) Hyperlipidemia: Code(s): E78.5 - Hyperlipidemia, unspecified Status: Acute (3) Morbid obesity due to excess calories: Code(s): E66.01 - Morbid (severe) obesity due to excess calories Status: Acute (4) Chronic constipation: Code(s): K59.09 - Other constipation Status: Acute (5) Stercoral colitis: Code(s): K52.89 - Other specified noninfective gastroenteritis and colitis Status: Acute (6) Acute hypokalemia: Code(s): E87.6 - Hypokalemia Status: Acute (7) History of urostomy: Code(s): Z98.890 - Other specified postprocedural states Status: Acute (8) Osteomyelitis: Qualifiers: Osteomyelitis location: other site Osteomyelitis type: unspecified type Qualified Code(s): M86.9 - Osteomyelitis, unspecified Code(s): M86.9 - Osteomyelitis, unspecified Status: Acute (9) Decubitus ulcer: Qualifiers: Pressure injury location: sacral region Pressure injury stage: unstageable Qualified Code(s): L89.150 - Pressure ulcer of sacral region, unstageable Code(s): L89.90 - Pressure ulcer of unspecified site, unspecified stage Status: Acute (10) Paraplegia: Code(s): G82.20 - Paraplegia, unspecified Status: Acute (11) Spina bifida of lumbar spine: Qualifiers: Presence of hydrocephalus: unspecified hydrocephalus presence Qualified Code(s): Q05.7 - Lumbar spina bifida without hydrocephalus Code(s): Q05.7 - Lumbar spina bifida without hydrocephalus Status: Chronic Plan Osteomyelitis, infected wound Stage IV sacral decubitus ulcer Underwent I&Ds 12/08 Continue with Antibiotics vancomycin and Rocephin Follow cultures Surgery team on board. . Sepsis Leukocytosis, hypotension Plan as above Line cavity/mass 4.2 x 3.9 x 3.3 cm spiculated mass in the left lower lobe posteriorly which is partially cavitated. A malignant process needs to be excluded. There is a 3.0 x 0 1 x 5.1 cm lobulated masslike structure in the right lower lobe posteriorly Pulmonary team on board. lung biopsy yesterday concerning for adenocarcinoma Follow-up final biopsy results consulted oncology team Left adrenal gland is prominent but unchanged. An adrenal mass MRI or PET/CT as outpatient HLD Statin Depression [employer] meds hyponatremia monitor for now hypokalemia replet as needed continue to monitor Subjective Date/time seen: 12/10/24 15:01 Interval history: per HPI: This is a 79-year-old female [facility] resident presented to the ED for sacral wound. This has been present for past few months however patient is not sure about this. Patient complains of hurting on the side. In the ED evaluation she was mildly tachycardic but afebrile. On evaluation she had a large sacral wound. Laboratory workup revealed WBC 15 K hemoglobin 11.8 platelet count 687. Sodium of 137 potassium 3.0 chloride 92 bicarbonate 38 BUN 13 creatinine 0.46. Blood glucose of 105. Lactate was normal at 1.9 LFTs were normal CRP was 27.1. CT abdomen pelvis showed deep sacral decubitus ulcer with osteomyelitis along the caudal aspect of the sacrum which is new. Interval increase in size of likely cavitary mass at the dependent left lower lobe which raises concern for malignancy. Recommend CT-guided biopsy. Smaller 1.3 x 1.0 cm nodule along the band of discoid atelectasis in the right lower lobe. Stable appearance of a subcapsular flat hypodense region along the dome of liver suggestive of a collapsed cyst are region of scarring with multiple peripheral high attenuation foci unclear whether this calcifications are potentially embolization material. Bilateral nonobstructing nephrolithiasis. Postoperative change of prior cystectomy with right lower quadrant ideal conduit formation. There is urothelial enhancement at the lateral renal collecting system suspicious for secondary ascending urinary tract infection. Correlate with urinalysis. Recurrent infection could confirm a moderate atrophy with cortical scarring at the right kidney. Large amount of stool in the sigmoid colon rectum with associated wall thickening and perirectal stranding consistent with secondary stercoral colitis. Ventral hernias 1 containing fat and 2nd anterior at wall of a short segment of nonobstructed proximal transverse colon. Unchanged extensive high attenuation material within the thecal sac the lumbar and visualized lower thoracic spine suggestive off retained plan to pick. There is also 1.8 x 1.5 cm left hilar lymph node which could be either reactive or metastatic. EKG showed sinus tachycardia with nonspecific ST-T changes Patient has been started on vancomycin and cefepime. General surgery has been c onsulted. She is admitted in the setting for further treatment 12/08/24 Patient was seen and examined bedside. She is feeling fine. Denies any chest pain, shortness off present abdomen pain, nausea vomiting. Blood pressure improved. Continue with IV fluid. Surgery team on board. Plan for sacral decubitus wound today. Pulmonary team about. Antibiotics vancomycin and cefepime. Flagyl added. Plan for lung biopsy tomorrow. 12/09/24 Patient was seen and examined at bedside. she is feeling fine denies any chest pain, SOB, N/V. Underwent excisional debridement of stage IV sacral decubitus ulcer yesterday. plan for lung biopsy today. WBC improved to 11.7. hb 8.8 , K 3 12/10/24 patient was seen and examined at bedside. she is feeling fine, denies any chest pain, SOb,abd pain, N/V. lung biopsy concerning for adenocarcinoma. final diagnosis pending. consulted Oncology. picc line was placed. needs IV Abx for OM. Review of Systems Review of Systems: - CONSTITUTIONAL: Denies weight loss, fe shy and chills. - HEENT: Denies changes in vision and he aring - RESPIRATORY: Denies SOB and cough. - CV: Denies palpitations and CP. - GI: Reports left lower abdominal pain , denies nausea, vomiting and diarrhea. - : Denies dysuria and urinary frequen cy. - MSK: Denies myalgia and joint pain. - SKIN: Denies rash and pruritus. - NEUROLOGICAL: Denies headache and sync ope. - PSYCHIATRIC: Denies recent changes in mood. Denies anxiety and depression. Exam Narrative: APPEARANCE: No acute distress, nontoxic, resting in bed EYES: EOMI HEENT: Normocephalic, atraumatic, OMM RESPIRATORY: No respiratory distress Clear to auscultation bilaterally with no rhonchi wheezing or rales. CARDIOVASCULAR: Mildly tachycardic, regular rhythm without murmurs rubs or gallops. ABDOMINAL: Soft, mild tenderness to palpation to the left lower quadrant, also notably firm. Ostomy in place to the right lower quadrant. Ventral hernia noted MUSCULOSKELETAl: Moves all extremities. No clubbing, cyanosis or edema. NEURO: Awake and alert. Following commands, speech normal, no focal deficits SKIN:: stag 4 decubitus ulcer S/P I&Ds PSYCHIATRIC: Normal affect/mood, Objective Data Vital Signs Vital Signs: Vital Signs - 24 hr 12/09/24 16:57 12/09/24 20:00 12/09/24 20:57 Temperature 98 F 97.9 F Pulse Rate 115 H 70 70 Respiratory Rate 17 16 16 Blood Pressure 142/86 H 96/45 L Pulse Oximetry 97 94 94 Oxygen Delivery Room Air Fraction of Inspired Oxygen 21 12/10/24 00:20 12/10/24 00:52 12/10/24 00:54 Temperature 96.4 F L 97.1 F L Pulse Rate 94 Respiratory Rate 16 Blood Pressure 93/47 L 96/51 L Pulse Oximetry 99 Oxygen Delivery Fraction of Inspired Oxygen 12/10/24 04:00 12/10/24 08:00 12/10/24 10:53 Temperature 97.1 F L 96.8 F L Pulse Rate 96 99 Respiratory Rate 16 16 Blood Pressure 116/74 113/65 Pulse Oximetry 100 100 Oxygen Delivery Room Air Fraction of Inspired Oxygen Intake/Output Intake/Output: Intake & Output 12/07/24 12/08/24 12/09/24 12/10/24 23:59 23:59 23:59 23:59 Intake Total 2400 1020 1400 946 Output Total 185 169 8296 350 Balance 1500 680 50 596 Meds/Results Medications: Active Medications Generic Name Dose Route Start Last Admin Trade Name Freq PRN Reason Stop Dose Admin Acetaminophen 650 mg 12/08/24 15:11 Acetaminophen 325 Mg Tablet BY MOUTH Q4H PRN mild pain Hydrocodone Bitart/Acetaminophen 1 tab 12/08/24 19:12 12/08/24 20:11 Hydrocodone/Acetaminophen (*Crx) 5-325 Mg Tablet PO 1 tab Q4H PRN Administration Pain Rated 4-6 Hydrocodone Bitart/Acetaminophen 1 tab 12/08/24 19:12 Hydrocodone/Acetaminophen (*Crx) 7.5-325 Mg Tablet PO Q4H PRN Pain Rated 7-10 Ascorbic Acid 500 mg 12/08/24 17:00 12/10/24 09:27 Ascorbic Acid 500 Mg Tablet PO 500 mg BID ALEXIS Administration Atorvastatin Calcium 10 mg 12/08/24 21:00 12/09/24 20:37 Atorvastatin 10 Mg Tablet PO 10 mg HS ALEXIS Administration Bisacodyl 10 mg 12/10/24 09:07 Bisacodyl 10 Mg Suppository RECTAL QAM PRN Constipation Duloxetine HCl 60 mg 12/08/24 17:00 12/10/24 09:27 Duloxetine Hcl 60 Mg Capsule.Dr PO 60 mg BID ALEXIS Administration Fentanyl Citrate 25 mcg 12/08/24 17:12 Fentanyl Citrate Inj (*Crx) 100 Mcg/2 Ml Vial IV PUSH Q2M PRN Pain Fluticasone Propionate 2 spray 12/08/24 11:45 12/10/24 09:28 Fluticasone Propionate 0.05% Na Spr 16 Gm Btl (*Bkc) NASAL 2 spray Q12HR ALEXIS Administration Ceftriaxone Sodium 2 gm/ 100 mls @ 200 mls/hr 12/10/24 21:00 Sodium Chloride IVPB Q24H ALEXIS Vancomycin HCl 1,500 mg in 500 mls @ 250 mls/hr 12/10/24 14:00 12/10/24 14:21 Vancomycin 1,500 Mg/Ns 500 Ml IVPB 250 mls/hr Q12H ALEXIS Administration Loratadine 10 mg 12/09/24 09:00 12/10/24 09:27 Loratadine 10 Mg Tablet PO 10 mg QAM ALEXIS Administration Mirtazapine 7.5 mg 12/08/24 21:00 12/09/24 20:37 Mirtazapine 7.5 Mg Tablet PO 7.5 mg HS ALEXIS Administration Multivitamins Therapeutic 1 tablet 12/09/24 09:00 12/10/24 09:27 Multivitamins Therapeutic Tab (*Bkc) PO 1 tablet DAILY ALEXIS Administration Naloxone HCl 0.1 mg 12/08/24 19:12 Naloxone Hcl 0.4 Mg/Ml Vial IV PUSH Q2M PRN Opiate Reversal Ondansetron HCl 4 mg 12/08/24 19:12 Ondansetron Inj 4 Mg/2 Ml Vial IV PUSH Q4H PRN Nausea And Vomiting Polyethylene Glycol 17 gm 12/09/24 09:00 12/10/24 09:27 Polyethylene Glycol 3350 17 Gm Powd.Pack PO 17 gm QAM ALEXIS Administration Sodium Chloride 10 ml 12/10/24 14:00 12/10/24 14:19 Central Line Flush IV PUSH 10 ml Q8HR ALEXIS Administration Sodium Chloride 10 ml 12/10/24 10:28 Central Line Flush IV PUSH PRN PRN with TPN bag changes Sodium Chloride 20 ml 12/10/24 10:28 Central Line Flush IV PUSH PRN PRN after blood draws Sodium Chloride 10 ml 12/10/24 14:00 12/10/24 14:20 Central Line Flush IV PUSH 10 ml Q8HR ALEXIS Administration Sodium Chloride 10 ml 12/10/24 12:38 Central Line Flush IV PUSH PRN PRN with TPN bag changes Sodium Chloride 20 ml 12/10/24 12:38 Central Line Flush IV PUSH PRN PRN after blood draws Sodium Hypochlorite 1 applic 12/09/24 21:00 12/10/24 11:18 Sod Hypochlorite 1/4 Strength 473 Ml TOPICAL 1 applic Q12HR ALEXIS Administration Trazodone HCl 75 mg 12/08/24 21:00 12/09/24 20:37 Trazodone Hcl 25 Mg Tablet PO 75 mg HS ALEXIS Administration Vitamin D 50 mcg 12/09/24 09:00 12/10/24 09:27 Cholecalciferol (Vitamin D3) 25 Mcg (1,000 Units) Tablet PO 50 mcg DAILY ALEXIS Administration Zinc Sulfate 220 mg 12/10/24 12:00 12/10/24 13:06 Zinc Sulfate 220 Mg Capsule PO 220 mg DAILY ALEXIS Administration Radiology Results: ITS Impressions Abdomen/Pelvis CT 12/07/24 15:35 IMPRESSION: 1. Deep sacral decubitus ulcer with osteomyelitis along the caudal aspect of the sacrum which is new since the prior study. 2. Interval increase in size of a likely cavitary mass at the dependent left lower lobe which raises concern for malignancy. Would recommend CT-guided biopsy. 3. Smaller 1.3 x 1.0 cm nodule along a band of discoid atelectasis in the right lower lobe. Consider either short interval follow-up in 3 months or further evaluation with PET/CT. 4. Stable appearance of a subcapsular flat hypodense region along the dome of the liver suggestive of a collapsed cyst or region of scarring with multiple peripheral high attenuation foci, unclear whether calcifications or potentially embolization material. Correlate with clinical history and with any prior outside imaging for comparison. 5. Bilateral nonobstructing nephrolithiasis. 6. 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 There is urothelial enhancement at the lateral renal collecting systems suspicious for secondary ascending urinary tract infection. Correlate with urinalysis. Recurrent infections could account for the moderate atrophy with cortical scarring at the right kidney. 7. Large amount of stool in the sigmoid colon and rectum with associated wall thickening and perirectal stranding consistent with secondary stercoral colitis. 8. Couple ventral hernias, one containing fat and the second anterior wall of a short segment of nonobstructed proximal transverse colon. 9. Unchanged extensive high attenuation material within the thecal sac the lumbar and visualized lower thoracic spine suggesting retained Pantopaque. Correlate with clinical history. ADDENDUM: 12/07/24 1619 ADDENDUM: There is also a 1.8 x 1.5 cm left hilar lymph node which could be either reactive or metastatic. Chest CT 12/08/24 10:11 IMPRESSION: 1. There is a 4.2 x 3.9 x 3.3 cm spiculated mass in the left lower lobe posteriorly which is partially cavitated and extends to the pleura. A malignant process needs to be excluded. A biopsy is recommended. 2. There is a 3.0 x 0 1 x 5.1 cm lobulated masslike structure in the right lower lobe posteriorly which extends to the pleura. Evaluation is limited due to motion artifact. Differential includes atelectasis, pneumonia or malignancy. A PET/CT and/or biopsy is recommended. 3. No lymphadenopathy in the chest. 4. Tiny left-sided pleural effusion. 5. Left adrenal gland is prominent but unchanged. An adrenal mass MRI or PET/CT is recommended. Lung Biopsy CT 12/09/24 15:05 IMPRESSION: 1[address] CT-guided biopsy of a 3.1 x 2.5 cm left lower lobe mass. Chest X-Ray 12/09/24 15:28 IMPRESSION: No pleural effusion. No pneumothorax. Left lower lobe mass. Findings as above. Labs Labs: Laboratory Results - last 24 hr 12/10/24 05:17 WBC 10.0 RBC 3.39 L Hgb 9.1 L Hct 29.7 L MCV 87.6 MCH 26.8 MCHC 30.6 L RDW 14.4 Plt Count 538 H MPV 9.4 Immature Gran % (Auto) 0.6 H Neut % (Auto) 65.9 Lymph % (Auto) 22.5 [place] % (Auto) 7.0 Eos % (Auto) 3.6 Baso % (Auto) 0.4 Lymph # (Auto) 2.26 [place] # (Auto) 0.7 H Eos # (Auto) 0.4 H Baso # (Auto) 0.0 Abs Immat Gran (auto) 0.06 H Absolute Neuts (auto) 6.6 Absolute Nucleated RBC 0.000 Nucleated RBC % 0.0 Sodium 137 Potassium 2.8 L* Chloride 103 Carbon Dioxide 28 Anion Gap 6 BUN 5 L Creatinine 0.44 L Estim Creat Clear Calc 80 Estimated GFR > 60 Glucose 74 Calcium 8.3 L Total Bilirubin 0.5 AST 16 ALT 8 Alkaline Phosphatase 101 C-Reactive Protein 26.6 H Total Protein 5.8 L Albumin 2.7 L Procalcitonin 0.1
--- NOTE | 2024-12-10 15:34 | P.PNGS_ITS ---
Progress Note: A&P Assessment and Plan (1) Decubitus ulcer: Qualifiers: Pressure injury location: sacral region Pressure injury stage: unstageable Qualified Code(s): L89.150 - Pressure ulcer of sacral region, u nstageable Code(s): L89.90 - Pressure ulcer of unspecified site, unspecified stage Status: Acute Assessment and Plan: * S/p excisional debridement on 12/08. * Continue local wound care * Continue frequent turning/pressure offloading (2) Osteomyelitis: Qualifiers: Osteomyelitis location: other site Osteomyelitis type: unspecified type Qualified Code(s): M86.9 - Osteomyelitis, unspecified Code(s): M86.9 - Osteomyelitis, unspecified Status: Acute Assessment and Plan: * Biopsies confirmed osteomyelitis * Continue IV antibiotics (3) Morbid obesity due to excess calories: Code(s): E66.01 - Morbid (severe) obesity due to excess calories Status: Acute (4) Stercoral colitis: Code(s): K52.89 - Other specified noninfective gastroenteritis and colitis Status: Acute (5) Presence of urostomy: Code(s): Z93.6 - Other artificial openings of urinary tract status Status: Acute Subjective Subjective Date/Time Seen: 12/10/24 15:34 Interval history: Dressing changes going well. No fevers. No pain at the sacral region. Exam Const: General: comfortable and no acute distress Skin: Other: Sacral decubitus ulcer dressing removed, there is no purulent drainage or foul odor, about 70% of the wound bed appears to have pink viable tissue and 30% with yellow slough and a small area of dark colbert tissue on the right. Bone is exposed at the sacrum. There is some tunneling at 5 o'clock towards the right inferior buttock. No surrounding skin erythema. Objective Data Vital Signs Vital Signs: Vital Signs - 24 hr 12/09/24 16:57 12/09/24 20:00 12/09/24 20:57 Temperature 98 F 97.9 F Pulse Rate 115 H 70 70 Respiratory Rate 17 16 16 Blood Pressure 142/86 H 96/45 L Pulse Oximetry 97 94 94 Oxygen Delivery Room Air Fraction of Inspired Oxygen 21 12/10/24 00:20 12/10/24 00:52 12/10/24 00:54 Temperature 96.4 F L 97.1 F L Pulse Rate 94 Respiratory Rate 16 Blood Pressure 93/47 L 96/51 L Pulse Oximetry 99 Oxygen Delivery Fraction of Inspired Oxygen 12/10/24 04:00 12/10/24 08:00 12/10/24 10:53 Temperature 97.1 F L 96.8 F L Pulse Rate 96 99 Respiratory Rate 16 16 Blood Pressure 116/74 113/65 Pulse Oximetry 100 100 Oxygen Delivery Room Air Fraction of Inspired Oxygen Intake/Output Intake/Output: Intake & Output 12/07/24 12/08/24 12/09/24 12/10/24 23:59 23:59 23:59 23:59 Intake Total 2400 1020 1400 946 Output Total 402 775 1529 350 Balance 1500 680 50 596 Meds/Results Medications: Active Medications Generic Name Dose Route Start Last Admin Trade Name Freq PRN Reason Stop Dose Admin Acetaminophen 650 mg 12/08/24 15:11 Acetaminophen 325 Mg Tablet BY MOUTH Q4H PRN mild pain Hydrocodone Bitart/Acetaminophen 1 tab 12/08/24 19:12 12/08/24 20:11 Hydrocodone/Acetaminophen (*Crx) 5-325 Mg Tablet PO 1 tab Q4H PRN Administration Pain Rated 4-6 Hydrocodone Bitart/Acetaminophen 1 tab 12/08/24 19:12 Hydrocodone/Acetaminophen (*Crx) 7.5-325 Mg Tablet PO Q4H PRN Pain Rated 7-10 Ascorbic Acid 500 mg 12/08/24 17:00 12/10/24 09:27 Ascorbic Acid 500 Mg Tablet PO 500 mg BID ALEXIS Administration Atorvastatin Calcium 10 mg 12/08/24 21:00 12/09/24 20:37 Atorvastatin 10 Mg Tablet PO 10 mg HS ALEXIS Administration Bisacodyl 10 mg 12/10/24 09:07 Bisacodyl 10 Mg Suppository RECTAL QAM PRN Constipation Duloxetine HCl 60 mg 12/08/24 17:00 12/10/24 09:27 Duloxetine Hcl 60 Mg Capsule.Dr PO 60 mg BID ALEXIS Administration Fentanyl Citrate 25 mcg 12/08/24 17:12 Fentanyl Citrate Inj (*Crx) 100 Mcg/2 Ml Vial IV PUSH Q2M PRN Pain Fluticasone Propionate 2 spray 12/08/24 11:45 12/10/24 09:28 Fluticasone Propionate 0.05% Na Spr 16 Gm Btl (*Bkc) NASAL 2 spray Q12HR ALEXIS Administration Ceftriaxone Sodium 2 gm/ 100 mls @ 200 mls/hr 12/10/24 21:00 Sodium Chloride IVPB Q24H ALEXIS Vancomycin HCl 1,500 mg in 500 mls @ 250 mls/hr 12/10/24 14:00 12/10/24 14:21 Vancomycin 1,500 Mg/Ns 500 Ml IVPB 250 mls/hr Q12H ALEXIS Administration Loratadine 10 mg 12/09/24 09:00 12/10/24 09:27 Loratadine 10 Mg Tablet PO 10 mg QAM ALEXIS Administration Mirtazapine 7.5 mg 12/08/24 21:00 12/09/24 20:37 Mirtazapine 7.5 Mg Tablet PO 7.5 mg HS ALEXIS Administration Multivitamins Therapeutic 1 tablet 12/09/24 09:00 12/10/24 09:27 Multivitamins Therapeutic Tab (*[facility]) PO 1 tablet DAILY ALEXIS Administration Naloxone HCl 0.1 mg 12/08/24 19:12 Naloxone Hcl 0.4 Mg/Ml Vial IV PUSH Q2M PRN Opiate Reversal Ondansetron HCl 4 mg 12/08/24 19:12 Ondansetron Inj 4 Mg/2 Ml Vial IV PUSH Q4H PRN Nausea And Vomiting Polyethylene Glycol 17 gm 12/09/24 09:00 12/10/24 09:27 Polyethylene Glycol 3350 17 Gm Powd.Pack PO 17 gm QAM ALEXIS Administration Sodium Chloride 10 ml 12/10/24 14:00 12/10/24 14:19 Central Line Flush IV PUSH 10 ml Q8HR ALEXIS Administration Sodium Chloride 10 ml 12/10/24 10:28 Central Line Flush IV PUSH PRN PRN with TPN bag changes Sodium Chloride 20 ml 12/10/24 10:28 Central Line Flush IV PUSH PRN PRN after blood draws Sodium Chloride 10 ml 12/10/24 14:00 12/10/24 14:20 Central Line Flush IV PUSH 10 ml Q8HR ALEXIS Administration Sodium Chloride 10 ml 12/10/24 12:38 Central Line Flush IV PUSH PRN PRN with TPN bag changes Sodium Chloride 20 ml 12/10/24 12:38 Central Line Flush IV PUSH PRN PRN after blood draws Sodium Hypochlorite 1 applic 12/09/24 21:00 12/10/24 11:18 Sod Hypochlorite 1/4 Strength 473 Ml TOPICAL 1 applic Q12HR ALEXIS Administration Trazodone HCl 75 mg 12/08/24 21:00 12/09/24 20:37 Trazodone Hcl 25 Mg Tablet PO 75 mg HS ALEXSI Administration Vitamin D 50 mcg 12/09/24 09:00 12/10/24 09:27 Cholecalciferol (Vitamin D3) 25 Mcg (1,000 Units) Tablet PO 50 mcg DAILY ALEXIS Administration Zinc Sulfate 220 mg 12/10/24 12:00 12/10/24 13:06 Zinc Sulfate 220 Mg Capsule PO 220 mg DAILY ALEXIS Administration Radiology Results: ITS Impressions Abdomen/Pelvis CT 12/07/24 15:35 IMPRESSION: 1. Deep sacral decubitus ulcer with osteomyelitis along the caudal aspect of the sacrum which is new since the prior study. 2. Interval increase in size of a likely cavitary mass at the dependent left lower lobe which raises concern for malignancy. Would recommend CT-guided biopsy. 3. Smaller 1.3 x 1.0 cm nodule along a band of discoid atelectasis in the right lower lobe. Consider either short interval follow-up in 3 months or further evaluation with PET/CT. 4. Stable appearance of a subcapsular flat hypodense region along the dome of the liver suggestive of a collapsed cyst or region of scarring with multiple peripheral high attenuation foci, unclear whether calcifications or potentially embolization material. Correlate with clinical history and with any prior outside imaging for comparison. 5. Bilateral nonobstructing nephrolithiasis. 6. 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 There is urothelial enhancement at the lateral renal collecting systems suspicious for secondary ascending urinary tract infection. Correlate with urinalysis. Recurrent infections could account for the moderate atrophy with cortical scarring at the right kidney. 7. Large amount of stool in the sigmoid colon and rectum with associated wall thickening and perirectal stranding consistent with secondary stercoral colitis. 8. Couple ventral hernias, one containing fat and the second anterior wall of a short segment of nonobstructed proximal transverse colon. 9. Unchanged extensive high attenuation material within the thecal sac the lumbar and visualized lower thoracic spine suggesting retained Pantopaque. Correlate with clinical history. ADDENDUM: 12/07/24 1239 ADDENDUM: There is also a 1.8 x 1.5 cm left hilar lymph node which could be either reactive or metastatic. Chest CT 12/08/24 10:11 IMPRESSION: 1. There is a 4.2 x 3.9 x 3.3 cm spiculated mass in the left lower lobe posteriorly which is partially cavitated and extends to the pleura. A malignant process needs to be excluded. A biopsy is recommended. 2. There is a 3.0 x 0 1 x 5.1 cm lobulated masslike structure in the right lower lobe posteriorly which extends to the pleura. Evaluation is limited due to motion artifact. Differential includes atelectasis, pneumonia or malignancy. A PET/CT and/or biopsy is recommended. 3. No lymphadenopathy in the chest. 4. Tiny left-sided pleural effusion. 5. Left adrenal gland is prominent but unchanged. An adrenal mass MRI or PET/CT is recommended. Lung Biopsy CT 12/09/24 15:05 IMPRESSION: 1[address] Successful CT-guided biopsy of a 3.1 x 2.5 cm left lower lobe mass. Chest X-Ray 12/09/24 15:28 IMPRESSION: No pleural effusion. No pneumothorax. Left lower lobe mass. Findings as above. Labs Labs: Laboratory Results - last 24 hr 12/10/24 05:17 WBC 10.0 RBC 3.39 L Hgb 9.1 L Hct 29.7 L MCV 87.6 MCH 26.8 MCHC 30.6 L RDW 14.4 Plt Count 538 H MPV 9.4 Immature Gran % (Auto) 0.6 H Neut % (Auto) 65.9 Lymph % (Auto) 22.5 [place] % (Auto) 7.0 Eos % (Auto) 3.6 Baso % (Auto) 0.4 Lymph # (Auto) 2.26 [place] # (Auto) 0.7 H Eos # (Auto) 0.4 H Baso # (Auto) 0.0 Abs Immat Gran (auto) 0.06 H Absolute Neuts (auto) 6.6 Absolute Nucleated RBC 0.000 Nucleated RBC % 0.0 Sodium 137 Potassium 2.8 L* Chloride 103 Carbon Dioxide 28 Anion Gap 6 BUN 5 L Creatinine 0.44 L Estim Creat Clear Calc 80 Estimated GFR > 60 Glucose 74 Calcium 8.3 L Total Bilirubin 0.5 AST 16 ALT 8 Alkaline Phosphatase 101 C-Reactive Protein 26.6 H Total Protein 5.8 L Albumin 2.7 L Procalcitonin 0.1
[2024-12-10] MEDS: MIRTAZAPINE 7.5 MG TABLET PO (20:29)
[2024-12-10] MEDS: ATORVASTATIN 10 MG TABLET PO (20:29)
[2024-12-10] MEDS: cefTRIAXone 2 GM in SODIUM CHLORIDE 0.9% IV 100 ML 200 ML IVPB (20:29)
[2024-12-10] MEDS: HYDROcodone/acetaminophen (*CRX) 7.5-325 MG TABLET 1 TAB PO (20:45)
[2024-12-11] VITALS (7 sets, daily range): BP systolic 90–108; BP diastolic 44–71; PULSE 53–94; RESP 14–181; TEMP 36–36.7; O2SAT 95–98
[2024-12-11] MEDS: SOD HYPOCHLORITE 1/4 STRENGTH 473 ML 1 APPLIC TOPICAL ×3 (01:04→23:08)
[2024-12-11] MEDS: VANCOMYCIN 1,500 MG/NS 500 ML 1,500 MG/500 ML BAG 250 MG IVPB (01:09)
[2024-12-11] MEDS: CENTRAL LINE FLUSH 10 ML IV PUSH ×6 (05:21→20:28)
[2024-12-11 06:26] LABS: Hematocrit 26.3 % (37.0-47.0); Hemoglobin 8.2 g/dL (12.0-15.0); Immature Granulocyte Percent A 0.8 % (0-0.5); Lymphocytes Absolute Auto 2.67 K/mm3 (0.9-3.2); Mean Corpuscular HGB Conc 31.2 g/dl (32-36); Mean Corpuscular Hemoglobin 27.1 pg (26-34); Mean Corpuscular Volume 86.8 fl (80-100); Nucleated Red Blood Cells Absolute Auto 0.000 K/mm3 (0.0-0.012); Nucleated Red Blood Cells Perc 0.0 % (0.0-0.2); Platelet Count Result 462 k/mm3 (150-375); Red Blood Count 3.03 M/mm3 (4.2-5.4); White Blood Count 8.7 K/mm3 (4.5-10.0)
[2024-12-11 06:45] LABS: Alanine Aminotransferase 9 U/L (6-35); Albumin Level 2.5 g/dL (3.5-5.1); Alkaline Phosphatase 95 U/L (38-126); Anion Gap 2 mmol/L (4-12); Aspartate Amino Transferase 17 U/L (14-36); Bilirubin,Total 0.1 mg/dL (0.2-1.3); Blood Urea Nitrogen 4 mg/dL (7-17); Calcium 7.8 mg/dL (8.4-10.2); Carbon Dioxide 31 mmol/L (22-30); Chloride 100 mmol/L (98-107); Estimated CRCL calculation 92 ml/min; Estimated Glomerular Filt Rate > 60; Glucose 93 mg/dL (65-110); Potassium 3.0 mmol/L (3.4-5.0); Sodium 133 mmol/L (137-145); Total Protein 5.4 g/dL (6.3-8.2)
--- NOTE | 2024-12-11 07:55 | P.PNIM_ITS ---
Progress Note: A&P Assessment and Plan (1) Depression with anxiety: Code(s): F41.8 - Other specified anxiety disorders Status: Acute (2) Hyperlipidemia: Code(s): E78.5 - Hyperlipidemia, unspecified Status: Acute (3) Morbid obesity due to excess calories: Code(s): E66.01 - Morbid (severe) obesity due to excess calories Status: Acute (4) Chronic constipation: Code(s): K59.09 - Other constipation Status: Acute (5) Stercoral colitis: Code(s): K52.89 - Other specified noninfective gastroenteritis and colitis Status: Acute (6) Acute hypokalemia: Code(s): E87.6 - Hypokalemia Status: Acute (7) History of urostomy: Code(s): Z98.890 - Other specified postprocedural states Status: Acute (8) Osteomyelitis: Qualifiers: Osteomyelitis location: other site Osteomyelitis type: unspecified type Qualified Code(s): M86.9 - Osteomyelitis, unspecified Code(s): M86.9 - Osteomyelitis, unspecified Status: Acute (9) Decubitus ulcer: Qualifiers: Pressure injury location: sacral region Pressure injury stage: unstageable Qualified Code(s): L89.150 - Pressure ulcer of sacral region, unstageable Code(s): L89.90 - Pressure ulcer of unspecified site, unspecified stage Status: Acute (10) Paraplegia: Code(s): G82.20 - Paraplegia, unspecified Status: Acute (11) Spina bifida of lumbar spine: Qualifiers: Presence of hydrocephalus: unspecified hydrocephalus presence Qualified Code(s): Q05.7 - Lumbar spina bifida without hydrocephalus Code(s): Q05.7 - Lumbar spina bifida without hydrocephalus Status: Chronic Plan Osteomyelitis, infected wound Stage IV sacral decubitus ulcer Underwent I&Ds 12/08 Continue with Antibiotics vancomycin and Rocephin Follow cultures Surgery team on board. ID consult Sepsis Leukocytosis, hypotension Plan as above Line cavity/mass 4.2 x 3.9 x 3.3 cm spiculated mass in the left lower lobe posteriorly which is partially cavitated. A malignant process needs to be excluded. There is a 3.0 x 0 1 x 5.1 cm lobulated masslike structure in the right lower lobe posteriorly Pulmonary team on board. Lung biopsy shows adenosquamous carcinoma consulted oncology team Left adrenal gland is prominent but unchanged. An adrenal mass MRI or PET/CT as outpatient HLD Statin Depression [employer] meds hyponatremia monitor for now hypokalemia replet as needed continue to monitor Subjective Date/time seen: 12/11/24 07:55 Interval history: HPI: This is a 79-[facility]-old female [facility] resident presented to the ED for sacral wound. This has been present for past few months however patient is not sure about this. Patient complains of hurting on the side.In the ED evaluation she was mildly tachycardic but afebrile.On evaluation she had a large sacral wound. Laboratory workup revealed WBC 15 K hemoglobin 11.8 platelet count 687. Sodium of 137 potassium 3.0 chloride 92 bicarbonate 38 BUN 13 creatinine 0.46. Blood glucose of 105. Lactate was normal at 1.9 LFTs were normal CRP was 27.1. CT abdomen pelvis showed deep sacral decubitus ulcer with osteomyelitis along the caudal aspect of the sacrum which is new. Interval increase in size of likely cavitary mass at the dependent left lower lobe which raises concern for malignancy. Recommend CT-guided biopsy. Smaller 1.3 x 1.0 cm nodule along the band of discoid atelectasis in the right lower lobe. Stable appearance of a subcapsular flat hypodense region along the dome of liver suggestive of a collapsed cyst are region of scarring with multiple peripheral high attenuation foci unclear whether this calcifications are potentially embolization material. Bilateral nonobstructing nephrolithiasis. Postoperative change of prior cystectomy with right lower quadrant ideal conduit formation. There is urothelial enhancement at the lateral renal collecting system suspicious for secondary ascending urinary tract infection. Correlate with urinalysis. Recurrent infection could confirm a moderate atrophy with cortical scarring at the right kidney. Large amount of stool in the sigmoid colon rectum with associated wall thickening and perirectal stranding consistent with secondary stercoral colitis. Ventral hernias 1 containing fat and 2nd anterior at wall of a short segment of nonobstructed proximal transverse colon. Unchanged extensive high attenuation material within the thecal sac the lumbar and visualized lower thoracic spine suggestive off retained plan to pick. There is also 1.8 x 1.5 cm left hilar lymph node which could be either reactive or metastatic. EKG showed sinus tachycardia with nonspecific ST-T changes Patient has been started on vancomycin and cefepime. General surgery has been consulted. She is admitted in the setting for further treatment 12/08/24 Patient was seen and examined bedside. She is feeling fine. Denies any chest pain, shortness off present abdomen pain, nausea vomiting. Blood pressure impro celsa. Continue with IV fluid. Surgery team on board. Plan for sacral decubitus wound today. Pulmonary team about. Antibiotics vancomycin and cefepime. Flagyl added. Plan for lung biopsy tomorrow. 12/09/24 Patient was seen and examined at bedside. she is feeling fine denies any chest pain, SOB, N/V. Underwent excisional debridement of stage IV sacral decubitus ulcer yesterday. plan for lung biopsy today. WBC improved to 11.7. hb 8.8 , K 3 12/10/24 patient was seen and examined at bedside. she is feeling fine, denies any chest pain, SOb,abd pain, N/V. lung biopsy concerning for adenocarcinoma. final diagnosis pending. consulted Oncology. picc line was placed. needs IV Abx for OM. 12/11/2024: Patient underwent excisional debridement on 12/08. Sacral bone bio psy shows acute osteomyelitis. Id consulted. Patient left lung posterior lobe biopsy shows continue squamous carcinoma. Hematology/oncology is consulted Review of Systems Review of Systems: - CONSTITUTIONAL: Denies weight loss, fe shy and chills. - HEENT: Denies changes in vision and he aring - RESPIRATORY: Denies SOB and cough. - CV: Denies palpitations and CP. - GI: Reports left lower abdominal pain , denies nausea, vomiting and diarrhea. - : Denies dysuria and urinary frequen cy. - MSK: Denies myalgia and joint pain. - SKIN: Denies rash and pruritus. - NEUROLOGICAL: Denies headache and sync ope. - PSYCHIATRIC: Denies recent changes in mood. Denies anxiety and depression. Exam Narrative: APPEARANCE: No acute distress, nontoxic, resting in bed EYES: EOMI HEENT: Normocephalic, atraumatic, OMM RESPIRATORY: No respiratory distress Clear to auscultation bilaterally with no rhonchi wheezing or rales. CARDIOVASCULAR: Mildly tachycardic, regular rhythm without murmurs rubs or gallops. ABDOMINAL: Soft, mild tenderness to palpation to the left lower quadrant, also notably firm. Ostomy in place to the right lower quadrant. Ventral hernia noted MUSCULOSKELETAl: Moves all extremities. No clubbing, cyanosis or edema. NEURO: Awake and alert. Following commands, speech normal, no focal deficits SKIN:: stag 4 decubitus ulcer S/P I&Ds PSYCHIATRIC: Normal affect/mood, Objective Data Vital Signs Vital Signs: Vital Signs - 24 hr 12/10/24 08:00 12/10/24 10:53 12/10/24 16:00 Temperature 96.8 F L 97 F L Pulse Rate 99 96 Respiratory Rate 16 16 Blood Pressure 113/65 124/58 L Pulse Oximetry 100 100 Oxygen Delivery Room Air 12/10/24 20:00 12/11/24 00:05 12/11/24 04:00 Temperature 97.1 F L 96.8 F L 98.1 F Pulse Rate 103 H 53 L 88 Respiratory Rate 20 20 14 Blood Pressure 99/45 L 97/44 L 108/64 Pulse Oximetry 98 95 95 Oxygen Delivery Intake/Output Intake/Output: Intake & Output 12/08/24 12/09/24 12/10/24 12/11/24 23:59 23:59 23:59 23:59 Intake Total 1020 1400 1946 200 Output Total 340 1350 350 650 Balance 710 36 6495 -450 Meds/Results Medications: Active Medications Generic Name Dose Route Start Last Admin Trade Name Freq PRN Reason Stop Dose Admin Acetaminophen 650 mg 12/08/24 15:11 Acetaminophen 325 Mg Tablet BY MOUTH Q4H PRN mild pain Hydrocodone Bitart/Acetaminophen 1 tab 12/08/24 19:12 12/08/24 20:11 Hydrocodone/Acetaminophen (*Crx) 5-325 Mg Tablet PO 1 tab Q4H PRN Administration Pain Rated 4-6 Hydrocodone Bitart/Acetaminophen 1 tab 12/08/24 19:12 12/10/24 20:45 Hydrocodone/Acetaminophen (*Crx) 7.5-325 Mg Tablet PO 1 tab Q4H PRN Administration Pain Rated 7-10 Ascorbic Acid 500 mg 12/08/24 17:00 12/10/24 16:24 Ascorbic Acid 500 Mg Tablet PO 500 mg BID ALEXIS Administration Atorvastatin Calcium 10 mg 12/08/24 21:00 12/10/24 20:29 Atorvastatin 10 Mg Tablet PO 10 mg HS ALEXIS Administration Bisacodyl 10 mg 12/10/24 09:07 Bisacodyl 10 Mg Suppository RECTAL QAM PRN Constipation Duloxetine HCl 60 mg 12/08/24 17:00 12/10/24 16:24 Duloxetine Hcl 60 Mg Capsule.Dr PO 60 mg BID ALEXIS Administration Fentanyl Citrate 25 mcg 12/08/24 17:12 Fentanyl Citrate Inj (*Crx) 100 Mcg/2 Ml Vial IV PUSH Q2M PRN Pain Fluticasone Propionate 2 spray 12/08/24 11:45 12/10/24 20:30 Fluticasone Propionate 0.05% Na Spr 16 Gm Btl (*Bkc) NASAL 2 spray Q12HR ALEXIS Administration Ceftriaxone Sodium 2 gm/ 100 mls @ 200 mls/hr 12/10/24 21:00 12/10/24 20:29 Sodium Chloride IVPB 200 mls/hr Q24H ALEXIS Administration Vancomycin HCl 1,500 mg in 500 mls @ 250 mls/hr 12/10/24 14:00 12/11/24 01:09 Vancomycin 1,500 Mg/Ns 500 Ml IVPB 250 mls/hr Q12H ALEXIS Administration Loratadine 10 mg 12/09/24 09:00 12/10/24 09:27 Loratadine 10 Mg Tablet PO 10 mg QAM ALEXIS Administration Mirtazapine 7.5 mg 12/08/24 21:00 12/10/24 20:29 Mirtazapine 7.5 Mg Tablet PO 7.5 mg HS ALEXIS Administration Multivitamins Therapeutic 1 tablet 12/09/24 09:00 12/10/24 09:27 Multivitamins Therapeutic Tab (*Bkc) PO 1 tablet DAILY ALEXIS Administration Naloxone HCl 0.1 mg 12/08/24 19:12 Naloxone Hcl 0.4 Mg/Ml Vial IV PUSH Q2M PRN Opiate Reversal Ondansetron HCl 4 mg 12/08/24 19:12 Ondansetron Inj 4 Mg/2 Ml Vial IV PUSH Q4H PRN Nausea And Vomiting Polyethylene Glycol 17 gm 12/09/24 09:00 12/10/24 09:27 Polyethylene Glycol 3350 17 Gm Powd.Pack PO 17 gm QAM ALEXIS Administration Sodium Chloride 10 ml 12/10/24 14:00 12/11/24 05:21 Central Line Flush IV PUSH 10 ml Q8HR ALEXIS Administration Sodium Chloride 10 ml 12/10/24 10:28 Central Line Flush IV PUSH PRN PRN with TPN bag changes Sodium Chloride 20 ml 12/10/24 10:28 Central Line Flush IV PUSH PRN PRN after blood draws Sodium Chloride 10 ml 12/10/24 14:00 12/11/24 05:21 Central Line Flush IV PUSH 10 ml Q8HR ALEXIS Administration Sodium Chloride 10 ml 12/10/24 12:38 Central Line Flush IV PUSH PRN PRN with TPN bag changes Sodium Chloride 20 ml 12/10/24 12:38 Central Line Flush IV PUSH PRN PRN after blood draws Sodium Hypochlorite 1 applic 12/09/24 21:00 12/11/24 01:04 Sod Hypochlorite 1/4 Strength 473 Ml TOPICAL 1 applic Q12HR LAEXIS Administration Trazodone HCl 75 mg 12/08/24 21:00 12/10/24 20:29 Trazodone Hcl 25 Mg Tablet PO 75 mg HS ALEXIS Administration Vitamin D 50 mcg 12/09/24 09:00 12/10/24 09:27 Cholecalciferol (Vitamin D3) 25 Mcg (1,000 Units) Tablet PO 50 mcg DAILY ALEXIS Administration Zinc Sulfate 220 mg 12/10/24 12:00 12/10/24 13:06 Zinc Sulfate 220 Mg Capsule PO 220 mg DAILY ALEXIS Administration Radiology Results: ITS Impressions Abdomen/Pelvis CT 12/07/24 15:35 IMPRESSION: 1. Deep sacral decubitus ulcer with osteomyelitis along the caudal aspect of the sacrum which is new since the prior study. 2. Interval increase in size of a likely cavitary mass at the dependent left lower lobe which raises concern for malignancy. Would recommend CT-guided biopsy. 3. Smaller 1.3 x 1.0 cm nodule along a band of discoid atelectasis in the right lower lobe. Consider either short interval follow-up in 3 months or further evaluation with PET/CT. 4. Stable appearance of a subcapsular flat hypodense region along the dome of the liver suggestive of a collapsed cyst or region of scarring with multiple peripheral high attenuation foci, unclear whether calcifications or potentially embolization material. Correlate with clinical history and with any prior outside imaging for comparison. 5. Bilateral nonobstructing nephrolithiasis. 6. 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 There is urothelial enhancement at the lateral renal collecting systems suspicious for secondary ascending urinary tract infection. Correlate with urinalysis. Recurrent infections could account for the moderate atrophy with cortical scarring at the right kidney. 7. Large amount of stool in the sigmoid colon and rectum with associated wall thickening and perirectal stranding consistent with secondary stercoral colitis. 8. Couple ventral hernias, one containing fat and the second anterior wall of a short segment of nonobstructed proximal transverse colon. 9. Unchanged extensive high attenuation material within the thecal sac the lumbar and visualized lower thoracic spine suggesting retained Pantopaque. Correlate with clinical history. ADDENDUM: 12/07/24 1619 ADDENDUM: There is also a 1.8 x 1.5 cm left hilar lymph node which could be either reactive or metastatic. Chest CT 12/08/24 10:11 IMPRESSION: 1. There is a 4.2 x 3.9 x 3.3 cm spiculated mass in the left lower lobe posteriorly which is partially cavitated and extends to the pleura. A malignant process needs to be excluded. A biopsy is recommended. 2. There is a 3.0 x 0 1 x 5.1 cm lobulated masslike structure in the right lower lobe posteriorly which extends to the pleura. Evaluation is limited due to motion artifact. Differential includes atelectasis, pneumonia or malignancy. A PET/CT and/or biopsy is recommended. 3. No lymphadenopathy in the chest. 4. Tiny left-sided pleural effusion. 5. Left adrenal gland is prominent but unchanged. An adrenal mass MRI or PET/CT is recommended. Lung Biopsy CT 12/09/24 15:05 IMPRESSION: 1[address]-guided biopsy of a 3.1 x 2.5 cm left lower lobe mass. Chest X-Ray 12/09/24 15:28 IMPRESSION: No pleural effusion. No pneumothorax. Left lower lobe mass. Findings as above. Labs Labs: Laboratory Results - last 24 hr 12/10/24 12/11/24 05:17 05:19 WBC 8.7 RBC 3.03 L Hgb 8.2 L Hct 26.3 L MCV 86.8 MCH 27.1 MCHC 31.2 L RDW 14.3 Plt Count 462 H MPV 9.3 Immature Gran % (Auto) 0.8 H Neut % (Auto) 55.7 Lymph % (Auto) 30.9 [place] % (Auto) 7.5 Eos % (Auto) 4.9 H Baso % (Auto) 0.2 Lymph # (Auto) 2.67 [place] # (Auto) 0.7 H Eos # (Auto) 0.4 H Baso # (Auto) 0.0 Abs Immat Gran (auto) 0.07 H Absolute Neuts (auto) 4.8 Absolute Nucleated RBC 0.000 Nucleated RBC % 0.0 Sodium 133 L Potassium 3.0 L Chloride 100 Carbon Dioxide 31 H Anion Gap 2 L BUN 4 L Creatinine 0.37 L Estim Creat Clear Calc 92 Estimated GFR > 60 Glucose 93 Calcium 7.8 L Total Bilirubin 0.1 L AST 17 ALT 9 Alkaline Phosphatase 95 C-Reactive Protein 26.6 H Total Protein 5.4 L Albumin 2.5 L Procalcitonin 0.1 Hospitalist MIPS Advance Care Plan I have confirmed that the patient's Advanced Care Plan is present, code status is documented, or surrogate decision maker is listed in patient medical record.: Yes Medication Reconciliation I have utilized all available resources to obtain, update and review the patients current medications (includes all prescriptions, OTC, herbals, cannabis, and nutritional supplements).: Yes
[2024-12-11] MEDS: CHOLECALCIFEROL (VITAMIN D3) 25 MCG (1,000 UNITS) TABLET 50 MCG PO (08:09)
[2024-12-11] MEDS: LORATADINE 10 MG TABLET PO (08:09)
[2024-12-11] MEDS: ASCORBIC ACID 500 MG TABLET PO ×2 (08:09→16:22)
[2024-12-11] MEDS: ZINC SULFATE 220 MG CAPSULE PO (08:10)
[2024-12-11] MEDS: DULoxetine HCL 60 MG CAPSULE.DR PO ×2 (08:10→16:22)
[2024-12-11] MEDS: MULTIVITAMINS THERAPEUTIC TAB (*BKC) 1 TABLET PO (08:10)
[2024-12-11] MEDS: HYDROcodone/acetaminophen (*CRX) 5-325 MG TABLET 1 TAB PO (08:17)
[2024-12-11] MEDS: FLUTICASONE PROPIONATE 0.05% NA SPR 16 GM BTL (*BKC) 2 SPRAY NASAL ×2 (08:18→20:27)
[2024-12-11] MEDS: VANCOMYCIN 1,500 MG/NS 500 ML 1,500 MG/500 ML BAG 175 MG IVPB (16:18)
[2024-12-11] MEDS: SENNA/DOCUSATE SODIUM TABLET 1 TAB PO (16:22)
[2024-12-11] MEDS: MIRTAZAPINE 7.5 MG TABLET PO (20:26)
[2024-12-11] MEDS: cefTRIAXone 2 GM in SODIUM CHLORIDE 0.9% IV 100 ML 200 ML IVPB (20:27)
[2024-12-11] MEDS: ATORVASTATIN 10 MG TABLET PO (20:27)
[2024-12-11] MEDS: HYDROcodone/acetaminophen (*CRX) 7.5-325 MG TABLET 1 TAB PO (20:47)
[2024-12-12] VITALS (7 sets, daily range): BP systolic 93–111; BP diastolic 45–74; PULSE 88–110; RESP 16–18; TEMP 36.3–36.6; O2SAT 93–98
[2024-12-12] MEDS: VANCOMYCIN 1,500 MG/NS 500 ML 1,500 MG/500 ML BAG 175 MG IVPB (04:17)
[2024-12-12 04:18] LABS: Hematocrit 27.2 % (37.0-47.0); Hemoglobin 8.5 g/dL (12.0-15.0); Mean Corpuscular HGB Conc 31.3 g/dl (32-36); Mean Corpuscular Hemoglobin 27.1 pg (26-34); Mean Corpuscular Volume 86.6 fl (80-100); Platelet Count Result 414 k/mm3 (150-375); Red Blood Count 3.14 M/mm3 (4.2-5.4); White Blood Count 8.2 K/mm3 (4.5-10.0)
[2024-12-12] MEDS: CENTRAL LINE FLUSH 10 ML IV PUSH ×6 (04:18→22:00)
[2024-12-12 05:10] LABS: Alanine Aminotransferase 10 U/L (6-35); Albumin Level 2.4 g/dL (3.5-5.1); Alkaline Phosphatase 81 U/L (38-126); Anion Gap 4 mmol/L (4-12); Aspartate Amino Transferase 15 U/L (14-36); Bilirubin,Total < 0.1 mg/dL (0.2-1.3); Blood Urea Nitrogen 3 mg/dL (7-17); Calcium 8.0 mg/dL (8.4-10.2); Carbon Dioxide 31 mmol/L (22-30); Chloride 101 mmol/L (98-107); Estimated CRCL calculation 87 ml/min; Estimated Glomerular Filt Rate > 60; Glucose 104 mg/dL (65-110); Potassium 2.6 mmol/L (3.4-5.0); Sodium 136 mmol/L (137-145); Total Protein 5.5 g/dL (6.3-8.2)
[2024-12-12 06:01] LABS: Magnesium 1.6 mg/dL (1.6-2.3)
[2024-12-12] MEDS: KCL 40 MEQ/WATER 100 ML 100 ML 25 ML IVPB (06:07)
[2024-12-12] MEDS: POTASSIUM CHLORIDE 20 MEQ PACKET (FOR LIQUID) 40 MEQ PO (06:07)
[2024-12-12] MEDS: SENNA/DOCUSATE SODIUM TABLET 1 TAB PO ×2 (10:05→17:12)
[2024-12-12] MEDS: CHOLECALCIFEROL (VITAMIN D3) 25 MCG (1,000 UNITS) TABLET 50 MCG PO (10:06)
[2024-12-12] MEDS: LORATADINE 10 MG TABLET PO (10:06)
[2024-12-12] MEDS: SOD HYPOCHLORITE 1/4 STRENGTH 473 ML 1 APPLIC TOPICAL (10:06)
[2024-12-12] MEDS: ASCORBIC ACID 500 MG TABLET PO ×2 (10:06→17:20)
[2024-12-12] MEDS: MULTIVITAMINS THERAPEUTIC TAB (*BKC) 1 TABLET PO (10:06)
[2024-12-12] MEDS: DULoxetine HCL 60 MG CAPSULE.DR PO ×2 (10:06→17:12)
[2024-12-12] MEDS: ZINC SULFATE 220 MG CAPSULE PO (10:06)
[2024-12-12] MEDS: FLUTICASONE PROPIONATE 0.05% NA SPR 16 GM BTL (*BKC) 2 SPRAY NASAL ×2 (10:14→21:06)
--- NOTE | 2024-12-12 13:18 | P.PNIM_ITS ---
Progress Note: A&P Assessment and Plan (1) Depression with anxiety: Code(s): F41.8 - Other specified anxiety disorders Status: Acute (2) Hyperlipidemia: Code(s): E78.5 - Hyperlipidemia, unspecified Status: Acute (3) Morbid obesity due to excess calories: Code(s): E66.01 - Morbid (severe) obesity due to excess calories Status: Acute (4) Chronic constipation: Code(s): K59.09 - Other constipation Status: Acute (5) Stercoral colitis: Code(s): K52.89 - Other specified noninfective gastroenteritis and colitis Status: Acute (6) Acute hypokalemia: Code(s): E87.6 - Hypokalemia Status: Acute (7) History of urostomy: Code(s): Z98.890 - Other specified postprocedural states Status: Acute (8) Osteomyelitis: Qualifiers: Osteomyelitis location: other site Osteomyelitis type: unspecified type Qualified Code(s): M86.9 - Osteomyelitis, unspecified Code(s): M86.9 - Osteomyelitis, unspecified Status: Acute (9) Decubitus ulcer: Qualifiers: Pressure injury location: sacral region Pressure injury stage: unstageable Qualified Code(s): L89.150 - Pressure ulcer of sacral region, unstageable Code(s): L89.90 - Pressure ulcer of unspecified site, unspecified stage Status: Acute (10) Paraplegia: Code(s): G82.20 - Paraplegia, unspecified Status: Acute (11) Spina bifida of lumbar spine: Qualifiers: Presence of hydrocephalus: unspecified hydrocephalus presence Qualified Code(s): Q05.7 - Lumbar spina bifida without hydrocephalus Code(s): Q05.7 - Lumbar spina bifida without hydrocephalus Status: Chronic Plan Osteomyelitis, infected wound Stage IV sacral decubitus ulcer Underwent I&Ds 12/08 Continue with Antibiotics vancomycin and Rocephin Follow cultures Surgery team on board. ID consult Sepsis Leukocytosis, hypotension Plan as above Line cavity/mass 4.2 x 3.9 x 3.3 cm spiculated mass in the left lower lobe posteriorly which is partially cavitated. A malignant process needs to be excluded. There is a 3.0 x 0 1 x 5.1 cm lobulated masslike structure in the right lower lobe posteriorly Pulmonary team on board. Lung biopsy shows adenosquamous carcinoma Consulted oncology team Left adrenal gland is prominent but unchanged. An adrenal mass MRI or PET/CT as outpatient HLD Statin Depression AIRLINE STEWARDESS meds hyponatremia monitor for now hypokalemia replet as needed continue to monitor Subjective Date/time seen: 12/12/24 13:18 Interval history: HPI: This is a 79-year-old female long term resident presented to the ED for sacral wound. This has been present for past few months however patient is not sure about this. Patient complains of hurting on the side.In the ED evaluation she was mildly tachycardic but afebrile.On evaluation she had a large sacral wound. Laboratory workup revealed WBC 15 K hemoglobin 11.8 platelet count 687. Sodium of 137 potassium 3.0 chloride 92 bicarbonate 38 BUN 13 creatinine 0.46. Blood glucose of 105. Lactate was normal at 1.9 LFTs were normal CRP was 27.1. CT abdomen pelvis showed deep sacral decubitus ulcer with osteomyelitis along the caudal aspect of the sacrum which is new. Interval increase in size of likely cavitary mass at the dependent left lower lobe which raises concern for malignancy. Recommend CT-guided biopsy. Smaller 1.3 x 1.0 cm nodule along the band of discoid atelectasis in the right lower lobe. Stable appearance of a subcapsular flat hypodense region along the dome of liver suggestive of a collapsed cyst are region of scarring with multiple peripheral high attenuation foci unclear whether this calcifications are potentially embolization material. Bilateral nonobstructing nephrolithiasis. Postoperative change of prior cyst ectomy with right lower quadrant ideal conduit formation. There is urothelial enhancement at the lateral renal collecting system suspicious for secondary ascending urinary tract infection. Correlate with urinalysis. Recurrent infection could confirm a moderate atrophy with cortical scarring at the right kidney. Large amount of stool in the sigmoid colon rectum with associated wall thickening and perirectal stranding consistent with secondary stercoral colitis. Ventral hernias 1 containing fat and 2nd anterior at wall of a short segment of nonobstructed proximal transverse colon. Unchanged extensive high attenuation material within the thecal sac the lumbar and visualized lower thoracic spine suggestive off retained plan to pick. There is also 1.8 x 1.5 cm left hilar lymph node which could be either reactive or metastatic. EKG showed sinus tachycardia with nonspecific ST-T changes Patient has been started on vancomycin and cefepime. General surgery has been consulted. She is admitted in the setting for further treatment 12/08/24 Patient was seen and examined bedside. She is feeling fine. Denies any chest pain, shortness off present abdomen pain, nausea vomiting. Blood pressure improved. Continue with IV fluid. Surgery team on board. Plan for sacral decubitus wound today. Pulmonary team about. Antibiotics vancomycin and cefepime. Flagyl added. Plan for lung biopsy tomorrow. 12/09/24 Patient was seen and examined at bedside. she is feeling fine denies any chest pain, SOB, N/V. Underwent excisional debridement of stage IV sacral decubitus ulcer yesterday. plan for lung biopsy today. WBC improved to 11.7. hb 8.8 , K 3 12/10/24 patient was seen and examined at bedside. she is feeling fine, denies any chest pain, SOb,abd pain, N/V. lung biopsy concerning for adenocarcinoma. final diagnosis pending. consulted Oncology. picc line was placed. needs IV Abx for OM. 12/11/2024: Patient underwent excisional debridement on 12/08. Sacral bone biopsy shows acute osteomyelitis. Id consulted. 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 Hematology/oncology is consulted 12/12/2024: Id/Heme-Onc consult is pending. 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 Replaced potassium Review of Systems Review of Systems: - CONSTITUTIONAL: Denies weight loss, fe shy and chills. - HEENT: Denies changes in vision and he aring - RESPIRATORY: Denies SOB and cough. - CV: Denies palpitations and CP. - GI: Reports left lower abdominal pain , denies nausea, vomiting and diarrhea. - : Denies dysuria and urinary frequen cy. - MSK: Denies myalgia and joint pain. - SKIN: Denies rash and pruritus. - NEUROLOGICAL: Denies headache and sync ope. - PSYCHIATRIC: Denies recent changes in mood. Denies anxiety and depression. Exam Narrative: APPEARANCE: No acute distress, nontoxic, resting in bed EYES: EOMI HEENT: Normocephalic, atraumatic, OMM RESPIRATORY: No respiratory distress Clear to auscultation bilaterally with no rhonchi wheezing or rales. CARDIOVASCULAR: Mildly tachycardic, regular rhythm without murmurs rubs or gallops. ABDOMINAL: Soft, mild tenderness to palpation to the left lower quadrant, also notably firm. Ostomy in place to the right lower quadrant. Ventral hernia noted MUSCULOSKELETAl: Moves all extremities. No clubbing, cyanosis or edema. NEURO: Awake and alert. Following commands, speech normal, no focal deficits SKIN:: stag 4 decubitus ulcer S/P I&Ds PSYCHIATRIC: Normal affect/mood, Objective Data Vital Signs Vital Signs: Vital Signs - 24 hr 12/11/24 16:00 12/11/24 20:00 12/11/24 20:00 Temperature 97.1 F L 97.6 F Pulse Rate 88 93 Respiratory Rate 18 181 H Blood Pressure 104/57 L 108/71 Pulse Oximetry 96 95 Oxygen Delivery Room Air Fraction of Inspired Oxygen 12/11/24 21:58 12/12/24 00:00 12/12/24 04:00 Temperature 97.8 F 97.9 F Pulse Rate 94 88 94 Respiratory Rate 20 18 16 Blood Pressure 105/74 109/69 Pulse Oximetry 95 93 98 Oxygen Delivery Room Air Fraction of Inspired Oxygen 21 12/12/24 08:00 Temperature 97.5 F L Pulse Rate 92 Respiratory Rate 16 Blood Pressure 93/45 L Pulse Oximetry 98 Oxygen Delivery Fraction of Inspired Oxygen Intake/Output Intake/Output: Intake & Output 12/09/24 12/10/24 12/11/24 12/12/24 23:59 23:59 23:59 23:59 Intake Total 1400 2046 1310 200 Output Total 3688 980 3074 1000 Balance 50 3786 10 -800 Meds/Results Medications: Active Medications Generic Name Dose Route Start Last Admin Trade Name Freq PRN Reason Stop Dose Admin Acetaminophen 650 mg 12/08/24 15:11 Acetaminophen 325 Mg Tablet BY MOUTH Q4H PRN mild pain Hydrocodone Bitart/Acetaminophen 1 tab 12/08/24 19:12 12/11/24 08:17 Hydrocodone/Acetaminophen (*Crx) 5-325 Mg Tablet PO 1 tab Q4H PRN Administration Pain Rated 4-6 Hydrocodone Bitart/Acetaminophen 1 tab 12/08/24 19:12 12/11/24 20:47 Hydrocodone/Acetaminophen (*Crx) 7.5-325 Mg Tablet PO 1 tab Q4H PRN Administration Pain Rated 7-10 Ascorbic Acid 500 mg 12/08/24 17:00 12/12/24 10:06 Ascorbic Acid 500 Mg Tablet PO 500 mg BID ALEXIS Administration Atorvastatin Calcium 10 mg 12/08/24 21:00 12/11/24 20:27 Atorvastatin 10 Mg Tablet PO 10 mg HS ALEXIS Administration Bisacodyl 10 mg 12/10/24 09:07 Bisacodyl 10 Mg Suppository RECTAL QAM PRN Constipation Duloxetine HCl 60 mg 12/08/24 17:00 12/12/24 10:06 Duloxetine Hcl 60 Mg Capsule.Dr PO 60 mg BID ALEXIS Administration Fentanyl Citrate 25 mcg 12/08/24 17:12 Fentanyl Citrate Inj (*Crx) 100 Mcg/2 Ml Vial IV PUSH Q2M PRN Pain Fluticasone Propionate 2 spray 12/08/24 11:45 12/12/24 10:14 Fluticasone Propionate 0.05% Na Spr 16 Gm Btl (*Bkc) NASAL 2 spray Q12HR ALEXIS Administration Ceftriaxone Sodium 2 gm/ 100 mls @ 200 mls/hr 12/10/24 21:00 12/11/24 20:27 Sodium Chloride IVPB 200 mls/hr Q24H ALEXIS Administration Vancomycin HCl 1,500 mg in 500 mls @ 250 mls/hr 12/11/24 16:00 12/12/24 04:17 Vancomycin 1,500 Mg/Ns 500 Ml IVPB 175 mls/hr Q12H ALEXIS Administration Loratadine 10 mg 12/09/24 09:00 12/12/24 10:06 Loratadine 10 Mg Tablet PO 10 mg QAM ALEXIS Administration Mirtazapine 7.5 mg 12/08/24 21:00 12/11/24 20:26 Mirtazapine 7.5 Mg Tablet PO 7.5 mg HS ALEXIS Administration Multivitamins Therapeutic 1 tablet 12/09/24 09:00 12/12/24 10:06 Multivitamins Therapeutic Tab (*Bkc) PO 1 tablet DAILY ALEXIS Administration Naloxone HCl 0.1 mg 12/08/24 19:12 Naloxone Hcl 0.4 Mg/Ml Vial IV PUSH Q2M PRN Opiate Reversal Ondansetron HCl 4 mg 12/08/24 19:12 Ondansetron Inj 4 Mg/2 Ml Vial IV PUSH Q4H PRN Nausea And Vomiting Polyethylene Glycol 17 gm 12/09/24 09:00 12/12/24 10:06 Polyethylene Glycol 3350 17 Gm Powd.Pack PO 17 gm QAM ALEXIS Administration Senna/Docusate Sodium 1 tab 12/11/24 17:00 12/12/24 10:05 Senna/Docusate Sodium Tablet PO 1 tab BID ALEXIS Administration Sodium Chloride 10 ml 12/10/24 14:00 12/12/24 04:18 Central Line Flush IV PUSH 10 ml Q8HR ALEXIS Administration Sodium Chloride 10 ml 12/10/24 10:28 Central Line Flush IV PUSH PRN PRN with TPN bag changes Sodium Chloride 20 ml 12/10/24 10:28 Central Line Flush IV PUSH PRN PRN after blood draws Sodium Chloride 10 ml 12/10/24 14:00 12/12/24 04:18 Central Line Flush IV PUSH 10 ml Q8HR ALEXIS Administration Sodium Chloride 10 ml 12/10/24 12:38 Central Line Flush IV PUSH PRN PRN with TPN bag changes Sodium Chloride 20 ml 12/10/24 12:38 Central Line Flush IV PUSH PRN PRN after blood draws Sodium Hypochlorite 1 applic 12/09/24 21:00 12/12/24 10:06 Sod Hypochlorite 1/4 Strength 473 Ml TOPICAL 1 applic Q12HR ALEXIS Administration Trazodone HCl 75 mg 12/08/24 21:00 12/11/24 20:27 Trazodone Hcl 25 Mg Tablet PO 75 mg HS ALEXIS Administration Vitamin D 50 mcg 12/09/24 09:00 12/12/24 10:06 Cholecalciferol (Vitamin D3) 25 Mcg (1,000 Units) Tablet PO 50 mcg DAILY ALEXIS Administration Zinc Sulfate 220 mg 12/10/24 12:00 12/12/24 10:06 Zinc Sulfate 220 Mg Capsule PO 220 mg DAILY ALEXIS Administration Radiology Results: ITS Impressions Abdomen/Pelvis CT 12/07/24 15:35 IMPRESSION: 1. Deep sacral decubitus ulcer with osteomyelitis along the caudal aspect of the sacrum which is new since the prior study. 2. Interval increase in size of a likely cavitary mass at the dependent left lower lobe which raises concern for malignancy. Would recommend CT-guided biopsy. 3. Smaller 1.3 x 1.0 cm nodule along a band of discoid atelectasis in the right lower lobe. Consider either short interval follow-up in 3 months or further evaluation with PET/CT. 4. Stable appearance of a subcapsular flat hypodense region along the dome of the liver suggestive of a collapsed cyst or region of scarring with multiple peripheral high attenuation foci, unclear whether calcifications or potentially embolization material. Correlate with clinical history and with any prior outside imaging for comparison. 5. Bilateral nonobstructing nephrolithiasis. 6. 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 There is urothelial enhancement at the lateral renal collecting systems suspicious for secondary ascending urinary tract infection. Correlate with urinalysis. Recurrent infections could account for the moderate atrophy with cortical scarring at the right kidney. 7. Large amount of stool in the sigmoid colon and rectum with associated wall thickening and perirectal stranding consistent with secondary stercoral colitis. 8. Couple ventral hernias, one containing fat and the second anterior wall of a short segment of nonobstructed proximal transverse colon. 9. Unchanged extensive high attenuation material within the thecal sac the lumbar and visualized lower thoracic spine suggesting retained Pantopaque. Correlate with clinical history. ADDENDUM: 12/07/24 1619 ADDENDUM: There is also a 1.8 x 1.5 cm left hilar lymph node which could be either reactive or metastatic. Chest CT 12/08/24 10:11 IMPRESSION: 1. There is a 4.2 x 3.9 x 3.3 cm spiculated mass in the left lower lobe posteriorly which is partially cavitated and extends to the pleura. A malignant process needs to be excluded. A biopsy is recommended. 2. There is a 3.0 x 0 1 x 5.1 cm lobulated masslike structure in the right lower lobe posteriorly which extends to the pleura. Evaluation is limited due to motion artifact. Differential includes atelectasis, pneumonia or malignancy. A PET/CT and/or biopsy is recommended. 3. No lymphadenopathy in the chest. 4. Tiny left-sided pleural effusion. 5. Left adrenal gland is prominent but unchanged. An adrenal mass MRI or PET/CT is recommended. Lung Biopsy CT 12/09/24 15:05 IMPRESSION: 1[address]-guided biopsy of a 3.1 x 2.5 cm left lower lobe mass. Chest X-Ray 12/09/24 15:28 IMPRESSION: No pleural effusion. No pneumothorax. Left lower lobe mass. Findings as above. Labs Labs: Laboratory Results - last 24 hr 12/11/24 12/12/24 12/12/24 15:06 04:14 05:30 WBC 8.2 RBC 3.14 L Hgb 8.5 L Hct 27.2 L MCV 86.6 MCH 27.1 MCHC 31.3 L RDW 14.3 Plt Count 414 H MPV 8.5 Sodium 136 L Potassium 2.6 L* Chloride 101 Carbon Dioxide 31 H Anion Gap 4 BUN 3 L Creatinine 0.40 L Estim Creat Clear Calc 87 Estimated GFR > 60 Glucose 104 Calcium 8.0 L Magnesium Cancelled 1.6 Total Bilirubin < 0.1 L AST 15 ALT 10 Alkaline Phosphatase 81 Total Protein 5.5 L Albumin 2.4 L Vancomycin Trough 18.9 Hospitalist MIPS Advance Care Plan I have confirmed that the patient's Advanced Care Plan is present, code status is documented, or surrogate decision maker is listed in patient medical record.: Yes Medication Reconciliation I have utilized all available resources to obtain, update and review the patients current medications (includes all prescriptions, OTC, herbals, cannabis, and nutritional supplements).: Yes
[2024-12-12] MEDS: POTASSIUM CHLORIDE 10 MEQ ER TABLET 40 MEQ PO (13:58)
[2024-12-12] MEDS: cefTRIAXone 2 GM in SODIUM CHLORIDE 0.9% IV 100 ML 200 ML IVPB (21:05)
[2024-12-12] MEDS: MIRTAZAPINE 7.5 MG TABLET PO (21:05)
[2024-12-12] MEDS: ATORVASTATIN 10 MG TABLET PO (21:05)
[2024-12-13] VITALS (9 sets, daily range): BP systolic 108–125; BP diastolic 57–68; PULSE 84–112; RESP 16–20; TEMP 35.9–36.6; O2SAT 90–100
[2024-12-13] MEDS: SOD HYPOCHLORITE 1/4 STRENGTH 473 ML 1 APPLIC TOPICAL ×2 (01:32→09:13)
[2024-12-13 04:57] LABS: Alanine Aminotransferase 9 U/L (6-35); Albumin Level 2.4 g/dL (3.5-5.1); Alkaline Phosphatase 83 U/L (38-126); Anion Gap 2 mmol/L (4-12); Aspartate Amino Transferase 20 U/L (14-36); Bilirubin,Total 0.2 mg/dL (0.2-1.3); Blood Urea Nitrogen 2 mg/dL (7-17); Calcium 7.9 mg/dL (8.4-10.2); Carbon Dioxide 30 mmol/L (22-30); Chloride 104 mmol/L (98-107); Estimated CRCL calculation 100 ml/min; Estimated Glomerular Filt Rate > 60; Glucose 97 mg/dL (65-110); Potassium 3.3 mmol/L (3.4-5.0); Sodium 136 mmol/L (137-145); Total Protein 5.3 g/dL (6.3-8.2)
[2024-12-13 05:36] LABS: Hematocrit 27.7 % (37.0-47.0); Hemoglobin 8.8 g/dL (12.0-15.0); Mean Corpuscular HGB Conc 31.8 g/dl (32-36); Mean Corpuscular Hemoglobin 27.3 pg (26-34); Mean Corpuscular Volume 86.0 fl (80-100); Platelet Count Result 432 k/mm3 (150-375); Red Blood Count 3.22 M/mm3 (4.2-5.4); White Blood Count 10.2 K/mm3 (4.5-10.0)
[2024-12-13] MEDS: CENTRAL LINE FLUSH 10 ML IV PUSH ×6 (06:45→22:13)
[2024-12-13] MEDS: VANCOMYCIN HCL 1,000 MG in SODIUM CHLORIDE 0.9% IV 250 ML 250 MG IVPB ×2 (09:11→22:12)
[2024-12-13] MEDS: ASCORBIC ACID 500 MG TABLET PO ×2 (09:11→16:20)
[2024-12-13] MEDS: ZINC SULFATE 220 MG CAPSULE PO (09:11)
[2024-12-13] MEDS: SENNA/DOCUSATE SODIUM TABLET 1 TAB PO ×2 (09:11→16:20)
[2024-12-13] MEDS: LORATADINE 10 MG TABLET PO (09:11)
[2024-12-13] MEDS: CHOLECALCIFEROL (VITAMIN D3) 25 MCG (1,000 UNITS) TABLET 50 MCG PO (09:11)
[2024-12-13] MEDS: MULTIVITAMINS THERAPEUTIC TAB (*BKC) 1 TABLET PO (09:11)
[2024-12-13] MEDS: DULoxetine HCL 60 MG CAPSULE.DR PO ×2 (09:11→16:19)
[2024-12-13] MEDS: FLUTICASONE PROPIONATE 0.05% NA SPR 16 GM BTL (*BKC) 2 SPRAY NASAL ×2 (09:12→20:16)
--- NOTE | 2024-12-13 10:19 | P.PNGS_ITS ---
Progress Note: A&P Assessment and Plan (1) Decubitus ulcer: Qualifiers: Pressure injury location: sacral region Pressure injury stage: unstageable Qualified Code(s): L89.150 - Pressure ulcer of sacral region, u nstageable Code(s): L89.90 - Pressure ulcer of unspecified site, unspecified stage Status: Acute Assessment and Plan: * S/p excisional debridement on 12/08. * Continue local wound care * Continue frequent turning/pressure offloading * Okay to discharge from a surgical standpoint back to the retirement with antibiotics per ID and wound care. F/u as needed. (2) Osteomyelitis: Qualifiers: Osteomyelitis location: other site Osteomyelitis type: unspecified type Qualified Code(s): M86.9 - Osteomyelitis, unspecified Code(s): M86.9 - Osteomyelitis, unspecified Status: Acute Assessment and Plan: * Biopsies confirmed osteomyelitis * Continue antibiotics per ID (3) Morbid obesity due to excess calories: Code(s): E66.01 - Morbid (severe) obesity due to excess calories Status: Acute (4) Stercoral colitis: Code(s): K52.89 - Other specified noninfective gastroenteritis and colitis Status: Acute (5) Presence of urostomy: Code(s): Z93.6 - Other artificial openings of urinary tract status Status: Acute Plan I have discussed the patient's case and plan of care with Dr. Olson. Subjective Subjective Date/Time Seen: 12/13/24 10:19 Patient reports: no new complaints and afebrile Interval history: No acute events over the weekend. Per nursing, no issues overnight and sacral dressing was changed this morning prior to my arrival. Nurse reports the wound appears stable, no purulent drainage or odor noted on dressing change. Patient denies pain and reports she is feeling well. Exam Narrative: Sacral wound with cover dressing in place, dry and intact. Const: General: comfortable and no acute distress Objective Data Vital Signs Vital Signs: Vital Signs - 24 hr 12/12/24 12:00 12/12/24 16:00 12/12/24 20:00 Temperature 97.4 F L 97.5 F L 97.6 F Pulse Rate 95 105 H 101 H Respiratory Rate 16 16 16 Blood Pressure 111/55 L 100/47 L 105/51 L Pulse Oximetry 97 98 96 Oxygen Delivery 12/12/24 20:00 12/12/24 20:00 12/12/24 20:47 Temperature Pulse Rate 110 H Respiratory Rate Blood Pressure Pulse Oximetry 97 Oxygen Delivery Room Air Room Air 12/13/24 00:00 12/13/24 04:00 12/13/24 04:00 Temperature 97.9 F Pulse Rate 99 93 100 Respiratory Rate 16 Blood Pressure 108/57 L Pulse Oximetry 97 Oxygen Delivery Intake/Output Intake/Output: Intake & Output 12/10/24 12/11/24 12/12/24 12/13/24 23:59 23:59 23:59 23:59 Intake Total 2046 1410 540 680 Output Total 350 1300 2150 Balance 1696 110 -1610 680 Meds/Results Medications: Active Medications Generic Name Dose Route Start Last Admin Trade Name Freq PRN Reason Stop Dose Admin Acetaminophen 650 mg 12/08/24 15:11 Acetaminophen 325 Mg Tablet BY MOUTH Q4H PRN mild pain Hydrocodone Bitart/Acetaminophen 1 tab 12/08/24 19:12 12/11/24 08:17 Hydrocodone/Acetaminophen (*Crx) 5-325 Mg Tablet PO 1 tab Q4H PRN Administration Pain Rated 4-6 Hydrocodone Bitart/Acetaminophen 1 tab 12/08/24 19:12 12/11/24 20:47 Hydrocodone/Acetaminophen (*Crx) 7.5-325 Mg Tablet PO 1 tab Q4H PRN Administration Pain Rated 7-10 Ascorbic Acid 500 mg 12/08/24 17:00 12/13/24 09:11 Ascorbic Acid 500 Mg Tablet PO 500 mg BID ALEXIS Administration Atorvastatin Calcium 10 mg 12/08/24 21:00 12/12/24 21:05 Atorvastatin 10 Mg Tablet PO 10 mg HS ALEXIS Administration Bisacodyl 10 mg 12/10/24 09:07 Bisacodyl 10 Mg Suppository RECTAL QAM PRN Constipation Duloxetine HCl 60 mg 12/08/24 17:00 12/13/24 09:11 Duloxetine Hcl 60 Mg Capsule.Dr PO 60 mg BID ALEXIS Administration Fentanyl Citrate 25 mcg 12/08/24 17:12 Fentanyl Citrate Inj (*Crx) 100 Mcg/2 Ml Vial IV PUSH Q2M PRN Pain Fluticasone Propionate 2 spray 12/08/24 11:45 12/13/24 09:12 Fluticasone Propionate 0.05% Na Spr 16 Gm Btl (*Bkc) NASAL 2 spray Q12HR ALEXIS Administration Ceftriaxone Sodium 2 gm/ 100 mls @ 200 mls/hr 12/10/24 21:00 12/12/24 21:35 Sodium Chloride IVPB Infused Q24H ALEXIS Infusion Vancomycin HCl 1,000 mg/ 250 mls @ 250 mls/hr 12/13/24 08:00 12/13/24 09:11 Sodium Chloride IVPB 250 mls/hr Q12H ALEXIS Administration Loratadine 10 mg 12/09/24 09:00 12/13/24 09:11 Loratadine 10 Mg Tablet PO 10 mg QAM ALEXIS Administration Mirtazapine 7.5 mg 12/08/24 21:00 12/12/24 21:05 Mirtazapine 7.5 Mg Tablet PO 7.5 mg HS ALEXIS Administration Multivitamins Therapeutic 1 tablet 12/09/24 09:00 12/13/24 09:11 Multivitamins Therapeutic Tab (*Bkc) PO 1 tablet DAILY ALEXIS Administration Naloxone HCl 0.1 mg 12/08/24 19:12 Naloxone Hcl 0.4 Mg/Ml Vial IV PUSH Q2M PRN Opiate Reversal Ondansetron HCl 4 mg 12/08/24 19:12 Ondansetron Inj 4 Mg/2 Ml Vial IV PUSH Q4H PRN Nausea And Vomiting Polyethylene Glycol 17 gm 12/09/24 09:00 12/13/24 09:11 Polyethylene Glycol 3350 17 Gm Powd.Pack PO 17 gm QAM ALEXIS Administration Senna/Docusate Sodium 1 tab 12/11/24 17:00 12/13/24 09:11 Senna/Docusate Sodium Tablet PO 1 tab BID ALEXIS Administration Sodium Chloride 10 ml 12/10/24 14:00 12/13/24 06:45 Central Line Flush IV PUSH 10 ml Q8HR ALEXIS Administration Sodium Chloride 10 ml 12/10/24 10:28 Central Line Flush IV PUSH PRN PRN with TPN bag changes Sodium Chloride 20 ml 12/10/24 10:28 Central Line Flush IV PUSH PRN PRN after blood draws Sodium Chloride 10 ml 12/10/24 14:00 12/13/24 06:45 Central Line Flush IV PUSH 10 ml Q8HR ALEXIS Administration Sodium Chloride 10 ml 12/10/24 12:38 Central Line Flush IV PUSH PRN PRN with TPN bag changes Sodium Chloride 20 ml 12/10/24 12:38 Central Line Flush IV PUSH PRN PRN after blood draws Sodium Hypochlorite 1 applic 12/09/24 21:00 12/13/24 09:13 Sod Hypochlorite 1/4 Strength 473 Ml TOPICAL 1 applic Q12HR ALEXIS Administration Trazodone HCl 75 mg 12/08/24 21:00 12/12/24 21:05 Trazodone Hcl 25 Mg Tablet PO 75 mg HS ALEXIS Administration Vitamin D 50 mcg 12/09/24 09:00 12/13/24 09:11 Cholecalciferol (Vitamin D3) 25 Mcg (1,000 Units) Tablet PO 50 mcg DAILY ALEXIS Administration Zinc Sulfate 220 mg 12/10/24 12:00 12/13/24 09:11 Zinc Sulfate 220 Mg Capsule PO 220 mg DAILY ALEXIS Administration Radiology Results: ITS Impressions Abdomen/Pelvis CT 12/07/24 15:35 IMPRESSION: 1. Deep sacral decubitus ulcer with osteomyelitis along the caudal aspect of the sacrum which is new since the prior study. 2. Interval increase in size of a likely cavitary mass at the dependent left lower lobe which raises concern for malignancy. Would recommend CT-guided biopsy. 3. Smaller 1.3 x 1.0 cm nodule along a band of discoid atelectasis in the right lower lobe. Consider either short interval follow-up in 3 months or further evaluation with PET/CT. 4. Stable appearance of a subcapsular flat hypodense region along the dome of the liver suggestive of a collapsed cyst or region of scarring with multiple peripheral high attenuation foci, unclear whether calcifications or potentially embolization material. Correlate with clinical history and with any prior outside imaging for comparison. 5. Bilateral nonobstructing nephrolithiasis. 6. 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 There is urothelial enhancement at the lateral renal collecting systems suspicious for secondary ascending urinary tract infection. Correlate with urinalysis. Recurrent infections could account for the moderate atrophy with cortical scarring at the right kidney. 7. Large amount of stool in the sigmoid colon and rectum with associated wall thickening and perirectal stranding consistent with secondary stercoral colitis. 8. Couple ventral hernias, one containing fat and the second anterior wall of a short segment of nonobstructed proximal transverse colon. 9. Unchanged extensive high attenuation material within the thecal sac the lumbar and visualized lower thoracic spine suggesting retained Pantopaque. Correlate with clinical history. ADDENDUM: 12/07/24 1619 ADDENDUM: There is also a 1.8 x 1.5 cm left hilar lymph node which could be either reactive or metastatic. Chest CT 12/08/24 10:11 IMPRESSION: 1. There is a 4.2 x 3.9 x 3.3 cm spiculated mass in the left lower lobe posteriorly which is partially cavitated and extends to the pleura. A malignant process needs to be excluded. A biopsy is recommended. 2. There is a 3.0 x 0 1 x 5.1 cm lobulated masslike structure in the right lower lobe posteriorly which extends to the pleura. Evaluation is limited due to motion artifact. Differential includes atelectasis, pneumonia or malignancy. A PET/CT and/or biopsy is recommended. 3. No lymphadenopathy in the chest. 4. Tiny left-sided pleural effusion. 5. Left adrenal gland is prominent but unchanged. An adrenal mass MRI or PET/CT is recommended. Lung Biopsy CT 12/09/24 15:05 IMPRESSION: 1[address] Successful CT-guided biopsy of a 3.1 x 2.5 cm left lower lobe mass. Chest X-Ray 12/09/24 15:28 IMPRESSION: No pleural effusion. No pneumothorax. Left lower lobe mass. Findings as above. Labs Labs: Laboratory Results - last 24 hr 12/12/24 12/13/24 12/13/24 15:07 04:30 05:22 WBC 10.2 H RBC 3.22 L Hgb 8.8 L Hct 27.7 L MCV 86.0 MCH 27.3 MCHC 31.8 L RDW 14.5 Plt Count 432 H MPV 8.7 Sodium 136 L Potassium 3.3 L Chloride 104 Carbon Dioxide 30 Anion Gap 2 L BUN 2 L Creatinine 0.34 L Estim Creat Clear Calc 100 Estimated GFR > 60 Glucose 97 Calcium 7.9 L Total Bilirubin 0.2 AST 20 ALT 9 Alkaline Phosphatase 83 Total Protein 5.3 L Albumin 2.4 L Vancomycin Trough 24.2 H 14.4
--- NOTE | 2024-12-13 12:06 | WPDIDCN ---
Assessment and Plan Assessment and plan (1) Sacral decubitus ulcer, stage IV: Code(s): L89.154 - Pressure ulcer of sacral region, stage 4 Status: Acute (2) Sacral osteomyelitis: Code(s): M46.28 - Osteomyelitis of vertebra, sacral and sacrococcygeal region Status: Acute (3) Spina bifida of lumbar spine: Qualifiers: Presence of hydrocephalus: unspecified hydrocephalus presence Qualified Code(s): Q05.7 - Lumbar spina bifida without hydrocephalus Code(s): Q05.7 - Lumbar spina bifida without hydrocephalus Status: Chronic (4) History of urostomy: Code(s): Z98.890 - Other specified postprocedural states Status: Acute (5) Adenosquamous carcinoma of lung: Code(s): C34.90 - Malignant neoplasm of unspecified part of unspecified bronchus or lung Status: Acute Plan # Progressive sacral decubitus ulcer with secondary SSTI and biopsy-proven acute osteomyelitis in the setting of paraplegia. # History of spina bifida. # New diagnosis of adenosquamous carcinoma of the lung. Plan: -- patient with spina bifida and limited mobility with intermittent transfer from bed to chair. Typically, patients who are completely bed ridden would best respond to a more limited course of antibiotics directed towards skin and soft tissue infection in addition to debridements source control. In this setting complete resolution of sacral osteomyelitis without recurrence is less likely. Individuals with acute osteomyelitis and some increased activity may warrant more aggressive and extended IV antibiotics up to 6 weeks in duration. Realize, however, complete resolution of wound and osteomyelitis may not be achieved. -- if an aggressive course of treatment requested patient already has PICC in place. No tissue cultures available to adjust antibiotic therapy. Would recommend changing ceftriaxone to ertapenem daily for broader empiric enterobacteria and anaerobic coverage along with continued vancomycin. -- perform weekly CBC, CMP, and CRP while on IV antibiotics. -- further recommendation to follow. Thank you for the consult. Patient was seen via video telehealth consultation with the assistance of staff. Chart, data, and patient independently reviewed. Patient was located at [facility] while I was located in my [place] office. Received verbal consent from patient. HPI Data of Consult Date/Time: 12/13/24 12:06 Requesting Physician: Crystal Haider MD Primary Care Provider: Jimmy Hayes, Consult Narrative Reason for consult: Antibiotic recommendations for treatment of sacral wound / osteomyelitis. Narrative: Sadia Toledo (Aniya) is a 79 year old female with a history of spina bifida , status post cystectomy with right lower quadrant ileal conduit formation, and hyperlipidemia, who presented to the ED 12/07/2024 from a [facility] for evaluation of progressive sacral pressure ulcer. Noted to have large sacral wound with white blood cell count around [address] of the abdomen and pelvis confirmed deep sacral decubitus ulcer with osteomyelitis along the caudal aspect of the sacrum, considered new. Additional finding of previously identified cavitary mass at the dependent left lower lobe, increased in size, raising concern for malignancy. reportedly allergic to penicillin and sulfa medications producing hives. Currently receiving ceftriaxone (after initial cefepime) and vancomycin. Status post 12/08/2024 Sharp excisional debridement of stage IV sacral decubitus ulcer measuring 10 cm x 6 cm including skin, subcutaneous fat, fascia, and bone. Tissue cultures not available. Pathology consistent with acute osteomyelitis. Also underwent CT-guided biopsy of cavitary lung lesion with pathology consistent with pulmonary adenosquamous carcinoma. Review of Systems Review of Systems: All systems reviewed & are unremarkable except as noted in HPI and below PMFSH Past Medical History Medical History Hyperlipidemia Depression with anxiety Spina bifida of lumbar spine Surgical History Surgical History History of hysterectomy History of tonsillectomy History of appendectomy History of urostomy Family History Family History Father Cancer Social History Social History Social History: Legal guardian: Daniella Chilel ([phone]). Code status: Do not resuscitate. Smoking status: Never smoker Alcohol intake: never Substance use: never Substance use type: does not use Do You Feel Safe in your Home?: Yes Lack of Transportation: No Lack of Food: Never True Current Housing: I Have Housing Concerned About Future Housing: No Difficulty Paying Gas/Electric Bills: No Difficulty Paying for Meds: No Currently Unemployed: No Education: Grade School Difficulty w/ Childcare or Family Care: No Spiritual care concerns: Yes Meds Home Medications and Allergies Home Medications ?Medication ?Instructions ?Recorded ?Confirmed ?Type acetaminophen 650 mg tablet 650 mg PO Q4H PRN mild pain 02/21/23 12/07/24 History atorvastatin 10 mg tablet 10 mg PO HS 02/21/23 12/07/24 History calcium 600 mg-D3 800 unit-mag 40 1 tablet PO BID 02/21/23 12/07/24 History ov-yihc-mffh-ledyi-boron chew tablet (Caltrate 600-D Plus Minerals) duloxetine 60 mg capsule,delayed 60 mg PO BID 02/21/23 12/07/24 History release fluticasone propionate 50 2 spray intranasal DAILY 02/21/23 12/07/24 History mcg/actuation nasal spray,suspension (Flonase Allergy Relief) furosemide 20 mg tablet (Lasix) 60 mg PO DAILY 02/21/23 12/07/24 History loratadine 10 mg tablet 10 mg PO DAILY 02/21/23 12/07/24 History magnesium hydroxide 400 mg/5 mL 400 mg PO HS PRN constipation if 02/21/23 12/07/24 History oral suspension no BM for 3 days nystatin 100,000 unit/gram topical 1 applic topical DAILY 02/21/23 12/07/24 History powder polyethylene glycol 3350 17 gram 17 g PO DAILY 02/21/23 12/07/24 History oral powder packet (Miralax) trazodone 100 mg tablet 75 mg PO HS 02/21/23 12/07/24 History cholecalciferol (vitamin D3) 50 50 mcg PO DAILY 07/08/24 12/07/24 History mcg (2,000 unit) capsule multivitamin (Daily Multi-Vitamin 1 tablet PO DAILY 07/08/24 12/07/24 History tablet) lactulose 10 gram/15 mL oral 10 g (15 mL) PO DAILY PRN 07/10/24 12/07/24 Rx solution constipation #473 mL ascorbic acid (vitamin C) 500 mg 500 mg PO BID 12/07/24 12/07/24 History chewable tablet (Acerola C) collagenase clostridium histo. 250 1 applic topical DAILY 12/07/24 12/07/24 History unit/gram topical ointment (Santyl) mirtazapine 7.5 mg tablet 7.5 mg PO HS 12/07/24 12/07/24 History ondansetron 4 mg disintegrating 4 mg PO Q6H PRN NAUSEA 12/07/24 12/07/24 History tablet zinc sulfate 50 mg zinc (220 mg) 50 mg PO DAILY 12/07/24 12/07/24 History capsule (Zinc-220) Allergies Allergy/AdvReac Type Severity Reaction Status Date / Time codeine Allergy Unknown Verified 12/08/24 16:55 NSAIDS (Non-Steroidal Allergy Unknown Verified 12/08/24 16:55 Anti-Inflamma Penicillins Allergy Hives Verified 12/08/24 16:55 Sulfa (Sulfonamide Allergy Hives Verified 12/08/24 16:55 Antibiotics) Vital Signs Vital Signs - 24 hr 12/12/24 16:00 12/12/24 20:00 12/12/24 20:00 Temperature 97.5 F L 97.6 F Pulse Rate 105 H 101 H Respiratory Rate 16 16 Blood Pressure 100/47 L 105/51 L Pulse Oximetry 98 96 Oxygen Delivery Room Air 12/12/24 20:00 12/12/24 20:47 12/13/24 00:00 Temperature Pulse Rate 110 H 99 Respiratory Rate Blood Pressure Pulse Oximetry 97 Oxygen Delivery Room Air 12/13/24 04:00 12/13/24 04:00 12/13/24 08:00 Temperature 97.9 F Pulse Rate 93 100 Respiratory Rate 16 Blood Pressure 108/57 L Pulse Oximetry 97 Oxygen Delivery Room Air Exam Narrative: Awake, alert, and interactive. Normocephalic and without conjunctivitis. No respiratory difficulty. Abdomen not significantly distended. Presence of sacral ulcer deep to bone. Telles catheter in place with clear urine. Right arm PICC in place. Results Labs 12/13/24 05:22 12/13/24 04:30 Labs: Short CBC 12/13/24 Range/Units 05:22 WBC 10.2 H (4.5-10.0) K/mm3 Hgb 8.8 L (12.0-15.0) g/dL Hct 27.7 L (37.0-47.0) % Plt Count 432 H (150-375) k/mm3 BMP 12/13/24 04:30 Sodium 136 L Potassium 3.3 L Chloride 104 Carbon Dioxide 30 BUN 2 L Creatinine 0.34 L Glucose 97 Calcium 7.9 L Liver Function 12/13/ Range/Units 04:30 Total Bilirubin 0.2 (0.2-1.3) mg/dL AST 20 (14-36) U/L ALT 9 (6-35) U/L Alkaline Phosphatase 83 (38-126) U/L Albumin 2.4 L (3.5-5.1) g/dL
--- NOTE | 2024-12-13 14:17 | P.PNIM_ITS ---
Progress Note: A&P Assessment and Plan (1) Depression with anxiety: Code(s): F41.8 - Other specified anxiety disorders Status: Acute (2) Hyperlipidemia: Code(s): E78.5 - Hyperlipidemia, unspecified Status: Acute (3) Morbid obesity due to excess calories: Code(s): E66.01 - Morbid (severe) obesity due to excess calories Status: Acute (4) Chronic constipation: Code(s): K59.09 - Other constipation Status: Acute (5) Stercoral colitis: Code(s): K52.89 - Other specified noninfective gastroenteritis and colitis Status: Acute (6) Acute hypokalemia: Code(s): E87.6 - Hypokalemia Status: Acute (7) History of urostomy: Code(s): Z98.890 - Other specified postprocedural states Status: Acute (8) Osteomyelitis: Qualifiers: Osteomyelitis location: other site Osteomyelitis type: unspecified type Qualified Code(s): M86.9 - Osteomyelitis, unspecified Code(s): M86.9 - Osteomyelitis, unspecified Status: Acute (9) Decubitus ulcer: Qualifiers: Pressure injury location: sacral region Pressure injury stage: unstageable Qualified Code(s): L89.150 - Pressure ulcer of sacral region, unstageable Code(s): L89.90 - Pressure ulcer of unspecified site, unspecified stage Status: Acute (10) Paraplegia: Code(s): G82.20 - Paraplegia, unspecified Status: Acute (11) Spina bifida of lumbar spine: Qualifiers: Presence of hydrocephalus: unspecified hydrocephalus presence Qualified Code(s): Q05.7 - Lumbar spina bifida without hydrocephalus Code(s): Q05.7 - Lumbar spina bifida without hydrocephalus Status: Chronic Plan Sacral decubitus ulcer with Osteomyelitis, infected wound Stage IV sacral decubitus ulcer Underwent I&Ds 12/08 pathology consistent with acute osteomyelitis Continue with Antibiotics vancomycin and Rocephin Follow cultures Surgery team on board. ID consulted Sepsis Leukocytosis, hypotension Plan as above Lung cavity/mass 4.2 x 3.9 x 3.3 cm spiculated mass in the left lower lobe posteriorly which is partially cavitated. A malignant process needs to be excluded. There is a 3.0 x 0 1 x 5.1 cm lobulated masslike structure in the right lower lobe posteriorly Pulmonary team on board. 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 Left adrenal gland is prominent but unchanged. An adrenal mass MRI or PET/CT as outpatient HLD Statin Depression [employer] meds hyponatremia monitor for now hypokalemia replet as needed continue to monitor Subjective Date/time seen: 12/13/24 14:17 Interval history: No overnight events reported. No new complaints. Denies any pain. No chest pain or shortness of breath. Review of Systems Review of Systems: All systems reviewed & are unremarkable except as noted in HPI and below Exam Narrative: APPEARANCE: No acute distress, nontoxic, resting in bed EYES: EOMI HEENT: Normocephalic, atraumatic, OMM RESPIRATORY: No respiratory distress Clear to auscultation bilaterally with no rhonchi wheezing or rales. CARDIOVASCULAR: Regular rate, regular rhythm without murmurs rubs or gallops. ABDOMINAL: Soft, nontender, Ostomy in place to the right lower quadrant. Ventral hernia noted MUSCULOSKELETAl: Moves all extremities. No clubbing, cyanosis or edema. NEURO: Awake and alert. Following commands, speech normal, no focal deficits SKIN:: stag 4 decubitus ulcer S/P I&Ds PSYCHIATRIC: Normal affect/mood, Objective Data Vital Signs Vital Signs: Vital Signs - 24 hr 12/12/24 16:00 12/12/24 20:00 12/12/24 20:00 Temperature 97.5 F L 97.6 F Pulse Rate 105 H 101 H Respiratory Rate 16 16 Blood Pressure 100/47 L 105/51 L Pulse Oximetry 98 96 Oxygen Delivery Room Air 12/12/24 20:00 12/12/24 20:47 12/13/24 00:00 Temperature Pulse Rate 110 H 99 Respiratory Rate Blood Pressure Pulse Oximetry 97 Oxygen Delivery Room Air 12/13/24 04:00 12/13/24 04:00 12/13/24 08:00 Temperature 97.9 F Pulse Rate 93 100 Respiratory Rate 16 Blood Pressure 108/57 L Pulse Oximetry 97 Oxygen Delivery Room Air 12/13/24 08:00 12/13/24 12:00 Temperature Pulse Rate 102 H 94 Respiratory Rate Blood Pressure Pulse Oximetry Oxygen Delivery Intake/Output Intake/Output: Intake & Output 12/10/24 12/11/24 12/12/24 12/13/24 23:59 23:59 23:59 23:59 Intake Total 2046 1410 540 920 Output Total 350 1300 2150 Balance 1696 110 -1610 920 Meds/Results Medications: Active Medications Generic Name Dose Route Start Last Admin Trade Name Freq PRN Reason Stop Dose Admin Acetaminophen 650 mg 12/08/24 15:11 Acetaminophen 325 Mg Tablet BY MOUTH Q4H PRN mild pain Hydrocodone Bitart/Acetaminophen 1 tab 12/08/24 19:12 12/11/24 08:17 Hydrocodone/Acetaminophen (*Crx) 5-325 Mg Tablet PO 1 tab Q4H PRN Administration Pain Rated 4-6 Hydrocodone Bitart/Acetaminophen 1 tab 12/08/24 19:12 12/11/24 20:47 Hydrocodone/Acetaminophen (*Crx) 7.5-325 Mg Tablet PO 1 tab Q4H PRN Administration Pain Rated 7-10 Ascorbic Acid 500 mg 12/08/24 17:00 12/13/24 09:11 Ascorbic Acid 500 Mg Tablet PO 500 mg BID ALEXIS Administration Atorvastatin Calcium 10 mg 12/08/24 21:00 12/12/24 21:05 Atorvastatin 10 Mg Tablet PO 10 mg HS ALEXIS Administration Bisacodyl 10 mg 12/10/24 09:07 Bisacodyl 10 Mg Suppository RECTAL QAM PRN Constipation Duloxetine HCl 60 mg 12/08/24 17:00 12/13/24 09:11 Duloxetine Hcl 60 Mg Capsule.Dr PO 60 mg BID ALEXIS Administration Fentanyl Citrate 25 mcg 12/08/24 17:12 Fentanyl Citrate Inj (*Crx) 100 Mcg/2 Ml Vial IV PUSH Q2M PRN Pain Fluticasone Propionate 2 spray 12/08/24 11:45 12/13/24 09:12 Fluticasone Propionate 0.05% Na Spr 16 Gm Btl (*Bkc) NASAL 2 spray Q12HR ALEXIS Administration Vancomycin HCl 1,000 mg/ 250 mls @ 250 mls/hr 12/13/24 08:00 12/13/24 09:11 Sodium Chloride IVPB 250 mls/hr Q12H ALEXIS Administration Ertapenem 1 gm/ Sodium 50 mls @ 100 mls/hr 12/13/24 21:00 Chloride IVPB Q24H ALEXIS Loratadine 10 mg 12/09/24 09:00 12/13/24 09:11 Loratadine 10 Mg Tablet PO 10 mg QAM ALEXIS Administration Mirtazapine 7.5 mg 12/08/24 21:00 12/12/24 21:05 Mirtazapine 7.5 Mg Tablet PO 7.5 mg HS ALEXIS Administration Multivitamins Therapeutic 1 tablet 12/09/24 09:00 12/13/24 09:11 Multivitamins Therapeutic Tab (*Bkc) PO 1 tablet DAILY ALEXIS Administration Naloxone HCl 0.1 mg 12/08/24 19:12 Naloxone Hcl 0.4 Mg/Ml Vial IV PUSH Q2M PRN Opiate Reversal Ondansetron HCl 4 mg 12/08/24 19:12 Ondansetron Inj 4 Mg/2 Ml Vial IV PUSH Q4H PRN Nausea And Vomiting Polyethylene Glycol 17 gm 12/09/24 09:00 12/13/24 09:11 Polyethylene Glycol 3350 17 Gm Powd.Pack PO 17 gm QAM ALEXIS Administration Senna/Docusate Sodium 1 tab 12/11/24 17:00 12/13/24 09:11 Senna/Docusate Sodium Tablet PO 1 tab BID ALEXIS Administration Sodium Chloride 10 ml 12/10/24 14:00 12/13/24 13:53 Central Line Flush IV PUSH 10 ml Q8HR ALEXIS Administration Sodium Chloride 10 ml 12/10/24 10:28 Central Line Flush IV PUSH PRN PRN with TPN bag changes Sodium Chloride 20 ml 12/10/24 10:28 Central Line Flush IV PUSH PRN PRN after blood draws Sodium Chloride 10 ml 12/10/24 14:00 12/13/24 13:53 Central Line Flush IV PUSH 10 ml Q8HR ALEXIS Administration Sodium Chloride 10 ml 12/10/24 12:38 Central Line Flush IV PUSH PRN PRN with TPN bag changes Sodium Chloride 20 ml 12/10/24 12:38 Central Line Flush IV PUSH PRN PRN after blood draws Sodium Hypochlorite 1 applic 12/09/24 21:00 12/13/24 09:13 Sod Hypochlorite 1/4 Strength 473 Ml TOPICAL 1 applic Q12HR ALEXIS Administration Trazodone HCl 75 mg 12/08/24 21:00 12/12/24 21:05 Trazodone Hcl 25 Mg Tablet PO 75 mg HS ALEXIS Administration Vitamin D 50 mcg 12/09/24 09:00 12/13/24 09:11 Cholecalciferol (Vitamin D3) 25 Mcg (1,000 Units) Tablet PO 50 mcg DAILY ALEXIS Administration Zinc Sulfate 220 mg 12/10/24 12:00 12/13/24 09:11 Zinc Sulfate 220 Mg Capsule PO 220 mg DAILY ALEXIS Administration Radiology Results: ITS Impressions Abdomen/Pelvis CT 12/07/24 15:35 IMPRESSION: 1. Deep sacral decubitus ulcer with osteomyelitis along the caudal aspect of the sacrum which is new since the prior study. 2. Interval increase in size of a likely cavitary mass at the dependent left lower lobe which raises concern for malignancy. Would recommend CT-guided biopsy. 3. Smaller 1.3 x 1.0 cm nodule along a band of discoid atelectasis in the right lower lobe. Consider either short interval follow-up in 3 months or further evaluation with PET/CT. 4. Stable appearance of a subcapsular flat hypodense region along the dome of the liver suggestive of a collapsed cyst or region of scarring with multiple peripheral high attenuation foci, unclear whether calcifications or potentially embolization material. Correlate with clinical history and with any prior outside imaging for comparison. 5. Bilateral nonobstructing nephrolithiasis. 6. 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 There is urothelial enhancement at the lateral renal collecting systems suspicious for secondary ascending urinary tract infection. Correlate with urinalysis. Recurrent infections could account for the moderate atrophy with cortical scarring at the right kidney. 7. Large amount of stool in the sigmoid colon and rectum with associated wall thickening and perirectal stranding consistent with secondary stercoral colitis. 8. Couple ventral hernias, one containing fat and the second anterior wall of a short segment of nonobstructed proximal transverse colon. 9. Unchanged extensive high attenuation material within the thecal sac the lumbar and visualized lower thoracic spine suggesting retained Pantopaque. Correlate with clinical history. ADDENDUM: 12/07/24 7099 ADDENDUM: There is also a 1.8 x 1.5 cm left hilar lymph node which could be either reactive or metastatic. Chest CT 12/08/24 10:11 IMPRESSION: 1. There is a 4.2 x 3.9 x 3.3 cm spiculated mass in the left lower lobe posteriorly which is partially cavitated and extends to the pleura. A malignant process needs to be excluded. A biopsy is recommended. 2. There is a 3.0 x 0 1 x 5.1 cm lobulated masslike structure in the right lower lobe posteriorly which extends to the pleura. Evaluation is limited due to motion artifact. Differential includes atelectasis, pneumonia or malignancy. A PET/CT and/or biopsy is recommended. 3. No lymphadenopathy in the chest. 4. Tiny left-sided pleural effusion. 5. Left adrenal gland is prominent but unchanged. An adrenal mass MRI or PET/CT is recommended. Lung Biopsy CT 12/09/24 15:05 IMPRESSION: 1[address] Successful CT-guided biopsy of a 3.1 x 2.5 cm left lower lobe mass. Chest X-Ray 12/09/24 15:28 IMPRESSION: No pleural effusion. No pneumothorax. Left lower lobe mass. Findings as above. Labs Labs: Laboratory Results - last 24 hr 12/12/24 12/13/24 12/13/24 15:07 04:30 05:22 WBC 10.2 H RBC 3.22 L Hgb 8.8 L Hct 27.7 L MCV 86.0 MCH 27.3 MCHC 31.8 L RDW 14.5 Plt Count 432 H MPV 8.7 Sodium 136 L Potassium 3.3 L Chloride 104 Carbon Dioxide 30 Anion Gap 2 L BUN 2 L Creatinine 0.34 L Estim Creat Clear Calc 100 Estimated GFR > 60 Glucose 97 Calcium 7.9 L Total Bilirubin 0.2 AST 20 ALT 9 Alkaline Phosphatase 83 Total Protein 5.3 L Albumin 2.4 L Vancomycin Trough 24.2 H 14.4
[2024-12-13] MEDS: POTASSIUM CHLORIDE 10 MEQ ER TABLET 40 MEQ PO (16:20)
[2024-12-13] MEDS: ATORVASTATIN 10 MG TABLET PO (20:15)
[2024-12-13] MEDS: MIRTAZAPINE 7.5 MG TABLET PO (20:15)
[2024-12-13] MEDS: ERTAPENEM SODIUM 1 GM in SODIUM CHLORIDE 0.9% IV 50 ML 100 ML IVPB (20:15)
[2024-12-13] MEDS: HYDROcodone/acetaminophen (*CRX) 5-325 MG TABLET 1 TAB PO (20:37)
[2024-12-14] VITALS (9 sets, daily range): BP systolic 80–128; BP diastolic 50–61; PULSE 89–107; RESP 18–20; TEMP 35.8–36.2; O2SAT 90–100
[2024-12-14] MEDS: SOD HYPOCHLORITE 1/4 STRENGTH 473 ML 1 APPLIC TOPICAL ×2 (01:00→18:13)
[2024-12-14 04:22] LABS: Hematocrit 28.3 % (37.0-47.0); Hemoglobin 8.8 g/dL (12.0-15.0); Immature Granulocyte Percent A 0.9 % (0-0.5); Lymphocytes Absolute Auto 2.77 K/mm3 (0.9-3.2); Mean Corpuscular HGB Conc 31.1 g/dl (32-36); Mean Corpuscular Hemoglobin 27.0 pg (26-34); Mean Corpuscular Volume 86.8 fl (80-100); Nucleated Red Blood Cells Absolute Auto 0.000 K/mm3 (0.0-0.012); Nucleated Red Blood Cells Perc 0.0 % (0.0-0.2); Platelet Count Result 440 k/mm3 (150-375); Red Blood Count 3.26 M/mm3 (4.2-5.4); White Blood Count 12.5 K/mm3 (4.5-10.0)
[2024-12-14 04:51] LABS: Alanine Aminotransferase 10 U/L (6-35); Albumin Level 2.5 g/dL (3.5-5.1); Alkaline Phosphatase 95 U/L (38-126); Anion Gap 1 mmol/L (4-12); Aspartate Amino Transferase 22 U/L (14-36); Bilirubin,Total 0.2 mg/dL (0.2-1.3); Blood Urea Nitrogen 4 mg/dL (7-17); Calcium 8.1 mg/dL (8.4-10.2); Carbon Dioxide 33 mmol/L (22-30); Chloride 101 mmol/L (98-107); Estimated CRCL calculation 85 ml/min; Estimated Glomerular Filt Rate > 60; Glucose 102 mg/dL (65-110); Magnesium 1.7 mg/dL (1.6-2.3); Potassium 3.3 mmol/L (3.4-5.0); Sodium 135 mmol/L (137-145); Total Protein 5.5 g/dL (6.3-8.2)
[2024-12-14] MEDS: CENTRAL LINE FLUSH 10 ML IV PUSH ×6 (06:26→20:25)
[2024-12-14] MEDS: DULoxetine HCL 60 MG CAPSULE.DR PO ×2 (08:49→17:09)
[2024-12-14] MEDS: MULTIVITAMINS THERAPEUTIC TAB (*BKC) 1 TABLET PO (08:49)
[2024-12-14] MEDS: ZINC SULFATE 220 MG CAPSULE PO (08:49)
[2024-12-14] MEDS: CHOLECALCIFEROL (VITAMIN D3) 25 MCG (1,000 UNITS) TABLET 50 MCG PO (08:49)
[2024-12-14] MEDS: LORATADINE 10 MG TABLET PO (08:49)
[2024-12-14] MEDS: ASCORBIC ACID 500 MG TABLET PO ×2 (08:50→17:09)
[2024-12-14] MEDS: FLUTICASONE PROPIONATE 0.05% NA SPR 16 GM BTL (*BKC) 2 SPRAY NASAL ×2 (08:50→20:25)
[2024-12-14] MEDS: VANCOMYCIN 750 MG/NS 250 ML 750 MG/250 ML BAG 250 MG IVPB (08:50)
--- NOTE | 2024-12-14 09:23 | PCNWS ---
Weekly nutritional screen. Patient is tolerating current Regular diet with adequate intake at 75-100%. No weight loss reported. No nutritional recommendations at this time.
--- NOTE | 2024-12-14 10:57 | WPDINFPN2 ---
Progress Note: A&P Assessment and Plan (1) Sacral decubitus ulcer, stage IV: Code(s): L89.154 - Pressure ulcer of sacral region, stage 4 Status: Acute (2) Sacral osteomyelitis: Code(s): M46.28 - Osteomyelitis of vertebra, sacral and sacrococcygeal region Status: Acute (3) Spina bifida of lumbar spine: Code(s): Q05.7 - Lumbar spina bifida without hydrocephalus Status: Chronic (4) History of urostomy: Code(s): Z98.890 - Other specified postprocedural states Status: Acute (5) Adenosquamous carcinoma of lung: Code(s): C34.90 - Malignant neoplasm of unspecified part of unspecified bronchus or lung Status: Acute Plan # Progressive sacral decubitus ulcer with secondary SSTI and biopsy-proven acute osteomyelitis in the setting of paraplegia. -- presentation wound culture positive ESBL and MDR Proteus mirabilis. Sensitive to meropenem and ertapenem. # History of spina bifida. # New diagnosis of adenosquamous carcinoma of the lung. Plan: -- patient with spina bifida and limited mobility with intermittent transfer from bed to chair. Typically, patients who are completely bed ridden would best respond to a more limited course of antibiotics directed towards skin and soft tissue infection in addition to debridements source control. In this setting, complete resolution of sacral osteomyelitis without recurrence is less likely. Individuals with acute osteomyelitis and some increased activity may warrant more aggressive and extended IV antibiotics up to 6 weeks in duration. Realize, however, complete resolution of wound and osteomyelitis may not be achieved. -- if an aggressive course of treatment requested patient already has PICC in place. No tissue cultures available. Wound culture obtained on presentation and positive for ESBL and MDR Proteus mirabilis - - although less reliable the tissue culture will direct therapy toward this organism. Currently receiving ertapenem And would continue times 42 days. -- discontinue vancomycin. -- perform weekly CBC, CMP, and CRP while on IV antibiotics. -- further recommendation to follow. Patient was seen via video telehealth consultation with the assistance of staff. Chart, data, and patient independently reviewed. Patient was located at [facility] while I was located in my [place] office. Received verbal consent from patient. Subjective Date/time seen: 12/14/24 10:57 Interval history: 12/14/2024: Afebrile and vital signs stable. has a right arm PICC. Wound culture 12/07: ESBL and MDR Proteus mirabilis sensitive to meropenem, tetracycline, and Bactrim. Review of Systems Review of Systems: All systems reviewed & are unremarkable except as noted in HPI and below Exam Narrative: Awake, alert, and interactive. Normocephalic and without conjunctivitis. No respiratory difficulty. Abdomen not significantly distended. Presence of sacral ulcer deep to bone. Telles catheter in place with clear urine. Right arm PICC in place. Objective Data Vital Signs Vital Signs: Vital Signs - 24 hr 12/13/24 12:00 12/13/24 12:00 12/13/24 16:00 Temperature 96.6 F L Pulse Rate 94 112 H 107 H Respiratory Rate 16 Blood Pressure 125/68 Pulse Oximetry 100 Oxygen Delivery Fraction of Inspired Oxygen 12/13/24 16:00 12/13/24 18:54 12/13/24 19:50 Temperature 97 F L Pulse Rate 103 H 84 Respiratory Rate 18 20 Blood Pressure 121/58 L Pulse Oximetry 96 90 Oxygen Delivery Room Air Fraction of Inspired Oxygen 21 12/13/24 20:00 12/13/24 21:00 12/14/24 00:00 Temperature 97.6 F Pulse Rate 107 H 109 H 102 H Respiratory Rate 16 Blood Pressure 115/59 L Pulse Oximetry 98 Oxygen Delivery Fraction of Inspired Oxygen 12/14/24 01:00 12/14/24 04:00 12/14/24 06:10 Temperature 96.6 F L 96.4 F L Pulse Rate 100 98 103 H Respiratory Rate 20 18 Blood Pressure 114/60 122/57 L Pulse Oximetry 97 100 Oxygen Delivery Fraction of Inspired Oxygen 12/14/24 08:00 Temperature Pulse Rate 89 Respiratory Rate 20 Blood Pressure Pulse Oximetry 90 Oxygen Delivery Room Air Fraction of Inspired Oxygen Intake/Output Intake/Output: Intake & Output 12/11/24 12/12/24 12/13/24 12/14/24 23:59 23:59 23:59 23:59 Intake Total 5056 926 4040 790 Output Total 1300 2150 1800 625 Balance 110 -1610 410 165 Meds/Results Medications: Active Medications Generic Name Dose Route Start Last Admin Trade Name Freq PRN Reason Stop Dose Admin Acetaminophen 650 mg 12/08/24 15:11 Acetaminophen 325 Mg Tablet BY MOUTH Q4H PRN mild pain Hydrocodone Bitart/Acetaminophen 1 tab 12/08/24 19:12 12/13/24 20:37 Hydrocodone/Acetaminophen (*Crx) 5-325 Mg Tablet PO 1 tab Q4H PRN Administration Pain Rated 4-6 Hydrocodone Bitart/Acetaminophen 1 tab 12/08/24 19:12 12/11/24 20:47 Hydrocodone/Acetaminophen (*Crx) 7.5-325 Mg Tablet PO 1 tab Q4H PRN Administration Pain Rated 7-10 Ascorbic Acid 500 mg 12/08/24 17:00 12/14/24 08:50 Ascorbic Acid 500 Mg Tablet PO 500 mg BID ALEXIS Administration Atorvastatin Calcium 10 mg 12/08/24 21:00 12/13/24 20:15 Atorvastatin 10 Mg Tablet PO 10 mg HS ALEXIS Administration Bisacodyl 10 mg 12/10/24 09:07 Bisacodyl 10 Mg Suppository RECTAL QAM PRN Constipation Duloxetine HCl 60 mg 12/08/24 17:00 12/14/24 08:49 Duloxetine Hcl 60 Mg Capsule.Dr PO 60 mg BID ALEXIS Administration Fentanyl Citrate 25 mcg 12/08/24 17:12 Fentanyl Citrate Inj (*Crx) 100 Mcg/2 Ml Vial IV PUSH Q2M PRN Pain Fluticasone Propionate 2 spray 12/08/24 11:45 12/14/24 08:50 Fluticasone Propionate 0.05% Na Spr 16 Gm Btl (*Bkc) NASAL 2 spray Q12HR ALEXIS Administration Ertapenem 1 gm/ Sodium 50 mls @ 100 mls/hr 12/13/24 21:00 12/13/24 20:45 Chloride IVPB Infused Q24H ALEXIS Infusion Vancomycin HCl 750 mg in 250 mls @ 250 mls/hr 12/14/24 09:00 12/14/24 08:50 Vancomycin 750 Mg/Ns 250 Ml IVPB 250 mls/hr Q12H ALEXIS Administration Loratadine 10 mg 12/09/24 09:00 12/14/24 08:49 Loratadine 10 Mg Tablet PO 10 mg QAM ALEXIS Administration Mirtazapine 7.5 mg 12/08/24 21:00 12/13/24 20:15 Mirtazapine 7.5 Mg Tablet PO 7.5 mg HS ALEXIS Administration Multivitamins Therapeutic 1 tablet 12/09/24 09:00 12/14/24 08:49 Multivitamins Therapeutic Tab (*Bkc) PO 1 tablet DAILY ALEXIS Administration Naloxone HCl 0.1 mg 12/08/24 19:12 Naloxone Hcl 0.4 Mg/Ml Vial IV PUSH Q2M PRN Opiate Reversal Ondansetron HCl 4 mg 12/08/24 19:12 Ondansetron Inj 4 Mg/2 Ml Vial IV PUSH Q4H PRN Nausea And Vomiting Polyethylene Glycol 17 gm 12/09/24 09:00 12/13/24 09:11 Polyethylene Glycol 3350 17 Gm Powd.Pack PO 17 gm QAM ALEXIS Administration Senna/Docusate Sodium 1 tab 12/11/24 17:00 12/13/24 16:20 Senna/Docusate Sodium Tablet PO 1 tab BID ALEXIS Administration Sodium Chloride 10 ml 12/10/24 14:00 12/14/24 06:26 Central Line Flush IV PUSH 10 ml Q8HR ALEXIS Administration Sodium Chloride 10 ml 12/10/24 10:28 Central Line Flush IV PUSH PRN PRN with TPN bag changes Sodium Chloride 20 ml 12/10/24 10:28 Central Line Flush IV PUSH PRN PRN after blood draws Sodium Chloride 10 ml 12/10/24 14:00 12/14/24 06:26 Central Line Flush IV PUSH 10 ml Q8HR ALEXIS Administration Sodium Chloride 10 ml 12/10/24 12:38 Central Line Flush IV PUSH PRN PRN with TPN bag changes Sodium Chloride 20 ml 12/10/24 12:38 Central Line Flush IV PUSH PRN PRN after blood draws Sodium Hypochlorite 1 applic 12/09/24 21:00 12/14/24 01:00 Sod Hypochlorite 1/4 Strength 473 Ml TOPICAL 1 applic Q12HR ALEXIS Administration Trazodone HCl 75 mg 12/08/24 21:00 12/13/24 20:15 Trazodone Hcl 25 Mg Tablet PO 75 mg HS ALEXIS Administration Vitamin D 50 mcg 12/09/24 09:00 12/14/24 08:49 Cholecalciferol (Vitamin D3) 25 Mcg (1,000 Units) Tablet PO 50 mcg DAILY ALEXIS Administration Zinc Sulfate 220 mg 12/10/24 12:00 12/14/24 08:49 Zinc Sulfate 220 Mg Capsule PO 220 mg DAILY ALEXIS Administration Radiology Results: ITS Impressions Abdomen/Pelvis CT 12/07/24 15:35 IMPRESSION: 1. Deep sacral decubitus ulcer with osteomyelitis along the caudal aspect of the sacrum which is new since the prior study. 2. Interval increase in size of a likely cavitary mass at the dependent left lower lobe which raises concern for malignancy. Would recommend CT-guided biopsy. 3. Smaller 1.3 x 1.0 cm nodule along a band of discoid atelectasis in the right lower lobe. Consider either short interval follow-up in 3 months or further evaluation with PET/CT. 4. Stable appearance of a subcapsular flat hypodense region along the dome of the liver suggestive of a collapsed cyst or region of scarring with multiple peripheral high attenuation foci, unclear whether calcifications or potentially embolization material. Correlate with clinical history and with any prior outside imaging for comparison. 5. Bilateral nonobstructing nephrolithiasis. 6. 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 There is urothelial enhancement at the lateral renal collecting systems suspicious for secondary ascending urinary tract infection. Correlate with urinalysis. Recurrent infections could account for the moderate atrophy with cortical scarring at the right kidney. 7. Large amount of stool in the sigmoid colon and rectum with associated wall thickening and perirectal stranding consistent with secondary stercoral colitis. 8. Couple ventral hernias, one containing fat and the second anterior wall of a short segment of nonobstructed proximal transverse colon. 9. Unchanged extensive high attenuation material within the thecal sac the lumbar and visualized lower thoracic spine suggesting retained Pantopaque. Correlate with clinical history. ADDENDUM: 12/07/24 1619 ADDENDUM: There is also a 1.8 x 1.5 cm left hilar lymph node which could be either reactive or metastatic. Chest CT 12/08/24 10:11 IMPRESSION: 1. There is a 4.2 x 3.9 x 3.3 cm spiculated mass in the left lower lobe posteriorly which is partially cavitated and extends to the pleura. A malignant process needs to be excluded. A biopsy is recommended. 2. There is a 3.0 x 0 1 x 5.1 cm lobulated masslike structure in the right lower lobe posteriorly which extends to the pleura. Evaluation is limited due to motion artifact. Differential includes atelectasis, pneumonia or malignancy. A PET/CT and/or biopsy is recommended. 3. No lymphadenopathy in the chest. 4. Tiny left-sided pleural effusion. 5. Left adrenal gland is prominent but unchanged. An adrenal mass MRI or PET/CT is recommended. Lung Biopsy CT 12/09/24 15:05 IMPRESSION: 1[address] Successful CT-guided biopsy of a 3.1 x 2.5 cm left lower lobe mass. Chest X-Ray 12/09/24 15:28 IMPRESSION: No pleural effusion. No pneumothorax. Left lower lobe mass. Findings as above. Labs Labs: Laboratory Results - last 24 hr 12/07/24 12/14/24 20:00 04:14 WBC 12.5 H RBC 3.26 L Hgb 8.8 L Hct 28.3 L MCV 86.8 MCH 27.0 MCHC 31.1 L RDW 14.4 Plt Count 440 H MPV 8.4 Immature Gran % (Auto) 0.9 H Neut % (Auto) 65.3 Lymph % (Auto) 22.2 [place] % (Auto) 7.1 Eos % (Auto) 4.3 Baso % (Auto) 0.2 Lymph # (Auto) 2.77 [place] # (Auto) 0.9 H Eos # (Auto) 0.5 H Baso # (Auto) 0.0 Abs Immat Gran (auto) 0.11 H Absolute Neuts (auto) 8.1 H Absolute Nucleated RBC 0.000 Nucleated RBC % 0.0 Sodium 135 L Potassium 3.3 L Chloride 101 Carbon Dioxide 33 H Anion Gap 1 L BUN 4 L Creatinine 0.41 L Estim Creat Clear Calc 85 Estimated GFR > 60 Glucose 102 Calcium 8.1 L Magnesium 1.7 Total Bilirubin 0.2 AST 22 ALT 10 Alkaline Phosphatase 95 Total Protein 5.5 L Albumin 2.5 L Vancomycin Trough 22.0 H Miscellaneous Test Comment
--- NOTE | 2024-12-14 12:55 | P.PNIM_ITS ---
Progress Note: A&P Assessment and Plan (1) Depression with anxiety: Code(s): F41.8 - Other specified anxiety disorders Status: Acute (2) Hyperlipidemia: Code(s): E78.5 - Hyperlipidemia, unspecified Status: Acute (3) Morbid obesity due to excess calories: Code(s): E66.01 - Morbid (severe) obesity due to excess calories Status: Acute (4) Chronic constipation: Code(s): K59.09 - Other constipation Status: Acute (5) Stercoral colitis: Code(s): K52.89 - Other specified noninfective gastroenteritis and colitis Status: Acute (6) Acute hypokalemia: Code(s): E87.6 - Hypokalemia Status: Acute (7) History of urostomy: Code(s): Z98.890 - Other specified postprocedural states Status: Acute (8) Osteomyelitis: Qualifiers: Osteomyelitis location: other site Osteomyelitis type: unspecified type Qualified Code(s): M86.9 - Osteomyelitis, unspecified Code(s): M86.9 - Osteomyelitis, unspecified Status: Acute (9) Decubitus ulcer: Qualifiers: Pressure injury location: sacral region Pressure injury stage: unstageable Qualified Code(s): L89.150 - Pressure ulcer of sacral region, unstageable Code(s): L89.90 - Pressure ulcer of unspecified site, unspecified stage Status: Acute (10) Paraplegia: Code(s): G82.20 - Paraplegia, unspecified Status: Acute (11) Spina bifida of lumbar spine: Qualifiers: Presence of hydrocephalus: unspecified hydrocephalus presence Qualified Code(s): Q05.7 - Lumbar spina bifida without hydrocephalus Code(s): Q05.7 - Lumbar spina bifida without hydrocephalus Status: Chronic Plan Sacral decubitus ulcer with Osteomyelitis, infected wound Stage IV sacral decubitus ulcer Underwent I&Ds 12/08 pathology consistent with acute osteomyelitis Continue with Antibiotics vancomycin and Rocephin Follow cultures Surgery team on board. ID consulted Wound culture on arrival to ED: Proteus mirabilis probable ESBL Rocephin has been switched to ertapenem 12/13/2024 Sepsis Leukocytosis, hypotension Plan as above Lung cavity/mass 4.2 x 3.9 x 3.3 cm spiculated mass in the left lower lobe posteriorly which is partially cavitated. A malignant process needs to be excluded. There is a 3.0 x 0 1 x 5.1 cm lobulated masslike structure in the right lower lobe posteriorly Pulmonary team on board. 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 Follow-up with Oncology as outpatient basis. Left adrenal gland is prominent but unchanged. An adrenal mass MRI or PET/CT as outpatient HLD Statin Depression [employer] meds hyponatremia monitor for now hypokalemia replet as needed continue to monitor Subjective Date/time seen: 12/14/24 12:55 Interval history: No overnight events. Denies any new complaints. No chest pain or shortness of breath. Review of Systems Review of Systems: All systems reviewed & are unremarkable except as noted in HPI and below Exam Narrative: APPEARANCE: No acute distress, nontoxic, resting in bed EYES: EOMI HEENT: Normocephalic, atraumatic, OMM RESPIRATORY: No respiratory distress Clear to auscultation bilaterally with no rhonchi wheezing or rales. CARDIOVASCULAR: Regular rate, regular rhythm without murmurs rubs or gallops. ABDOMINAL: Soft, nontender, Ostomy in place to the right lower quadrant. Ventral hernia noted MUSCULOSKELETAl: Moves all extremities. No clubbing, cyanosis or edema. NEURO: Awake and alert. Following commands, speech normal, no focal deficits SKIN:: stag 4 decubitus ulcer S/P I&Ds PSYCHIATRIC: Normal affect/mood, Objective Data Vital Signs Vital Signs: Vital Signs - 24 hr 12/13/24 16:00 12/13/24 16:00 12/13/24 18:54 Temperature 97 F L Pulse Rate 107 H 103 H Respiratory Rate 18 Blood Pressure 121/58 L Pulse Oximetry 96 Oxygen Delivery Fraction of Inspired Oxygen 12/13/24 19:50 12/13/24 20:00 12/13/24 21:00 Temperature 97.6 F Pulse Rate 84 107 H 109 H Respiratory Rate 20 16 Blood Pressure 115/59 L Pulse Oximetry 90 98 Oxygen Delivery Room Air Fraction of Inspired Oxygen 12/14/24 00:00 12/14/24 01:00 12/14/24 04:00 Temperature 96.6 F L Pulse Rate 102 H 100 98 Respiratory Rate 20 Blood Pressure 114/60 Pulse Oximetry 97 Oxygen Delivery Fraction of Inspired Oxygen 12/14/24 06:10 12/14/24 08:00 12/14/24 08:00 Temperature 96.4 F L Pulse Rate 103 H 89 107 H Respiratory Rate 18 20 Blood Pressure 122/57 L Pulse Oximetry 100 90 Oxygen Delivery Room Air Fraction of Inspired Oxygen 12/14/24 12:00 12/14/24 12:48 Temperature 96.8 F L Pulse Rate 102 H Respiratory Rate 18 Blood Pressure 98/61 L 110/53 L Pulse Oximetry 94 Oxygen Delivery Fraction of Inspired Oxygen Intake/Output Intake/Output: Intake & Output 12/11/24 12/12/24 12/13/24 12/14/24 23:59 23:59 23:59 23:59 Intake Total 9736 050 4183 1040 Output Total 1300 2150 1800 625 Balance 110 -1610 410 415 Meds/Results Medications: Active Medications Generic Name Dose Route Start Last Admin Trade Name Freq PRN Reason Stop Dose Admin Acetaminophen 650 mg 12/08/24 15:11 Acetaminophen 325 Mg Tablet BY MOUTH Q4H PRN mild pain Hydrocodone Bitart/Acetaminophen 1 tab 12/08/24 19:12 12/13/24 20:37 Hydrocodone/Acetaminophen (*Crx) 5-325 Mg Tablet PO 1 tab Q4H PRN Administration Pain Rated 4-6 Hydrocodone Bitart/Acetaminophen 1 tab 12/08/24 19:12 12/11/24 20:47 Hydrocodone/Acetaminophen (*Crx) 7.5-325 Mg Tablet PO 1 tab Q4H PRN Administration Pain Rated 7-10 Ascorbic Acid 500 mg 12/08/24 17:00 12/14/24 08:50 Ascorbic Acid 500 Mg Tablet PO 500 mg BID ALEXIS Administration Atorvastatin Calcium 10 mg 12/08/24 21:00 12/13/24 20:15 Atorvastatin 10 Mg Tablet PO 10 mg HS ALEXIS Administration Bisacodyl 10 mg 12/10/24 09:07 Bisacodyl 10 Mg Suppository RECTAL QAM PRN Constipation Duloxetine HCl 60 mg 12/08/24 17:00 12/14/24 08:49 Duloxetine Hcl 60 Mg Capsule.Dr PO 60 mg BID ALEXIS Administration Fentanyl Citrate 25 mcg 12/08/24 17:12 Fentanyl Citrate Inj (*Crx) 100 Mcg/2 Ml Vial IV PUSH Q2M PRN Pain Fluticasone Propionate 2 spray 12/08/24 11:45 12/14/24 08:50 Fluticasone Propionate 0.05% Na Spr 16 Gm Btl (*Bkc) NASAL 2 spray Q12HR ALEXIS Administration Ertapenem 1 gm/ Sodium 50 mls @ 100 mls/hr 12/13/24 21:00 12/13/24 20:45 Chloride IVPB Infused Q24H ALEXIS Infusion Vancomycin HCl 750 mg in 250 mls @ 250 mls/hr 12/14/24 09:00 12/14/24 09:50 Vancomycin 750 Mg/Ns 250 Ml IVPB Infused Q12H ALEXIS Infusion Loratadine 10 mg 12/09/24 09:00 12/14/24 08:49 Loratadine 10 Mg Tablet PO 10 mg QAM ALEXIS Administration Mirtazapine 7.5 mg 12/08/24 21:00 12/13/24 20:15 Mirtazapine 7.5 Mg Tablet PO 7.5 mg HS ALEXIS Administration Multivitamins Therapeutic 1 tablet 12/09/24 09:00 12/14/24 08:49 Multivitamins Therapeutic Tab (*Bkc) PO 1 tablet DAILY ALEXIS Administration Naloxone HCl 0.1 mg 12/08/24 19:12 Naloxone Hcl 0.4 Mg/Ml Vial IV PUSH Q2M PRN Opiate Reversal Ondansetron HCl 4 mg 12/08/24 19:12 Ondansetron Inj 4 Mg/2 Ml Vial IV PUSH Q4H PRN Nausea And Vomiting Polyethylene Glycol 17 gm 12/09/24 09:00 12/14/24 11:12 Polyethylene Glycol 3350 17 Gm Powd.Pack PO Not Given QAM ALEXIS Senna/Docusate Sodium 1 tab 12/11/24 17:00 12/14/24 11:13 Senna/Docusate Sodium Tablet PO Not Given BID ALEXIS Sodium Chloride 10 ml 12/10/24 14:00 12/14/24 06:26 Central Line Flush IV PUSH 10 ml Q8HR ALEXIS Administration Sodium Chloride 10 ml 12/10/24 10:28 Central Line Flush IV PUSH PRN PRN with TPN bag changes Sodium Chloride 20 ml 12/10/24 10:28 Central Line Flush IV PUSH PRN PRN after blood draws Sodium Chloride 10 ml 12/10/24 14:00 12/14/24 06:26 Central Line Flush IV PUSH 10 ml Q8HR ALEXIS Administration Sodium Chloride 10 ml 12/10/24 12:38 Central Line Flush IV PUSH PRN PRN with TPN bag changes Sodium Chloride 20 ml 12/10/24 12:38 Central Line Flush IV PUSH PRN PRN after blood draws Sodium Hypochlorite 1 applic 12/09/24 21:00 12/14/24 01:00 Sod Hypochlorite 1/4 Strength 473 Ml TOPICAL 1 applic Q12HR ALEXIS Administration Trazodone HCl 75 mg 12/08/24 21:00 12/13/24 20:15 Trazodone Hcl 25 Mg Tablet PO 75 mg HS ALEXIS Administration Vitamin D 50 mcg 12/09/24 09:00 12/14/24 08:49 Cholecalciferol (Vitamin D3) 25 Mcg (1,000 Units) Tablet PO 50 mcg DAILY ALEXIS Administration Zinc Sulfate 220 mg 12/10/24 12:00 12/14/24 08:49 Zinc Sulfate 220 Mg Capsule PO 220 mg DAILY ALEXIS Administration Radiology Results: ITS Impressions Abdomen/Pelvis CT 12/07/24 15:35 IMPRESSION: 1. Deep sacral decubitus ulcer with osteomyelitis along the caudal aspect of the sacrum which is new since the prior study. 2. Interval increase in size of a likely cavitary mass at the dependent left lower lobe which raises concern for malignancy. Would recommend CT-guided biopsy. 3. Smaller 1.3 x 1.0 cm nodule along a band of discoid atelectasis in the right lower lobe. Consider either short interval follow-up in 3 months or further evaluation with PET/CT. 4. Stable appearance of a subcapsular flat hypodense region along the dome of the liver suggestive of a collapsed cyst or region of scarring with multiple peripheral high attenuation foci, unclear whether calcifications or potentially embolization material. Correlate with clinical history and with any prior outside imaging for comparison. 5. Bilateral nonobstructing nephrolithiasis. 6. 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 There is urothelial enhancement at the lateral renal collecting systems suspicious for secondary ascending urinary tract infection. Correlate with urinalysis. Recurrent infections could account for the moderate atrophy with cortical scarring at the right kidney. 7. Large amount of stool in the sigmoid colon and rectum with associated wall thickening and perirectal stranding consistent with secondary stercoral colitis. 8. Couple ventral hernias, one containing fat and the second anterior wall of a short segment of nonobstructed proximal transverse colon. 9. Unchanged extensive high attenuation material within the thecal sac the lumbar and visualized lower thoracic spine suggesting retained Pantopaque. Correlate with clinical history. ADDENDUM: 12/07/24 1619 ADDENDUM: There is also a 1.8 x 1.5 cm left hilar lymph node which could be either reactive or metastatic. Chest CT 12/08/24 10:11 IMPRESSION: 1. There is a 4.2 x 3.9 x 3.3 cm spiculated mass in the left lower lobe posteriorly which is partially cavitated and extends to the pleura. A malignant process needs to be excluded. A biopsy is recommended. 2. There is a 3.0 x 0 1 x 5.1 cm lobulated masslike structure in the right lower lobe posteriorly which extends to the pleura. Evaluation is limited due to motion artifact. Differential includes atelectasis, pneumonia or malignancy. A PET/CT and/or biopsy is recommended. 3. No lymphadenopathy in the chest. 4. Tiny left-sided pleural effusion. 5. Left adrenal gland is prominent but unchanged. An adrenal mass MRI or PET/CT is recommended. Lung Biopsy CT 12/09/24 15:05 IMPRESSION: 1[address] Successful CT-guided biopsy of a 3.1 x 2.5 cm left lower lobe mass. Chest X-Ray 12/09/24 15:28 IMPRESSION: No pleural effusion. No pneumothorax. Left lower lobe mass. Findings as above. Labs Labs: Laboratory Results - last 24 hr 12/07/24 12/14/24 20:00 04:14 WBC 12.5 H RBC 3.26 L Hgb 8.8 L Hct 28.3 L MCV 86.8 MCH 27.0 MCHC 31.1 L RDW 14.4 Plt Count 440 H MPV 8.4 Immature Gran % (Auto) 0.9 H Neut % (Auto) 65.3 Lymph % (Auto) 22.2 [place] % (Auto) 7.1 Eos % (Auto) 4.3 Baso % (Auto) 0.2 Lymph # (Auto) 2.77 [place] # (Auto) 0.9 H Eos # (Auto) 0.5 H Baso # (Auto) 0.0 Abs Immat Gran (auto) 0.11 H Absolute Neuts (auto) 8.1 H Absolute Nucleated RBC 0.000 Nucleated RBC % 0.0 Sodium 135 L Potassium 3.3 L Chloride 101 Carbon Dioxide 33 H Anion Gap 1 L BUN 4 L Creatinine 0.41 L Estim Creat Clear Calc 85 Estimated GFR > 60 Glucose 102 Calcium 8.1 L Magnesium 1.7 Total Bilirubin 0.2 AST 22 ALT 10 Alkaline Phosphatase 95 Total Protein 5.5 L Albumin 2.5 L Vancomycin Trough 22.0 H Miscellaneous Test Comment
[2024-12-14] MEDS: POTASSIUM CHLORIDE 20 MEQ ER TABLET 40 MEQ PO (14:03)
[2024-12-14] MEDS: ATORVASTATIN 10 MG TABLET PO (20:23)
[2024-12-14] MEDS: MIRTAZAPINE 7.5 MG TABLET PO (20:24)
[2024-12-14] MEDS: ONDANSETRON INJ 4 MG/2 ML VIAL IV PUSH (20:24)
[2024-12-14] MEDS: ERTAPENEM SODIUM 1 GM in SODIUM CHLORIDE 0.9% IV 50 ML 100 ML IVPB (20:24)
[2024-12-14] MEDS: HYDROcodone/acetaminophen (*CRX) 7.5-325 MG TABLET 1 TAB PO (20:24)
[2024-12-15] VITALS (8 sets, daily range): BP systolic 80–119; BP diastolic 49–61; PULSE 92–101; RESP 12–20; TEMP 35.9–36.2; O2SAT 91–99
[2024-12-15] MEDS: SOD HYPOCHLORITE 1/4 STRENGTH 473 ML 1 APPLIC TOPICAL ×2 (04:00→09:13)
[2024-12-15] MEDS: CENTRAL LINE FLUSH 10 ML IV PUSH ×4 (04:00→14:40)
[2024-12-15 06:23] LABS: Hematocrit 25.7 % (37.0-47.0); Hemoglobin 7.9 g/dL (12.0-15.0); Immature Granulocyte Percent A 0.7 % (0-0.5); Lymphocytes Absolute Auto 2.30 K/mm3 (0.9-3.2); Mean Corpuscular HGB Conc 30.7 g/dl (32-36); Mean Corpuscular Hemoglobin 26.7 pg (26-34); Mean Corpuscular Volume 86.8 fl (80-100); Nucleated Red Blood Cells Absolute Auto 0.000 K/mm3 (0.0-0.012); Nucleated Red Blood Cells Perc 0.0 % (0.0-0.2); Platelet Count Result 393 k/mm3 (150-375); Red Blood Count 2.96 M/mm3 (4.2-5.4); White Blood Count 11.3 K/mm3 (4.5-10.0)
[2024-12-15 06:59] LABS: Alanine Aminotransferase 9 U/L (6-35); Albumin Level 2.7 g/dL (3.5-5.1); Alkaline Phosphatase 81 U/L (38-126); Anion Gap 5 mmol/L (4-12); Aspartate Amino Transferase 16 U/L (14-36); Bilirubin,Total 0.1 mg/dL (0.2-1.3); Blood Urea Nitrogen 5 mg/dL (7-17); Calcium 8.1 mg/dL (8.4-10.2); Carbon Dioxide 32 mmol/L (22-30); Chloride 99 mmol/L (98-107); Estimated CRCL calculation 76 ml/min; Estimated Glomerular Filt Rate > 60; Glucose 107 mg/dL (65-110); Magnesium 1.7 mg/dL (1.6-2.3); Potassium 3.3 mmol/L (3.4-5.0); Sodium 136 mmol/L (137-145); Total Protein 5.4 g/dL (6.3-8.2)
[2024-12-15] MEDS: ASCORBIC ACID 500 MG TABLET PO (09:11)
[2024-12-15] MEDS: DULoxetine HCL 60 MG CAPSULE.DR PO (09:11)
[2024-12-15] MEDS: CHOLECALCIFEROL (VITAMIN D3) 25 MCG (1,000 UNITS) TABLET 50 MCG PO (09:11)
[2024-12-15] MEDS: MULTIVITAMINS THERAPEUTIC TAB (*BKC) 1 TABLET PO (09:12)
[2024-12-15] MEDS: ZINC SULFATE 220 MG CAPSULE PO (09:12)
[2024-12-15] MEDS: LORATADINE 10 MG TABLET PO (09:12)
[2024-12-15] MEDS: FLUTICASONE PROPIONATE 0.05% NA SPR 16 GM BTL (*BKC) 2 SPRAY NASAL (09:13)
--- NOTE | 2024-12-15 11:04 | WPDINFPN2 ---
Progress Note: A&P Assessment and Plan (1) Sacral decubitus ulcer, stage IV: Code(s): L89.154 - Pressure ulcer of sacral region, stage 4 Status: Acute (2) Sacral osteomyelitis: Code(s): M46.28 - Osteomyelitis of vertebra, sacral and sacrococcygeal region Status: Acute (3) Spina bifida of lumbar spine: Qualifiers: Presence of hydrocephalus: unspecified hydrocephalus presence Qualified Code(s): Q05.7 - Lumbar spina bifida without hydrocephalus Code(s): Q05.7 - Lumbar spina bifida without hydrocephalus Status: Chronic (4) History of urostomy: Code(s): Z98.890 - Other specified postprocedural states Status: Acute (5) Adenosquamous carcinoma of lung: Code(s): C34.90 - Malignant neoplasm of unspecified part of unspecified bronchus or lung Status: Acute Plan # Progressive sacral decubitus ulcer with secondary SSTI and biopsy-proven acute osteomyelitis in the setting of paraplegia. -- presentation wound culture positive ESBL and MDR Proteus mirabilis. Sensitive to meropenem and ertapenem. # History of spina bifida. # New diagnosis of adenosquamous carcinoma of the lung. Plan: -- patient with spina bifida and limited mobility with intermittent transfer from bed to chair. Typically, patients who are completely bed ridden would best respond to a more limited course of antibiotics directed towards skin and soft tissue infection in addition to debridements source control. In this setting, complete resolution of sacral osteomyelitis without recurrence is less likely. Individuals with acute osteomyelitis and some increased activity may warrant more aggressive and extended IV antibiotics up to 6 weeks in duration. Realize, however, complete resolution of wound and osteomyelitis may not be achieved. -- if an aggressive course of treatment requested patient already has PICC in place. No tissue cultures available. Wound culture obtained on presentation and positive for ESBL and MDR Proteus mirabilis - - although less reliable the tissue culture will direct therapy toward this organism. Currently receiving ertapenem And would continue times 42 days. -- have discontinued vancomycin. -- perform weekly CBC, CMP, and CRP while on IV antibiotics. -- further recommendation to follow. Patient was seen via video telehealth consultation with the assistance of staff. Chart, data, and patient independently reviewed. Patient was located at [facility] while I was located in my [place] office. Received verbal consent from patient. Subjective Date/time seen: 12/15/24 11:04 Interval history: 12/14/2024: Afebrile and vital signs stable. has a right arm PICC. 12/15/2024: Sleepy this morning but typical for patient per nursing staff. Wound culture 12/07: ESBL and MDR Proteus mirabilis sensitive to meropenem, tetracycline, and Bactrim. Review of Systems Review of Systems: All systems reviewed & are unremarkable except as noted in HPI and below Exam Narrative: Awake, alert, and interactive. Normocephalic and without conjunctivitis. No respiratory difficulty. Abdomen not significantly distended. Presence of sacral ulcer deep to bone. Telles catheter in place with clear urine. Right arm PICC in place And site unremarkable. Objective Data Vital Signs Vital Signs: Vital Signs - 24 hr 12/14/24 12:00 12/14/24 12:00 12/14/24 12:48 Temperature 96.8 F L Pulse Rate 102 H 106 H Respiratory Rate 18 Blood Pressure 98/61 L 110/53 L Pulse Oximetry 94 Oxygen Delivery 12/14/24 16:00 12/14/24 16:00 12/14/24 20:00 Temperature 97 F L 97.2 F L Pulse Rate 104 H 106 H 105 H Respiratory Rate 18 20 Blood Pressure 128/56 L 123/50 L Pulse Oximetry 96 99 Oxygen Delivery 12/14/24 20:00 12/14/24 20:00 12/14/24 20:00 Temperature Pulse Rate 107 H Respiratory Rate Blood Pressure 80/52 L Pulse Oximetry Oxygen Delivery Room Air 12/15/24 00:00 12/15/24 00:25 12/15/24 03:25 Temperature 96.7 F L 96.6 F L Pulse Rate 98 96 92 Respiratory Rate 16 12 Blood Pressure 80/52 L 102/54 L Pulse Oximetry 95 92 Oxygen Delivery 12/15/24 04:00 12/15/24 05:40 12/15/24 08:00 Temperature 97.1 F L Pulse Rate 97 95 Respiratory Rate 20 Blood Pressure Pulse Oximetry 95 Oxygen Delivery Room Air 12/15/24 08:00 Temperature Pulse Rate 93 Respiratory Rate 18 Blood Pressure 110/61 Pulse Oximetry 99 Oxygen Delivery Intake/Output Intake/Output: Intake & Output 08/24/12/13/24 12/14/24 12/15/24 23:59 23:59 23:59 23:59 Intake Total 540 2210 2340 90 Output Total 2150 1800 1925 625 Balance -1610 410 415 -535 Meds/Results Medications: Active Medications Generic Name Dose Route Start Last Admin Trade Name Freq PRN Reason Stop Dose Admin Acetaminophen 650 mg 12/08/24 15:11 Acetaminophen 325 Mg Tablet BY MOUTH Q4H PRN mild pain Hydrocodone Bitart/Acetaminophen 1 tab 12/08/24 19:12 12/13/24 20:37 Hydrocodone/Acetaminophen (*Crx) 5-325 Mg Tablet PO 1 tab Q4H PRN Administration Pain Rated 4-6 Hydrocodone Bitart/Acetaminophen 1 tab 12/08/24 19:12 12/14/24 20:24 Hydrocodone/Acetaminophen (*Crx) 7.5-325 Mg Tablet PO 1 tab Q4H PRN Administration Pain Rated 7-10 Ascorbic Acid 500 mg 12/08/24 17:00 12/15/24 09:11 Ascorbic Acid 500 Mg Tablet PO 500 mg BID ALEXIS Administration Atorvastatin Calcium 10 mg 12/08/24 21:00 12/14/24 20:23 Atorvastatin 10 Mg Tablet PO 10 mg HS ALEXIS Administration Bisacodyl 10 mg 12/10/24 09:07 Bisacodyl 10 Mg Suppository RECTAL QAM PRN Constipation Duloxetine HCl 60 mg 12/08/24 17:00 12/15/24 09:11 Duloxetine Hcl 60 Mg Capsule.Dr PO 60 mg BID ALEXIS Administration Fentanyl Citrate 25 mcg 12/08/24 17:12 Fentanyl Citrate Inj (*Crx) 100 Mcg/2 Ml Vial IV PUSH Q2M PRN Pain Fluticasone Propionate 2 spray 12/08/24 11:45 12/15/24 09:13 Fluticasone Propionate 0.05% Na Spr 16 Gm Btl (*Bkc) NASAL 2 spray Q12HR ALEXIS Administration Ertapenem 1 gm/ Sodium 50 mls @ 100 mls/hr 12/13/24 21:00 12/14/24 20:24 Chloride IVPB 100 mls/hr Q24H ALEXIS Administration Loratadine 10 mg 12/09/24 09:00 12/15/24 09:12 Loratadine 10 Mg Tablet PO 10 mg QAM ALEXIS Administration Mirtazapine 7.5 mg 12/08/24 21:00 12/14/24 20:24 Mirtazapine 7.5 Mg Tablet PO 7.5 mg HS ALEXIS Administration Multivitamins Therapeutic 1 tablet 12/09/24 09:00 12/15/24 09:12 Multivitamins Therapeutic Tab (*Bkc) PO 1 tablet DAILY ALEXIS Administration Naloxone HCl 0.1 mg 12/08/24 19:12 Naloxone Hcl 0.4 Mg/Ml Vial IV PUSH Q2M PRN Opiate Reversal Ondansetron HCl 4 mg 12/08/24 19:12 12/14/24 20:24 Ondansetron Inj 4 Mg/2 Ml Vial IV PUSH 4 mg Q4H PRN Administration Nausea And Vomiting Polyethylene Glycol 17 gm 12/15/24 04:11 Polyethylene Glycol 3350 17 Gm Powd.Pack PO QAM PRN Constipation Senna/Docusate Sodium 1 tab 12/15/24 04:12 Senna/Docusate Sodium Tablet PO BID PRN constipation Sodium Chloride 10 ml 12/10/24 14:00 12/15/24 04:00 Central Line Flush IV PUSH 10 ml Q8HR ALEXIS Administration Sodium Chloride 10 ml 12/10/24 10:28 Central Line Flush IV PUSH PRN PRN with TPN bag changes Sodium Chloride 20 ml 12/10/24 10:28 Central Line Flush IV PUSH PRN PRN after blood draws Sodium Chloride 10 ml 12/10/24 14:00 12/15/24 04:00 Central Line Flush IV PUSH 10 ml Q8HR ALEXIS Administration Sodium Chloride 10 ml 12/10/24 12:38 Central Line Flush IV PUSH PRN PRN with TPN bag changes Sodium Chloride 20 ml 12/10/24 12:38 Central Line Flush IV PUSH PRN PRN after blood draws Sodium Hypochlorite 1 applic 12/09/24 21:00 12/15/24 09:13 Sod Hypochlorite 1/4 Strength 473 Ml TOPICAL 1 applic Q12HR ALEXIS Administration Trazodone HCl 75 mg 12/08/24 21:00 12/14/24 20:24 Trazodone Hcl 25 Mg Tablet PO 75 mg HS ALEXIS Administration Vitamin D 50 mcg 12/09/24 09:00 12/15/24 09:11 Cholecalciferol (Vitamin D3) 25 Mcg (1,000 Units) Tablet PO 50 mcg DAILY ALEXIS Administration Zinc Sulfate 220 mg 12/10/24 12:00 12/15/24 09:12 Zinc Sulfate 220 Mg Capsule PO 220 mg DAILY ALEXIS Administration Radiology Results: ITS Impressions Abdomen/Pelvis CT 12/07/24 15:35 IMPRESSION: 1. Deep sacral decubitus ulcer with osteomyelitis along the caudal aspect of the sacrum which is new since the prior study. 2. Interval increase in size of a likely cavitary mass at the dependent left lower lobe which raises concern for malignancy. Would recommend CT-guided biopsy. 3. Smaller 1.3 x 1.0 cm nodule along a band of discoid atelectasis in the right lower lobe. Consider either short interval follow-up in 3 months or further evaluation with PET/CT. 4. Stable appearance of a subcapsular flat hypodense region along the dome of the liver suggestive of a collapsed cyst or region of scarring with multiple peripheral high attenuation foci, unclear whether calcifications or potentially embolization material. Correlate with clinical history and with any prior outside imaging for comparison. 5. Bilateral nonobstructing nephrolithiasis. 6. 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 There is urothelial enhancement at the lateral renal collecting systems suspicious for secondary ascending urinary tract infection. Correlate with urinalysis. Recurrent infections could account for the moderate atrophy with cortical scarring at the right kidney. 7. Large amount of stool in the sigmoid colon and rectum with associated wall thickening and perirectal stranding consistent with secondary stercoral colitis. 8. Couple ventral hernias, one containing fat and the second anterior wall of a short segment of nonobstructed proximal transverse colon. 9. Unchanged extensive high attenuation material within the thecal sac the lumbar and visualized lower thoracic spine suggesting retained Pantopaque. Correlate with clinical history. ADDENDUM: 12/07/24 1619 ADDENDUM: There is also a 1.8 x 1.5 cm left hilar lymph node which could be either reactive or metastatic. Chest CT 12/08/24 10:11 IMPRESSION: 1. There is a 4.2 x 3.9 x 3.3 cm spiculated mass in the left lower lobe posteriorly which is partially cavitated and extends to the pleura. A malignant process needs to be excluded. A biopsy is recommended. 2. There is a 3.0 x 0 1 x 5.1 cm lobulated masslike structure in the right lower lobe posteriorly which extends to the pleura. Evaluation is limited due to motion artifact. Differential includes atelectasis, pneumonia or malignancy. A PET/CT and/or biopsy is recommended. 3. No lymphadenopathy in the chest. 4. Tiny left-sided pleural effusion. 5. Left adrenal gland is prominent but unchanged. An adrenal mass MRI or PET/CT is recommended. Lung Biopsy CT 12/09/24 15:05 IMPRESSION: 1[address] Successful CT-guided biopsy of a 3.1 x 2.5 cm left lower lobe mass. Chest X-Ray 12/09/24 15:28 IMPRESSION: No pleural effusion. No pneumothorax. Left lower lobe mass. Findings as above. Labs Labs: Laboratory Results - last 24 hr 12/15/24 12/15/24 06:10 08:01 WBC 11.3 H RBC 2.96 L Hgb 7.9 L Hct 25.7 L MCV 86.8 MCH 26.7 MCHC 30.7 L RDW 14.6 H Plt Count 393 H MPV 8.5 Immature Gran % (Auto) 0.7 H Neut % (Auto) 66.3 Lymph % (Auto) 20.3 [place] % (Auto) 8.1 Eos % (Auto) 4.2 Baso % (Auto) 0.4 Lymph # (Auto) 2.30 [place] # (Auto) 0.9 H Eos # (Auto) 0.5 H Baso # (Auto) 0.0 Abs Immat Gran (auto) 0.08 H Absolute Neuts (auto) 7.5 H Absolute Nucleated RBC 0.000 Nucleated RBC % 0.0 Sodium 136 L Potassium 3.3 L Chloride 99 Carbon Dioxide 32 H Anion Gap 5 BUN 5 L Creatinine 0.46 L Estim Creat Clear Calc 76 Estimated GFR > 60 Glucose 107 POC Capillary Glucose 110 H Calcium 8.1 L Magnesium 1.7 Total Bilirubin 0.1 L AST 16 ALT 9 Alkaline Phosphatase 81 Total Protein 5.4 L Albumin 2.7 L
--- NOTE | 2024-12-15 14:05 | P.DS_ITS ---
DS: Admitting Diagnosis Discharge Date 12/15/24 Admitting Diagnosis Sacral wound DS: Discharge Diagnosis Discharge Diagnosis (1) Osteomyelitis: Qualifiers: Osteomyelitis location: other site Osteomyelitis type: unspecified type Qualified Code(s): M86.9 - Osteomyelitis, unspecified Code(s): M86.9 - Osteomyelitis, unspecified Status: Acute (2) Sepsis: Code(s): A41.9 - Sepsis, unspecified organism Status: Acute (3) Lung cancer: Code(s): C34.90 - Malignant neoplasm of unspecified part of unspecified bronchus or lung Status: Acute (4) Decubitus ulcer: Qualifiers: Pressure injury location: sacral region Pressure injury stage: unstageable Qualified Code(s): L89.150 - Pressure ulcer of sacral region, unstageable Code(s): L89.90 - Pressure ulcer of unspecified site, unspecified stage Status: Acute (5) Stercoral colitis: Code(s): K52.89 - Other specified noninfective gastroenteritis and colitis Status: Acute (6) Acute hypokalemia: Code(s): E87.6 - Hypokalemia Status: Acute (7) Paraplegia: Code(s): G82.20 - Paraplegia, unspecified Status: Acute (8) Spina bifida of lumbar spine: Qualifiers: Presence of hydrocephalus: unspecified hydrocephalus presence Qualified Code(s): Q05.7 - Lumbar spina bifida without hydrocephalus Code(s): Q05.7 - Lumbar spina bifida without hydrocephalus Status: Chronic (9) History of urostomy: Code(s): Z98.890 - Other specified postprocedural states Status: Acute (10) Chronic constipation: Code(s): K59.09 - Other constipation Status: Acute (11) Morbid obesity due to excess calories: Code(s): E66.01 - Morbid (severe) obesity due to excess calories Status: Acute (12) Hyperlipidemia: Code(s): E78.5 - Hyperlipidemia, unspecified Status: Acute (13) Depression with anxiety: Code(s): F41.8 - Other specified anxiety disorders Status: Acute DS: Summary Hospital Course Reason for hospitalization: 79yo female intermediate resident with spina bifida who presented to the ED for sacral wound. This has been present for past few months but worsening. Please see H&P for details. Hospital Course: The following issues were addressed during her hospitalization: 1. Infected sacral decubitus ulcer with Osteomyelitis Stage IV sacral decubitus ulcer noted on admission General surgery consulted and patient underwent I&Ds 12/08/24 with pathology consistent with acute osteomyelitis Started on vancomycin, cefepime and Flagyl ID consulted. BCx negative. UCx negative. Wound culture 12/07: ESBL and MDR Proteus mirabilis sensitive to meropenem, tetracycline, and Bactrim. Vancomycin and Flagyl stopped. Rocephin was switched to ertapenem 12/13/2024 with plans for 6 weeks of therapy. 2. Sepsis Related to above with leukocytosis and hypotension Treated with appropriate amount of IV fluids. Sepsis symptoms have resolved. 3. Lung cavity/mass Chest CT showing a 4.2 x 3.9 x 3.3 cm spiculated mass in the left lower lobe posteriorly which is partially cavitated. A malignant process needs to be excluded. There is also a 3.0 x 0 1 x 5.1 cm lobulated masslike structure in the right lower lobe posteriorly Pulmonary consulted and patient underwent a lung biopsy 12/09/24 Pathology showing adenosquamous carcinoma Oncology consulted. Plan for patient to followup with Oncology as outpatient basis. 4.Decubitus Ulcer Wound care nurse followed patient here. Underwent debridement as above Continue wound care after discharge 5. Stecoral ulcer CT abd/pelvis showing large amount of stool in the sigmoid colon and rectum with associated wall thickening and perirectal stranding consistent with secondary stercoral colitis. Abx as above. She was having 1-2 BMs per day documented. 6. Acute hypokalemia Potassium was monitored and replaced as needed. 7. Paraplegia related to spina bifida. Frequent turning and off loading 8. Left adrenal gland thickening Noted on CT and felt to be unchanged. Defer to oncology for furthre imaging if appropriate. Patient overall did well and was able to be discharged back to the intermediate in stable condition. Called POA but it went to ; no message to clarify this was POA so no message left. Status at Discharge Cognitive/behavioral status at discharge: stabe Time Spent with Patient Time attestation: Total time spent providing and/or coordinating discharge services: 38 minutes Time spent: Greater than 30 minutes Exam Narrative: AF 97.0 108/55 96 20 96% ra Gen - NARD HEENT -dysconjugate gaze Chest -lungs clear anteriorly and in the flanks CV - RRR S1/S2. Telemetry showing no significant dysrhythmias Abd - Soft, nontender, urostomy in the right lower quadrant draining clear yellow urine. Ext - No pedal edema. Legs in heel protectors and SCDs in place. Neuro - Alert but confused Psych - pleasantly confused. Skin - Warm and dry; decubitus ulcer not visualized today. DS: Data Data Completed and Pending Completed studies during hospitalization: Pending at discharge 12/08/24 17:47 Surgical [PTH] Routine Labs on day of discharge: Labs from last 24 hours 12/15/24 12/15/24 08:01 06:10 WBC 11.3 H RBC 2.96 L Hgb 7.9 L Hct 25.7 L MCV 86.8 MCH 26.7 MCHC 30.7 L RDW 14.6 H Plt Count 393 H MPV 8.5 Immature Gran % (Auto) 0.7 H Neut % (Auto) 66.3 Lymph % (Auto) 20.3 Rock % (Auto) 8.1 Eos % (Auto) 4.2 Baso % (Auto) 0.4 Lymph # (Auto) 2.30 Rock # (Auto) 0.9 H Eos # (Auto) 0.5 H Baso # (Auto) 0.0 Abs Immat Gran (auto) 0.08 H Absolute Neuts (auto) 7.5 H Absolute Nucleated RBC 0.000 Nucleated RBC % 0.0 Sodium 136 L Potassium 3.3 L Chloride 99 Carbon Dioxide 32 H Anion Gap 5 BUN 5 L Creatinine 0.46 L Estim Creat Clear Calc 76 Estimated GFR > 60 Glucose 107 POC Capillary Glucose 110 H Calcium 8.1 L Magnesium 1.7 Total Bilirubin 0.1 L AST 16 ALT 9 Alkaline Phosphatase 81 Total Protein 5.4 L Albumin 2.7 L Discharge Plan Discharge Attending physician on discharge: Ian Pittman Consulting providers: Tony Estevez; Jerod Olson; Warner Pereyra; Radu Ragsdale; Ramiro Browning Discharging Clinician: Ian Pittman Anticipated Discharge Date/Time: 12/15/24 14:35 Patient Disposition: SNF Activity: as tolerated Diet: regular Wound Care Instructions: other - see discharge instructions Discharge Instructions: * Wound care for sacral wound: pack sacral wound with 1/4 strength Dakin's soaked rolled gauze and cover with 4x4's or an ABD and medipore tape. Change dressing every 12 hours. * Turn and reposition patient at least every 1-2 hours. Avoid pressure to the sacral wound. Frequent turning with offloading as much as possible. Routine PICC line care. Okay to remove once abx completed and okay with primary provider. Ertapenem 1 gram daily started on 12/13/24 in the evening. Treat through for a total of 42 doses (6 weeks). Contact the doctor if the patient has fevers or other worrisome symptoms. Avoid NSAIDs (ibuprofen, naproxen, Aleve). Tylenol is safe to take. Follow-up with the provider at the facility. Follow-up with Dr Ragsdale for her newly diagnosed lung cancer. Please call for an appointment. Follow-up with general surgery in 4-6 weeks. Please call for appointment. Thank you for using [facility] for your health care needs. Patient Language: Burkinan Stand Alone Forms: General Discharge Information Follow-up/Referrals: Ampadu,MD Jimmy [Primary Care Provider, Unknown] - Call for Appointment Radu Ragsdale MD [Physician, Hematology] - Call for Appointment Jerod Olson DO [Physician, General Surgery] - Call for Appointment Discharge Medications: New ertapenem 1 gram recon soln 1 g IV HS Dakin's Solution 0.125 % Solution 1 applic topical Q12HR Qty: 100 0RF potassium chloride 20 mEq packet 20 meq PO DAILY Qty: 3 0RF Rx Instructions: Daily x 3 doses then STOP Continued atorvastatin 10 mg tablet 10 mg PO HS acetaminophen 650 mg Tablet 650 mg PO Q4H PRN (Reason: mild pain) fluticasone propionate [Flonase Allergy Relief] 50 mcg/actuation Walton,Suspension 2 spray INTRANASAL DAILY Rx Instructions: administer into each nostril duloxetine 60 mg capsule,delayed release(DR/EC) 60 mg PO BID Caltrate 600-D Plus Minerals 600 mg calcium- 800 unit-40 mg Tablet,Chewable 1 tablet PO BID polyethylene glycol 3350 [Miralax] 17 gram Powder In Packet 17 g PO DAILY loratadine 10 mg Tablet 10 mg PO DAILY trazodone 100 mg Tablet 75 mg PO HS nystatin 100,000 unit/gram Powder 1 applic TOPICAL DAILY Rx Instructions: APPLY DAILY SCHEDULED AND ALSO APPLY TID NEEDED PRN cholecalciferol (vitamin D3) 50 mcg (2,000 unit) capsule 50 mcg PO DAILY multivitamin [Daily Multi-Vitamin] Tablet 1 tablet PO DAILY lactulose 10 gram/15 mL solution 10 g PO DAILY PRN (Reason: constipation) Qty: 473 0RF Rx Instructions: Give if no BM within 72 hours prior, or if feeling constipated. mirtazapine 7.5 mg tablet 7.5 mg PO HS ondansetron 4 mg tablet,disintegrating 4 mg PO Q6H PRN (Reason: NAUSEA ) ascorbic acid (vitamin C) [Acerola C] 500 mg tablet,chewable 500 mg PO BID zinc sulfate [Zinc-220] 50 mg zinc (220 mg) capsule 50 mg PO DAILY Held furosemide [Lasix] 20 mg Tablet 60 mg PO DAILY Hold Instructions: HOLD - resume when okay with the primary provider Discontinued magnesium hydroxide 400 mg/5 mL Suspension 400 mg PO HS PRN (Reason: constipation if no BM for 3 days) Santyl 250 unit/gram ointment 1 applic topical DAILY Rx Instructions: CLEANSE COCCYX WOUND WITH N/S APPLY NICKEL THICK SANTYL TO WOUND BED COVER WITH MOISTENEED GAUZE WITH 1/4 STRENGTH DAKINS THEN CALCIUM ALGINATE THEN SUPER ABSORENT DRESSING CHANDE DAILY Other Ambulatory Orders: Complete Blood Count no Diff (WEEKLY) Timeframe: 20241220 Location: Determined by Patient Ordered By: Ian Pittman Complete Blood Count no Diff (WEEKLY) Timeframe: 20241227 Location: Determined by Patient Ordered By: Ian Pittman Complete Blood Count no Diff (WEEKLY) Timeframe: 20250103 Location: Determined by Patient Ordered By: Ian Pittman Complete Blood Count no Diff (WEEKLY) Timeframe: 20250110 Location: Determined by Patient Ordered By: Ian Pittman Complete Blood Count no Diff (WEEKLY) Timeframe: 20250117 Location: Determined by Patient Ordered By: Ian Pittman Comprehensive Metabolic Panel (WEEKLY) Timeframe: 20241220 Location: Determined by Patient Ordered By: Ian Pittman Comprehensive Metabolic Panel (WEEKLY) Timeframe: 20241227 Location: Determined by Patient Ordered By: Ian Zain Comprehensive Metabolic Panel (WEEKLY) Timeframe: 20250103 Location: Determined by Patient Ordered By: Ian Zain Comprehensive Metabolic Panel (WEEKLY) Timeframe: 20250110 Location: Determined by Patient Ordered By: Ian Zain Comprehensive Metabolic Panel (WEEKLY) Timeframe: 20250117 Location: Determined by Patient Ordered By: Ian Zain CRP (WEEKLY) Timeframe: 20241220 Location: Determined by Patient Ordered By: Ian Zain CRP (WEEKLY) Timeframe: 20241227 Location: Determined by Patient Ordered By: Ian Zain CRP (WEEKLY) Timeframe: 20250103 Location: Determined by Patient Ordered By: Ian Zain CRP (WEEKLY) Timeframe: 20250110 Location: Determined by Patient Ordered By: Ian Zain CRP (WEEKLY) Timeframe: 20250117 Location: Determined by Patient Ordered By: Ian Pittman Date of admission: 12/07/24 16:41 Primary Care Provider: Jimmy Cheng Admitting Provider: Crystal Haider Attending physician on admission: Crystal Haider Condition: Stable Hospitalist MIPS Heart Failure (Exclusion) Patient has history of Heart Transplant or Left Ventricular Assistive Device?: No IF YES, STOP HERE Heart Failure (Qualifier) Patient has current or prior documentation of LVEF less than or equal to 40%, or mod/servere depressed LVSF?: No IF NO, STOP HERE
[2024-12-15] MEDS: POTASSIUM CHLORIDE 20 MEQ ER TABLET 40 MEQ PO (14:44)
--- NOTE | 2024-12-15 16:20 | WNDPHOTO ---
PHOTO ONLY - See Nursing Notes and/ or assessments for documentation.
== END 2024-12-15 16:50 | DRG 853 ==
LOC: ANHED 17:12 → ANH3MEDSUR 18:30
PROVIDERS: General Practice; Internal Medicine; Internal Medicine Pulmonary Disease; Nurse Practitioner Adult Health; Surgery; Admitting Provider Family Medicine; Emergency Provider Student in an Organized Health Care Education/Training Program; PCP Internal Medicine; Visit Provider Internal Medicine
PROC: 0QB10ZZ Excision of Sacrum, Open Approach (ICD-10-PCS; principal; 2024-12-08 17:45)
DX: A41.9 Sepsis, unspecified organism (principal); L89.154 Pressure ulcer of sacral region, stage 4; G82.20 Paraplegia, unspecified; M46.28 Osteomyelitis of vertebra, sacral and sacrococcygeal region; C34.32 Malignant neoplasm of lower lobe, left bronchus or lung; E87.1 Hypo-osmolality and hyponatremia; K52.89 Other specified noninfective gastroenteritis and colitis; E87.6 Hypokalemia; K59.09 Other constipation; E78.5 Hyperlipidemia, unspecified; F41.8 Other specified anxiety disorders; Q05.7 Lumbar spina bifida without hydrocephalus; E27.9 Disorder of adrenal gland, unspecified; Z66 Do not resuscitate; E66.01 Morbid (severe) obesity due to excess calories; Z68.32 Body mass index [BMI] 32.0-32.9, adult; Z79.899 Other long term (current) drug therapy; Z98.890 Other specified postprocedural states
CPT/HCPCS: 32408; 36415; 36569; 71045; 71250; 74177; 80053; 80202; 81001; 82948; 83605; 83735; 84145; 85025; 85027; 85055; 85610; 85730; 86140; 87040; 87070; 87075; 87086; 88305; 88309; 88311; 88342; 93005; 96361; 96365; 99285; A9270; C1751; J0692; J0696; J1335; J1650; J1836; J2003; J2371; J2405; J2704; J3010; J3373; J3480; J7030; J7040; J7050; J7120; P9045; Q9967

== ENCOUNTER 2025-03-08 08:11 | Inpatient (IN) | payer MEDICARE, MEDICAID, SELFPAY ==
[2025-03-08] VITALS (13 sets, daily range): BP systolic 92–123; BP diastolic 53–89; PULSE 99–120; RESP 13–25; TEMP 37.1–37.9; O2SAT 94–99; BMI 31.6
--- NOTE | ~2025-03-08 | CT_ITS ---
CT abdomen pelvis w con Clinical History: eval sacral wound, image down to mid thigh . Comparison: 12/07/2024 Technique: Axial images lung bases to symphysis pubis IV contrast information not listed in PACS Coronal, sagittal reformats CT images acquired with automatic exposure control for dose reduction DLP: 1154 mGy-cm Findings: Lung bases: Left basilar rounded lesion with hypodense center. Associated focus of hyperdensity abutting pleura. Associated pleural effusion. Left hilar nodes. Visualized heart and pericardium: Unremarkable. Liver: High density material scattered along dome. Several cysts. Steatosis. Gallbladder: Unremarkable. Spleen: Unremarkable. Pancreas: Unremarkable. Adrenal glands: Enlarging lesion left side. Kidneys: Right kidney- No hydronephrosis. 11 mm stone.. Areas of cortical thinning and decreased enhancement. Left kidney- No hydronephrosis. Tiny stone. A few cysts. Distal esophagus/stomach: Unremarkable. Small bowel loops: Normal caliber and wall thickness. Colon: Rectal wall thickening, filled with stool. Normal RLQ appendix. Nodes: Right iliac chain nodes, presumably secondary to pelvic wounds. Peritoneum: No ascites. No free air. Urinary bladder: Collapsed and/or removed. Right lower quadrant ileal conduit with urostomy. Uterus: Removed. Adnexa: No masses. Bones/soft tissues: Thinning of coccyx and distal sacrum, with sclerosis. Overlying skin wound. Large skin wound over right inferior pubic ramus with ill-defined fluid and gas and involvement of hamstring muscle. Subtle cortical irregularity along portion open to wound. Abdominal wall diastasis, containing colon. Chronic epidural calcification scattered diffusely. Aorta: No aneurysm or dissection. IVC: Unremarkable. Main portal vein/SMV/splenic vein: Patent. IMPRESSION: 1. Large open infected wound overlying right inferior pubic ramus. Ill-defined fluid and gas but no discrete abscess. Small focal osteomyelitis along pubic ramus. Associated myositis of hamstring muscle. 2. Open wound overlying sacrum. Presumably infected, but no abscess. 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 3. Enlarging adrenal metastasis left side. 4. Slightly enlarged left lower lobe mass with enlarging satellite mass. 5. Stercoral colitis. 6. Subtle pyelonephritis right kidney not excluded. Reviewed, dictated and finalized at location R. MANAGER IMPRESSION: 1. Large open infected wound overlying right inferior pubic ramus. Ill-defined fluid and gas but no discrete abscess. Small focal osteomyelitis along pubic r amus. Associated myositis of hamstring muscle. 2. Open wound overlying sacrum. Presumably infected, but no abscess. Suspect c hronic osteomyelitis of distal sacrum and coccyx. 3. Enlarging adrenal metastasis left side. 4. Slightly enlarged left lower lobe mass with enlarging satellite mass. 5. Stercoral colitis. 6. Subtle pyelonephritis right kidney not excluded.
--- NOTE | 2025-03-08 08:38 | ED.GENADULT ---
HPI - General Adult General Chief complaint: Skin/Abscess/Foreign Body Stated complaint: bed sores Time Seen by Provider: 03/08/25 08:25 History of Present Illness HPI narrative: 79 year old female presenting to the emergency department for worsening wounds her sacrum. Patient has had prior surgical debridement of these back in July. Patient does have outpatient wound care at her facility. Facility states that there has been worsening drainage from the wounds. Upon arrival to the emergency department patient is a no at her baseline. Patient does have prior history of adenosquamous carcinoma of the lung, osteomyelitis stage IV sacral decubitus ulcer hypertension, spina bifida, paraplegia Related Data Home Medications ?Medication ?Instructions ?Recorded ?Confirmed ?Last Taken ?Type acetaminophen 650 mg tablet 650 mg PO Q4H PRN mild pain 02/21/23 03/08/25 07/01/24 History atorvastatin 10 mg tablet 10 mg PO HS 02/21/23 03/08/25 07/06/24 History calcium 600 mg-D3 800 unit-mag 40 1 tablet PO BID 02/21/23 03/08/25 07/07/24 History wb-hpzh-clmo-leydi-boron chew tablet (Caltrate 600-D Plus Minerals) duloxetine 60 mg capsule,delayed 60 mg PO BID 02/21/23 03/08/25 07/07/24 History release fluticasone propionate 50 2 spray intranasal DAILY 02/21/23 03/08/25 07/07/24 History mcg/actuation nasal spray,suspension (Flonase Allergy Relief) loratadine 10 mg tablet 10 mg PO DAILY 02/21/23 03/08/25 07/07/24 History nystatin 100,000 unit/gram topical 1 applic topical DAILY 02/21/23 03/08/25 Unknown History powder cholecalciferol (vitamin D3) 50 50 mcg PO DAILY 07/08/24 03/08/25 07/07/24 History mcg (2,000 unit) capsule multivitamin (Daily Multi-Vitamin 1 tablet PO DAILY 07/08/24 03/08/25 07/07/24 History tablet) ascorbic acid (vitamin C) 500 mg 500 mg PO BID 12/07/24 03/08/25 Unknown History chewable tablet (Acerola C) ondansetron 4 mg disintegrating 4 mg PO Q6H PRN NAUSEA 12/07/24 03/08/25 Unknown History tablet zinc sulfate 50 mg zinc (220 mg) 50 mg PO DAILY 12/07/24 03/08/25 Unknown History capsule (Zinc-220) magnesium hydroxide 400 mg/5 mL 30 ml PO HS PRN constipation 03/08/25 03/08/25 Unknown History oral suspension (Dulcolax (magnesium hydroxide)) mirtazapine 15 mg tablet 15 mg PO HS 03/08/25 03/08/25 Unknown History Allergies Allergy/AdvReac Type Severity Reaction Status Date / Time codeine Allergy Unknown Verified 03/08/25 13:07 NSAIDS (Non-Steroidal Allergy Unknown Verified 03/08/25 13:07 Anti-Inflamma Penicillins Allergy Hives Verified 03/08/25 13:07 Sulfa (Sulfonamide Allergy Hives Verified 03/08/25 13:07 Antibiotics) Review of Systems Review of Systems: ROS unobtainable: Yes unobtainable due to mental status PMFSH Past Medical History Medical History (Updated 03/08/25 @ 18:24 by Kris Nieto MD) 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 Code status: Do not resuscitate. Smoking status: Never smoker Alcohol intake: never Substance use: never Substance use type: does not use Do You Feel Safe in your Home?: Yes Lack of Transportation: No Lack of Food: Never True Current Housing: I Have Housing Concerned About Future Housing: No Difficulty Paying Gas/Electric Bills: No Difficulty Paying for Meds: No Currently Unemployed: No Education: Grade School Difficulty w/ Childcare or Family Care: No Spiritual care concerns: No Exam Narrative: APPEARANCE: Ill appearing HEAD: normocephalic, atraumatic. EYES: PERRLA/EOMI, conjunctivae clear. NOSE: Normal no drainage EARS:TMS clear with good light reflex. THROAT: Pharynx clear, no exudate. NECK: Supple. No adenopathy, no masses. RESPIRATORY: Airway patent, respirations nonlabored. Clear to auscultation bilaterally, no rales, rhonchi, wheezing. CARDIOVASCULAR: Regular rate and rhythm without murmurs rubs or gallops. ABDOMINAL: Soft, nontender, nondistended, normal bowel sounds MUSCULOSKELETAL: Moves all extremities. Strength/ROM intact, No edema, No calf tenderness. NEURO: Alert. Cranial nerves II through XII intact. Good gait. Good coordination SKIN: Significant sacral and left posterior thigh wound Course Vital Signs Vital signs: Vital Signs Temperature 98.7 F 03/08/25 08:11 Pulse Rate 104 H 03/08/25 08:11 Respiratory Rate 18 03/08/25 08:11 Blood Pressure 92/66 L 03/08/25 08:11 Pulse Oximetry 99 03/08/25 08:11 Temperature 99.4 F 03/08/25 15:55 Pulse Rate 105 H 03/08/25 16:00 Respiratory Rate 18 03/08/25 16:00 Blood Pressure 123/53 L 03/08/25 15:55 Pulse Oximetry 99 03/08/25 16:00 Oxygen Delivery Room Air 03/08/25 16:00 Medical Decision Making [facility] Narrative Medical decision making narrative: 71-year-old female presents emergency department for evaluation for worsening mental status and worsening sacral decubitus ulcer along with a ulcer on her left buttock. Patient is currently a afebrile but does have a leukocytosis of 14.6 hemoglobin of 9.7. Patient's creatinine is 0.48. Patient does have an elevated CRP of 29.7. CT was significant for osteomyelitis no evidence of drainable abscess. Surgery was consulted and Patient was evaluated by the surgical team in the emergency department. Patient was started on Flagyl, cefepime and vancomycin emergency department. Case was discussed with hospitalist and patient was accepted for admission. Patient was treated with 2 L of lactated Ringer's and patient's blood pressure did improve Differential Diagnosis Differential Diagnosis: Abscess, decubitus ulcer, osteomyelitis, cellulitis, sepsis Vital Signs Vital Signs: Vital Signs Temperature 98.7 F 03/08/25 08:11 Pulse Rate 104 H 03/08/25 08:11 Respiratory Rate 18 03/08/25 08:11 Blood Pressure 92/66 L 03/08/25 08:11 Pulse Oximetry 99 03/08/25 08:11 Temperature 99.4 F 03/08/25 15:55 Pulse Rate 105 H 03/08/25 16:00 Respiratory Rate 18 03/08/25 16:00 Blood Pressure 123/53 L 03/08/25 15:55 Pulse Oximetry 99 03/08/25 16:00 Oxygen Delivery Room Air 03/08/25 16:00 Lab Data Lab results reviewed: Yes I reviewed the patient's lab results. 03/08/25 08:55 03/08/25 08:54 Labs: Lab Results 03/08/25 03/08/25 03/08/25 Range/Units 08:54 08:55 08:56 WBC 14.6 H (4.5-10.0) K/mm3 RBC 3.91 L (4.2-5.4) M/mm3 Hgb 9.7 L (12.0-15.0) g/dL Hct 32.0 L (37.0-47.0) % MCV 81.8 (80-100) fl MCH 24.8 L (26-34) pg MCHC 30.3 L (32-36) g/dl RDW 15.4 H (11.5-14.5) % Plt Count 578 H (150-375) k/mm3 MPV 9.0 (7.4-10.4) fl Immature Gran % (Auto) 0.5 (0-0.5) % Neut % (Auto) 74.2 H (45.5-73.1) % Lymph % (Auto) 16.4 L (18.3-44.2) % Walton % (Auto) 6.1 (2.6-8.5) % Eos % (Auto) 2.3 (0-4.4) % Baso % (Auto) 0.5 (0.2-1.2) % Lymph # (Auto) 2.40 (0.9-3.2) K/mm3 Walton # (Auto) 0.9 H (0.1-0.6) K/mm3 Eos # (Auto) 0.3 (0-0.3) K/mm3 Baso # (Auto) 0.1 (0.0-0.1) K/mm3 Abs Immat Gran (auto) 0.08 H (0.00-0.031) K/mm3 Absolute Neuts (auto) 10.8 H (1.3-6.7) K/mm3 Absolute Nucleated RBC 0.000 (0.0-0.012) K/mm3 Nucleated RBC % 0.0 (0.0-0.2) % PT 14.6 (11.1-14.7) Seconds INR 1.1 APTT 31.4 (22.3-36.8) Seconds Sodium 135 L (137-145) mmol/L Potassium 3.7 (3.4-5.0) mmol/L Chloride 94 L (98-107) mmol/L Carbon Dioxide 33 H (22-30) mmol/L Anion Gap 8 (4-12) mmol/L BUN 9 (7-17) mg/dL Creatinine 0.48 L (0.7-1.0) mg/dL Estim Creat Clear Calc 76 ml/min Estimated GFR > 60 (59 - ) Glucose 100 (65-110) mg/dL Lactic Acid 1.1 (0.7-2.0) mmol/L Calcium 8.7 (8.4-10.2) mg/dL Total Bilirubin 0.6 (0.2-1.3) mg/dL AST 24 (14-36) U/L ALT 13 (6-35) U/L Alkaline Phosphatase 186 H (38-126) U/L C-Reactive Protein 29.7 H (<1.0) mg/dL Total Protein 7.8 (6.3-8.2) g/dL Albumin 3.5 (3.5-5.1) g/dL Procalcitonin 0.1 ng/mL Imaging Data Radiologist's impression: Impressions Abdomen/Pelvis CT 03/08/25 09:50 IMPRESSION: 1. Large open infected wound overlying right inferior pubic ramus. Ill-defined fluid and gas but no discrete abscess. Small focal osteomyelitis along pubic ramus. Associated myositis of hamstring muscle. 2. Open wound overlying sacrum. Presumably infected, but no abscess. 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 3. Enlarging adrenal metastasis left side. 4. Slightly enlarged left lower lobe mass with enlarging satellite mass. 5. Stercoral colitis. 6. Subtle pyelonephritis right kidney not excluded. Discharge Plan Discharge Clinical Impression: Osteomyelitis, Decubitus ulcer of sacral area Patient Disposition: Still a Patient Condition: Serious
[2025-03-08] MEDS: LACTATED RINGERS 1,000 ML 999 ML IV CONT ×2 (09:04→15:08)
[2025-03-08 09:05] LABS: Hematocrit 32.0 % (37.0-47.0); Hemoglobin 9.7 g/dL (12.0-15.0); Immature Granulocyte Percent A 0.5 % (0-0.5); Lymphocytes Absolute Auto 2.40 K/mm3 (0.9-3.2); Mean Corpuscular HGB Conc 30.3 g/dl (32-36); Mean Corpuscular Hemoglobin 24.8 pg (26-34); Mean Corpuscular Volume 81.8 fl (80-100); Nucleated Red Blood Cells Absolute Auto 0.000 K/mm3 (0.0-0.012); Nucleated Red Blood Cells Perc 0.0 % (0.0-0.2); Platelet Count Result 578 k/mm3 (150-375); Red Blood Count 3.91 M/mm3 (4.2-5.4); White Blood Count 14.6 K/mm3 (4.5-10.0)
[2025-03-08 09:20] LABS: Alanine Aminotransferase 13 U/L (6-35); Albumin Level 3.5 g/dL (3.5-5.1); Alkaline Phosphatase 186 U/L (38-126); Anion Gap 8 mmol/L (4-12); Aspartate Amino Transferase 24 U/L (14-36); Bilirubin,Total 0.6 mg/dL (0.2-1.3); Blood Urea Nitrogen 9 mg/dL (7-17); Calcium 8.7 mg/dL (8.4-10.2); Carbon Dioxide 33 mmol/L (22-30); Chloride 94 mmol/L (98-107); Estimated CRCL calculation 76 ml/min; Estimated Glomerular Filt Rate > 60; Glucose 100 mg/dL (65-110); Potassium 3.7 mmol/L (3.4-5.0); Sodium 135 mmol/L (137-145); Total Protein 7.8 g/dL (6.3-8.2)
[2025-03-08 09:24] LABS: INR 1.1; Prothrombin Time 14.6 Seconds (11.1-14.7)
[2025-03-08 09:25] LABS: Partial Thromboplastin Time 31.4 Seconds (22.3-36.8)
[2025-03-08 09:38] LABS: Procalcitonin 0.1 ng/mL
[2025-03-08 09:51] LABS: CRP 29.7 mg/dL (<1.0)
[2025-03-08] MEDS: CEFEPIME 2 GM in SODIUM CHLORIDE 0.9% IV 50 ML 100 ML IVPB ×2 (10:08→21:23)
[2025-03-08] MEDS: metroNIDAZOLE 500 MG/ISO 100ML 500 MG/100 ML BAG 100 MG IVPB ×2 (10:11→16:58)
[2025-03-08] MEDS: VANCOMYCIN 2,000 MG/NS 500 ML 2,000 MG/500 ML BAG 250 MG IVPB (11:00)
--- NOTE | 2025-03-08 11:16 | WPCEDHO ---
ED Hand Off Checklist All vitals saved: yes IV Site documented: yes All med administrations documented:yes Triage Note Triage Note BIBEMS with c/o sacral wound with 03/08/25 08:11 associated pain. Pt coming from care home. Pt arrives A&Ox3( baseline per EMS). GCS 14 upon arrival. Pt arrives with multiple tunneling wounds to sacrum, along with what appears to be an old ostomy site to RLQ that is leaking serous fluid. Allergies codeine Allergy (Verified 12/08/24 16:55) Unknown NSAIDS (Non-Steroidal Anti-Inflamma Allergy (Verified 12/08/24 16:55) Unknown Penicillins Allergy (Verified 12/08/24 16:55) Hives Patient received Cefepime in November 2024 Sulfa (Sulfonamide Antibiotics) Allergy (Verified 12/08/24 16:55) Hives Family History (Last Reviewed 12/08/24 @ 17:10 by Donovan Delgado, ) Father Cancer Active Medications including assessments/comments Vancomycin HCl (Vancomycin 2,000 Mg/Ns 500 Ml) 2,000 mg in 500 mls @ 250 mls/hr IVPB ONCE ONE Stop: 03/08/25 12:12 Last Admin: 03/08/25 11:00 Dose: 250 mls/hr Documented By: ECS Infusion/Titration Document 03/08/25 11:00 ECS (Rec: 03/08/25 11:02 ECS [id number]) Intake IV Site Peripheral Access Right Forearm Container Volume 500 Waste Amount 0 Dosing Infusion Rate 250 Increase/Decrease Started Elapsed Time Elapsed Time ( 0m minutes) Administered/Completed Medications Discontinued Medications Lactated Ringer's (Lr - Lactated Ringers Iv) 1,000 mls @ 999 mls/hr IV CONT .Q1H1M STA Stop: 03/08/25 09:25 Last Infusion: 03/08/25 10:24 Dose: Infused Documented By: Admin: 03/08/25 09:04 Dose: 999 mls/hr Documented By: ECS Cefepime HCl 2 gm/ Sodium (Chloride) 50 mls @ 100 mls/hr IVPB ONCE STA Stop: 03/08/25 10:24 Last Infusion: 03/08/25 11:02 Dose: Infused Documented By: Admin: 03/08/25 10:08 Dose: 100 mls/hr Documented By: ECS Cefepime HCl 2 gm/ Sodium (Chloride) 50 mls @ 100 mls/hr IVPB Q12H ALEXIS Last Admin: 03/08/25 10:23 Dose: Not Given Documented By: ECS Non-Admin Reason: No Dose Required Metronidazole (Flagyl 500 Mg/Iso Soln 100 Ml) 500 mg in 100 mls @ 100 mls/hr IVPB ONCE STA Stop: 03/08/25 10:54 Last Admin: 03/08/25 10:11 Dose: 100 mls/hr Documented By: ECS Metronidazole (Flagyl 500 Mg/Iso Soln 100 Ml) 500 mg in 100 mls @ 100 mls/hr IVPB Q8H ALEXIS Last Admin: 03/08/25 10:23 Dose: Not Given Documented By: ECS Non-Admin Reason: No Dose Required Interventions/Assessments IV / Saline Lock, Insert Start: 03/08/25 08:08 Freq: Status: Active Protocol: Document 03/08/25 09:04 ECS (Rec: 03/08/25 09:04 ECS [id number]) IV Assessment Peripheral Access Right Forearm IV Catheter Access Initiated IV Insertion Date 03/08/25 IV Insertion Time 09:04 Catheter Gauge 20 IV Insertion 1 Attempts IV Site Assessment WNL IV Care and WNL Maintenance Last Vital Signs Temperature 98.7 F 03/08/25 08:11 Pulse Rate 105 H 03/08/25 11:10 Respiratory Rate 18 03/08/25 11:10 Pulse Oximetry 96 03/08/25 11:10 Blood Pressure 114/61 03/08/25 11:10 Blood Pressure Mean 78 03/08/25 11:10 Blood Pressure Position Supine 03/08/25 10:24 Weight 81.8 kg 03/08/25 08:11 Last Result - Abnormals Only WBC 14.6 K/mm3 (4.5-10.0) H 03/08/25 08:55 RBC 3.91 M/mm3 (4.2-5.4) L 03/08/25 08:55 Hgb 9.7 g/dL (12.0-15.0) L 03/08/25 08:55 Hct 32.0 % (37.0-47.0) L 03/08/25 08:55 MCH 24.8 pg (26-34) L 03/08/25 08:55 MCHC 30.3 g/dl (32-36) L 03/08/25 08:55 RDW 15.4 % (11.5-14.5) H 03/08/25 08:55 Plt Count 578 k/mm3 (150-375) H 03/08/25 08:55 Neut % (Auto) 74.2 % (45.5-73.1) H 03/08/25 08:55 Lymph % (Auto) 16.4 % (18.3-44.2) L 03/08/25 08:55 [place] # (Auto) 0.9 K/mm3 (0.1-0.6) H 03/08/25 08:55 Abs Immat Gran (auto) 0.08 K/mm3 (0.00-0.031) H 03/08/25 08:55 Absolute Neuts (auto) 10.8 K/mm3 (1.3-6.7) H 03/08/25 08:55 Sodium 135 mmol/L (137-145) L 03/08/25 08:54 Chloride 94 mmol/L (98-107) L 03/08/25 08:54 Carbon Dioxide 33 mmol/L (22-30) H 03/08/25 08:54 Creatinine 0.48 mg/dL (0.7-1.0) L 03/08/25 08:54 Alkaline Phosphatase 186 U/L (38-126) H 03/08/25 08:54 C-Reactive Protein 29.7 mg/dL (<1.0) H 03/08/25 08:54 Most Recent Suicide Severity Rating Suicide Severity Rating NO RISK INDICATED 03/08/25 08:11
[2025-03-08] MEDS: LACTATED RINGERS 1,000 ML 125 ML IV CONT ×2 (11:22→21:21)
--- NOTE | 2025-03-08 11:49 | WNDPHOTO ---
PHOTO ONLY - See Nursing Notes and/ or assessments for documentation.
--- NOTE | 2025-03-08 11:50 | WNDPHOTO ---
PHOTO ONLY - See Nursing Notes and/ or assessments for documentation.
--- NOTE | 2025-03-08 12:16 | PC.NURSE ---
Discussed with patient goals of care and patient stated that she did not want to have to undergo any more surgeries. This RN asked the patient if her heart were to stop or she was to stop breathing would she want to be resuscitated, and the patient stated no. This RN asked the patient if she had ever considered hospice and the patient stated I have, but I am apprehensive. This RN asked what makes her apprehensive and she stated I just don't know what they do. This RN discussed with the patient that hospice will be there to support her through end of life. This RN asked the patient is she wanted to undergo any surgery or continued hospitalizations. The patient stated No. This RN discussed further that hospice will come in and speak to her about the cares that they provide including pain management, sleeping and end of life. This RN asked the patient if she would be interested in that? The patient stated yes. This RN then called the patient's family member aNomi ([email or web address]), while in the room with the patient to discuss the patient's wishes. The family member stated that someone else had recently discussed the patient going on hospice with her and that she was afraid to talk to her about it for fear she would be upset/mad. This RN discussed in depth and in front of the patient the conversation related to hospice and what the patient had said. This RN also discussed with the POA that having a discussion doesn't mean that she has to go on hospice but that we could start the process of educating further. This RN let her know that it would be up to them to pick the hospice facility they want to go with and they would come and discuss the plan of care related to that. The POA was thankful and stated she would be up to talk to her aunt to make sure she was on board and that they would probably go with hospice. The MD was made aware of this conversation and the menagerie caretaker was consulted for hospice informations.
--- NOTE | 2025-03-08 12:27 | PC.NURSE ---
Patient arrived to the floor via stretcher from the ER. Photos taken of her what appears to be a urostomy stoma that is leaking what appears to be urine or serous fluid. Photos were taken of wounds on sacrum and coccyx as well as left upper thigh. receiving inspector was placed on patient and is functioning at this time. Vital signs obtained at this time. 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 IV fluids infusing as ordered along with vancomycin as ordered. Patient doesn't appear to be in acute distress at this time. Oriented to self, place, and birthdate. She appears to be forgetful of time at this time. POA was contacted related to patient discussion on code status and possibly going on hospice and will be up to talk to the patient some time today.
--- NOTE | 2025-03-08 13:02 | PM.CNGS ---
Assessment and Plan Assessment and plan (1) Right ischial pressure sore, stage 4: Code(s): L89.314 - Pressure ulcer of right buttock, stage 4 Status: Acute Assessment and Plan: Patient presented to the emergency department today from [facility] with concerns for worsening wounds. She was recently admitted here in November and underwent sharp excisional debridement of a stage IV sacral decubitus ulcer measuring 10 cm x 6 cm including skin, subcutaneous fat, fascia, and bone. This wound actually appears to be healing appropriately with healthy pink tissue. However, pressure ulcer of right ischium area has extensive necrotic tissue throughout wound bed with tracking and palpable sharp bone. Overall nonviable wound that would not likely be amenable to conservative management. With likely require surgical debridement. However, patient states that she does not want to undergo another surgery. Hospice options being discussed with patient, as well as her niece (POA) at bedside. Niece would like to have a night to think over her options. We will defer any surgical intervention for the day. Will give patient a diet and make her NPO at midnight in the case that she would like to proceed with surgery tomorrow. (2) Sacral decubitus ulcer, stage IV: Code(s): L89.154 - Pressure ulcer of sacral region, stage 4 Status: Acute Assessment and Plan: Stable. 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 Not currently undergoing any treatment. Reportedly unable to receive chemotherapy due to nonhealing wounds. Plan Discussed patient's case and plan of care with Dr. Olson. 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 Patient is well known to the General surgery team as she was just admitted from 12/07/2024 to 12/15/24. She underwent sharp excisional debridement of stage IV sacral decubitus ulcer measuring 10 cm x 6 cm including skin, subcutaneous fat, fascia, and bone on 12/08/2024. Patient presented to the ER today from [facility] with concerns for worsening wounds to her sacrum. Patient is is only partially alert and oriented, as she was not able to tell me where she was or what year it is, but she does not report any pain to the area. She denies any fever/chills or nausea/vomiting. Upon admission to the ED, labs revealed a white blod cell count of 14.6. Patient is afebrile, but tachycardic. A CT of the abdomen and pelvis demonstrated a large open infected wound overlying the right inferior pubic ramus. Ill-defined fluid and gas but no discrete abscess. Small focal osteomyelitis pubic ramus. Associated myositis of hamstring. Open wound overlying sacrum. Presumably infected, but no abscess. 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 Also noted was in of enlarging adrenal metastatic a cyst left side. Slightly enlarged left lower lobe mass with enlarging satellite mass. Stercoral colitis. Subtle pyelonephritis right kidney not excluded. General surgery team consulted. Patient admitted to IMU. [facility] Past Medical History Medical History Hyperlipidemia Depression with anxiety Spina bifida of lumbar spine Surgical History Surgical History History of hysterectomy History of tonsillectomy History of appendectomy History of urostomy Family History Family History Father Cancer Social History Social History Social History: Legal guardian: Daniella Chilel ([phone]). Code status: Do not resuscitate. Smoking status: Never smoker Alcohol intake: never Substance use: never Substance use type: does not use Do You Feel Safe in your Home?: Yes Lack of Transportation: No Lack of Food: Never True Current Housing: I Have Housing Concerned About Future Housing: No Difficulty Paying Gas/Electric Bills: No Difficulty Paying for Meds: No Currently Unemployed: No Education: Grade School Difficulty w/ Childcare or Family Care: No Spiritual care concerns: No Meds Home Medications and Allergies Home Medications ?Medication ?Instructions ?Recorded ?Confirmed ?Type acetaminophen 650 mg tablet 650 mg PO Q4H PRN mild pain 02/21/23 03/08/25 History atorvastatin 10 mg tablet 10 mg PO HS 02/21/23 03/08/25 History calcium 600 mg-D3 800 unit-mag 40 1 tablet PO BID 02/21/23 03/08/25 History [id number]-[id number]-leydi-boron chew tablet (Caltrate 600-D Plus Minerals) duloxetine 60 mg capsule,delayed 60 mg PO BID 02/21/23 03/08/25 History release fluticasone propionate 50 2 spray intranasal DAILY 02/21/23 03/08/25 History mcg/actuation nasal spray,suspension (Flonase Allergy Relief) loratadine 10 mg tablet 10 mg PO DAILY 02/21/23 03/08/25 History nystatin 100,000 unit/gram topical 1 applic topical DAILY 02/21/23 03/08/25 History powder cholecalciferol (vitamin D3) 50 50 mcg PO DAILY 07/08/24 03/08/25 History mcg (2,000 unit) capsule multivitamin (Daily Multi-Vitamin 1 tablet PO DAILY 07/08/24 03/08/25 History tablet) lactulose 10 gram/15 mL oral 10 g (15 mL) PO DAILY PRN 07/10/24 03/08/25 Rx solution constipation #473 mL ascorbic acid (vitamin C) 500 mg 500 mg PO BID 12/07/24 03/08/25 History chewable tablet (Acerola C) ondansetron 4 mg disintegrating 4 mg PO Q6H PRN NAUSEA 12/07/24 03/08/25 History tablet zinc sulfate 50 mg zinc (220 mg) 50 mg PO DAILY 12/07/24 03/08/25 History capsule (Zinc-220) sodium hypochlorite 0.125 % 1 applic topical Q12HR #100 mL 12/15/24 03/08/25 Rx solution (Dakin's Solution) magnesium hydroxide 400 mg/5 mL 30 ml PO HS PRN constipation 03/08/25 03/08/25 History oral suspension (Dulcolax (magnesium hydroxide)) mirtazapine 15 mg tablet 15 mg PO HS 03/08/25 03/08/25 History Allergies Allergy/AdvReac Type Severity Reaction Status Date / Time codeine Allergy Unknown Verified 03/08/25 13:07 NSAIDS (Non-Steroidal Allergy Unknown Verified 03/08/25 13:07 Anti-Inflamma Penicillins Allergy Hives Verified 03/08/25 13:07 Sulfa (Sulfonamide Allergy Hives Verified 03/08/25 13:07 Antibiotics) Vital Signs Vital Signs - 24 hr 03/08/25 08:11 03/08/25 09:08 03/08/25 10:24 Temperature 98.7 F Pulse Rate 104 H 101 H 99 Respiratory Rate 18 18 25 H Blood Pressure 92/66 L 95/64 L 111/63 Pulse Oximetry 99 98 94 03/08/25 11:10 03/08/25 12:09 Temperature 98.9 F Pulse Rate 105 H 110 H Respiratory Rate 18 14 Blood Pressure 114/61 119/59 L Pulse Oximetry 96 98 Exam Const: General: comfortable and no acute distress Eyes: General: appearance normal, both eyes and all related structures Neck: Neck: supple and no JVD Resp: Effort & Inspection: normal respiratory effort Cardio: Rate: tachycardic Skin: Other: Sacral wound with pink healthy tissue throughout wound bed. Wound edges all healthy tissue. Roughly 5-6 cm in diameter. R ischial wound demonstrating wet unhealthy wound bed with extensive brown slough and necrotic tissue covering majority of the surface. Foul odor. Tracking of about 1.5 cm anteriorly. Sharp jagged bone exposed in this cavity. Overall nonviable and likely not amenable to conservative management. Psych: Mental Status: mental status grossly normal Results Labs 03/08/25 08:55 03/08/25 08:54 Labs: Abnormal lab results 03/08/25 03/08/25 Range/Units 08:54 08:55 WBC 14.6 H (4.5-10.0) K/mm3 RBC 3.91 L (4.2-5.4) M/mm3 Hgb 9.7 L (12.0-15.0) g/dL Hct 32.0 L (37.0-47.0) % MCH 24.8 L (26-34) pg MCHC 30.3 L (32-36) g/dl RDW 15.4 H (11.5-14.5) % Plt Count 578 H (150-375) k/mm3 Neut % (Auto) 74.2 H (45.5-73.1) % Lymph % (Auto) 16.4 L (18.3-44.2) % [place] # (Auto) 0.9 H (0.1-0.6) K/mm3 Abs Immat Gran (auto) 0.08 H (0.00-0.031) K/mm3 Absolute Neuts (auto) 10.8 H (1.3-6.7) K/mm3 Sodium 135 L (137-145) mmol/L Chloride 94 L (98-107) mmol/L Carbon Dioxide 33 H (22-30) mmol/L Creatinine 0.48 L (0.7-1.0) mg/dL Alkaline Phosphatase 186 H (38-126) U/L C-Reactive Protein 29.7 H (<1.0) mg/dL Diabetes panel 03/08/25 Range/Units 08:54 Sodium 135 L (137-145) mmol/L Potassium 3.7 (3.4-5.0) mmol/L Chloride 94 L (98-107) mmol/L Carbon Dioxide 33 H (22-30) mmol/L BUN 9 (7-17) mg/dL Creatinine 0.48 L (0.7-1.0) mg/dL Glucose 100 (65-110) mg/dL Calcium 8.7 (8.4-10.2) mg/dL AST 24 (14-36) U/L ALT 13 (6-35) U/L Alkaline Phosphatase 186 H (38-126) U/L Total Protein 7.8 (6.3-8.2) g/dL Albumin 3.5 (3.5-5.1) g/dL Calcium panel 03/08/25 Range/Units 08:54 Calcium 8.7 (8.4-10.2) mg/dL Albumin 3.5 (3.5-5.1) g/dL Pituitary panel 03/08/25 Range/Units 08:54 Sodium 135 L (137-145) mmol/L Potassium 3.7 (3.4-5.0) mmol/L Chloride 94 L (98-107) mmol/L Carbon Dioxide 33 H (22-30) mmol/L BUN 9 (7-17) mg/dL Creatinine 0.48 L (0.7-1.0) mg/dL Glucose 100 (65-110) mg/dL Calcium 8.7 (8.4-10.2) mg/dL Adrenal panel 03/08/25 Range/Units 08:54 Sodium 135 L (137-145) mmol/L Potassium 3.7 (3.4-5.0) mmol/L Chloride 94 L (98-107) mmol/L Carbon Dioxide 33 H (22-30) mmol/L BUN 9 (7-17) mg/dL Creatinine 0.48 L (0.7-1.0) mg/dL Glucose 100 (65-110) mg/dL Calcium 8.7 (8.4-10.2) mg/dL Total Bilirubin 0.6 (0.2-1.3) mg/dL AST 24 (14-36) U/L ALT 13 (6-35) U/L Alkaline Phosphatase 186 H (38-126) U/L Total Protein 7.8 (6.3-8.2) g/dL Albumin 3.5 (3.5-5.1) g/dL All other labs normal.
--- NOTE | 2025-03-08 13:45 | PM.IMHP ---
H&P: HPI History of Present Illness Date/Time: 03/08/25 13:45 Chief Complaint: Sacral Wound Narrative: 79 y/o F with PMH of sacral wounds requiring debridement, hyperlipidemia, depression, anxiety, and spina bifida presents here with chronic sacral wounds with possible infection. The patient presents here from [facility] via EMS for further evaluation of chronic sacral wounds. The patient was admitted for the sacral wounds from 12/07/2024 to 12/15/2024. 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 She was initially started on vancomycin, cefepime, and Flagyl. Underwent debridement on 12/08/2024. Blood cultures negative, urine culture negative. Wound culture grew ESBL and MDR Proteus mirabilis and she was subsequently switched to Ertapenem on 12/13/2024 with plan for 6 weeks of therapy which has since been completed. She is returning today, 03/08, as she reports the wounds to her sacrum have worsened and are now draining. She denies XX. Initial VS at presentation: 98.7? F, HR 104, R 18, 92/66, and 99% on RA. ED workup showed: WBC 14.6, hemoglobin 9.7 (7.9 on 12/15), sodium 135, creatinine 0.48 and GFR >60, CRP 29.7, procalcitonin 0.1, lactic 1.1. CT of the abdomen/pelvis showed a large open infected wound overlying the right inferior pubic ramus with ill-defined fluid and gas but no discrete abscess, small focal osteomyelitis along the pubic ramus with associated myositis of hamstring muscle, open wound overlying sacrum presumably infected but no abscess suspicion for chronic osteomyelitis of distal sacrum and coccyx, enlarging adrenal metastasis left side, slightly enlarged left lower lobe mass with enlarging satellite mass, stercoral colitis, subtle pyelonephritis of the right kidney not excluded. 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 Code status: Do not resuscitate. Smoking status: Never smoker Alcohol intake: never Substance use: never Substance use type: does not use Do You Feel Safe in your Home?: Yes Lack of Transportation: No Lack of Food: Never True Current Housing: I Have Housing Concerned About Future Housing: No Difficulty Paying Gas/Electric Bills: No Difficulty Paying for Meds: No Currently Unemployed: No Education: Grade School Difficulty w/ Childcare or Family Care: No Spiritual care concerns: No Meds Home Medications and Allergies Home Medications ?Medication ?Instructions ?Recorded ?Confirmed ?Type acetaminophen 650 mg tablet 650 mg PO Q4H PRN mild pain 02/21/23 03/08/25 History atorvastatin 10 mg tablet 10 mg PO HS 02/21/23 03/08/25 History calcium 600 mg-D3 800 unit-mag 40 1 tablet PO BID 02/21/23 03/08/25 History vc-dfil-qfol-leydi-boron chew tablet (Caltrate 600-D Plus Minerals) duloxetine 60 mg capsule,delayed 60 mg PO BID 02/21/23 03/08/25 History release fluticasone propionate 50 2 spray intranasal DAILY 02/21/23 03/08/25 History mcg/actuation nasal spray,suspension (Flonase Allergy Relief) loratadine 10 mg tablet 10 mg PO DAILY 02/21/23 03/08/25 History nystatin 100,000 unit/gram topical 1 applic topical DAILY 02/21/23 03/08/25 History powder cholecalciferol (vitamin D3) 50 50 mcg PO DAILY 07/08/24 03/08/25 History mcg (2,000 unit) capsule multivitamin (Daily Multi-Vitamin 1 tablet PO DAILY 07/08/24 03/08/25 History tablet) lactulose 10 gram/15 mL oral 10 g (15 mL) PO DAILY PRN 07/10/24 03/08/25 Rx solution constipation #473 mL ascorbic acid (vitamin C) 500 mg 500 mg PO BID 12/07/24 03/08/25 History chewable tablet (Acerola C) ondansetron 4 mg disintegrating 4 mg PO Q6H PRN NAUSEA 12/07/24 03/08/25 History tablet zinc sulfate 50 mg zinc (220 mg) 50 mg PO DAILY 12/07/24 03/08/25 History capsule (Zinc-220) sodium hypochlorite 0.125 % 1 applic topical Q12HR #100 mL 12/15/24 03/08/25 Rx solution (Dakin's Solution) magnesium hydroxide 400 mg/5 mL 30 ml PO HS PRN constipation 03/08/25 03/08/25 History oral suspension (Dulcolax (magnesium hydroxide)) mirtazapine 15 mg tablet 15 mg PO HS 03/08/25 03/08/25 History Allergies Allergy/AdvReac Type Severity Reaction Status Date / Time codeine Allergy Unknown Verified 03/08/25 13:07 NSAIDS (Non-Steroidal Allergy Unknown Verified 03/08/25 13:07 Anti-Inflamma Penicillins Allergy Hives Verified 03/08/25 13:07 Sulfa (Sulfonamide Allergy Hives Verified 03/08/25 13:07 Antibiotics) Vital Signs Vital Signs - 24 hr 03/08/25 08:11 03/08/25 09:08 03/08/25 10:24 Temperature 98.7 F Pulse Rate 104 H 101 H 99 Respiratory Rate 18 18 25 H Blood Pressure 92/66 L 95/64 L 111/63 Pulse Oximetry 99 98 94 03/08/25 11:10 03/08/25 12:09 Temperature 98.9 F Pulse Rate 105 H 110 H Respiratory Rate 18 14 Blood Pressure 114/61 119/59 L Pulse Oximetry 96 98 Exam Const: General: comfortable and no acute distress Other: , female, elderly, chronically ill-appearing, nontoxic appearance HENMT: Face/Nose/Sinus: Normal nares present Mouth: Yes dry mucous membranes Eyes: General: appearance normal, both eyes and all related structures Sclera: sclerae normal Pupils: Equal, round and reactive pupils present Other: +exotropia Resp: Effort & Inspection: normal respiratory effort Auscultation: clear to auscultation bilaterally Cardio: Rate: regular rate Rhythm: regular rhythm Other: S1-S2 present without murmur, rub, ectopy GI: Other: Abdomen soft, nondistended, nontender. Normoactive bowel sounds in all quadrants. right urostomy present, stoma pink and moist with no signs of infection. Malodorous urine present. Skin: General skin exam: normal color and no rashes or lesions noted Other: Sacral wound present. Wound bed peak/healthy tissue. Wound edges healthy tissue. Approximately 5 x 6 cm. Modest white/yellow purulence, stringy. No necrosis noted. Second wound to the right ischial. Necrotic/bernstein wound bed with extensive brown slough, foul odor, tunneling, sharp jagged bone exposed and cavity. Neuro: Other: Alert to self and situation. Incorrect place (believed she was at the assisted) and no attempt at time. Extrem: Other: + 1 pitting edema to bilateral feet. DP pulses 2+ bilaterally. Psych: Other: Fair to poor insight and judgment at present, very pleasant H&P: Results Labs Labs: Short CBC 03/08/25 Range/Units 08:55 WBC 14.6 H (4.5-10.0) K/mm3 Hgb 9.7 L (12.0-15.0) g/dL Hct 32.0 L (37.0-47.0) % Plt Count 578 H (150-375) k/mm3 BMP 03/08/25 08:54 Sodium 135 L Potassium 3.7 Chloride 94 L Carbon Dioxide 33 H BUN 9 Creatinine 0.48 L Glucose 100 Calcium 8.7 Liver Function 03/08/25 Range/Units 08:54 Total Bilirubin 0.6 (0.2-1.3) mg/dL AST 24 (14-36) U/L ALT 13 (6-35) U/L Alkaline Phosphatase 186 H (38-126) U/L Albumin 3.5 (3.5-5.1) g/dL Assessment and Plan Assessment and plan (1) Sepsis: Qualifiers: Sepsis acute organ dysfunction status: without acute organ dysfunction Sepsis type: sepsis due to unspecified organism Qualified Code(s): A41.9 - Sepsis, unspecified organism Code(s): A41.9 - Sepsis, unspecified organism Status: Acute Assessment and Plan: Patient's BP initially on the low end of normotensive at 92/66 with a leukocytosis of 14.6. Lactic 1.1. CRP 29.7. CT of the abdomen/pelvis completed upon initial evaluation, see impression below. History of chronic sacral wound with concerns for infection/chronic osteomyelitis. General surgery consulted. Broad-spectrum antibiotics initiated. Given 1L in the ED, will give second L to reach sepsis bolus 2.1L. - CT abdomen/pelvis, 03/08: 1. Large open infected wound overlying right inferior pubic ramus. Ill-defined fluid and gas but no discrete abscess. Small focal osteomyelitis along pubic ramus. Associated myositis of hamstring muscle. 2. Open wound overlying sacrum. Presumably infected, but no abscess. 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 3. Enlarging adrenal metastasis left side. 4. Slightly enlarged left lower lobe mass with enlarging satellite mass. 5. Stercoral colitis. 6. Subtle pyelonephritis right kidney not excluded - started on cefepime, Flagyl, vancomycin. Previous wound culture grew ESBL and MDR Proteus mirabilis sensitive to meropenem, tetracycline, and Bactrim from admission in November of 2024. - general surgery consulted, suspected source chronic osteomyelitis/chronic sacral wound infection - IV fluids: 1L bolus, 2nd liter ordered -> 100 mL/hr - blood cultures obtained on 03/08, follow - monitor WBC and hemodynamic stability - patient altered from baseline, normally A/Ox4 and will occasionally forget past events but typically knows self/place/situation. Now A/O to self/situation only. Per family at bedside, typically presents same when she has a UTI. Urostomy present to R abdomen, bag replaced this afternoon, UA ordered. (2) Right ischial pressure sore, stage 4: Code(s): L89.314 - Pressure ulcer of right buttock, stage 4 Status: Acute Assessment and Plan: Admitted in November of 2024 for affected sacral decubitus ulcer. Underwent sharp excisional debridement of a stage IV sacral decubitus ulcer measuring 10 cm x 6 cm including skin, subcutaneous fat, fascia, and bone. - general surgery consulted >> sacral decubitus ulcer healing appropriately, healthy pink tissue on exam. However pressure also the right ischium area with extensive necrotic tissue noted with tracking and palpable sharp bone. General impression, nonviable wound will likely not respond to conservative management and will likely need surgical debridement. Surgical PA discussed undergoing additional surgery, however patient does not think she wants to go to another operation. Hospice discussed as an option with the patient in her niece (POA) and the patient would like to think about her options this evening. Care coordination consulted. Therefore surgical intervention deferred with today and made NPO at midnight in case patient elects to proceed with surgical management tomorrow (03/07). - continue broad-spectrum antibiotics (3) Sacral decubitus ulcer, stage IV: Code(s): L89.154 - Pressure ulcer of sacral region, stage 4 Status: Acute Assessment and Plan: - see above (4) Stercoral colitis: Code(s): K52.89 - Other specified noninfective gastroenteritis and colitis Status: Acute Assessment and Plan: - started on cefepime, Flagyl, vancomycin on 03/08. Continued inpatient. - suspect stercoral colitis secondary to chronic constipation, present upon previous admission in November of 2024 - bowel regimen: continue home meds - lactulose 10 mg p.r.n. and milk of magnesia p.r.n. Add docusate BID beatriz. (5) Adenosquamous carcinoma of lung: Qualifiers: Laterality: left Qualified Code(s): C34.92 - Malignant neoplasm of unspecified part of left bronchus or lung Code(s): C34.90 - Malignant neoplasm of unspecified part of unspecified bronchus or lung Status: Chronic Assessment and Plan: Previously underwent a biopsy on 12/09/24 - pulmonary adenosquamous carcinoma (TTF1+/p63+/Napsin A+). Was referred to Oncology outpatient during that admission. Currently not undergoing treatment as she reportedly cannot see chemotherapy due to her nonhealing/chronic wounds. Hospice currently being discussed as she has workup concerning for a right ischial pressure ulceration that require surgical interventions that patient is unsure she would like to undergo. (6) Depression with anxiety: Code(s): F41.8 - Other specified anxiety disorders Status: Chronic Assessment and Plan: Stable. - continue home medications: Duloxetine 60 mg b.i.d., Remeron 50 mg HS (7) Hyperlipidemia: Qualifiers: Hyperlipidemia type: unspecified Qualified Code(s): E78.5 - Hyperlipidemia, unspecified Code(s): E78.5 - Hyperlipidemia, unspecified Status: Chronic Assessment and Plan: - continue atorvastatin 10 mg HS Plan Discussed surgical management versus hospice with the patient's POA (Naomi Lundy) and the patient's sister. Typically she has had no reservations about undergoing surgical management given she has undergone multiple surgeries in her lifetime. They feel this is an acute change from her normal and she is currently more somnolent/altered from her baseline which she has previously presented as when she has a UTI. UA has been added. They would like to see if she becomes more alert/oriented within the next 24 hours to help make her medical decisions. If patient elects to transition to hospice, they are okay with this change. However, they have reservations about making any major decisions before giving her mental status the chance to rebound. Diet: Regular, NPO at midnight GI Prophylaxis: N/a DVT Prophylaxis: SCDs IV fluids: 2L -> 100 mL/hr Lines/Tubes: peripheral IV, urostomy (R) Code Status: DNR Quality VTE Prophylaxis VTE prophylaxis: mechanical ordered Hospitalist MIPS Advance Care Plan I have confirmed that the patient's Advanced Care Plan is present, code status is documented, or surrogate decision maker is listed in patient medical record.: Yes Medication Reconciliation I have utilized all available resources to obtain, update and review the patients current medications (includes all prescriptions, OTC, herbals, cannabis, and nutritional supplements).: Yes
[2025-03-08] MEDS: DULoxetine HCL 60 MG CAPSULE.DR PO (16:53)
[2025-03-08] MEDS: CALCIUM/VITAMIN D 500 MG/5 MCG (200 I.U.) TABLET PO (16:53)
[2025-03-08] MEDS: ASCORBIC ACID 500 MG TABLET PO (16:53)
[2025-03-08] MEDS: ATORVASTATIN 10 MG TABLET PO (21:23)
[2025-03-08] MEDS: ACETAMINOPHEN 325 MG TABLET 650 MG BY MOUTH (21:23)
[2025-03-08] MEDS: SOD HYPOCHLORITE 1/4 STRENGTH 473 ML 1 APPLIC TOPICAL (21:24)
[2025-03-08] MEDS: DOCUSATE SODIUM 100 MG CAPSULE PO (21:24)
[2025-03-08] MEDS: MIRTAZAPINE 15 MG TABLET PO (21:24)
[2025-03-09] VITALS (11 sets, daily range): BP systolic 86–130; BP diastolic 43–52; PULSE 73–110; RESP 10–20; TEMP 36.4–37.5; O2SAT 93–99
[2025-03-09] MEDS: metroNIDAZOLE 500 MG/ISO 100ML 500 MG/100 ML BAG 100 MG IVPB ×3 (01:30→16:46)
[2025-03-09 04:34] LABS: Hematocrit 25.3 % (37.0-47.0); Hemoglobin 7.8 g/dL (12.0-15.0); Immature Granulocyte Percent A 0.4 % (0-0.5); Lymphocytes Absolute Auto 2.01 K/mm3 (0.9-3.2); Mean Corpuscular HGB Conc 30.8 g/dl (32-36); Mean Corpuscular Hemoglobin 25.1 pg (26-34); Mean Corpuscular Volume 81.4 fl (80-100); Nucleated Red Blood Cells Absolute Auto 0.000 K/mm3 (0.0-0.012); Nucleated Red Blood Cells Perc 0.0 % (0.0-0.2); Platelet Count Result 507 k/mm3 (150-375); Red Blood Count 3.11 M/mm3 (4.2-5.4); White Blood Count 9.7 K/mm3 (4.5-10.0)
[2025-03-09] MEDS: VANCOMYCIN 1,500 MG/NS 500 ML 1,500 MG/500 ML BAG 250 MG IVPB ×2 (04:37→16:46)
[2025-03-09 04:49] LABS: Alanine Aminotransferase 9 U/L (6-35); Albumin Level 2.5 g/dL (3.5-5.1); Alkaline Phosphatase 149 U/L (38-126); Anion Gap 5 mmol/L (4-12); Aspartate Amino Transferase 18 U/L (14-36); Bilirubin,Total 0.4 mg/dL (0.2-1.3); Blood Urea Nitrogen 6 mg/dL (7-17); Calcium 7.6 mg/dL (8.4-10.2); Carbon Dioxide 29 mmol/L (22-30); Chloride 99 mmol/L (98-107); Estimated CRCL calculation 86 ml/min; Estimated Glomerular Filt Rate > 60; Glucose 84 mg/dL (65-110); Potassium 3.2 mmol/L (3.4-5.0); Sodium 133 mmol/L (137-145); Total Protein 5.7 g/dL (6.3-8.2)
[2025-03-09] MEDS: LACTATED RINGERS 1,000 ML 125 ML IV CONT (09:36)
[2025-03-09] MEDS: CEFEPIME 2 GM in SODIUM CHLORIDE 0.9% IV 50 ML 100 ML IVPB ×2 (09:36→21:31)
[2025-03-09] MEDS: ASCORBIC ACID 500 MG TABLET PO ×2 (09:37→16:45)
[2025-03-09] MEDS: DOCUSATE SODIUM 100 MG CAPSULE PO (09:37)
[2025-03-09] MEDS: DULoxetine HCL 60 MG CAPSULE.DR PO ×2 (09:37→16:45)
[2025-03-09] MEDS: FLUTICASONE PROPIONATE 0.05% NA SPR 16 GM BTL (*BKC) 2 SPRAY NASAL (09:37)
[2025-03-09] MEDS: CHOLECALCIFEROL (VITAMIN D3) 25 MCG (1,000 UNITS) TABLET 50 MCG PO (09:37)
[2025-03-09] MEDS: LORATADINE 10 MG TABLET PO (09:37)
[2025-03-09] MEDS: MULTIVITAMINS THERAPEUTIC TAB (*BKC) 1 TABLET PO (09:37)
[2025-03-09] MEDS: POTASSIUM CHLORIDE 20 MEQ PACKET (FOR LIQUID) 40 MEQ PO ×2 (09:39→16:45)
[2025-03-09] MEDS: CALCIUM/VITAMIN D 500 MG/5 MCG (200 I.U.) TABLET PO ×2 (09:39→16:45)
[2025-03-09] MEDS: ZINC SULFATE 220 MG CAPSULE 50 MG PO (09:40)
--- NOTE | 2025-03-09 12:19 | P.PNGS_ITS ---
Progress Note: A&P Assessment and Plan (1) Right ischial pressure sore, stage 4: Code(s): L89.314 - Pressure ulcer of right buttock, stage 4 Status: Acute Assessment and Plan: After long discussion with patient's POA, niece, and patient's sister at bedside, the decision has been made to proceed with surgical debridement. Patient will likely be added onto surgery schedule for tomorrow. Once time is confirmed, will give patient diet for dinner tonight and make NPO at midnight. Continue IV fluids and antibiotics. (2) Sacral decubitus ulcer, stage IV: Code(s): L89.154 - Pressure ulcer of sacral region, stage 4 Status: Acute Assessment and Plan: Stable. 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 Not currently undergoing any treatment. Reportedly unable to receive chemotherapy due to nonhealing wounds. Plan Discussed patient's case and plan of care with Dr. Olson. Subjective Subjective Date/Time Seen: 03/09/25 12:19 Patient reports: no new complaints and afebrile Interval history: Patient doing well this morning. WBC normalized to 9.7. Spoke with patient, as well as with her POA and the decision has been made to proceed with surgery. Exam Const: General: comfortable and no acute distress Resp: Effort & Inspection: normal respiratory effort Cardio: Rate: tachycardic GI: Inspection: non-distended GI Palp: Yes Soft to palpation and Yes Tenderness to palpation present (GI) (some mild tenderness to lower abdomen) Skin: General skin exam: normal color and no rashes or lesions noted Psych: Mental Status: mental status grossly normal Objective Data Vital Signs Vital Signs: Vital Signs - 24 hr 03/08/25 14:00 03/08/25 15:55 03/08/25 16:00 Temperature 99.4 F Pulse Rate 107 H 107 H 120 H Respiratory Rate 18 18 Blood Pressure 123/53 L Pulse Oximetry 99 99 Oxygen Delivery Room Air 03/08/25 16:00 03/08/25 18:00 03/08/25 20:00 Temperature 100.3 F H Pulse Rate 105 H 111 H 110 H Respiratory Rate 13 Blood Pressure 111/89 Pulse Oximetry 95 Oxygen Delivery 03/08/25 20:00 03/08/25 20:00 03/08/25 21:23 Temperature 100.2 F H Pulse Rate 110 H 110 H Respiratory Rate 16 Blood Pressure Pulse Oximetry 95 Oxygen Delivery Room Air 03/08/25 21:51 03/08/25 22:20 03/09/25 00:00 Temperature 99.2 F 98.7 F Pulse Rate 111 H 100 Respiratory Rate 10 L Blood Pressure 86/43 L Pulse Oximetry 97 Oxygen Delivery 03/09/25 00:00 03/09/25 00:00 03/09/25 02:00 Temperature Pulse Rate 104 H 104 H 94 Respiratory Rate 10 L Blood Pressure Pulse Oximetry 97 Oxygen Delivery Room Air 03/09/25 04:00 03/09/25 04:00 03/09/25 04:00 Temperature 98.2 F Pulse Rate 92 94 94 Respiratory Rate 11 L 14 Blood Pressure 97/44 L Pulse Oximetry 93 93 Oxygen Delivery Room Air 03/09/25 05:23 03/09/25 07:42 03/09/25 07:59 Temperature 98.6 F Pulse Rate 90 101 H Respiratory Rate 17 Blood Pressure 111/44 L Pulse Oximetry 93 96 Oxygen Delivery Room Air 03/09/25 08:00 03/09/25 08:00 03/09/25 10:00 Temperature Pulse Rate 99 99 99 Respiratory Rate 17 Blood Pressure Pulse Oximetry 96 Oxygen Delivery Room Air 03/09/25 12:00 Temperature 99.2 F Pulse Rate 104 H Respiratory Rate 20 Blood Pressure 108/50 L Pulse Oximetry 96 Oxygen Delivery Intake/Output Intake/Output: Intake & Output 03/06/25 03/07/25 03/08/25 03/09/25 23:59 23:59 23:59 23:59 Intake Total 2300 1600 Output Total 250 670 Balance 2050 930 Meds/Results Medications: Active Medications Generic Name Dose Route Start Last Admin Trade Name Freq PRN Reason Stop Dose Admin Acetaminophen 650 mg 03/08/25 15:09 03/08/25 21:23 Acetaminophen 325 Mg Tablet BY MOUTH 650 mg Q4H PRN Administration mild pain 1-3 Ascorbic Acid 500 mg 03/08/25 17:00 03/09/25 09:37 Ascorbic Acid 500 Mg Tablet PO 500 mg BID ALEXIS Administration Atorvastatin Calcium 10 mg 03/08/25 21:00 03/08/25 21:23 Atorvastatin 10 Mg Tablet PO 10 mg HS ALEXIS Administration Calcium Carbonate 500 mg 03/08/25 17:00 03/09/25 09:39 Calcium/Vitamin D 500 Mg/5 Mcg (200 I.U.) Tablet PO 500 mg BID ALEXIS Administration Docusate Sodium 100 mg 03/08/25 21:00 03/09/25 09:37 Docusate Sodium 100 Mg Capsule PO 100 mg Q12HR ALEXIS Administration Duloxetine HCl 60 mg 03/08/25 17:00 03/09/25 09:37 Duloxetine Hcl 60 Mg Capsule.Dr PO 60 mg BID ALEXIS Administration Fluticasone Propionate 2 spray 03/09/25 09:00 03/09/25 09:37 Fluticasone Propionate 0.05% Na Spr 16 Gm Btl (*Bkc) NASAL 2 spray DAILY ALEXIS Administration Cefepime HCl 2 gm/ Sodium 50 mls @ 100 mls/hr 03/08/25 21:00 03/09/25 09:36 Chloride IVPB 100 mls/hr Q12H ALEXIS Administration Metronidazole 500 mg in 100 mls @ 100 mls/hr 03/08/25 18:00 03/09/25 09:40 Flagyl 500 Mg/Iso Soln 100 Ml IVPB 100 mls/hr Q8H ALEXIS Administration Lactated Ringer's 1,000 mls @ 100 mls/hr 03/08/25 10:50 03/09/25 09:36 Lr - Lactated Ringers Iv IV CONT 125 mls/hr .Q10H ALEXIS Administration Vancomycin HCl 1,500 mg in 500 mls @ 250 mls/hr 03/09/25 17:00 Vancomycin 1,500 Mg/Ns 500 Ml IVPB Q12H ALEXIS Lactulose 10 gm 03/08/25 14:21 Lactulose 20 Gm/30 Ml Udc PO DAILY PRN Constipation Loratadine 10 mg 03/09/25 09:00 03/09/25 09:37 Loratadine 10 Mg Tablet PO 10 mg DAILY ALEXIS Administration Magnesium Hydroxide 30 ml 03/08/25 14:21 Magnesium Hydroxide Susp 30 Ml Udc PO HS PRN Constipation Mirtazapine 15 mg 03/08/25 21:00 03/08/25 21:24 Mirtazapine 15 Mg Tablet PO 15 mg HS ALEXIS Administration Miscellaneous Information 1 each 03/08/25 15:06 Central Supply Item Tolnaftate (Sub For Nystatin Powder) XX 03/09/25 15:05 PRN PRN Informational Multivitamins Therapeutic 1 tablet 03/09/25 09:00 03/09/25 09:37 Multivitamins Therapeutic Tab (*Bkc) PO 1 tablet DAILY ALEXIS Administration Ondansetron HCl 4 mg 03/08/25 14:21 Ondansetron Hcl Odt 4 Mg Tablet PO Q6H PRN NAUSEA Potassium Chloride 40 meq 03/09/25 09:00 03/09/25 09:39 Potassium Chloride 20 Meq Packet (For Liquid) PO 03/09/25 17:01 40 meq BID ALEXIS Administration Sodium Hypochlorite 1 applic 03/08/25 21:00 03/09/25 09:52 Sod Hypochlorite 1/4 Strength 473 Ml TOPICAL Not Given Q12HR ALEXIS Vitamin D 50 mcg 03/09/25 09:00 03/09/25 09:37 Cholecalciferol (Vitamin D3) 25 Mcg (1,000 Units) Tablet PO 50 mcg DAILY ALEXIS Administration Zinc Sulfate 50 mg 03/09/25 09:00 03/09/25 09:40 Zinc Sulfate 220 Mg Capsule PO 50 mg DAILY ALEXIS Administration Radiology Results: ITS Impressions Abdomen/Pelvis CT 03/08/25 09:50 IMPRESSION: 1. Large open infected wound overlying right inferior pubic ramus. Ill-defined fluid and gas but no discrete abscess. Small focal osteomyelitis along pubic ramus. Associated myositis of hamstring muscle. 2. Open wound overlying sacrum. Presumably infected, but no abscess. 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 3. Enlarging adrenal metastasis left side. 4. Slightly enlarged left lower lobe mass with enlarging satellite mass. 5. Stercoral colitis. 6. Subtle pyelonephritis right kidney not excluded. Labs Labs: Laboratory Results - last 24 hr 03/09/25 03:57 WBC 9.7 RBC 3.11 L Hgb 7.8 L Hct 25.3 L MCV 81.4 MCH 25.1 L MCHC 30.8 L RDW 15.4 H Plt Count 507 H MPV 8.8 Immature Gran % (Auto) 0.4 Neut % (Auto) 66.6 Lymph % (Auto) 20.8 Russell % (Auto) 7.7 Eos % (Auto) 3.9 Baso % (Auto) 0.6 Lymph # (Auto) 2.01 Russell # (Auto) 0.7 H Eos # (Auto) 0.4 H Baso # (Auto) 0.1 Abs Immat Gran (auto) 0.04 H Absolute Neuts (auto) 6.4 Absolute Nucleated RBC 0.000 Nucleated RBC % 0.0 Sodium 133 L Potassium 3.2 L Chloride 99 Carbon Dioxide 29 Anion Gap 5 BUN 6 L Creatinine 0.39 L Estim Creat Clear Calc 86 Estimated GFR > 60 Glucose 84 Calcium 7.6 L Total Bilirubin 0.4 AST 18 ALT 9 Alkaline Phosphatase 149 H Total Protein 5.7 L Albumin 2.5 L
--- NOTE | 2025-03-09 12:27 | WPDIDCN ---
Assessment and Plan Assessment and plan (1) Decubitus ulcer of sacral area: Code(s): L89.159 - Pressure ulcer of sacral region, unspecified stage Status: Acute Assessment and Plan: See below Plan ASSESSMENT: 1. Infected pressure ulcer 2. Stage 4 sacral pressure ulcer a. History of prior treatment for sacral osteomyelitis 3. Advanced lung cancer 4. Resolved leukocytosis PLAN: -Await culture results -Continue Vancomycin IV/Cefepime/Flagyl IV for now -Patient and family agreeable to surgical debridement of pressure ulcer -Duration of antimicrobial therapy will be predicated on surgical findings Discussed with patient and family. All questons answered. HPI Data of Consult Date/Time: 03/09/25 12:27 Requesting Physician: Raul Lopez MD Primary Care Provider: Jimmy Hayes, Consult Narrative Reason for consult: Infected pressure ulcer Narrative: Sadia Toledo is a 79 year old female with history of advanced lung cancer stage 4 sacral pressure ulcer with osteomyelitis s/p IV antimicrobial treatment who was admitted from [facility] due to worsening appearance of wounds. Patient underwent CT scan which demonstrated air-fluid collection along inferior pubic ramus region and chronic sacral/coccygeal osteomyelitis changes. General Surgery has been consulted and debridement has been deferred pending discussions on goals of care. Review of Systems Review of Systems: All systems reviewed & are unremarkable except as noted in HPI and below PMFSH Past Medical History Medical History (Updated 03/08/25 @ 18:24 by Kris Nieto MD) Adenosquamous carcinoma of lung biopsy 12/09/24 - pulmonary adenosquamous carcinoma (TTF1+/p63+/Napsin A+) Sacral decubitus ulcer, stage IV Paraplegia History of shingles Renal disease History of colitis Chronic constipation Hyperlipidemia Depression with anxiety Spina bifida of lumbar spine Surgical History Surgical History History of orthopedic surgery History of hysterectomy History of tonsillectomy History of appendectomy History of urostomy R side, age 16 Family History Family History Father Cancer Social History Social History Social History: Legal guardian: Daniella Chilel ([phone]). Code status: Do not resuscitate. Smoking status: Never smoker Alcohol intake: never Substance use: never Substance use type: does not use Do You Feel Safe in your Home?: Yes Lack of Transportation: No Lack of Food: Never True Current Housing: I Have Housing Concerned About Future Housing: No Difficulty Paying Gas/Electric Bills: No Difficulty Paying for Meds: No Currently Unemployed: No Education: Grade School Difficulty w/ Childcare or Family Care: No Spiritual care concerns: No Meds Home Medications and Allergies Home Medications ?Medication ?Instructions ?Recorded ?Confirmed ?Type acetaminophen 650 mg tablet 650 mg PO Q4H PRN mild pain 02/21/23 03/08/25 History atorvastatin 10 mg tablet 10 mg PO HS 02/21/23 03/08/25 History calcium 600 mg-D3 800 unit-mag 40 1 tablet PO BID 02/21/23 03/08/25 History [id number]-rhot-leydi-boron chew tablet (Caltrate 600-D Plus Minerals) duloxetine 60 mg capsule,delayed 60 mg PO BID 02/21/23 03/08/25 History release fluticasone propionate 50 2 spray intranasal DAILY 02/21/23 03/08/25 History mcg/actuation nasal spray,suspension (Flonase Allergy Relief) loratadine 10 mg tablet 10 mg PO DAILY 02/21/23 03/08/25 History nystatin 100,000 unit/gram topical 1 applic topical DAILY 02/21/23 03/08/25 History powder cholecalciferol (vitamin D3) 50 50 mcg PO DAILY 07/08/24 03/08/25 History mcg (2,000 unit) capsule multivitamin (Daily Multi-Vitamin 1 tablet PO DAILY 07/08/24 03/08/25 History tablet) lactulose 10 gram/15 mL oral 10 g (15 mL) PO DAILY PRN 07/10/24 03/08/25 Rx solution constipation #473 mL ascorbic acid (vitamin C) 500 mg 500 mg PO BID 12/07/24 03/08/25 History chewable tablet (Acerola C) ondansetron 4 mg disintegrating 4 mg PO Q6H PRN NAUSEA 12/07/24 03/08/25 History tablet zinc sulfate 50 mg zinc (220 mg) 50 mg PO DAILY 12/07/24 03/08/25 History capsule (Zinc-220) sodium hypochlorite 0.125 % 1 applic topical Q12HR #100 mL 12/15/24 03/08/25 Rx solution (Dakin's Solution) magnesium hydroxide 400 mg/5 mL 30 ml PO HS PRN constipation 03/08/25 03/08/25 History oral suspension (Dulcolax (magnesium hydroxide)) mirtazapine 15 mg tablet 15 mg PO HS 03/08/25 03/08/25 History Allergies Allergy/AdvReac Type Severity Reaction Status Date / Time codeine Allergy Unknown Verified 03/08/25 13:07 NSAIDS (Non-Steroidal Allergy Unknown Verified 03/08/25 13:07 Anti-Inflamma Penicillins Allergy Hives Verified 03/08/25 13:07 Sulfa (Sulfonamide Allergy Hives Verified 03/08/25 13:07 Antibiotics) Vital Signs Vital Signs - 24 hr 03/08/25 14:00 03/08/25 15:55 03/08/25 16:00 Temperature 99.4 F Pulse Rate 107 H 107 H 120 H Respiratory Rate 18 18 Blood Pressure 123/53 L Pulse Oximetry 99 99 Oxygen Delivery Room Air 03/08/25 16:00 03/08/25 18:00 03/08/25 20:00 Temperature 100.3 F H Pulse Rate 105 H 111 H 110 H Respiratory Rate 13 Blood Pressure 111/89 Pulse Oximetry 95 Oxygen Delivery 03/08/25 20:00 03/08/25 20:00 03/08/25 21:23 Temperature 100.2 F H Pulse Rate 110 H 110 H Respiratory Rate 16 Blood Pressure Pulse Oximetry 95 Oxygen Delivery Room Air 03/08/25 21:51 03/08/25 22:20 03/09/25 00:00 Temperature 99.2 F 98.7 F Pulse Rate 111 H 100 Respiratory Rate 10 L Blood Pressure 86/43 L Pulse Oximetry 97 Oxygen Delivery 03/09/25 00:00 03/09/25 00:00 03/09/25 02:00 Temperature Pulse Rate 104 H 104 H 94 Respiratory Rate 10 L Blood Pressure Pulse Oximetry 97 Oxygen Delivery Room Air 03/09/25 04:00 03/09/25 04:00 03/09/25 04:00 Temperature 98.2 F Pulse Rate 92 94 94 Respiratory Rate 11 L 14 Blood Pressure 97/44 L Pulse Oximetry 93 93 Oxygen Delivery Room Air 03/09/25 05:23 03/09/25 07:42 03/09/25 07:59 Temperature 98.6 F Pulse Rate 90 101 H Respiratory Rate 17 Blood Pressure 111/44 L Pulse Oximetry 93 96 Oxygen Delivery Room Air 03/09/25 08:00 03/09/25 08:00 03/09/25 10:00 Temperature Pulse Rate 99 99 99 Respiratory Rate 17 Blood Pressure Pulse Oximetry 96 Oxygen Delivery Room Air 03/09/25 12:00 Temperature 99.2 F Pulse Rate 104 H Respiratory Rate 20 Blood Pressure 108/50 L Pulse Oximetry 96 Oxygen Delivery Exam Narrative: Gen: fatigued Cor: no tachycardia Pulm: mild tachypnea, normal chest wall expansion Derm: stage 4 sacral pressure ulcer : urinary catheter in place Results Labs 03/09/25 03:57 03/09/25 03:57 Labs: Short CBC 03/09/25 Range/Units 03:57 WBC 9.7 (4.5-10.0) K/mm3 Hgb 7.8 L (12.0-15.0) g/dL Hct 25.3 L (37.0-47.0) % Plt Count 507 H (150-375) k/mm3 BMP 03/09/25 03:57 Sodium 133 L Potassium 3.2 L Chloride 99 Carbon Dioxide 29 BUN 6 L Creatinine 0.39 L Glucose 84 Calcium 7.6 L Liver Function 03/09/25 Range/Units 03:57 Total Bilirubin 0.4 (0.2-1.3) mg/dL AST 18 (14-36) U/L ALT 9 (6-35) U/L Alkaline Phosphatase 149 H (38-126) U/L Albumin 2.5 L (3.5-5.1) g/dL
--- NOTE | 2025-03-09 13:21 | P.PNIM_ITS ---
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 Qualified Code(s): C34.92 - Malignant neoplasm of unspecified part of left bronchus or lung Code(s): C34.90 - Malignant neoplasm of unspecified part of unspecified bronchus or lung Status: Chronic (2) Sacral osteomyelitis: Code(s): M46.28 - Osteomyelitis of vertebra, sacral and sacrococcygeal region Status: Acute (3) Decubitus ulcer of sacral area: Code(s): L89.159 - Pressure ulcer of sacral region, unspecified stage Status: Acute (4) Spina bifida of lumbar spine: Qualifiers: Presence of hydrocephalus: unspecified hydrocephalus presence Qualified Code(s): Q05.7 - Lumbar spina bifida without hydrocephalus Code(s): Q05.7 - Lumbar spina bifida without hydrocephalus Status: Chronic (5) Paraplegia: Code(s): G82.20 - Paraplegia, unspecified Status: Acute (6) Lung mass: Code(s): R91.8 - Other nonspecific abnormal finding of lung field Status: Acute Plan 79 y/o F with PMH of sacral wounds requiring debridement, hyperlipidemia, depression, anxiety, and spina bifida presents here with chronic sacral wounds with possible infection. The patient presents here from [facility] via EMS for further evaluation of chronic sacral wounds. The patient was admitted for the sacral wounds from 12/07/2024 to 12/15/2024. 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 She was initially started on vancomycin, cefepime, and Flagyl. Underwent debridement on 12/08/2024. Blood cultures negative, urine culture negative. Wound culture grew ESBL and MDR Proteus mirabilis and she was subsequently switched to Ertapenem on 12/13/2024 with plan for 6 weeks of therapy which has since been completed. CT of the abdomen/pelvis showed a large open infected wound overlying the right inferior pubic ramus with ill-defined fluid and gas but no discrete abscess, small focal osteomyelitis along the pubic ramus with associated myositis of hamstring muscle, open wound overlying sacrum presumably infected but no abscess suspicion for chronic osteomyelitis of distal sacrum and coccyx, enlarging adrenal metastasis left side, slightly enlarged left lower lobe mass with enlarging satellite mass, stercoral colitis, subtle pyelonephritis of the right kidney not excluded. 1. Infected stage IV sacral ulcer/sepsis: History of prior osteomyelitis Id following Follow-up blood culture Will continue with vanc cefepime Flagyl for now Appreciate general surgery help Patient's family/power of nuclear medicine technologist has decided to continue with treatment Plan for surgical debridement by General surgery later today Pain control if needed Continue with IV fluids 2. Hypokalemia: Supplement potassium 3. 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 Was referred to Oncology outpatient during that admission. Currently not undergoing treatment as she reportedly cannot do chemotherapy due to her nonhealing/chronic wounds. 4. Possible UTI: Follow-up urine culture Continue with antibiotic as mentioned above 5. Code status: DNR 6. DVT prophylaxis: SCDs 7. Disposition: Can be transferred out of IMU to med surg/tele Time Spent With Patient Time: 42 minutes Subjective Date/time seen: 03/09/25 13:21 Interval history: No major change clinically Review of Systems Review of Systems: All systems reviewed & are unremarkable except as noted in HPI and below Exam Const: General: comfortable Other: , female, elderly, chronically ill-appearing, nontoxic appearance HENMT: Mouth: Yes dry mucous membranes Eyes: Sclera: sclerae normal Other: +exotropia Resp: Auscultation: clear to auscultation bilaterally Cardio: Rate: regular rate Rhythm: regular rhythm Other: S1-S2 present without murmur, rub, ectopy GI: Other: Abdomen soft, nondistended, nontender. Normoactive bowel sounds in all quadrants. right urostomy present, stoma pink and moist with no signs of infection. Malodorous urine present. Skin: General skin exam: no rashes or lesions noted Other: Sacral wound present. Wound bed peak/healthy tissue. Wound edges healthy tissue. Approximately 5 x 6 cm. Modest white/yellow purulence, stringy. No necrosis noted. Second wound to the right ischial. Necrotic/bernstein wound bed with extensive brown slough, foul odor, tunneling, sharp jagged bone exposed and cavity. Neuro: Other: Alert to self and situation. Incorrect place (believed she was at the longterm) and no attempt at time. Extrem: Other: + 1 pitting edema to bilateral feet. DP pulses 2+ bilaterally. Psych: Other: Fair to poor insight and judgment at present, very pleasant Objective Data Vital Signs Vital Signs: Vital Signs - 24 hr 03/08/25 14:00 03/08/25 15:55 03/08/25 16:00 Temperature 99.4 F Pulse Rate 107 H 107 H 120 H Respiratory Rate 18 18 Blood Pressure 123/53 L Pulse Oximetry 99 99 Oxygen Delivery Room Air 03/08/25 16:00 03/08/25 18:00 03/08/25 20:00 Temperature 100.3 F H Pulse Rate 105 H 111 H 110 H Respiratory Rate 13 Blood Pressure 111/89 Pulse Oximetry 95 Oxygen Delivery 03/08/25 20:00 03/08/25 20:00 03/08/25 21:23 Temperature 100.2 F H Pulse Rate 110 H 110 H Respiratory Rate 16 Blood Pressure Pulse Oximetry 95 Oxygen Delivery Room Air 03/08/25 21:51 03/08/25 22:20 03/09/25 00:00 Temperature 99.2 F 98.7 F Pulse Rate 111 H 100 Respiratory Rate 10 L Blood Pressure 86/43 L Pulse Oximetry 97 Oxygen Delivery 03/09/25 00:00 03/09/25 00:00 03/09/25 02:00 Temperature Pulse Rate 104 H 104 H 94 Respiratory Rate 10 L Blood Pressure Pulse Oximetry 97 Oxygen Delivery Room Air 03/09/25 04:00 03/09/25 04:00 03/09/25 04:00 Temperature 98.2 F Pulse Rate 92 94 94 Respiratory Rate 11 L 14 Blood Pressure 97/44 L Pulse Oximetry 93 93 Oxygen Delivery Room Air 03/09/25 05:23 03/09/25 07:42 03/09/25 07:59 Temperature 98.6 F Pulse Rate 90 101 H Respiratory Rate 17 Blood Pressure 111/44 L Pulse Oximetry 93 96 Oxygen Delivery Room Air 03/09/25 08:00 03/09/25 08:00 03/09/25 10:00 Temperature Pulse Rate 99 99 99 Respiratory Rate 17 Blood Pressure Pulse Oximetry 96 Oxygen Delivery Room Air 03/09/25 12:00 03/09/25 12:00 03/09/25 12:00 Temperature 99.2 F Pulse Rate 104 H 107 H 107 H Respiratory Rate 20 20 Blood Pressure 108/50 L Pulse Oximetry 96 96 Oxygen Delivery Room Air Intake/Output Intake/Output: Intake & Output 03/06/25 03/07/25 03/08/25 03/09/25 23:59 23:59 23:59 23:59 Intake Total 2300 1964.6 Output Total 250 670 Balance 2050 1294.6 Meds/Results Medications: Active Medications Generic Name Dose Route Start Last Admin Trade Name Freq PRN Reason Stop Dose Admin Acetaminophen 650 mg 03/08/25 15:09 03/08/25 21:23 Acetaminophen 325 Mg Tablet BY MOUTH 650 mg Q4H PRN Administration mild pain 1-3 Ascorbic Acid 500 mg 03/08/25 17:00 03/09/25 09:37 Ascorbic Acid 500 Mg Tablet PO 500 mg BID ALEXIS Administration Atorvastatin Calcium 10 mg 03/08/25 21:00 03/08/25 21:23 Atorvastatin 10 Mg Tablet PO 10 mg HS ALEXIS Administration Calcium Carbonate 500 mg 03/08/25 17:00 03/09/25 09:39 Calcium/Vitamin D 500 Mg/5 Mcg (200 I.U.) Tablet PO 500 mg BID ALEXIS Administration Docusate Sodium 100 mg 03/08/25 21:00 03/09/25 09:37 Docusate Sodium 100 Mg Capsule PO 100 mg Q12HR ALEXIS Administration Duloxetine HCl 60 mg 03/08/25 17:00 03/09/25 09:37 Duloxetine Hcl 60 Mg Capsule.Dr PO 60 mg BID ALEXIS Administration Fluticasone Propionate 2 spray 03/09/25 09:00 03/09/25 09:37 Fluticasone Propionate 0.05% Na Spr 16 Gm Btl (*Bkc) NASAL 2 spray DAILY ALEXIS Administration Cefepime HCl 2 gm/ Sodium 50 mls @ 100 mls/hr 03/08/25 21:00 03/09/25 09:36 Chloride IVPB 100 mls/hr Q12H ALEXIS Administration Metronidazole 500 mg in 100 mls @ 100 mls/hr 03/08/25 18:00 03/09/25 09:40 Flagyl 500 Mg/Iso Soln 100 Ml IVPB 100 mls/hr Q8H ALEXIS Administration Lactated Ringer's 1,000 mls @ 75 mls/hr 03/08/25 10:50 03/09/25 12:31 Lr - Lactated Ringers Iv IV CONT 75 mls/hr .[id number] ALEXIS Infusion Vancomycin HCl 1,500 mg in 500 mls @ 250 mls/hr 03/09/25 17:00 Vancomycin 1,500 Mg/Ns 500 Ml IVPB Q12H LAEXIS Lactulose 10 gm 03/08/25 14:21 Lactulose 20 Gm/30 Ml Udc PO DAILY PRN Constipation Loratadine 10 mg 03/09/25 09:00 03/09/25 09:37 Loratadine 10 Mg Tablet PO 10 mg DAILY ALEXIS Administration Magnesium Hydroxide 30 ml 03/08/25 14:21 Magnesium Hydroxide Susp 30 Ml Udc PO HS PRN Constipation Mirtazapine 15 mg 03/08/25 21:00 03/08/25 21:24 Mirtazapine 15 Mg Tablet PO 15 mg HS ALEXIS Administration Miscellaneous Information 1 each 03/08/25 15:06 Central Supply Item Tolnaftate (Sub For Nystatin Powder) XX 03/09/25 15:05 PRN PRN Informational Multivitamins Therapeutic 1 tablet 03/09/25 09:00 03/09/25 09:37 Multivitamins Therapeutic Tab (*Bkc) PO 1 tablet DAILY ALEXIS Administration Ondansetron HCl 4 mg 03/08/25 14:21 Ondansetron Hcl Odt 4 Mg Tablet PO Q6H PRN NAUSEA Potassium Chloride 40 meq 03/09/25 09:00 03/09/25 09:39 Potassium Chloride 20 Meq Packet (For Liquid) PO 03/09/25 17:01 40 meq BID ALEXIS Administration Sodium Hypochlorite 1 applic 03/08/25 21:00 03/09/25 09:52 Sod Hypochlorite 1/4 Strength 473 Ml TOPICAL Not Given Q12HR ALEXIS Vitamin D 50 mcg 03/09/25 09:00 03/09/25 09:37 Cholecalciferol (Vitamin D3) 25 Mcg (1,000 Units) Tablet PO 50 mcg DAILY ALEXIS Administration Zinc Sulfate 50 mg 03/09/25 09:00 03/09/25 09:40 Zinc Sulfate 220 Mg Capsule PO 50 mg DAILY ALEXIS Administration Radiology Results: ITS Impressions Abdomen/Pelvis CT 03/08/25 09:50 IMPRESSION: 1. Large open infected wound overlying right inferior pubic ramus. Ill-defined fluid and gas but no discrete abscess. Small focal osteomyelitis along pubic ra mus. Associated myositis of hamstring muscle. 2. Open wound overlying sacrum. Presumably infected, but no abscess. 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 3. Enlarging adrenal metastasis left side. 4. Slightly enlarged left lower lobe mass with enlarging satellite mass. 5. Stercoral colitis. 6. Subtle pyelonephritis right kidney not excluded. Labs Labs: Laboratory Results - last 24 hr 03/09/25 03:57 WBC 9.7 RBC 3.11 L Hgb 7.8 L Hct 25.3 L MCV 81.4 MCH 25.1 L MCHC 30.8 L RDW 15.4 H Plt Count 507 H MPV 8.8 Immature Gran % (Auto) 0.4 Neut % (Auto) 66.6 Lymph % (Auto) 20.8 [place] % (Auto) 7.7 Eos % (Auto) 3.9 Baso % (Auto) 0.6 Lymph # (Auto) 2.01 [place] # (Auto) 0.7 H Eos # (Auto) 0.4 H Baso # (Auto) 0.1 Abs Immat Gran (auto) 0.04 H Absolute Neuts (auto) 6.4 Absolute Nucleated RBC 0.000 Nucleated RBC % 0.0 Sodium 133 L Potassium 3.2 L Chloride 99 Carbon Dioxide 29 Anion Gap 5 BUN 6 L Creatinine 0.39 L Estim Creat Clear Calc 86 Estimated GFR > 60 Glucose 84 Calcium 7.6 L Total Bilirubin 0.4 AST 18 ALT 9 Alkaline Phosphatase 149 H Total Protein 5.7 L Albumin 2.5 L Quality VTE Prophylaxis VTE prophylaxis: mechanical ordered
--- NOTE | 2025-03-09 19:55 | PC.NURSE ---
This patient, Sadia Toledo, was transferred to [[id number] ] on 03/09/25 at 1955. Personal belongings sent with patient. Report given to [Leobardo mccurdy]. Appropriate documentation sent with patient.
[2025-03-09] MEDS: ATORVASTATIN 10 MG TABLET PO (21:31)
[2025-03-09] MEDS: MIRTAZAPINE 15 MG TABLET PO (21:31)
[2025-03-09] MEDS: SOD HYPOCHLORITE 1/4 STRENGTH 473 ML 1 APPLIC TOPICAL (21:32)
[2025-03-10] VITALS (14 sets, daily range): BP systolic 81–138; BP diastolic 42–67; PULSE 68–102; RESP 15–20; TEMP 36.1–36.9; O2SAT 94–100; BMI 33.2
[2025-03-10] MEDS: metroNIDAZOLE 500 MG/ISO 100ML 500 MG/100 ML BAG 100 MG IVPB ×3 (02:17→18:17)
[2025-03-10] MEDS: LACTATED RINGERS 1,000 ML 75 ML IV CONT (04:00)
[2025-03-10 04:27] LABS: Hematocrit 25.6 % (37.0-47.0); Hemoglobin 7.8 g/dL (12.0-15.0); Immature Granulocyte Percent A 0.3 % (0-0.5); Lymphocytes Absolute Auto 2.04 K/mm3 (0.9-3.2); Mean Corpuscular HGB Conc 30.5 g/dl (32-36); Mean Corpuscular Hemoglobin 24.4 pg (26-34); Mean Corpuscular Volume 80.0 fl (80-100); Nucleated Red Blood Cells Absolute Auto 0.000 K/mm3 (0.0-0.012); Nucleated Red Blood Cells Perc 0.0 % (0.0-0.2); Platelet Count Result 496 k/mm3 (150-375); Red Blood Count 3.20 M/mm3 (4.2-5.4); White Blood Count 11.6 K/mm3 (4.5-10.0)
[2025-03-10 04:38] LABS: Alanine Aminotransferase 8 U/L (6-35); Albumin Level 2.6 g/dL (3.5-5.1); Alkaline Phosphatase 141 U/L (38-126); Anion Gap 8 mmol/L (4-12); Aspartate Amino Transferase 16 U/L (14-36); Bilirubin,Total 0.5 mg/dL (0.2-1.3); Blood Urea Nitrogen 4 mg/dL (7-17); Calcium 7.8 mg/dL (8.4-10.2); Carbon Dioxide 26 mmol/L (22-30); Chloride 100 mmol/L (98-107); Estimated CRCL calculation 84 ml/min; Estimated Glomerular Filt Rate > 60; Glucose 82 mg/dL (65-110); Potassium 3.3 mmol/L (3.4-5.0); Sodium 134 mmol/L (137-145); Total Protein 5.8 g/dL (6.3-8.2)
[2025-03-10] MEDS: VANCOMYCIN 1,250 MG/NS 250 ML 1,250 MG/250 ML BAG 166.67 MG IVPB ×2 (06:11→20:11)
[2025-03-10] MEDS: DULoxetine HCL 60 MG CAPSULE.DR PO ×2 (08:24→18:17)
[2025-03-10] MEDS: CEFEPIME 2 GM in SODIUM CHLORIDE 0.9% IV 50 ML 100 ML IVPB ×2 (08:25→21:58)
[2025-03-10] MEDS: ZINC SULFATE 220 MG CAPSULE PO (08:25)
[2025-03-10] MEDS: CALCIUM/VITAMIN D 500 MG/5 MCG (200 I.U.) TABLET PO ×2 (08:25→18:17)
[2025-03-10] MEDS: CHOLECALCIFEROL (VITAMIN D3) 25 MCG (1,000 UNITS) TABLET 50 MCG PO (08:25)
[2025-03-10] MEDS: MULTIVITAMINS THERAPEUTIC TAB (*BKC) 1 TABLET PO (08:25)
[2025-03-10] MEDS: LORATADINE 10 MG TABLET PO (08:25)
[2025-03-10] MEDS: ASCORBIC ACID 500 MG TABLET PO ×2 (08:25→18:18)
[2025-03-10] MEDS: FLUTICASONE PROPIONATE 0.05% NA SPR 16 GM BTL (*BKC) 2 SPRAY NASAL (08:31)
--- NOTE | 2025-03-10 08:48 | WPDINFPN2 ---
Progress Note: A&P Assessment and Plan (1) Decubitus ulcer of sacral area: Code(s): L89.159 - Pressure ulcer of sacral region, unspecified stage Status: Acute Assessment and Plan: ASSESSMENT: 1. Infected pressure ulcer 2. Stage 4 sacral pressure ulcer a. History of prior treatment for sacral osteomyelitis 3. Advanced lung cancer 4. Resolved leukocytosis PLAN: -Await culture results -Continue Vancomycin IV/Cefepime/Flagyl IV for now -Patient and family agreeable to surgical debridement of pressure ulcer -Duration of antimicrobial therapy will be predicated on surgical findings -Await findings from operative procedure Subjective Date/time seen: 03/10/25 08:48 Interval history: Patient afebrile. Going for sacral pressure ulcer debridement today. Review of Systems Review of Systems: All systems reviewed & are unremarkable except as noted in HPI and below Exam Narrative: Gen: fatigued Cor: no tachycardia Pulm: mild tachypnea, normal chest wall expansion Derm: stage 4 sacral pressure ulcer : urinary catheter in place Objective Data Vital Signs Vital Signs: Vital Signs - 24 hr 03/09/25 10:00 03/09/25 12:00 03/09/25 12:00 Temperature 99.2 F Pulse Rate 99 104 H 107 H Respiratory Rate 20 20 Blood Pressure 108/50 L Pulse Oximetry 96 96 Oxygen Delivery Room Air 03/09/25 12:00 03/09/25 16:00 03/09/25 20:00 Temperature 99.5 F Pulse Rate 107 H 110 H Respiratory Rate 19 Blood Pressure 116/49 L Pulse Oximetry 95 Oxygen Delivery Room Air 03/09/25 20:05 03/10/25 06:22 Temperature 97.6 F 97.7 F Pulse Rate 73 100 Respiratory Rate 16 16 Blood Pressure 130/52 L 129/56 L Pulse Oximetry 99 94 Oxygen Delivery Intake/Output Intake/Output: Intake & Output 03/07/25 03/08/25 03/09/25 03/10/25 23:59 23:59 23:59 23:59 Intake Total 2300 3520.0 300 Output Total 250 1820 1050 Balance 2050 1700.0 -750 Meds/Results Medications: Active Medications Generic Name Dose Route Start Last Admin Trade Name Freq PRN Reason Stop Dose Admin Acetaminophen 650 mg 03/08/25 15:09 03/08/25 21:23 Acetaminophen 325 Mg Tablet BY MOUTH 650 mg Q4H PRN Administration mild pain 1-3 Ascorbic Acid 500 mg 03/08/25 17:00 03/10/25 08:25 Ascorbic Acid 500 Mg Tablet PO 500 mg BID ALEXIS Administration Atorvastatin Calcium 10 mg 03/08/25 21:00 03/09/25 21:31 Atorvastatin 10 Mg Tablet PO 10 mg HS ALEXIS Administration Calcium Carbonate 500 mg 03/08/25 17:00 03/10/25 08:25 Calcium/Vitamin D 500 Mg/5 Mcg (200 I.U.) Tablet PO 500 mg BID ALEXIS Administration Docusate Sodium 100 mg 03/08/25 21:00 03/10/25 08:18 Docusate Sodium 100 Mg Capsule PO Not Given Q12HR ALEXIS Duloxetine HCl 60 mg 03/08/25 17:00 03/10/25 08:24 Duloxetine Hcl 60 Mg Capsule.Dr PO 60 mg BID ALEXIS Administration Fluticasone Propionate 2 spray 03/09/25 09:00 03/10/25 08:31 Fluticasone Propionate 0.05% Na Spr 16 Gm Btl (*Bkc) NASAL 2 spray DAILY ALEXIS Administration Cefepime HCl 2 gm/ Sodium 50 mls @ 100 mls/hr 03/08/25 21:00 03/10/25 08:25 Chloride IVPB 100 mls/hr Q12H ALEXIS Administration Metronidazole 500 mg in 100 mls @ 100 mls/hr 03/08/25 18:00 03/10/25 03:17 Flagyl 500 Mg/Iso Soln 100 Ml IVPB Infused Q8H ALEXIS Infusion Lactated Ringer's 1,000 mls @ 75 mls/hr 03/08/25 10:50 03/10/25 04:00 Lr - Lactated Ringers Iv IV CONT 75 mls/hr .[id number] ALEXIS Administration Vancomycin HCl 1,250 mg in 250 mls @ 166.667 mls/hr 03/10/25 06:00 03/10/25 06:11 Vancomycin 1,250 Mg/Ns 250 Ml IVPB 166.67 mls/hr Q12H ALEXIS Administration Potassium Chloride 40 meq/ 520 mls @ 130 mls/hr 03/10/25 08:02 Sodium Chloride IVPB 03/10/25 12:01 ONCE ONE Lactulose 10 gm 03/08/25 14:21 Lactulose 20 Gm/30 Ml Udc PO DAILY PRN Constipation Loratadine 10 mg 03/09/25 09:00 03/10/25 08:25 Loratadine 10 Mg Tablet PO 10 mg DAILY ALEXIS Administration Magnesium Hydroxide 30 ml 03/08/25 14:21 Magnesium Hydroxide Susp 30 Ml Udc PO HS PRN Constipation Mirtazapine 15 mg 03/08/25 21:00 03/09/25 21:31 Mirtazapine 15 Mg Tablet PO 15 mg HS ALEXIS Administration Multivitamins Therapeutic 1 tablet 03/09/25 09:00 03/10/25 08:25 Multivitamins Therapeutic Tab (*Bkc) PO 1 tablet DAILY ALEXIS Administration Ondansetron HCl 4 mg 03/08/25 14:21 Ondansetron Hcl Odt 4 Mg Tablet PO Q6H PRN NAUSEA Sodium Hypochlorite 1 applic 03/08/25 21:00 03/09/25 21:32 Sod Hypochlorite 1/4 Strength 473 Ml TOPICAL 1 applic Q12HR ALEXIS Administration Vitamin D 50 mcg 03/09/25 09:00 03/10/25 08:25 Cholecalciferol (Vitamin D3) 25 Mcg (1,000 Units) Tablet PO 50 mcg DAILY ALEXIS Administration Zinc Sulfate 220 mg 03/10/25 09:00 03/10/25 08:25 Zinc Sulfate 220 Mg Capsule PO 220 mg DAILY ALEXIS Administration Radiology Results: ITS Impressions Abdomen/Pelvis CT 03/08/25 09:50 IMPRESSION: 1. Large open infected wound overlying right inferior pubic ramus. Ill-defined fluid and gas but no discrete abscess. Small focal osteomyelitis along pubic ramus. Associated myositis of hamstring muscle. 2. Open wound overlying sacrum. Presumably infected, but no abscess. 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 3. Enlarging adrenal metastasis left side. 4. Slightly enlarged left lower lobe mass with enlarging satellite mass. 5. Stercoral colitis. 6. Subtle pyelonephritis right kidney not excluded. Labs Labs: Laboratory Results - last 24 hr 03/10/25 04:17 WBC 11.6 H RBC 3.20 L Hgb 7.8 L Hct 25.6 L MCV 80.0 MCH 24.4 L MCHC 30.5 L RDW 15.3 H Plt Count 496 H MPV 8.5 Immature Gran % (Auto) 0.3 Neut % (Auto) 72.8 Lymph % (Auto) 17.6 L [place] % (Auto) 6.4 Eos % (Auto) 2.6 Baso % (Auto) 0.3 Lymph # (Auto) 2.04 [place] # (Auto) 0.7 H Eos # (Auto) 0.3 Baso # (Auto) 0.0 Abs Immat Gran (auto) 0.04 H Absolute Neuts (auto) 8.4 H Absolute Nucleated RBC 0.000 Nucleated RBC % 0.0 Sodium 134 L Potassium 3.3 L Chloride 100 Carbon Dioxide 26 Anion Gap 8 BUN 4 L Creatinine 0.41 L Estim Creat Clear Calc 84 Estimated GFR > 60 Glucose 82 Calcium 7.8 L Total Bilirubin 0.5 AST 16 ALT 8 Alkaline Phosphatase 141 H Total Protein 5.8 L Albumin 2.6 L Vancomycin Trough 15.8
[2025-03-10] MEDS: SOD HYPOCHLORITE 1/4 STRENGTH 473 ML 1 APPLIC TOPICAL ×2 (09:06→20:24)
[2025-03-10] MEDS: POTASSIUM CHLORIDE INJ 40 MEQ in SODIUM CHLORIDE 0.9% IV 500 ML 130 MEQ IVPB (10:04)
--- NOTE | 2025-03-10 11:32 | PM.IMPN ---
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 Qualified Code(s): C34.92 - Malignant neoplasm of unspecified part of left bronchus or lung Code(s): C34.90 - Malignant neoplasm of unspecified part of unspecified bronchus or lung Status: Chronic (2) Sacral osteomyelitis: Code(s): M46.28 - Osteomyelitis of vertebra, sacral and sacrococcygeal region Status: Acute (3) Decubitus ulcer of sacral area: Code(s): L89.159 - Pressure ulcer of sacral region, unspecified stage Status: Acute (4) Spina bifida of lumbar spine: Qualifiers: Presence of hydrocephalus: unspecified hydrocephalus presence Qualified Code(s): Q05.7 - Lumbar spina bifida without hydrocephalus Code(s): Q05.7 - Lumbar spina bifida without hydrocephalus Status: Chronic (5) Paraplegia: Code(s): G82.20 - Paraplegia, unspecified Status: Acute (6) Lung mass: Code(s): R91.8 - Other nonspecific abnormal finding of lung field Status: Acute Plan 1. Infected stage IV sacral ulcer/sepsis: History of prior osteomyelitis Id following Follow-up blood culture Will continue with vanc cefepime Flagyl for now. Monitor vanc level. Appreciate general surgery physician recommendation. Plan for surgery today Pain control if needed Continue with IV fluids 2. Hypokalemia: Supplement potassium 3. 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 Was referred to Oncology outpatient during that admission. Currently not undergoing treatment as she reportedly cannot do chemotherapy due to her nonhealing/chronic wounds. 4. Possible UTI: Follow-up urine culture Continue with antibiotic as mentioned above 5. Code status: DNR 6. DVT prophylaxis: SCDs Subjective Date/time seen: 03/10/25 11:32 Interval history: per previous note: 79 y/o F with PMH of sacral wounds requiring debridement, hyperlipidemia, depression, anxiety, and spina bifida presents here with chronic sacral wounds with possible infection. The patient presents here from [facility] via EMS for further evaluation of chronic sacral wounds. The patient was admitted for the sacral wounds from 12/07/2024 to 12/15/2024. 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 She was initially started on vancomycin, cefepime, and Flagyl. Underwent debridement on 12/08/2024. Blood cultures negative, urine culture negative. Wound culture grew ESBL and MDR Proteus mirabilis and she was subsequently switched to Ertapenem on 12/13/2024 with plan for 6 weeks of therapy which has since been completed. CT of the abdomen/pelvis showed a large open infected wound overlying the right inferior pubic ramus with ill-defined fluid and gas but no discrete abscess, small focal osteomyelitis along the pubic ramus with associated myositis of hamstring muscle, open wound overlying sacrum presumably infected but no abscess suspicion for chronic osteomyelitis of distal sacrum and coccyx, enlarging adrenal metastasis left side, slightly enlarged left lower lobe mass with enlarging satellite mass, stercoral colitis, subtle pyelonephritis of the right kidney not excluded. 03/10/25 Patient was seen examined at bedside. She is feeling fine. Denies any chest pain, shortness off breath, abdominal pain, nausea vomiting. Reviewed lab test. Potassium 3.3. Will replace Reviewed ID physician notes. Follow culture result. Continue with IV vancomycin, cefepime and Flagyl. Follow-up vancomycin level. Surgery team on board. Plan for I and D today Review of Systems Review of Systems: All systems reviewed & are unremarkable except as noted in HPI and below Exam Const: General: comfortable and no acute distress Other: , female, elderly, chronically ill-appearing, nontoxic appearance HENMT: Face/Nose/Sinus: Normal nares present Mouth: Yes dry mucous membranes Eyes: General: appearance normal, both eyes and all related structures Sclera: sclerae normal Pupils: Equal, round and reactive pupils present Other: +exotropia Resp: Effort & Inspection: normal respiratory effort Auscultation: clear to auscultation bilaterally Cardio: Rate: regular rate Rhythm: regular rhythm Other: S1-S2 present without murmur, rub, ectopy GI: Other: Abdomen soft, nondistended, nontender. Normoactive bowel sounds in all quadrants. right urostomy present, stoma pink and moist with no signs of infection. Malodorous urine present. Skin: General skin exam: normal color and no rashes or lesions noted Other: Sacral wound present. Wound bed peak/healthy tissue. Wound edges healthy tissue. Approximately 5 x 6 cm. Modest white/yellow purulence, stringy. No necrosis noted. Second wound to the right ischial. Necrotic/bernstein wound bed with extensive brown slough, foul odor, tunneling, sharp jagged bone exposed and cavity. Neuro: Cranial nerves: Yes Equal, round and reactive pupils present Other: Alert to self and situation. Incorrect place (believed she was at the intermediate) and no attempt at time. Extrem: Other: + 1 pitting edema to bilateral feet. DP pulses 2+ bilaterally. Psych: Other: Fair to poor insight and judgment at present, very pleasant Objective Data Vital Signs Vital Signs: Vital Signs - 24 hr 03/09/25 12:00 03/09/25 12:00 03/09/25 12:00 Temperature 99.2 F Pulse Rate 104 H 107 H 107 H Respiratory Rate 20 20 Blood Pressure 108/50 L Pulse Oximetry 96 96 Oxygen Delivery Room Air 03/09/25 16:00 03/09/25 20:00 03/09/25 20:05 Temperature 99.5 F 97.6 F Pulse Rate 110 H 73 Respiratory Rate 19 16 Blood Pressure 116/49 L 130/52 L Pulse Oximetry 95 99 Oxygen Delivery Room Air 03/10/25 06:22 Temperature 97.7 F Pulse Rate 100 Respiratory Rate 16 Blood Pressure 129/56 L Pulse Oximetry 94 Oxygen Delivery Intake/Output Intake/Output: Intake & Output 03/07/25 03/08/25 03/09/25 03/10/25 23:59 23:59 23:59 23:59 Intake Total 2300 3520.0 300 Output Total 250 1820 1050 Balance 2050 1700.0 -750 Meds/Results Medications: Active Medications Generic Name Dose Route Start Last Admin Trade Name Freq PRN Reason Stop Dose Admin Acetaminophen 650 mg 03/08/25 15:09 03/08/25 21:23 Acetaminophen 325 Mg Tablet BY MOUTH 650 mg Q4H PRN Administration mild pain 1-3 Ascorbic Acid 500 mg 03/08/25 17:00 03/10/25 08:25 Ascorbic Acid 500 Mg Tablet PO 500 mg BID ALEXIS Administration Atorvastatin Calcium 10 mg 03/08/25 21:00 03/09/25 21:31 Atorvastatin 10 Mg Tablet PO 10 mg HS ALEXIS Administration Calcium Carbonate 500 mg 03/08/25 17:00 03/10/25 08:25 Calcium/Vitamin D 500 Mg/5 Mcg (200 I.U.) Tablet PO 500 mg BID ALEXIS Administration Docusate Sodium 100 mg 03/08/25 21:00 03/10/25 08:18 Docusate Sodium 100 Mg Capsule PO Not Given Q12HR ALEXIS Duloxetine HCl 60 mg 03/08/25 17:00 03/10/25 08:24 Duloxetine Hcl 60 Mg Capsule.Dr PO 60 mg BID ALEXIS Administration Fluticasone Propionate 2 spray 03/09/25 09:00 03/10/25 08:31 Fluticasone Propionate 0.05% Na Spr 16 Gm Btl (*Bkc) NASAL 2 spray DAILY ALEXIS Administration Cefepime HCl 2 gm/ Sodium 50 mls @ 100 mls/hr 03/08/25 21:00 03/10/25 08:25 Chloride IVPB 100 mls/hr Q12H ALEXIS Administration Metronidazole 500 mg in 100 mls @ 100 mls/hr 03/08/25 18:00 03/10/25 09:05 Flagyl 500 Mg/Iso Soln 100 Ml IVPB 100 mls/hr Q8H ALEXIS Administration Lactated Ringer's 1,000 mls @ 75 mls/hr 03/08/25 10:50 03/10/25 04:00 Lr - Lactated Ringers Iv IV CONT 75 mls/hr .[id number] ALEXIS Administration Vancomycin HCl 1,250 mg in 250 mls @ 166.667 mls/hr 03/10/25 06:00 03/10/25 06:11 Vancomycin 1,250 Mg/Ns 250 Ml IVPB 166.67 mls/hr Q12H ALEXIS Administration Potassium Chloride 40 meq/ 520 mls @ 130 mls/hr 03/10/25 08:02 03/10/25 10:04 Sodium Chloride IVPB 03/10/25 12:01 130 mls/hr ONCE ONE Administration Lactulose 10 gm 03/08/25 14:21 Lactulose 20 Gm/30 Ml Udc PO DAILY PRN Constipation Loratadine 10 mg 03/09/25 09:00 03/10/25 08:25 Loratadine 10 Mg Tablet PO 10 mg DAILY ALEXIS Administration Magnesium Hydroxide 30 ml 03/08/25 14:21 Magnesium Hydroxide Susp 30 Ml Udc PO HS PRN Constipation Mirtazapine 15 mg 03/08/25 21:00 03/09/25 21:31 Mirtazapine 15 Mg Tablet PO 15 mg HS ALEXIS Administration Multivitamins Therapeutic 1 tablet 03/09/25 09:00 03/10/25 08:25 Multivitamins Therapeutic Tab (*Bkc) PO 1 tablet DAILY ALEXIS Administration Ondansetron HCl 4 mg 03/08/25 14:21 Ondansetron Hcl Odt 4 Mg Tablet PO Q6H PRN NAUSEA Sodium Hypochlorite 1 applic 03/08/25 21:00 03/10/25 09:06 Sod Hypochlorite 1/4 Strength 473 Ml TOPICAL 1 applic Q12HR ALEXIS Administration Vitamin D 50 mcg 03/09/25 09:00 03/10/25 08:25 Cholecalciferol (Vitamin D3) 25 Mcg (1,000 Units) Tablet PO 50 mcg DAILY ALEXIS Administration Zinc Sulfate 220 mg 03/10/25 09:00 03/10/25 08:25 Zinc Sulfate 220 Mg Capsule PO 220 mg DAILY ALEXIS Administration Radiology Results: ITS Impressions Abdomen/Pelvis CT 03/08/25 09:50 IMPRESSION: 1. Large open infected wound overlying right inferior pubic ramus. Ill-defined fluid and gas but no discrete abscess. Small focal osteomyelitis along pubic ramus. Associated myositis of hamstring muscle. 2. Open wound overlying sacrum. Presumably infected, but no abscess. 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 3. Enlarging adrenal metastasis left side. 4. Slightly enlarged left lower lobe mass with enlarging satellite mass. 5. Stercoral colitis. 6. Subtle pyelonephritis right kidney not excluded. Labs Labs: Laboratory Results - last 24 hr 03/10/25 04:17 WBC 11.6 H RBC 3.20 L Hgb 7.8 L Hct 25.6 L MCV 80.0 MCH 24.4 L MCHC 30.5 L RDW 15.3 H Plt Count 496 H MPV 8.5 Immature Gran % (Auto) 0.3 Neut % (Auto) 72.8 Lymph % (Auto) 17.6 L [place] % (Auto) 6.4 Eos % (Auto) 2.6 Baso % (Auto) 0.3 Lymph # (Auto) 2.04 [place] # (Auto) 0.7 H Eos # (Auto) 0.3 Baso # (Auto) 0.0 Abs Immat Gran (auto) 0.04 H Absolute Neuts (auto) 8.4 H Absolute Nucleated RBC 0.000 Nucleated RBC % 0.0 Sodium 134 L Potassium 3.3 L Chloride 100 Carbon Dioxide 26 Anion Gap 8 BUN 4 L Creatinine 0.41 L Estim Creat Clear Calc 84 Estimated GFR > 60 Glucose 82 Calcium 7.8 L Total Bilirubin 0.5 AST 16 ALT 8 Alkaline Phosphatase 141 H Total Protein 5.8 L Albumin 2.6 L Vancomycin Trough 15.8 Quality VTE Prophylaxis VTE prophylaxis: mechanical ordered
--- NOTE | 2025-03-10 15:12 | WPDHPUPDATE1 ---
History and Physical Update Update Date/Time: 03/10/25 15:12 History and Physical has been reviewed, including an updated exam of the patient. There are NO changes in the patient's condition. Risks, benefits, and alternatives have been discussed and questions answered. Patient agrees to proceed with procedure.
--- NOTE | 2025-03-10 16:51 | P.OP_ITS ---
Procedure Note - Detailed Date of Procedure 03/10/25 Pre-op Diagnosis Right ischial decubitus ulcer Post-op Diagnosis Same ( stage IV right ischial decubitus ulcer) Procedure Performed sharp excisional debridement of right ischial decubitus ulcer including skin, subcutaneous fat, muscle, and tendon measuring 4 cm x 3 cm Surgeon Jerod Olson, DO Anesthesia MAC Indications this is a 79-year-old woman who presented with an infected decubitus ulcer in her right hip region. She had a prior history of a sacral decubitus ulcer that was debrided several months ago. At the time she had a very small biter right ischial wound but this has progressed into a stage IV right ischial decubitus ulcer. There is necrotic tissue and foul-smelling drainage. Discussions were made with the patient and her power of telecommunications analyst and decision was made to proceed with debridement of the ischial decubitus ulcer. Findings Right ischial decubitus ulcer debridement was performed. The wound measured 4 cm x 3 cm and debridement included skin, subcutaneous fat, muscle, and tendon. Debridement was carried down to healthy-appearing bleeding tissue. The wound was then irrigated and packed with Betadine-soaked Kerlix gauze. Description of Procedure Procedure as well as risks, benefits, and alternatives were discussed with the patient and her power of telecommunications analyst. Written consent was obtained and placed in chart prior to procedure. Patient was brought back to surgical suite. She was placed in left lateral decubitus position on the operating table. Time-out was done to confirm patient and procedure. IV sedation was administered by the anesthesia department. Her right ischial area was prepped and draped in sterile fashion using Betadine prep. Sharp excisional debridement was then carried out using a 10 blade scalpel. Skin, subcutaneous fat, muscle, and fascia was sharply excised down to healthy bleeding tissue. Some areas of the wound bed appeared to go deep and almost all the way to bone. After adequate debridement the area was then irrigated with sterile saline. There appeared to be mostly healthy appearing tissue within the wound bed. The wound was then packed with Betadine-soaked Kerlix gauze followed by fluff gauze, ABD pads, and tape. The patient was then awakened from anesthesia and transferred to recovery. Estimated Blood Loss 5 Urine Output 250 Packing Yes ( Betadine soaked 4 in Kerlix gauze) Complications No immediate complications Condition Stable Disposition Floor [facility] Billing Surgery - Charge Forward: Surgery Billing
[2025-03-10] MEDS: LACTATED RINGERS 1,000 ML 30 ML IV CONT (16:57)
--- NOTE | 2025-03-10 18:24 | PC.NURSE ---
Returned from OR at 1815. Report received from NISHA Landis.
[2025-03-10] MEDS: ATORVASTATIN 10 MG TABLET PO (20:23)
[2025-03-10] MEDS: MIRTAZAPINE 15 MG TABLET PO (20:23)
[2025-03-11] MEDS: metroNIDAZOLE 500 MG/ISO 100ML 500 MG/100 ML BAG 100 MG IVPB ×3 (03:02→18:20)
[2025-03-11 03:53] VITALS: BP 112/48; PULSE 96; RESP 16; TEMP 36.6; O2SAT 99
[2025-03-11 07:18] LABS: Hematocrit 26.9 % (37.0-47.0); Hemoglobin 8.2 g/dL (12.0-15.0); Mean Corpuscular HGB Conc 30.5 g/dl (32-36); Mean Corpuscular Hemoglobin 24.6 pg (26-34); Mean Corpuscular Volume 80.8 fl (80-100); Platelet Count Result 525 k/mm3 (150-375); Red Blood Count 3.33 M/mm3 (4.2-5.4); White Blood Count 10.0 K/mm3 (4.5-10.0)
[2025-03-11 07:48] LABS: Alanine Aminotransferase 9 U/L (6-35); Albumin Level 2.6 g/dL (3.5-5.1); Alkaline Phosphatase 126 U/L (38-126); Anion Gap 8 mmol/L (4-12); Aspartate Amino Transferase 18 U/L (14-36); Bilirubin,Total 0.4 mg/dL (0.2-1.3); Blood Urea Nitrogen 3 mg/dL (7-17); Calcium 8.0 mg/dL (8.4-10.2); Carbon Dioxide 28 mmol/L (22-30); Chloride 99 mmol/L (98-107); Estimated CRCL calculation 88 ml/min; Estimated Glomerular Filt Rate > 60; Glucose 78 mg/dL (65-110); Potassium 3.2 mmol/L (3.4-5.0); Sodium 135 mmol/L (137-145); Total Protein 5.9 g/dL (6.3-8.2)
[2025-03-11] MEDS: VANCOMYCIN 1,250 MG/NS 250 ML 1,250 MG/250 ML BAG 166.67 MG IVPB (08:17)
[2025-03-11] MEDS: LACTATED RINGERS 1,000 ML 75 ML IV CONT (08:18)
[2025-03-11] MEDS: LORATADINE 10 MG TABLET PO (09:25)
[2025-03-11] MEDS: CALCIUM/VITAMIN D 500 MG/5 MCG (200 I.U.) TABLET PO ×2 (09:25→18:20)
[2025-03-11] MEDS: ASCORBIC ACID 500 MG TABLET PO ×2 (09:25→18:20)
[2025-03-11] MEDS: CHOLECALCIFEROL (VITAMIN D3) 25 MCG (1,000 UNITS) TABLET 50 MCG PO (09:25)
[2025-03-11] MEDS: MULTIVITAMINS THERAPEUTIC TAB (*BKC) 1 TABLET PO (09:25)
[2025-03-11] MEDS: DULoxetine HCL 60 MG CAPSULE.DR PO ×2 (09:25→18:20)
[2025-03-11] MEDS: DOCUSATE SODIUM 100 MG CAPSULE PO ×2 (09:25→20:33)
[2025-03-11] MEDS: ZINC SULFATE 220 MG CAPSULE PO (09:26)
[2025-03-11] MEDS: FLUTICASONE PROPIONATE 0.05% NA SPR 16 GM BTL (*BKC) 2 SPRAY NASAL (09:26)
[2025-03-11] MEDS: CEFEPIME 2 GM in SODIUM CHLORIDE 0.9% IV 50 ML 100 ML IVPB ×2 (09:26→20:33)
[2025-03-11] MEDS: SOD HYPOCHLORITE 1/4 STRENGTH 473 ML 1 APPLIC TOPICAL ×2 (09:27→20:35)
--- NOTE | 2025-03-11 12:01 | WPDINFPN2 ---
Progress Note: A&P Assessment and Plan (1) Decubitus ulcer of sacral area: Code(s): L89.159 - Pressure ulcer of sacral region, unspecified stage Status: Acute Assessment and Plan: ASSESSMENT: 1. Infected ishcial pressure ulcer s/p operative debridement 2. Stage 4 ischial pressure ulcer a. History of prior treatment for sacral osteomyelitis 3. Advanced lung cancer 4. Resolved leukocytosis PLAN: -Continue Vancomycin IV/Cefepime/Flagyl IV for now -Do not anticipate need for long-term IV antimicrobial therapy -Anticipate transition to oral antimicrobials once ready for discharge -Continue local wound care Discussed with patient. All questions answered Subjective Date/time seen: 03/11/25 12:01 Interval history: Patient afebrile. Underwent operative debridement of stage 4 ischial pressure ulcer. No operative evidence of osteomyelitis as per operative report. Review of Systems Review of Systems: All systems reviewed & are unremarkable except as noted in HPI and below Exam Narrative: Gen: NAD Cor: no tachycardia Pulm: mild tachypnea, normal chest wall expansion Derm: stage 4 ischial pressure ulcer with clean dressings : urinary catheter in place Objective Data Vital Signs Vital Signs: Vital Signs - 24 hr 03/10/25 14:24 03/10/25 16:57 03/10/25 17:10 Temperature 98.3 F 98.4 F Pulse Rate 98 96 92 Respiratory Rate 16 18 20 Blood Pressure 120/56 L 81/43 L 87/44 L Pulse Oximetry 94 100 100 Oxygen Delivery Room Air Simple Face Mask Simple Face Mask Oxygen Flow Rate 8 8 03/10/25 17:25 03/10/25 17:40 03/10/25 17:55 Temperature Pulse Rate 89 88 86 Respiratory Rate 16 20 17 Blood Pressure 114/60 118/42 L 115/58 L Pulse Oximetry 100 99 100 Oxygen Delivery Room Air Room Air Room Air Oxygen Flow Rate 03/10/25 18:05 03/10/25 18:08 03/10/25 18:23 Temperature 97 F L 98.4 F 97.0 F L Pulse Rate 96 68 91 Respiratory Rate 15 16 16 Blood Pressure 117/45 L 138/67 105/60 Pulse Oximetry 97 96 97 Oxygen Delivery Room Air Oxygen Flow Rate 03/10/25 18:47 03/10/25 18:53 03/10/25 19:53 Temperature 97.2 F L 97.2 F L 97.1 F L Pulse Rate 92 98 95 Respiratory Rate 16 16 20 Blood Pressure 106/43 L 103/46 L 109/53 L Pulse Oximetry 98 97 99 Oxygen Delivery Oxygen Flow Rate 03/10/25 20:00 03/10/25 23:53 03/11/25 03:53 Temperature 98.0 F 97.8 F Pulse Rate 102 H 96 Respiratory Rate 20 16 Blood Pressure 119/57 L 112/48 L Pulse Oximetry 98 99 Oxygen Delivery Room Air Oxygen Flow Rate Intake/Output Intake/Output: Intake & Output 03/08/25 03/09/25 03/10/25 03/11/25 23:59 23:59 23:59 23:59 Intake Total 2300 3520.0 2010 550 Output Total 250 1820 2150 1750 Balance 205 1700.0 -140 -1200 Meds/Results Medications: Active Medications Generic Name Dose Route Start Last Admin Trade Name Freq PRN Reason Stop Dose Admin Acetaminophen 650 mg 03/08/25 15:09 03/08/25 21:23 Acetaminophen 325 Mg Tablet BY MOUTH 650 mg Q4H PRN Administration mild pain 1-3 Ascorbic Acid 500 mg 03/08/25 17:00 03/11/25 09:25 Ascorbic Acid 500 Mg Tablet PO 500 mg BID ALEXIS Administration Atorvastatin Calcium 10 mg 03/08/25 21:00 03/10/25 20:23 Atorvastatin 10 Mg Tablet PO 10 mg HS ALEXIS Administration Calcium Carbonate 500 mg 03/08/25 17:00 03/11/25 09:25 Calcium/Vitamin D 500 Mg/5 Mcg (200 I.U.) Tablet PO 500 mg BID ALEXIS Administration Docusate Sodium 100 mg 03/08/25 21:00 03/11/25 09:25 Docusate Sodium 100 Mg Capsule PO 100 mg Q12HR ALEXIS Administration Duloxetine HCl 60 mg 03/08/25 17:00 03/11/25 09:25 Duloxetine Hcl 60 Mg Capsule.Dr PO 60 mg BID ALEXIS Administration Fluticasone Propionate 2 spray 03/09/25 09:00 03/11/25 09:26 Fluticasone Propionate 0.05% Na Spr 16 Gm Btl (*Bkc) NASAL 2 spray DAILY ALEXIS Administration Cefepime HCl 2 gm/ Sodium 50 mls @ 100 mls/hr 03/08/25 21:00 03/11/25 09:56 Chloride IVPB Infused Q12H ALEXIS Infusion Metronidazole 500 mg in 100 mls @ 100 mls/hr 03/08/25 18:00 03/11/25 11:14 Flagyl 500 Mg/Iso Soln 100 Ml IVPB 100 mls/hr Q8H ALEXIS Administration Lactated Ringer's 1,000 mls @ 75 mls/hr 03/08/25 10:50 03/11/25 08:18 Lr - Lactated Ringers Iv IV CONT 75 mls/hr .[id number] ALEXIS Administration Vancomycin HCl 1,250 mg in 250 mls @ 166.667 mls/hr 03/11/25 08:00 03/11/25 09:47 Vancomycin 1,250 Mg/Ns 250 Ml IVPB Infused Q12H ALEXIS Infusion Lactulose 10 gm 03/08/25 14:21 Lactulose 20 Gm/30 Ml Udc PO DAILY PRN Constipation Loratadine 10 mg 03/09/25 09:00 03/11/25 09:25 Loratadine 10 Mg Tablet PO 10 mg DAILY ALEXIS Administration Magnesium Hydroxide 30 ml 03/08/25 14:21 Magnesium Hydroxide Susp 30 Ml Udc PO HS PRN Constipation Mirtazapine 15 mg 03/08/25 21:00 03/10/25 20:23 Mirtazapine 15 Mg Tablet PO 15 mg HS ALEXIS Administration Multivitamins Therapeutic 1 tablet 03/09/25 09:00 03/11/25 09:25 Multivitamins Therapeutic Tab (*Bkc) PO 1 tablet DAILY ALEXIS Administration Ondansetron HCl 4 mg 03/08/25 14:21 Ondansetron Hcl Odt 4 Mg Tablet PO Q6H PRN NAUSEA Sodium Hypochlorite 1 applic 03/08/25 21:00 03/11/25 09:27 Sod Hypochlorite 1/4 Strength 473 Ml TOPICAL 1 applic Q12HR ALEXIS Administration Vitamin D 50 mcg 03/09/25 09:00 03/11/25 09:25 Cholecalciferol (Vitamin D3) 25 Mcg (1,000 Units) Tablet PO 50 mcg DAILY ALEXIS Administration Zinc Sulfate 220 mg 03/10/25 09:00 03/11/25 09:26 Zinc Sulfate 220 Mg Capsule PO 220 mg DAILY ALEXIS Administration Radiology Results: ITS Impressions Abdomen/Pelvis CT 03/08/25 09:50 IMPRESSION: 1. Large open infected wound overlying right inferior pubic ramus. Ill-defined fluid and gas but no discrete abscess. Small focal osteomyelitis along pubic ramus. Associated myositis of hamstring muscle. 2. Open wound overlying sacrum. Presumably infected, but no abscess. 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 3. Enlarging adrenal metastasis left side. 4. Slightly enlarged left lower lobe mass with enlarging satellite mass. 5. Stercoral colitis. 6. Subtle pyelonephritis right kidney not excluded. Labs Labs: Laboratory Results - last 24 hr 03/11/25 07:09 WBC 10.0 RBC 3.33 L Hgb 8.2 L Hct 26.9 L MCV 80.8 MCH 24.6 L MCHC 30.5 L RDW 15.4 H Plt Count 525 H MPV 8.2 Sodium 135 L Potassium 3.2 L Chloride 99 Carbon Dioxide 28 Anion Gap 8 BUN 3 L Creatinine 0.39 L Estim Creat Clear Calc 88 Estimated GFR > 60 Glucose 78 Calcium 8.0 L Total Bilirubin 0.4 AST 18 ALT 9 Alkaline Phosphatase 126 Total Protein 5.9 L Albumin 2.6 L Vancomycin Trough 15.3
--- NOTE | 2025-03-11 13:13 | P.PNIM_ITS ---
Progress Note: A&P Assessment and Plan (1) Decubitus ulcer of sacral area: Code(s): L89.159 - Pressure ulcer of sacral region, unspecified stage Status: Acute Assessment and Plan: History of prior osteomyelitis, bed-bound from care home * Id following * Will continue with vanc cefepime Flagyl for now. 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 Was referred to Oncology outpatient during that admission. Currently not undergoing treatment as she reportedly cannot do chemotherapy due to her nonhealing/chronic wounds. (3) Spina bifida of lumbar spine: Qualifiers: Presence of hydrocephalus: unspecified hydrocephalus presence Qualified Code(s): Q05.7 - Lumbar spina bifida without hydrocephalus Code(s): Q05.7 - Lumbar spina bifida without hydrocephalus Status: Chronic Assessment and Plan: * Bedbound * Q2hr turns (4) Paraplegia: Code(s): G82.20 - Paraplegia, unspecified Status: Acute Assessment and Plan: See Above #3 Plan Code status: DNR DVT prophylaxis: SCD's Stress ulcer prophylaxis: NA PT/OT notes: Bedbound Disposition: Patient continues admission to the medical unit for treatment sacral decubitus ulceration with debridement will continue with current IV antibiotic therapy pending final cultures patient will return to shelter facility when medically stable. Time Spent With Patient Time with patient: 15 - 25 minutes Subjective Date/time seen: 03/11/25 13:13 Interval history: 79 y/o F with PMH of sacral wounds requiring debridement, hyperlipidemia, depression, anxiety, and spina bifida presents here with chronic sacral wounds with possible infection. 03/11/25: Assumed Care Patient in bed with no complaints and denies any pain, tolerated her debridement. Infectious Disease on board waiting for final cultures to deescalate IV antibiotic therapy. Review of Systems Review of Systems: All systems reviewed & are unremarkable except as noted in HPI and below Exam Const: General: comfortable and no acute distress Other: , female, elderly, chronically ill-appearing, nontoxic appearance HENMT: Face/Nose/Sinus: Normal nares present Mouth: Yes dry mucous membranes Eyes: General: appearance normal, both eyes and all related structures Sclera: sclerae normal Pupils: Equal, round and reactive pupils present Other: +exotropia Resp: Effort & Inspection: normal respiratory effort Auscultation: clear to auscultation bilaterally Cardio: Rate: regular rate Rhythm: regular rhythm Other: S1-S2 present without murmur, rub, ectopy GI: Other: Abdomen soft, nondistended, nontender. Normoactive bowel sounds in all quadrants. right urostomy present, stoma pink and moist with no signs of infection. Malodorous urine present. Skin: General skin exam: normal color and no rashes or lesions noted Other: Sacral wound present. Wound bed peak/healthy tissue. Wound edges healthy tissue. Post debridement Second wound to the right ischial. Necrotic/bernstein wound bed with extensive brown slough, foul odor, tunneling, sharp jagged bone exposed and cavity initially Neuro: Cranial nerves: Yes Equal, round and reactive pupils present Other: Alert to self and situation. Incorrect place (believed she was at the care home) and no attempt at time. Extrem: Other: + 1 pitting edema to bilateral feet. DP pulses 2+ bilaterally. Psych: Other: Fair to poor insight and judgment at present, very pleasant Objective Data Vital Signs Vital Signs: Vital Signs - 24 hr 03/10/25 14:24 03/10/25 16:57 03/10/25 17:10 Temperature 98.3 F 98.4 F Pulse Rate 98 96 92 Respiratory Rate 16 18 20 Blood Pressure 120/56 L 81/43 L 87/44 L Pulse Oximetry 94 100 100 Oxygen Delivery Room Air Simple Face Mask Simple Face Mask Oxygen Flow Rate 8 8 03/10/25 17:25 03/10/25 17:40 03/10/25 17:55 Temperature Pulse Rate 89 88 86 Respiratory Rate 16 20 17 Blood Pressure 114/60 118/42 L 115/58 L Pulse Oximetry 100 99 100 Oxygen Delivery Room Air Room Air Room Air Oxygen Flow Rate 03/10/25 18:05 03/10/25 18:08 03/10/25 18:23 Temperature 97 F L 98.4 F 97.0 F L Pulse Rate 96 68 91 Respiratory Rate 15 16 16 Blood Pressure 117/45 L 138/67 105/60 Pulse Oximetry 97 96 97 Oxygen Delivery Room Air Oxygen Flow Rate 03/10/25 18:47 03/10/25 18:53 03/10/25 19:53 Temperature 97.2 F L 97.2 F L 97.1 F L Pulse Rate 92 98 95 Respiratory Rate 16 16 20 Blood Pressure 106/43 L 103/46 L 109/53 L Pulse Oximetry 98 97 99 Oxygen Delivery Oxygen Flow Rate 03/10/25 20:00 03/10/25 23:53 03/11/25 03:53 Temperature 98.0 F 97.8 F Pulse Rate 102 H 96 Respiratory Rate 20 16 Blood Pressure 119/57 L 112/48 L Pulse Oximetry 98 99 Oxygen Delivery Room Air Oxygen Flow Rate Intake/Output Intake/Output: Intake & Output 03/08/25 03/09/25 03/10/25 03/11/25 23:59 23:59 23:59 23:59 Intake Total 2300 3520.0 2010 550 Output Total 250 1820 2150 1750 Balance 2050 1700.0 -140 -1200 Meds/Results Medications: Active Medications Generic Name Dose Route Start Last Admin Trade Name Freq PRN Reason Stop Dose Admin Acetaminophen 650 mg 03/08/25 15:09 03/08/25 21:23 Acetaminophen 325 Mg Tablet BY MOUTH 650 mg Q4H PRN Administration mild pain 1-3 Ascorbic Acid 500 mg 03/08/25 17:00 03/11/25 09:25 Ascorbic Acid 500 Mg Tablet PO 500 mg BID ALEXIS Administration Atorvastatin Calcium 10 mg 03/08/25 21:00 03/10/25 20:23 Atorvastatin 10 Mg Tablet PO 10 mg HS ALEXIS Administration Calcium Carbonate 500 mg 03/08/25 17:00 03/11/25 09:25 Calcium/Vitamin D 500 Mg/5 Mcg (200 I.U.) Tablet PO 500 mg BID ALEXIS Administration Docusate Sodium 100 mg 03/08/25 21:00 03/11/25 09:25 Docusate Sodium 100 Mg Capsule PO 100 mg Q12HR ALEXIS Administration Duloxetine HCl 60 mg 03/08/25 17:00 03/11/25 09:25 Duloxetine Hcl 60 Mg Capsule.Dr PO 60 mg BID ALEXIS Administration Fluticasone Propionate 2 spray 03/09/25 09:00 03/11/25 09:26 Fluticasone Propionate 0.05% Na Spr 16 Gm Btl (*Bkc) NASAL 2 spray DAILY ALEXIS Administration Cefepime HCl 2 gm/ Sodium 50 mls @ 100 mls/hr 03/08/25 21:00 03/11/25 09:56 Chloride IVPB Infused Q12H ALEXIS Infusion Metronidazole 500 mg in 100 mls @ 100 mls/hr 03/08/25 18:00 03/11/25 11:14 Flagyl 500 Mg/Iso Soln 100 Ml IVPB 100 mls/hr Q8H ALEXIS Administration Lactated Ringer's 1,000 mls @ 75 mls/hr 03/08/25 10:50 03/11/25 08:18 Lr - Lactated Ringers Iv IV CONT 75 mls/hr .[id number] ALEXIS Administration Vancomycin HCl 1,250 mg in 250 mls @ 166.667 mls/hr 03/11/25 08:00 03/11/25 09:47 Vancomycin 1,250 Mg/Ns 250 Ml IVPB Infused Q12H ALEXIS Infusion Lactulose 10 gm 03/08/25 14:21 Lactulose 20 Gm/30 Ml Udc PO DAILY PRN Constipation Loratadine 10 mg 03/09/25 09:00 03/11/25 09:25 Loratadine 10 Mg Tablet PO 10 mg DAILY ALEXIS Administration Magnesium Hydroxide 30 ml 03/08/25 14:21 Magnesium Hydroxide Susp 30 Ml Udc PO HS PRN Constipation Mirtazapine 15 mg 03/08/25 21:00 03/10/25 20:23 Mirtazapine 15 Mg Tablet PO 15 mg HS ALEXIS Administration Multivitamins Therapeutic 1 tablet 03/09/25 09:00 03/11/25 09:25 Multivitamins Therapeutic Tab (*Bkc) PO 1 tablet DAILY ALEXIS Administration Ondansetron HCl 4 mg 03/08/25 14:21 Ondansetron Hcl Odt 4 Mg Tablet PO Q6H PRN NAUSEA Sodium Hypochlorite 1 applic 03/08/25 21:00 03/11/25 09:27 Sod Hypochlorite 1/4 Strength 473 Ml TOPICAL 1 applic Q12HR ALEXIS Administration Vitamin D 50 mcg 03/09/25 09:00 03/11/25 09:25 Cholecalciferol (Vitamin D3) 25 Mcg (1,000 Units) Tablet PO 50 mcg DAILY ALEXIS Administration Zinc Sulfate 220 mg 03/10/25 09:00 03/11/25 09:26 Zinc Sulfate 220 Mg Capsule PO 220 mg DAILY ALEXIS Administration Radiology Results: ITS Impressions Abdomen/Pelvis CT 03/08/25 09:50 IMPRESSION: 1. Large open infected wound overlying right inferior pubic ramus. Ill-defined fluid and gas but no discrete abscess. Small focal osteomyelitis along pubic ramus. Associated myositis of hamstring muscle. 2. Open wound overlying sacrum. Presumably infected, but no abscess. 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 3. Enlarging adrenal metastasis left side. 4. Slightly enlarged left lower lobe mass with enlarging satellite mass. 5. Stercoral colitis. 6. Subtle pyelonephritis right kidney not excluded. Labs Labs: Laboratory Results - last 24 hr 03/11/25 07:09 WBC 10.0 RBC 3.33 L Hgb 8.2 L Hct 26.9 L MCV 80.8 MCH 24.6 L MCHC 30.5 L RDW 15.4 H Plt Count 525 H MPV 8.2 Sodium 135 L Potassium 3.2 L Chloride 99 Carbon Dioxide 28 Anion Gap 8 BUN 3 L Creatinine 0.39 L Estim Creat Clear Calc 88 Estimated GFR > 60 Glucose 78 Calcium 8.0 L Total Bilirubin 0.4 AST 18 ALT 9 Alkaline Phosphatase 126 Total Protein 5.9 L Albumin 2.6 L Vancomycin Trough 15.3 Quality VTE Prophylaxis VTE prophylaxis: mechanical ordered -Patient's previous records reviewed on admission -ER notes reviewed in detail on admission -discussed all findings and current treatment plan with patient/Family/POA -Consultations reviewed for recommendations -Patient's disposition for safe discharge discussed with casey saw operator -radiology imaging, EKG and test results I have personally reviewed and interpreted unless otherwise specified Dictation performed by [employer] direct speech recognition software, therefore electromechanisms design drafter variants and typographical errors may occur. Hospitalist [facility] Advance Care Plan I have confirmed that the patient's Advanced Care Plan is present, code status is documented, or surrogate decision maker is listed in patient medical record.: Yes Medication Reconciliation I have utilized all available resources to obtain, update and review the patients current medications (includes all prescriptions, OTC, herbals, cannabis, and nutritional supplements).: Yes The patient is not eligible for med reconciliation; the patient is in a emergent medical situation where delaying treatment would jeopardize the patients health.: No
--- NOTE | 2025-03-11 13:46 | PM.PNGS ---
Progress Note: A&P Assessment and Plan (1) Right ischial pressure sore, stage 4: Code(s): L89.314 - Pressure ulcer of right buttock, stage 4 Status: Acute Assessment and Plan: Pod 1 status post sharp excisional debridement of right ischial decubitus ulcer. Wound bed appears healthy and viable after debridement. Continue IV antibiotics and daily wound care with Dakin soaked gauze. General surgery team will see patient on an as-needed basis. (2) Sacral decubitus ulcer, stage IV: Code(s): L89.154 - Pressure ulcer of sacral region, stage 4 Status: Acute Assessment and Plan: Stable. 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 Not currently undergoing any treatment. Reportedly unable to receive chemotherapy due to nonhealing wounds. Plan Discussed patient's case and plan of care with Dr. Olson. Subjective Subjective Date/Time Seen: 03/11/25 13:46 Post Op day: 1 (Sharp excisional debridement of right ischial decubitus ulcer) Patient reports: no new complaints, feels better, tolerating a regular diet, bowel movement and afebrile Interval history: Patient doing well today. No acute events overnight. WBC 10.0. Hemoglobin and hematocrit stable. Exam Const: General: comfortable and no acute distress Skin: General skin exam: normal color and no rashes or lesions noted Other: Sacral wound with pink healthy tissue throughout wound bed. Wound edges all healthy tissue. Roughly 5-6 cm in diameter. R ischial wound healing well on postop day 1. Wound bed with pain healthy viable tissue. Palpable bone still exposed. Extrem: General: normal to inspection Objective Data Vital Signs Vital Signs: Vital Signs - 24 hr 03/10/25 14:24 03/10/25 16:57 03/10/25 17:10 Temperature 98.3 F 98.4 F Pulse Rate 98 96 92 Respiratory Rate 16 18 20 Blood Pressure 120/56 L 81/43 L 87/44 L Pulse Oximetry 94 100 100 Oxygen Delivery Room Air Simple Face Mask Simple Face Mask Oxygen Flow Rate 8 8 03/10/25 17:25 03/10/25 17:40 03/10/25 17:55 Temperature Pulse Rate 89 88 86 Respiratory Rate 16 20 17 Blood Pressure 114/60 118/42 L 115/58 L Pulse Oximetry 100 99 100 Oxygen Delivery Room Air Room Air Room Air Oxygen Flow Rate 03/10/25 18:05 03/10/25 18:08 03/10/25 18:23 Temperature 97 F L 98.4 F 97.0 F L Pulse Rate 96 68 91 Respiratory Rate 15 16 16 Blood Pressure 117/45 L 138/67 105/60 Pulse Oximetry 97 96 97 Oxygen Delivery Room Air Oxygen Flow Rate 03/10/25 18:47 03/10/25 18:53 03/10/25 19:53 Temperature 97.2 F L 97.2 F L 97.1 F L Pulse Rate 92 98 95 Respiratory Rate 16 16 20 Blood Pressure 106/43 L 103/46 L 109/53 L Pulse Oximetry 98 97 99 Oxygen Delivery Oxygen Flow Rate 03/10/25 20:00 03/10/25 23:53 03/11/25 03:53 Temperature 98.0 F 97.8 F Pulse Rate 102 H 96 Respiratory Rate 20 16 Blood Pressure 119/57 L 112/48 L Pulse Oximetry 98 99 Oxygen Delivery Room Air Oxygen Flow Rate Intake/Output Intake/Output: Intake & Output 03/08/25 03/09/25 03/10/25 03/11/25 23:59 23:59 23:59 23:59 Intake Total 2300 3520.0 2010 650 Output Total 250 1820 2150 1750 Balance 2050 1700.0 -140 -1100 Meds/Results Medications: Active Medications Generic Name Dose Route Start Last Admin Trade Name Freq PRN Reason Stop Dose Admin Acetaminophen 650 mg 03/08/25 15:09 03/08/25 21:23 Acetaminophen 325 Mg Tablet BY MOUTH 650 mg Q4H PRN Administration mild pain 1-3 Ascorbic Acid 500 mg 03/08/25 17:00 03/11/25 09:25 Ascorbic Acid 500 Mg Tablet PO 500 mg BID ALEXIS Administration Atorvastatin Calcium 10 mg 03/08/25 21:00 03/10/25 20:23 Atorvastatin 10 Mg Tablet PO 10 mg HS ALEXIS Administration Calcium Carbonate 500 mg 03/08/25 17:00 03/11/25 09:25 Calcium/Vitamin D 500 Mg/5 Mcg (200 I.U.) Tablet PO 500 mg BID ALEXIS Administration Docusate Sodium 100 mg 03/08/25 21:00 03/11/25 09:25 Docusate Sodium 100 Mg Capsule PO 100 mg Q12HR ALEXIS Administration Duloxetine HCl 60 mg 03/08/25 17:00 03/11/25 09:25 Duloxetine Hcl 60 Mg Capsule.Dr PO 60 mg BID ALEXIS Administration Fluticasone Propionate 2 spray 03/09/25 09:00 03/11/25 09:26 Fluticasone Propionate 0.05% Na Spr 16 Gm Btl (*Bkc) NASAL 2 spray DAILY ALEXIS Administration Cefepime HCl 2 gm/ Sodium 50 mls @ 100 mls/hr 03/08/25 21:00 03/11/25 09:56 Chloride IVPB Infused Q12H ALEXIS Infusion Metronidazole 500 mg in 100 mls @ 100 mls/hr 03/08/25 18:00 03/11/25 12:14 Flagyl 500 Mg/Iso Soln 100 Ml IVPB Infused Q8H ALEXIS Infusion Lactated Ringer's 1,000 mls @ 75 mls/hr 03/08/25 10:50 03/11/25 08:18 Lr - Lactated Ringers Iv IV CONT 75 mls/hr .[id number] ALEXIS Administration Vancomycin HCl 1,250 mg in 250 mls @ 166.667 mls/hr 03/11/25 08:00 03/11/25 09:47 Vancomycin 1,250 Mg/Ns 250 Ml IVPB Infused Q12H ALEXIS Infusion Lactulose 10 gm 03/08/25 14:21 Lactulose 20 Gm/30 Ml Udc PO DAILY PRN Constipation Loratadine 10 mg 03/09/25 09:00 03/11/25 09:25 Loratadine 10 Mg Tablet PO 10 mg DAILY ALEXIS Administration Magnesium Hydroxide 30 ml 03/08/25 14:21 Magnesium Hydroxide Susp 30 Ml Udc PO HS PRN Constipation Mirtazapine 15 mg 03/08/25 21:00 03/10/25 20:23 Mirtazapine 15 Mg Tablet PO 15 mg HS ALEXIS Administration Multivitamins Therapeutic 1 tablet 03/09/25 09:00 03/11/25 09:25 Multivitamins Therapeutic Tab (*Bkc) PO 1 tablet DAILY ALEXIS Administration Ondansetron HCl 4 mg 03/08/25 14:21 Ondansetron Hcl Odt 4 Mg Tablet PO Q6H PRN NAUSEA Sodium Hypochlorite 1 applic 03/08/25 21:00 03/11/25 09:27 Sod Hypochlorite 1/4 Strength 473 Ml TOPICAL 1 applic Q12HR ALEXIS Administration Vitamin D 50 mcg 03/09/25 09:00 03/11/25 09:25 Cholecalciferol (Vitamin D3) 25 Mcg (1,000 Units) Tablet PO 50 mcg DAILY ALEXIS Administration Zinc Sulfate 220 mg 03/10/25 09:00 03/11/25 09:26 Zinc Sulfate 220 Mg Capsule PO 220 mg DAILY ALEXIS Administration Radiology Results: ITS Impressions Abdomen/Pelvis CT 03/08/25 09:50 IMPRESSION: 1. Large open infected wound overlying right inferior pubic ramus. Ill-defined fluid and gas but no discrete abscess. Small focal osteomyelitis along pubic ramus. Associated myositis of hamstring muscle. 2. Open wound overlying sacrum. Presumably infected, but no abscess. 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 3. Enlarging adrenal metastasis left side. 4. Slightly enlarged left lower lobe mass with enlarging satellite mass. 5. Stercoral colitis. 6. Subtle pyelonephritis right kidney not excluded. Labs Labs: Laboratory Results - last 24 hr 03/11/25 07:09 WBC 10.0 RBC 3.33 L Hgb 8.2 L Hct 26.9 L MCV 80.8 MCH 24.6 L MCHC 30.5 L RDW 15.4 H Plt Count 525 H MPV 8.2 Sodium 135 L Potassium 3.2 L Chloride 99 Carbon Dioxide 28 Anion Gap 8 BUN 3 L Creatinine 0.39 L Estim Creat Clear Calc 88 Estimated GFR > 60 Glucose 78 Calcium 8.0 L Total Bilirubin 0.4 AST 18 ALT 9 Alkaline Phosphatase 126 Total Protein 5.9 L Albumin 2.6 L Vancomycin Trough 15.3
[2025-03-11 14:38] VITALS: BP 120/72; PULSE 107; RESP 18; TEMP 36.1; O2SAT 97
[2025-03-11 18:53] VITALS: BP 127/60; PULSE 101; RESP 18; TEMP 36.4; O2SAT 95
[2025-03-11 19:53] VITALS: BP 120/68; PULSE 102; RESP 20; TEMP 36.8; O2SAT 96
[2025-03-11] MEDS: ATORVASTATIN 10 MG TABLET PO (20:33)
[2025-03-11] MEDS: MIRTAZAPINE 15 MG TABLET PO (20:33)
[2025-03-11] MEDS: VANCOMYCIN 1,250 MG/NS 250 ML 1,250 MG/250 ML BAG 166 MG IVPB (20:34)
[2025-03-11] MEDS: ACETAMINOPHEN 325 MG TABLET 650 MG BY MOUTH (20:43)
[2025-03-12] MEDS: metroNIDAZOLE 500 MG/ISO 100ML 500 MG/100 ML BAG 100 MG IVPB ×3 (01:05→17:28)
[2025-03-12] MEDS: LACTATED RINGERS 1,000 ML 75 ML IV CONT ×2 (01:06→17:28)
[2025-03-12 05:03] VITALS: BP 116/63; PULSE 94; RESP 18; TEMP 36.1; O2SAT 96
[2025-03-12] MEDS: ZINC SULFATE 220 MG CAPSULE PO (08:50)
[2025-03-12] MEDS: DULoxetine HCL 60 MG CAPSULE.DR PO ×2 (08:50→17:28)
[2025-03-12] MEDS: CHOLECALCIFEROL (VITAMIN D3) 25 MCG (1,000 UNITS) TABLET 50 MCG PO (08:50)
[2025-03-12] MEDS: LORATADINE 10 MG TABLET PO (08:50)
[2025-03-12] MEDS: DOCUSATE SODIUM 100 MG CAPSULE PO ×2 (08:50→20:26)
[2025-03-12] MEDS: CALCIUM/VITAMIN D 500 MG/5 MCG (200 I.U.) TABLET PO ×2 (08:50→17:28)
[2025-03-12] MEDS: ASCORBIC ACID 500 MG TABLET PO ×2 (08:50→17:28)
[2025-03-12] MEDS: MULTIVITAMINS THERAPEUTIC TAB (*BKC) 1 TABLET PO (08:50)
[2025-03-12] MEDS: CEFEPIME 2 GM in SODIUM CHLORIDE 0.9% IV 50 ML 100 ML IVPB ×2 (08:51→20:25)
[2025-03-12] MEDS: FLUTICASONE PROPIONATE 0.05% NA SPR 16 GM BTL (*BKC) 2 SPRAY NASAL (09:04)
[2025-03-12 09:16] LABS: Hematocrit 29.5 % (37.0-47.0); Hemoglobin 8.9 g/dL (12.0-15.0); Immature Granulocyte Percent A 0.4 % (0-0.5); Lymphocytes Absolute Auto 1.93 K/mm3 (0.9-3.2); Mean Corpuscular HGB Conc 30.2 g/dl (32-36); Mean Corpuscular Hemoglobin 24.1 pg (26-34); Mean Corpuscular Volume 79.9 fl (80-100); Nucleated Red Blood Cells Absolute Auto 0.000 K/mm3 (0.0-0.012); Nucleated Red Blood Cells Perc 0.0 % (0.0-0.2); Platelet Count Result 604 k/mm3 (150-375); Red Blood Count 3.69 M/mm3 (4.2-5.4); White Blood Count 9.1 K/mm3 (4.5-10.0)
[2025-03-12 09:32] LABS: Alanine Aminotransferase 9 U/L (6-35); Albumin Level 2.8 g/dL (3.5-5.1); Alkaline Phosphatase 126 U/L (38-126); Anion Gap 5 mmol/L (4-12); Aspartate Amino Transferase 20 U/L (14-36); Bilirubin,Total 0.3 mg/dL (0.2-1.3); Blood Urea Nitrogen 2 mg/dL (7-17); Calcium 8.2 mg/dL (8.4-10.2); Carbon Dioxide 32 mmol/L (22-30); Chloride 99 mmol/L (98-107); Estimated CRCL calculation 82 ml/min; Estimated Glomerular Filt Rate > 60; Glucose 105 mg/dL (65-110); Potassium 2.8 mmol/L (3.4-5.0); Sodium 136 mmol/L (137-145); Total Protein 6.3 g/dL (6.3-8.2)
[2025-03-12] MEDS: VANCOMYCIN 1,250 MG/NS 250 ML 1,250 MG/250 ML BAG 166 MG IVPB ×2 (09:59→20:23)
[2025-03-12] MEDS: POTASSIUM CHLORIDE 20 MEQ PACKET (FOR LIQUID) 40 MEQ PO (10:03)
[2025-03-12] MEDS: POTASSIUM CHLORIDE INJ 40 MEQ in SODIUM CHLORIDE 0.9% IV 500 ML 130 MEQ IVPB (11:58)
[2025-03-12 14:08] VITALS: BP 120/61; PULSE 97; RESP 18; TEMP 36.9; O2SAT 95
[2025-03-12] MEDS: SOD HYPOCHLORITE 1/4 STRENGTH 473 ML 1 APPLIC TOPICAL ×2 (15:30→22:00)
--- NOTE | 2025-03-12 15:47 | P.PNIM_ITS ---
Progress Note: A&P Assessment and Plan (1) Decubitus ulcer of sacral area: Code(s): L89.159 - Pressure ulcer of sacral region, unspecified stage Status: Acute Assessment and Plan: History of prior osteomyelitis, bed-bound from [facility] * Id following * Will continue with vanc cefepime Flagyl for now. 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 Was referred to Oncology outpatient during that admission. Currently not undergoing treatment as she reportedly cannot do chemotherapy due to her nonhealing/chronic wounds. (3) Spina bifida of lumbar spine: Qualifiers: Presence of hydrocephalus: unspecified hydrocephalus presence Qualified Code(s): Q05.7 - Lumbar spina bifida without hydrocephalus Code(s): Q05.7 - Lumbar spina bifida without hydrocephalus Status: Chronic Assessment and Plan: * Bedbound * Q2hr turns (4) Paraplegia: Code(s): G82.20 - Paraplegia, unspecified Status: Acute Assessment and Plan: See Above #3 Plan Code status: DNR DVT prophylaxis: SCD's Stress ulcer prophylaxis: NA PT/OT notes: Bedbound Disposition: Patient continues admission to the medical unit for treatment sacral decubitus ulceration with debridement will continue with current IV antibiotic therapy pending final cultures and ID recommendations patient will return to retirement facility when medically stable. Time Spent With Patient Time with patient: 15 - 25 minutes Subjective Date/time seen: 03/12/25 15:47 Interval history: 79 y/o F with PMH of sacral wounds requiring debridement, hyperlipidemia, depression, anxiety, and spina bifida presents here with chronic sacral wounds with possible infection. 03/12/25: Assumed Care Patient with no complaints denies any pain to wound site, Blood cultures NGTD Review of Systems Review of Systems: All systems reviewed & are unremarkable except as noted in HPI and below Exam Const: General: comfortable and no acute distress Other: , female, elderly, chronically ill-appearing, nontoxic appearance HENMT: Face/Nose/Sinus: Normal nares present Mouth: Yes dry mucous membranes Eyes: General: appearance normal, both eyes and all related structures Sclera: sclerae normal Pupils: Equal, round and reactive pupils present Other: +exotropia Resp: Effort & Inspection: normal respiratory effort Auscultation: clear to auscultation bilaterally Cardio: Rate: regular rate Rhythm: regular rhythm Other: S1-S2 present without murmur, rub, ectopy GI: Other: Abdomen soft, nondistended, nontender. Normoactive bowel sounds in all quadrants. right urostomy present, stoma pink and moist with no signs of infection. Malodorous urine present. Skin: General skin exam: normal color and no rashes or lesions noted Other: Sacral wound present. Wound bed peak/healthy tissue. Wound edges healthy tissue. Post debridement Second wound to the right ischial. Necrotic/bernstein wound bed with extensive brown slough, foul odor, tunneling, sharp jagged bone exposed and cavity initially Neuro: Cranial nerves: Yes Equal, round and reactive pupils present Other: Alert to self and situation. Incorrect place (believed she was at the [facility]) and no attempt at time. Extrem: Other: + 1 pitting edema to bilateral feet. DP pulses 2+ bilaterally. Psych: Other: Fair to poor insight and judgment at present, very pleasant Objective Data Vital Signs Vital Signs: Vital Signs - 24 hr 03/11/25 18:53 03/11/25 19:53 03/12/25 05:03 Temperature 97.5 F L 98.2 F 96.9 F L Pulse Rate 101 H 102 H 94 Respiratory Rate 18 20 18 Blood Pressure 127/60 120/68 116/63 Pulse Oximetry 95 96 96 Oxygen Delivery 03/12/25 08:50 03/12/25 14:08 Temperature 98.5 F Pulse Rate 97 Respiratory Rate 18 Blood Pressure 120/61 Pulse Oximetry 95 Oxygen Delivery Room Air Intake/Output Intake/Output: Intake & Output 03/09/25 03/10/25 03/11/25 03/12/25 23:59 23:59 23:59 23:59 Intake Total 3520.0 2009 2530 520 Output Total 1820 2150 2101 1150 Balance 1700.0 -140 429 -630 Meds/Results Medications: Active Medications Generic Name Dose Route Start Last Admin Trade Name Ronaldq PRN Reason Stop Dose Admin Acetaminophen 650 mg 03/08/25 15:09 03/11/25 20:43 Acetaminophen 325 Mg Tablet BY MOUTH 650 mg Q4H PRN Administration mild pain 1-3 Ascorbic Acid 500 mg 03/08/25 17:00 03/12/25 08:50 Ascorbic Acid 500 Mg Tablet PO 500 mg BID ALEXIS Administration Atorvastatin Calcium 10 mg 03/08/25 21:00 03/11/25 20:33 Atorvastatin 10 Mg Tablet PO 10 mg HS ALEXIS Administration Calcium Carbonate 500 mg 03/08/25 17:00 03/12/25 08:50 Calcium/Vitamin D 500 Mg/5 Mcg (200 I.U.) Tablet PO 500 mg BID ALEXIS Administration Docusate Sodium 100 mg 03/08/25 21:00 03/12/25 08:50 Docusate Sodium 100 Mg Capsule PO 100 mg Q12HR ALEXIS Administration Duloxetine HCl 60 mg 03/08/25 17:00 03/12/25 08:50 Duloxetine Hcl 60 Mg Capsule.Dr PO 60 mg BID ALEXIS Administration Fluticasone Propionate 2 spray 03/09/25 09:00 03/12/25 09:04 Fluticasone Propionate 0.05% Na Spr 16 Gm Btl (*Bkc) NASAL 2 spray DAILY ALEXIS Administration Cefepime HCl 2 gm/ Sodium 50 mls @ 100 mls/hr 03/08/25 21:00 03/12/25 08:51 Chloride IVPB 100 mls/hr Q12H ALEXIS Administration Metronidazole 500 mg in 100 mls @ 100 mls/hr 03/08/25 18:00 03/12/25 11:58 Flagyl 500 Mg/Iso Soln 100 Ml IVPB 100 mls/hr Q8H ALEXIS Administration Lactated Ringer's 1,000 mls @ 75 mls/hr 03/08/25 10:50 03/12/25 01:06 Lr - Lactated Ringers Iv IV CONT 75 mls/hr .[id number] ALEXIS Administration Vancomycin HCl 1,250 mg in 250 mls @ 166.667 mls/hr 03/11/25 08:00 03/12/25 09:59 Vancomycin 1,250 Mg/Ns 250 Ml IVPB 166 mls/hr Q12H ALEXIS Administration Lactulose 10 gm 03/08/25 14:21 Lactulose 20 Gm/30 Ml Udc PO DAILY PRN Constipation Loratadine 10 mg 03/09/25 09:00 03/12/25 08:50 Loratadine 10 Mg Tablet PO 10 mg DAILY ALEXIS Administration Magnesium Hydroxide 30 ml 03/08/25 14:21 Magnesium Hydroxide Susp 30 Ml Udc PO HS PRN Constipation Mirtazapine 15 mg 03/08/25 21:00 03/11/25 20:33 Mirtazapine 15 Mg Tablet PO 15 mg HS ALEXIS Administration Multivitamins Therapeutic 1 tablet 03/09/25 09:00 03/12/25 08:50 Multivitamins Therapeutic Tab (*Bkc) PO 1 tablet DAILY ALEXIS Administration Ondansetron HCl 4 mg 03/08/25 14:21 Ondansetron Hcl Odt 4 Mg Tablet PO Q6H PRN NAUSEA Sodium Hypochlorite 1 applic 03/08/25 21:00 03/11/25 20:35 Sod Hypochlorite 1/4 Strength 473 Ml TOPICAL 1 applic Q12HR ALEXIS Administration Vitamin D 50 mcg 03/09/25 09:00 03/12/25 08:50 Cholecalciferol (Vitamin D3) 25 Mcg (1,000 Units) Tablet PO 50 mcg DAILY ALEXIS Administration Zinc Sulfate 220 mg 03/10/25 09:00 03/12/25 08:50 Zinc Sulfate 220 Mg Capsule PO 220 mg DAILY ALEXIS Administration Radiology Results: ITS Impressions Abdomen/Pelvis CT 03/08/25 09:50 IMPRESSION: 1. Large open infected wound overlying right inferior pubic ramus. Ill-defined fluid and gas but no discrete abscess. Small focal osteomyelitis along pubic ramus. Associated myositis of hamstring muscle. 2. Open wound overlying sacrum. Presumably infected, but no abscess. 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 3. Enlarging adrenal metastasis left side. 4. Slightly enlarged left lower lobe mass with enlarging satellite mass. 5. Stercoral colitis. 6. Subtle pyelonephritis right kidney not excluded. Labs Labs: Laboratory Results - last 24 hr 03/12/25 09:08 WBC 9.1 RBC 3.69 L Hgb 8.9 L Hct 29.5 L MCV 79.9 L MCH 24.1 L MCHC 30.2 L RDW 15.3 H Plt Count 604 H MPV 8.3 Immature Gran % (Auto) 0.4 Neut % (Auto) 65.9 Lymph % (Auto) 21.3 [place] % (Auto) 6.8 Eos % (Auto) 5.2 H Baso % (Auto) 0.4 Lymph # (Auto) 1.93 [place] # (Auto) 0.6 Eos # (Auto) 0.5 H Baso # (Auto) 0.0 Abs Immat Gran (auto) 0.04 H Absolute Neuts (auto) 6.0 Absolute Nucleated RBC 0.000 Nucleated RBC % 0.0 Sodium 136 L Potassium 2.8 L* Chloride 99 Carbon Dioxide 32 H Anion Gap 5 BUN 2 L Creatinine 0.42 L Estim Creat Clear Calc 82 Estimated GFR > 60 Glucose 105 Calcium 8.2 L Total Bilirubin 0.3 AST 20 ALT 9 Alkaline Phosphatase 126 Total Protein 6.3 Albumin 2.8 L Quality VTE Prophylaxis VTE prophylaxis: mechanical ordered -Patient's previous records reviewed on admission -ER notes reviewed in detail on admission -discussed all findings and current treatment plan with patient/Family/POA -Consultations reviewed for recommendations -Patient's disposition for safe discharge discussed with field case manager -radiology imaging, EKG and test results I have personally reviewed and interpreted unless otherwise specified Dictation performed by [employer] direct speech recognition software, therefore food service ambassador variants and typographical errors may occur. Hospitalist MIPS Advance Care Plan I have confirmed that the patient's Advanced Care Plan is present, code status is documented, or surrogate decision maker is listed in patient medical record.: Yes Medication Reconciliation I have utilized all available resources to obtain, update and review the patients current medications (includes all prescriptions, OTC, herbals, cannabis, and nutritional supplements).: Yes The patient is not eligible for med reconciliation; the patient is in a emergent medical situation where delaying treatment would jeopardize the patients health.: No
[2025-03-12 20:00] VITALS: O2SAT 94
[2025-03-12] MEDS: ATORVASTATIN 10 MG TABLET PO (20:24)
[2025-03-12 20:25] LABS: Potassium 3.7 mmol/L (3.4-5.0)
[2025-03-12] MEDS: ACETAMINOPHEN 325 MG TABLET 650 MG BY MOUTH (20:26)
[2025-03-12] MEDS: MIRTAZAPINE 15 MG TABLET PO (20:26)
[2025-03-12 21:00] VITALS: BP 117/73; PULSE 100; RESP 18; TEMP 36.6; O2SAT 94
[2025-03-13] MEDS: metroNIDAZOLE 500 MG/ISO 100ML 500 MG/100 ML BAG 100 MG IVPB ×2 (01:58→11:16)
[2025-03-13 06:00] VITALS: BP 127/62; PULSE 95; RESP 18; TEMP 36.1; O2SAT 99
[2025-03-13 07:13] LABS: Hematocrit 28.2 % (37.0-47.0); Hemoglobin 8.7 g/dL (12.0-15.0); Mean Corpuscular HGB Conc 30.9 g/dl (32-36); Mean Corpuscular Hemoglobin 24.7 pg (26-34); Mean Corpuscular Volume 80.1 fl (80-100); Platelet Count Result 597 k/mm3 (150-375); Red Blood Count 3.52 M/mm3 (4.2-5.4); White Blood Count 10.9 K/mm3 (4.5-10.0)
[2025-03-13 07:26] LABS: Alanine Aminotransferase 8 U/L (6-35); Albumin Level 2.6 g/dL (3.5-5.1); Alkaline Phosphatase 110 U/L (38-126); Anion Gap 5 mmol/L (4-12); Aspartate Amino Transferase 19 U/L (14-36); Bilirubin,Total 0.2 mg/dL (0.2-1.3); Blood Urea Nitrogen 3 mg/dL (7-17); Calcium 8.3 mg/dL (8.4-10.2); Carbon Dioxide 31 mmol/L (22-30); Chloride 100 mmol/L (98-107); Estimated CRCL calculation 90 ml/min; Estimated Glomerular Filt Rate > 60; Glucose 97 mg/dL (65-110); Magnesium 1.4 mg/dL (1.6-2.3); Potassium 3.2 mmol/L (3.4-5.0); Sodium 136 mmol/L (137-145); Total Protein 6.0 g/dL (6.3-8.2)
[2025-03-13] MEDS: CHOLECALCIFEROL (VITAMIN D3) 25 MCG (1,000 UNITS) TABLET 50 MCG PO (08:03)
[2025-03-13 08:04] VITALS: O2SAT 100
[2025-03-13] MEDS: CEFEPIME 2 GM in SODIUM CHLORIDE 0.9% IV 50 ML 100 ML IVPB ×2 (08:04→20:40)
[2025-03-13] MEDS: DULoxetine HCL 60 MG CAPSULE.DR PO ×2 (08:04→17:40)
[2025-03-13] MEDS: ASCORBIC ACID 500 MG TABLET PO ×2 (08:04→17:40)
[2025-03-13] MEDS: LORATADINE 10 MG TABLET PO (08:04)
[2025-03-13] MEDS: DOCUSATE SODIUM 100 MG CAPSULE PO ×2 (08:04→20:30)
[2025-03-13] MEDS: ZINC SULFATE 220 MG CAPSULE PO (08:04)
[2025-03-13] MEDS: CALCIUM/VITAMIN D 500 MG/5 MCG (200 I.U.) TABLET PO ×2 (08:04→17:40)
[2025-03-13] MEDS: MULTIVITAMINS THERAPEUTIC TAB (*BKC) 1 TABLET PO (08:04)
[2025-03-13] MEDS: FLUTICASONE PROPIONATE 0.05% NA SPR 16 GM BTL (*BKC) 2 SPRAY NASAL (08:05)
--- NOTE | 2025-03-13 08:45 | P.PNIM_ITS ---
Progress Note: A&P Assessment and Plan (1) Decubitus ulcer of sacral area: Code(s): L89.159 - Pressure ulcer of sacral region, unspecified stage Status: Acute Assessment and Plan: History of prior osteomyelitis, bed-bound from residential * Id following * Will continue with vanc cefepime Flagyl for now. Deescalate pending final cultures per ID/Flagyl switch to p.o. 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 Was referred to Oncology outpatient during that admission. Currently not undergoing treatment as she reportedly cannot do chemotherapy due to her nonhealing/chronic wounds. (3) Spina bifida of lumbar spine: Qualifiers: Presence of hydrocephalus: unspecified hydrocephalus presence Qualified Code(s): Q05.7 - Lumbar spina bifida without hydrocephalus Code(s): Q05.7 - Lumbar spina bifida without hydrocephalus Status: Chronic Assessment and Plan: * Bedbound * Q2hr turns (4) Paraplegia: Code(s): G82.20 - Paraplegia, unspecified Status: Acute Assessment and Plan: See Above #3 (5) Hypokalemia: Code(s): E87.6 - Hypokalemia Status: Acute Assessment and Plan: potassium 2.8>3.2 * 80 mithc>40 meq given * tend daily * replenish K>3.5-4.0 (6) Hypomagnesemia: Code(s): E83.42 - Hypomagnesemia Status: Acute Assessment and Plan: Magnesium 1.4 * 2g IVPB * trend replenish to keep >2.0 Plan Code status: DNR DVT prophylaxis: SCD's Stress ulcer prophylaxis: JOYCELYN PT/OT notes: Bedbound Disposition: Patient continues admission to the medical unit for treatment sacral decubitus ulceration with debridement will continue with current IV antibiotic therapy pending final cultures and ID recommendations patient will return to longterm facility when medically stable. Time Spent With Patient Time with patient: 15 - 25 minutes Subjective Date/time seen: 03/13/25 08:45 Interval history: 79 y/o F with PMH of sacral wounds requiring debridement, hyperlipidemia, depression, anxiety, and spina bifida presents here with chronic sacral wounds with possible infection. 03/13/25: Patient with no complaints however moderate 2 to 3+ edema to left upper extremity IV D/C. Encouraged elevation. Patient denied any chest pain, shortness a breath, nausea vomiting fever chills and denied any pain to wound site. Review of Systems Review of Systems: All systems reviewed & are unremarkable except as noted in HPI and below Exam Const: General: comfortable and no acute distress Other: , female, elderly, chronically ill-appearing, nontoxic appearance HENMT: Face/Nose/Sinus: Normal nares present Mouth: Yes dry mucous membranes Eyes: General: appearance normal, both eyes and all related structures Sclera: sclerae normal Pupils: Equal, round and reactive pupils present Other: +exotropia Resp: Effort & Inspection: normal respiratory effort Auscultation: clear to auscultation bilaterally Cardio: Rate: regular rate Rhythm: regular rhythm Other: S1-S2 present without murmur, rub, ectopy GI: Other: Abdomen soft, nondistended, nontender. Normoactive bowel sounds in all quadrants. right urostomy present, stoma pink and moist with no signs of infection. Malodorous urine present. Skin: General skin exam: normal color and no rashes or lesions noted Other: Sacral wound present. Wound bed peak/healthy tissue. Wound edges healthy tissue. Post debridement Second wound to the right ischial. Necrotic/bernstein wound bed with extensive brown slough, foul odor, tunneling, sharp jagged bone exposed and cavity initially Neuro: Cranial nerves: Yes Equal, round and reactive pupils present Other: Alert to self and situation. Incorrect place (believed she was at the residential) and no attempt at time. Extrem: Other: + 1 pitting edema to bilateral feet. DP pulses 2+ bilaterally. Psych: Other: Fair to poor insight and judgment at present, very pleasant Objective Data Vital Signs Vital Signs: Vital Signs - 24 hr 03/12/25 08:50 03/12/25 14:08 03/12/25 20:00 Temperature 98.5 F Pulse Rate 97 Respiratory Rate 18 Blood Pressure 120/61 Pulse Oximetry 95 94 Oxygen Delivery Room Air Room Air 03/12/25 21:00 03/13/25 06:00 03/13/25 08:04 Temperature 97.9 F 97 F L Pulse Rate 100 95 Respiratory Rate 18 18 Blood Pressure 117/73 127/62 Pulse Oximetry 94 99 100 Oxygen Delivery Room Air Intake/Output Intake/Output: Intake & Output 03/10/25 03/11/25 03/12/25 03/13/25 23:59 23:59 23:59 23:59 Intake Total 20090 2560 175 Output Total 21491 1450 350 Balance -816 345 0875 -175 Meds/Results Medications: Active Medications Generic Name Dose Route Start Last Admin Trade Name Freq PRN Reason Stop Dose Admin Acetaminophen 650 mg 03/08/25 15:09 03/12/25 20:26 Acetaminophen 325 Mg Tablet BY MOUTH 650 mg Q4H PRN Administration mild pain 1-3 Ascorbic Acid 500 mg 03/08/25 17:00 03/13/25 08:04 Ascorbic Acid 500 Mg Tablet PO 500 mg BID ALEXIS Administration Atorvastatin Calcium 10 mg 03/08/25 21:00 03/12/25 20:24 Atorvastatin 10 Mg Tablet PO 10 mg HS ALEXIS Administration Calcium Carbonate 500 mg 03/08/25 17:00 03/13/25 08:04 Calcium/Vitamin D 500 Mg/5 Mcg (200 I.U.) Tablet PO 500 mg BID ALEXIS Administration Docusate Sodium 100 mg 03/08/25 21:00 03/13/25 08:04 Docusate Sodium 100 Mg Capsule PO 100 mg Q12HR ALEXIS Administration Duloxetine HCl 60 mg 03/08/25 17:00 03/13/25 08:04 Duloxetine Hcl 60 Mg Capsule.Dr PO 60 mg BID ALEXIS Administration Fluticasone Propionate 2 spray 03/09/25 09:00 03/13/25 08:05 Fluticasone Propionate 0.05% Na Spr 16 Gm Btl (*Bkc) NASAL 2 spray DAILY ALEXIS Administration Cefepime HCl 2 gm/ Sodium 50 mls @ 100 mls/hr 03/08/25 21:00 03/13/25 08:04 Chloride IVPB 100 mls/hr Q12H ALEXIS Administration Metronidazole 500 mg in 100 mls @ 100 mls/hr 03/08/25 18:00 03/13/25 02:30 Flagyl 500 Mg/Iso Soln 100 Ml IVPB Infused Q8H ALEXIS Infusion Lactated Ringer's 1,000 mls @ 75 mls/hr 03/08/25 10:50 03/12/25 17:28 Lr - Lactated Ringers Iv IV CONT 75 mls/hr .[id number] ALEXIS Administration Vancomycin HCl 1,500 mg in 500 mls @ 250 mls/hr 03/13/25 11:00 Vancomycin 1,500 Mg/Ns 500 Ml IVPB Q18H ALEXIS Potassium Chloride 40 meq/ 520 mls @ 130 mls/hr 03/13/25 08:43 Sodium Chloride IVPB 03/13/25 12:42 ONCE ONE Magnesium Sulfate 2 gm in 50 mls @ 25 mls/hr 03/13/25 08:44 Magnesium Sulf 2 Gm/Water 50ml IVPB 03/13/25 10:43 ONCE ONE Lactulose 10 gm 03/08/25 14:21 Lactulose 20 Gm/30 Ml Udc PO DAILY PRN Constipation Loratadine 10 mg 03/09/25 09:00 03/13/25 08:04 Loratadine 10 Mg Tablet PO 10 mg DAILY ALEXIS Administration Magnesium Hydroxide 30 ml 03/08/25 14:21 Magnesium Hydroxide Susp 30 Ml Udc PO HS PRN Constipation Mirtazapine 15 mg 03/08/25 21:00 03/12/25 20:26 Mirtazapine 15 Mg Tablet PO 15 mg HS ALEXIS Administration Multivitamins Therapeutic 1 tablet 03/09/25 09:00 03/13/25 08:04 Multivitamins Therapeutic Tab (*Bkc) PO 1 tablet DAILY ALEXIS Administration Ondansetron HCl 4 mg 03/08/25 14:21 Ondansetron Hcl Odt 4 Mg Tablet PO Q6H PRN NAUSEA Sodium Hypochlorite 1 applic 03/08/25 21:00 03/12/25 22:00 Sod Hypochlorite 1/4 Strength 473 Ml TOPICAL 1 applic Q12HR ALEXIS Administration Vitamin D 50 mcg 03/09/25 09:00 03/13/25 08:03 Cholecalciferol (Vitamin D3) 25 Mcg (1,000 Units) Tablet PO 50 mcg DAILY ALEXIS Administration Zinc Sulfate 220 mg 03/10/25 09:00 03/13/25 08:04 Zinc Sulfate 220 Mg Capsule PO 220 mg DAILY ALEXIS Administration Radiology Results: ITS Impressions Abdomen/Pelvis CT 03/08/25 09:50 IMPRESSION: 1. Large open infected wound overlying right inferior pubic ramus. Ill-defined fluid and gas but no discrete abscess. Small focal osteomyelitis along pubic ramus. Associated myositis of hamstring muscle. 2. Open wound overlying sacrum. Presumably infected, but no abscess. 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 3. Enlarging adrenal metastasis left side. 4. Slightly enlarged left lower lobe mass with enlarging satellite mass. 5. Stercoral colitis. 6. Subtle pyelonephritis right kidney not excluded. Labs Labs: Laboratory Results - last 24 hr 03/12/25 03/12/25 03/13/25 09:08 20:12 07:08 WBC 9.1 10.9 H RBC 3.69 L 3.52 L Hgb 8.9 L 8.7 L Hct 29.5 L 28.2 L MCV 79.9 L 80.1 MCH 24.1 L 24.7 L MCHC 30.2 L 30.9 L RDW 15.3 H 15.5 H Plt Count 604 H 597 H MPV 8.3 8.2 Immature Gran % (Auto) 0.4 Neut % (Auto) 65.9 Lymph % (Auto) 21.3 [place] % (Auto) 6.8 Eos % (Auto) 5.2 H Baso % (Auto) 0.4 Lymph # (Auto) 1.93 [place] # (Auto) 0.6 Eos # (Auto) 0.5 H Baso # (Auto) 0.0 Abs Immat Gran (auto) 0.04 H Absolute Neuts (auto) 6.0 Absolute Nucleated RBC 0.000 Nucleated RBC % 0.0 Sodium 136 L 136 L Potassium 2.8 L* 3.7 3.2 L Chloride 99 100 Carbon Dioxide 32 H 31 H Anion Gap 5 5 BUN 2 L 3 L Creatinine 0.42 L 0.38 L Estim Creat Clear Calc 82 90 Estimated GFR > 60 > 60 Glucose 105 97 Calcium 8.2 L 8.3 L Magnesium 1.4 L Total Bilirubin 0.3 0.2 AST 20 19 ALT 9 8 Alkaline Phosphatase 126 110 Total Protein 6.3 6.0 L Albumin 2.8 L 2.6 L Vancomycin Trough 20.3 H Quality VTE Prophylaxis VTE prophylaxis: mechanical ordered -Patient's previous records reviewed on admission -ER notes reviewed in detail on admission -discussed all findings and current treatment plan with patient/Family/POA -Consultations reviewed for recommendations -Patient's disposition for safe discharge discussed with residential case manager -radiology imaging, EKG and test results I have personally reviewed and interpreted unless otherwise specified Dictation performed by [employer] direct speech recognition software, therefore documentation manager variants and typographical errors may occur. Hospitalist MIPS Advance Care Plan I have confirmed that the patient's Advanced Care Plan is present, code status is documented, or surrogate decision maker is listed in patient medical record.: Yes Medication Reconciliation I have utilized all available resources to obtain, update and review the patients current medications (includes all prescriptions, OTC, herbals, cannabis, and nutritional supplements).: Yes The patient is not eligible for med reconciliation; the patient is in a emergent medical situation where delaying treatment would jeopardize the patients health.: No
[2025-03-13] MEDS: MAGNESIUM SULF 2 GM/WATER 50ML 2 GM/50 ML BAG IVPB (09:39)
[2025-03-13] MEDS: POTASSIUM CHLORIDE INJ 40 MEQ in SODIUM CHLORIDE 0.9% IV 500 ML 130 MEQ IVPB (09:42)
[2025-03-13] MEDS: SOD HYPOCHLORITE 1/4 STRENGTH 473 ML 1 APPLIC TOPICAL ×2 (09:43→20:33)
[2025-03-13] MEDS: VANCOMYCIN 1,500 MG/NS 500 ML 1,500 MG/500 ML BAG 250 MG IVPB (13:00)
[2025-03-13 15:44] VITALS: BP 109/60; PULSE 93; RESP 17; TEMP 36.4; O2SAT 100
[2025-03-13 20:03] VITALS: BP 140/78; PULSE 84; RESP 20; TEMP 36.4; O2SAT 95
[2025-03-13] MEDS: ATORVASTATIN 10 MG TABLET PO (20:30)
[2025-03-13] MEDS: MIRTAZAPINE 15 MG TABLET PO (20:30)
[2025-03-14] MEDS: VANCOMYCIN 1,500 MG/NS 500 ML 1,500 MG/500 ML BAG 250 MG IVPB ×2 (05:14→23:01)
[2025-03-14 05:28] LABS: Hematocrit 29.6 % (37.0-47.0); Hemoglobin 8.5 g/dL (12.0-15.0); Mean Corpuscular HGB Conc 28.7 g/dl (32-36); Mean Corpuscular Hemoglobin 23.9 pg (26-34); Mean Corpuscular Volume 83.1 fl (80-100); Platelet Count Result 585 k/mm3 (150-375); Red Blood Count 3.56 M/mm3 (4.2-5.4); White Blood Count 10.2 K/mm3 (4.5-10.0)
[2025-03-14 05:50] LABS: Alanine Aminotransferase 8 U/L (6-35); Albumin Level 2.3 g/dL (3.5-5.1); Alkaline Phosphatase 107 U/L (38-126); Anion Gap 3 mmol/L (4-12); Aspartate Amino Transferase 16 U/L (14-36); Bilirubin,Total 0.2 mg/dL (0.2-1.3); Blood Urea Nitrogen 3 mg/dL (7-17); Calcium 8.2 mg/dL (8.4-10.2); Carbon Dioxide 31 mmol/L (22-30); Chloride 102 mmol/L (98-107); Estimated CRCL calculation 104 ml/min; Estimated Glomerular Filt Rate > 60; Glucose 92 mg/dL (65-110); Magnesium 1.8 mg/dL (1.6-2.3); Potassium 3.6 mmol/L (3.4-5.0); Sodium 136 mmol/L (137-145); Total Protein 5.3 g/dL (6.3-8.2)
[2025-03-14 05:57] VITALS: BP 132/70; PULSE 64; RESP 20; TEMP 36.2; O2SAT 93
[2025-03-14 08:21] VITALS: O2SAT 93
[2025-03-14] MEDS: LORATADINE 10 MG TABLET PO (08:21)
[2025-03-14] MEDS: CALCIUM/VITAMIN D 500 MG/5 MCG (200 I.U.) TABLET PO ×2 (08:21→16:13)
[2025-03-14] MEDS: DOCUSATE SODIUM 100 MG CAPSULE PO ×2 (08:21→20:11)
[2025-03-14] MEDS: ZINC SULFATE 220 MG CAPSULE PO (08:21)
[2025-03-14] MEDS: ASCORBIC ACID 500 MG TABLET PO ×2 (08:21→16:13)
[2025-03-14] MEDS: MULTIVITAMINS THERAPEUTIC TAB (*BKC) 1 TABLET PO (08:21)
[2025-03-14] MEDS: CHOLECALCIFEROL (VITAMIN D3) 25 MCG (1,000 UNITS) TABLET 50 MCG PO (08:21)
[2025-03-14] MEDS: DULoxetine HCL 60 MG CAPSULE.DR PO ×2 (08:22→16:16)
[2025-03-14] MEDS: FLUTICASONE PROPIONATE 0.05% NA SPR 16 GM BTL (*BKC) 2 SPRAY NASAL (08:24)
[2025-03-14] MEDS: CEFEPIME 2 GM in SODIUM CHLORIDE 0.9% IV 50 ML 100 ML IVPB ×2 (08:24→20:19)
[2025-03-14] MEDS: SOD HYPOCHLORITE 1/4 STRENGTH 473 ML 1 APPLIC TOPICAL ×2 (08:25→20:12)
--- NOTE | 2025-03-14 10:25 | WPDINFPN2 ---
Progress Note: A&P Assessment and Plan (1) Decubitus ulcer of sacral area: Code(s): L89.159 - Pressure ulcer of sacral region, unspecified stage Status: Acute Assessment and Plan: ASSESSMENT: 1. Infected ishcial pressure ulcer s/p operative debridement 2. Stage 4 ischial pressure ulcer a. History of prior treatment for sacral osteomyelitis 3. Advanced lung cancer 4. Resolved leukocytosis 5. allergy to penicillin--tolerates cefepime 6. allergy to sulf-->hives PLAN: -Continue Vancomycin IV (day2)/Cefepime (day7) /Flagyl IV (day2)for now -Continue local wound care -ok to discharge on cefdinir 300 mg po bid and clndamycin 300 mg po TID x 1 more week Pt was seen via video telehealth consultation with the assistance of staff. Chart, data and patient info reviewed. Patient was located at [facility] while I was in my [place] office. Pt gave consent. Subjective Date/time seen: 03/14/25 10:25 Interval history: no fever no leukocytosis I'm ok breathing ok Exam Narrative: appears tired NAD, on room air, non-toxic Objective Data Vital Signs Vital Signs: Vital Signs - 24 hr 03/13/25 15:44 03/13/25 20:00 03/13/25 20:03 Temperature 97.6 F 97.5 F L Pulse Rate 93 84 Respiratory Rate 17 20 Blood Pressure 109/60 140/78 Pulse Oximetry 100 95 Oxygen Delivery Room Air 03/14/25 05:57 03/14/25 08:21 Temperature 97.1 F L Pulse Rate 64 Respiratory Rate 20 Blood Pressure 132/70 Pulse Oximetry 93 93 Oxygen Delivery Room Air Intake/Output Intake/Output: Intake & Output 03/11/25 03/12/25 03/13/25 03/14/25 23:59 23:59 23:59 23:59 Intake Total 2530 2560 1805 220 Output Total 2101 1450 1050 1500 Balance 429 1110 755 1280 Meds/Results Medications: Active Medications Generic Name Dose Route Start Last Admin Trade Name Freq PRN Reason Stop Dose Admin Acetaminophen 650 mg 03/08/25 15:09 03/12/25 20:26 Acetaminophen 325 Mg Tablet BY MOUTH 650 mg Q4H PRN Administration mild pain 1-3 Ascorbic Acid 500 mg 03/08/25 17:00 03/14/25 08:21 Ascorbic Acid 500 Mg Tablet PO 500 mg BID ALEXIS Administration Atorvastatin Calcium 10 mg 03/08/25 21:00 03/13/25 20:30 Atorvastatin 10 Mg Tablet PO 10 mg HS ALEXIS Administration Calcium Carbonate 500 mg 03/08/25 17:00 03/14/25 08:21 Calcium/Vitamin D 500 Mg/5 Mcg (200 I.U.) Tablet PO 500 mg BID ALEXIS Administration Docusate Sodium 100 mg 03/08/25 21:00 03/14/25 08:21 Docusate Sodium 100 Mg Capsule PO 100 mg Q12HR ALEXIS Administration Duloxetine HCl 60 mg 03/08/25 17:00 03/14/25 08:22 Duloxetine Hcl 60 Mg Capsule.Dr PO 60 mg BID ALEXIS Administration Fluticasone Propionate 2 spray 03/09/25 09:00 03/14/25 08:24 Fluticasone Propionate 0.05% Na Spr 16 Gm Btl (*Bkc) NASAL 2 spray DAILY ALEXIS Administration Cefepime HCl 2 gm/ Sodium 50 mls @ 100 mls/hr 03/08/25 21:00 03/14/25 08:24 Chloride IVPB 100 mls/hr Q12H ALEXIS Administration Vancomycin HCl 1,500 mg in 500 mls @ 250 mls/hr 03/13/25 11:00 03/14/25 05:14 Vancomycin 1,500 Mg/Ns 500 Ml IVPB 250 mls/hr Q18H ALEXIS Administration Lactulose 10 gm 03/08/25 14:21 Lactulose 20 Gm/30 Ml Udc PO DAILY PRN Constipation Loratadine 10 mg 03/09/25 09:00 03/14/25 08:21 Loratadine 10 Mg Tablet PO 10 mg DAILY ALEXIS Administration Magnesium Hydroxide 30 ml 03/08/25 14:21 Magnesium Hydroxide Susp 30 Ml Udc PO HS PRN Constipation Metronidazole 500 mg 03/13/25 22:00 03/14/25 05:11 Metronidazole 500 Mg Tablet PO 500 mg Q8HR ALEXIS Administration Mirtazapine 15 mg 03/08/25 21:00 03/13/25 20:30 Mirtazapine 15 Mg Tablet PO 15 mg HS ALEXIS Administration Multivitamins Therapeutic 1 tablet 03/09/25 09:00 03/14/25 08:21 Multivitamins Therapeutic Tab (*Bkc) PO 1 tablet DAILY ALEXIS Administration Ondansetron HCl 4 mg 03/08/25 14:21 Ondansetron Hcl Odt 4 Mg Tablet PO Q6H PRN NAUSEA Sodium Hypochlorite 1 applic 03/08/25 21:00 03/14/25 08:25 Sod Hypochlorite 1/4 Strength 473 Ml TOPICAL 1 applic Q12HR ALEXIS Administration Vitamin D 50 mcg 03/09/25 09:00 03/14/25 08:21 Cholecalciferol (Vitamin D3) 25 Mcg (1,000 Units) Tablet PO 50 mcg DAILY ALEXIS Administration Zinc Sulfate 220 mg 03/10/25 09:00 03/14/25 08:21 Zinc Sulfate 220 Mg Capsule PO 220 mg DAILY ALEXIS Administration Radiology Results: ITS Impressions Abdomen/Pelvis CT 03/08/25 09:50 IMPRESSION: 1. Large open infected wound overlying right inferior pubic ramus. Ill-defined fluid and gas but no discrete abscess. Small focal osteomyelitis along pubic ramus. Associated myositis of hamstring muscle. 2. Open wound overlying sacrum. Presumably infected, but no abscess. 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 3. Enlarging adrenal metastasis left side. 4. Slightly enlarged left lower lobe mass with enlarging satellite mass. 5. Stercoral colitis. 6. Subtle pyelonephritis right kidney not excluded. Labs Labs: Laboratory Results - last 24 hr 03/14/25 05:06 WBC 10.2 H RBC 3.56 L Hgb 8.5 L Hct 29.6 L MCV 83.1 MCH 23.9 L MCHC 28.7 L RDW 15.5 H Plt Count 585 H MPV 8.4 Sodium 136 L Potassium 3.6 Chloride 102 Carbon Dioxide 31 H Anion Gap 3 L BUN 3 L Creatinine 0.32 L Estim Creat Clear Calc 104 Estimated GFR > 60 Glucose 92 Calcium 8.2 L Magnesium 1.8 Total Bilirubin 0.2 AST 16 ALT 8 Alkaline Phosphatase 107 Total Protein 5.3 L Albumin 2.3 L
--- NOTE | 2025-03-14 11:14 | PCNFU ---
Nutrition Follow-Up Complete: Increased protein energy needs related to wounds as evidenced by pressure injury Goal:PO intake >75% Pt progressing towards goal, continue with same goal Pt current nutrition is Heart healthy diet. Nutrition recommendation: Add Ensure BID, add KEYONNA BID Last recorded weight is 76.9 kg. Bowel Motility: +BM 03/14 Labs Reviewed: Hgb:8.5, HCT:29.6, Alb:2.3, NA:130, BUN:3, Cr:0.32 Meds Noted: remeron, MVI Skin: stage IV to ischium Additional Notes: Pt continues on a heart healthy, intake varied 25-75%. Will add Ensure BID for supplement and KEYONNA BID for wound healing. Monitoring intakes, weights, labs, skin, supplement intake, plan of care Follow up in 7 days
[2025-03-14 14:13] VITALS: BP 114/63; PULSE 91; RESP 20; TEMP 36.7; O2SAT 98
--- NOTE | 2025-03-14 14:54 | P.DS_ITS ---
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 Qualified Code(s): C34.92 - Malignant neoplasm of unspecified part of left bronchus or lung Code(s): C34.90 - Malignant neoplasm of unspecified part of unspecified bronchus or lung Status: Chronic (3) Spina bifida of lumbar spine: Qualifiers: Presence of hydrocephalus: unspecified hydrocephalus presence Qualified Code(s): Q05.7 - Lumbar spina bifida without hydrocephalus Code(s): Q05.7 - Lumbar spina bifida without hydrocephalus Status: Chronic (4) Paraplegia: Code(s): G82.20 - Paraplegia, unspecified Status: Acute (5) Hypokalemia: Code(s): E87.6 - Hypokalemia Status: Acute (6) Hypomagnesemia: Code(s): E83.42 - Hypomagnesemia Status: Acute DS: Summary Hospital Course Reason for hospitalization: Sacral wound infection Hospital Course: Admission: 79 y/o F with PMH of sacral wounds requiring debridement, hyperlipidemia, depression, anxiety, and spina bifida presents here with chronic sacral wounds with possible infection. The patient presents here from [facility] via EMS for further evaluation of chronic sacral wounds. The patient was admitted for the sacral wounds from 12/07/2024 to 12/15/2024. 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 She was initially started on vancomycin, cefepime, and Flagyl. Underwent debridement on 12/08/2024. Blood cultures negative, urine culture negative. Wound culture grew ESBL and MDR Proteus mirabilis and she was subsequently switched to Ertapenem on 12/13/2024 with plan for 6 weeks of thera py which has since been completed. She is returning today, 03/08, as she reports the wounds to her sacrum have worsened and are now draining. She denies XX. Initial VS at presentation: 98.7? F, HR 104, R 18, 92/66, and 99% on RA. ED workup showed: WBC 14.6, hemoglobin 9.7 (7.9 on 12/15), sodium 135, creatinine 0.48 and GFR >60, CRP 29.7, procalcitonin 0.1, lactic 1.1. CT of the abdomen/pelvis showed a large open infected wound overlying the right inferior pubic ramus with ill-defined fluid and gas but no discrete abscess, small focal osteomyelitis along the pubic ramus with associated myositis of hamstring muscle, open wound overlying sacrum presumably infected but no abscess suspicion for chronic osteomyelitis of distal sacrum and coccyx, enlarging adrenal metastasis left side, slightly enlarged left lower lobe mass with enlarging satellite mass, stercoral colitis, subtle pyelonephritis of the right kidney not excluded. Status at Discharge Functional status at discharge: bed bound Overall status at discharge: patient is back to baseline Time Spent with Patient Time attestation: Total time spent providing and/or coordinating discharge services: Time spent: Greater than 30 minutes Exam Const: General: comfortable and no acute distress Other: , female, elderly, chronically ill-appearing, nontoxic appearance HENMT: Face/Nose/Sinus: Normal nares present Mouth: Yes dry mucous membranes Eyes: General: appearance normal, both eyes and all related structures Sclera: sclerae normal Pupils: Equal, round and reactive pupils present Other: +exotropia Resp: Effort & Inspection: normal respiratory effort Auscultation: clear to auscultation bilaterally Cardio: Rate: regular rate Rhythm: regular rhythm Other: S1-S2 present without murmur, rub, ectopy GI: Other: Abdomen soft, nondistended, nontender. Normoactive bowel sounds in all quadrants. right urostomy present, stoma pink and moist with no signs of inf ection. Malodorous urine present. Skin: General skin exam: normal color and no rashes or lesions noted Other: Sacral wound present. Wound bed peak/healthy tissue. Wound edges healthy tissue. Post debridement Second wound to the right ischial. Necrotic/bernstein wound bed with extensive brown slough, foul odor, tunneling, sharp jagged bone exposed and cavity initially Neuro: Cranial nerves: Yes Equal, round and reactive pupils present Other: Alert to self and situation. Incorrect place (believed she was at the [facility]) and no attempt at time. Extrem: Other: + 1 pitting edema to bilateral feet. DP pulses 2+ bilaterally. Psych: Other: Fair to poor insight and judgment at present, very pleasant DS: Data Data Completed and Pending Labs on day of discharge: Labs from last 24 hours 03/14/25 05:06 WBC 10.2 H RBC 3.56 L Hgb 8.5 L Hct 29.6 L MCV 83.1 MCH 23.9 L MCHC 28.7 L RDW 15.5 H Plt Count 585 H MPV 8.4 Sodium 136 L Potassium 3.6 Chloride 102 Carbon Dioxide 31 H Anion Gap 3 L BUN 3 L Creatinine 0.32 L Estim Creat Clear Calc 104 Estimated GFR > 60 Glucose 92 Calcium 8.2 L Magnesium 1.8 Total Bilirubin 0.2 AST 16 ALT 8 Alkaline Phosphatase 107 Total Protein 5.3 L Albumin 2.3 L Discharge Plan Discharge Attending physician on discharge: Ian Pittman Consulting providers: Tony Estevez; Jerod Olson; Arias Mccain; Jaqui Bailey Discharging Clinician: Jaqui Bailey Anticipated Discharge Date/Time: 03/14/25 14:50 Patient Disposition: SNF Activity: as tolerated Diet: heart healthy Discharge Instructions: 1). Sacral wound * Continue oral ABX as prescribed * Change dressing daily with Dakin's soaked kerlix gauze, 4x4s, ABD pad, and tape * Q2hr Turns/off load How can you care for yourself at home? ? Keep track of any new symptoms or changes in your symptoms. ? Rest until you feel better. ? Be safe with medicines. Take your medicines exactly as prescribed. Call your doctor if you think you are having a problem with your medicine. ? Do not drive after taking a prescription pain medicine. ? Ensure to follow-up with primary care physician as indicated and provide updated medication list provided to you at discharge. When should you call for help? Call 911 anytime you think you may need emergency care. For example, call if: ? You passed out (lost consciousness). Call your doctor now or seek immediate medical care if: ? You have new symptoms like fever, difficulty breathing, Chest pain, vomiting, or rash. ? You have new or different pain. ? You are confused and are having trouble thinking clearly. ? Your symptoms are getting worse. Watch closely for changes in your health, and be sure to contact your doctor if: ? You do not get better as expected. Patient Instructions: Chronic Wounds (DC) Patient Language: Albanian Stand Alone Forms: General Discharge Information, Detention Discharge Follow-up/Referrals: Abigail,MD Jimmy [Primary Care Provider, Unknown] - Keep Reg. Scheduled Appt. Discharge Medications: No Action atorvastatin 10 mg tablet 10 mg PO HS acetaminophen 650 mg Tablet 650 mg PO Q4H PRN (Reason: mild pain) fluticasone propionate [Flonase Allergy Relief] 50 mcg/actuation [place],Suspension 2 spray INTRANASAL DAILY Rx Instructions: administer into each nostril duloxetine 60 mg capsule,delayed release(DR/EC) 60 mg PO BID Caltrate 600-D Plus Minerals 600 mg calcium- 800 unit-40 mg Tablet,Chewable 1 tablet PO BID loratadine 10 mg Tablet 10 mg PO DAILY nystatin 100,000 unit/gram Powder 1 applic TOPICAL DAILY Rx Instructions: APPLY DAILY SCHEDULED AND ALSO APPLY TID NEEDED PRN apply to groin and sacral area cholecalciferol (vitamin D3) 50 mcg (2,000 unit) capsule 50 mcg PO DAILY multivitamin [Daily Multi-Vitamin] Tablet 1 tablet PO DAILY lactulose 10 gram/15 mL solution 10 g PO DAILY PRN (Reason: constipation) Qty: 473 0RF Rx Instructions: Give if no BM within 72 hours prior, or if feeling constipated. ondansetron 4 mg tablet,disintegrating 4 mg PO Q6H PRN (Reason: NAUSEA ) ascorbic acid (vitamin C) [Acerola C] 500 mg tablet,chewable 500 mg PO BID zinc sulfate [Zinc-220] 50 mg zinc (220 mg) capsule 50 mg PO DAILY Dakin's Solution 0.125 % Solution 1 applic topical Q12HR Qty: 100 0RF mirtazapine 15 mg tablet 15 mg PO HS magnesium hydroxide [Dulcolax (magnesium hydroxide)] 400 mg/5 mL suspension 30 ml PO HS PRN (Reason: constipation) Date of admission: 03/09/25 10:23 Primary Care Provider: MattJimmy Admitting Provider: Raul Lopez Attending physician on admission: Raul Lopez Condition: Improved Quality VTE Prophylaxis VTE prophylaxis: mechanical ordered -Patient's previous records reviewed on admission -ER notes reviewed in detail on admission -discussed all findings and current treatment plan with patient/Family/POA -Consultations reviewed for recommendations -Patient's disposition for safe discharge discussed with dependency case manager -radiology imaging, EKG and test results I have personally reviewed and interpreted unless otherwise specified Dictation performed by [employer] direct speech recognition software, therefore fish butcher variants and typographical errors may occur. Hospitalist MIPS Heart Failure (Exclusion) Patient has history of Heart Transplant or Left Ventricular Assistive Device?: No IF YES, STOP HERE Heart Failure (Qualifier) Patient has current or prior documentation of LVEF less than or equal to 40%, or mod/servere depressed LVSF?: No IF NO, STOP HERE
--- NOTE | 2025-03-14 17:54 | P.PNIM_ITS ---
Progress Note: A&P Assessment and Plan (1) Decubitus ulcer of sacral area: Code(s): L89.159 - Pressure ulcer of sacral region, unspecified stage Status: Acute Assessment and Plan: History of prior osteomyelitis, bed-bound from residential * Id following * Will continue with vanc cefepime Flagyl for now. Deescalate pending final cultures per ID/Flagyl switch to p.o. 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 Was referred to Oncology outpatient during that admission. Currently not undergoing treatment as she reportedly cannot do chemotherapy due to her nonhealing/chronic wounds. (3) Spina bifida of lumbar spine: Qualifiers: Presence of hydrocephalus: unspecified hydrocephalus presence Qualified Code(s): Q05.7 - Lumbar spina bifida without hydrocephalus Code(s): Q05.7 - Lumbar spina bifida without hydrocephalus Status: Chronic Assessment and Plan: * Bedbound * Q2hr turns (4) Paraplegia: Code(s): G82.20 - Paraplegia, unspecified Status: Acute Assessment and Plan: See Above #3 (5) Hypokalemia: Code(s): E87.6 - Hypokalemia Status: Acute Assessment and Plan: potassium 2.8>3.2 * 80 mitch>40 meq given * tend daily * replenish K>3.5-4.0 (6) Hypomagnesemia: Code(s): E83.42 - Hypomagnesemia Status: Acute Assessment and Plan: Magnesium 1.4 * 2g IVPB * trend replenish to keep >2.0 Plan Code status: DNR DVT prophylaxis: SCD's Stress ulcer prophylaxis: NA PT/OT notes: Bedbound Disposition: Patient continues admission to the medical unit for treatment sacral decubitus ulceration with debridement will continue with current IV antibiotic therapy pending final cultures and ID recommendations patient will return to [facility] facility when medically stable. Time Spent With Patient Time with patient: 15 - 25 minutes Subjective Date/time seen: 03/14/25 17:54 Interval history: 79 y/o F with PMH of sacral wounds requiring debridement, hyperlipidemia, depression, anxiety, and spina bifida presents here with chronic sacral wounds with possible infection. 03/14/25: Patient with no complaints reports feeling well and no pain to sacral area, normal WBC plan for continued IV ABX today then discharge tomorrow on PO ABX per ID Review of Systems Review of Systems: All systems reviewed & are unremarkable except as noted in HPI and below Exam 2 Const: General: comfortable and no acute distress Other: , female, elderly, chronically ill-appearing, nontoxic appearance HENMT: Face/Nose/Sinus: Normal nares present Mouth: Yes dry mucous membranes Eyes: General: appearance normal, both eyes and all related structures Sclera: sclerae normal Pupils: Equal, round and reactive pupils present Other: +exotropia Resp: Effort & Inspection: normal respiratory effort Auscultation: clear to auscultation bilaterally Cardio: Rate: regular rate Rhythm: regular rhythm Other: S1-S2 present without murmur, rub, ectopy GI: Other: Abdomen soft, nondistended, nontender. Normoactive bowel sounds in all quadrants. right urostomy present, stoma pink and moist with no signs of infection. Malodorous urine present. Skin: General skin exam: normal color and no rashes or lesions noted Other: Sacral wound present. Wound bed peak/healthy tissue. Wound edges healthy tissue. Post debridement Second wound to the right ischial. Necrotic/bernstein wound bed with extensive brown slough, foul odor, tunneling, sharp jagged bone exposed and cavity initially Neuro: Cranial nerves: Yes Equal, round and reactive pupils present Other: Alert to self and situation. Incorrect place (believed she was at the residential) and no attempt at time. Extrem: Other: + 1 pitting edema to bilateral feet. DP pulses 2+ bilaterally. Psych: Other: Fair to poor insight and judgment at present, very pleasant Objective Data Vital Signs Vital Signs: Vital Signs - 24 hr 03/13/25 20:00 03/13/25 20:03 03/14/25 05:57 Temperature 97.5 F L 97.1 F L Pulse Rate 84 64 Respiratory Rate 20 20 Blood Pressure 140/78 132/70 Pulse Oximetry 95 93 Oxygen Delivery Room Air 03/14/25 08:21 03/14/25 14:13 Temperature 98.1 F Pulse Rate 91 Respiratory Rate 20 Blood Pressure 114/63 Pulse Oximetry 93 98 Oxygen Delivery Room Air Intake/Output Intake/Output: Intake & Output 03/11/25 03/12/25 03/13/25 03/14/25 23:59 23:59 23:59 23:59 Intake Total 2530 2560 1805 510 Output Total 2101 1450 1050 2050 Balance 429 0944 461 -5828 Meds/Results Medications: Active Medications Generic Name Dose Route Start Last Admin Trade Name Freq PRN Reason Stop Dose Admin Acetaminophen 650 mg 03/08/25 15:09 03/12/25 20:26 Acetaminophen 325 Mg Tablet BY MOUTH 650 mg Q4H PRN Administration mild pain 1-3 Ascorbic Acid 500 mg 03/08/25 17:00 03/14/25 16:13 Ascorbic Acid 500 Mg Tablet PO 500 mg BID ALEXIS Administration Atorvastatin Calcium 10 mg 03/08/25 21:00 03/13/25 20:30 Atorvastatin 10 Mg Tablet PO 10 mg HS ALEXIS Administration Calcium Carbonate 500 mg 03/08/25 17:00 03/14/25 16:13 Calcium/Vitamin D 500 Mg/5 Mcg (200 I.U.) Tablet PO 500 mg BID ALEXIS Administration Docusate Sodium 100 mg 03/08/25 21:00 03/14/25 08:21 Docusate Sodium 100 Mg Capsule PO 100 mg Q12HR ALEXIS Administration Duloxetine HCl 60 mg 03/08/25 17:00 03/14/25 16:16 Duloxetine Hcl 60 Mg Capsule.Dr PO 60 mg BID ALEXIS Administration Fluticasone Propionate 2 spray 03/09/25 09:00 03/14/25 08:24 Fluticasone Propionate 0.05% Na Spr 16 Gm Btl (*Bkc) NASAL 2 spray DAILY ALEXIS Administration Cefepime HCl 2 gm/ Sodium 50 mls @ 100 mls/hr 03/08/25 21:00 03/14/25 08:54 Chloride IVPB Infused Q12H ALEXIS Infusion Vancomycin HCl 1,500 mg in 500 mls @ 250 mls/hr 03/13/25 11:00 03/14/25 05:14 Vancomycin 1,500 Mg/Ns 500 Ml IVPB 250 mls/hr Q18H ALEXIS Administration Lactulose 10 gm 03/08/25 14:21 Lactulose 20 Gm/30 Ml Udc PO DAILY PRN Constipation Loratadine 10 mg 03/09/25 09:00 03/14/25 08:21 Loratadine 10 Mg Tablet PO 10 mg DAILY ALEXIS Administration Magnesium Hydroxide 30 ml 03/08/25 14:21 Magnesium Hydroxide Susp 30 Ml Udc PO HS PRN Constipation Metronidazole 500 mg 03/13/25 22:00 03/14/25 14:24 Metronidazole 500 Mg Tablet PO 500 mg Q8HR ALEXIS Administration Mirtazapine 15 mg 03/08/25 21:00 03/13/25 20:30 Mirtazapine 15 Mg Tablet PO 15 mg HS ALEXIS Administration Multivitamins Therapeutic 1 tablet 03/09/25 09:00 03/14/25 08:21 Multivitamins Therapeutic Tab (*Bkc) PO 1 tablet DAILY ALEXIS Administration Ondansetron HCl 4 mg 03/08/25 14:21 Ondansetron Hcl Odt 4 Mg Tablet PO Q6H PRN NAUSEA Sodium Hypochlorite 1 applic 03/08/25 21:00 03/14/25 08:25 Sod Hypochlorite 1/4 Strength 473 Ml TOPICAL 1 applic Q12HR ALEXIS Administration Vitamin D 50 mcg 03/09/25 09:00 03/14/25 08:21 Cholecalciferol (Vitamin D3) 25 Mcg (1,000 Units) Tablet PO 50 mcg DAILY ALEXIS Administration Zinc Sulfate 220 mg 03/10/25 09:00 03/14/25 08:21 Zinc Sulfate 220 Mg Capsule PO 220 mg DAILY ALEXIS Administration Radiology Results: ITS Impressions Abdomen/Pelvis CT 03/08/25 09:50 IMPRESSION: 1. Large open infected wound overlying right inferior pubic ramus. Ill-defined fluid and gas but no discrete abscess. Small focal osteomyelitis along pubic ramus. Associated myositis of hamstring muscle. 2. Open wound overlying sacrum. Presumably infected, but no abscess. 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 3. Enlarging adrenal metastasis left side. 4. Slightly enlarged left lower lobe mass with enlarging satellite mass. 5. Stercoral colitis. 6. Subtle pyelonephritis right kidney not excluded. Labs Labs: Laboratory Results - last 24 hr 03/14/25 05:06 WBC 10.2 H RBC 3.56 L Hgb 8.5 L Hct 29.6 L MCV 83.1 MCH 23.9 L MCHC 28.7 L RDW 15.5 H Plt Count 585 H MPV 8.4 Sodium 136 L Potassium 3.6 Chloride 102 Carbon Dioxide 31 H Anion Gap 3 L BUN 3 L Creatinine 0.32 L Estim Creat Clear Calc 104 Estimated GFR > 60 Glucose 92 Calcium 8.2 L Magnesium 1.8 Total Bilirubin 0.2 AST 16 ALT 8 Alkaline Phosphatase 107 Total Protein 5.3 L Albumin 2.3 L Quality VTE Prophylaxis VTE prophylaxis: mechanical ordered -Patient's previous records reviewed on admission -ER notes reviewed in detail on admission -discussed all findings and current treatment plan with patient/Family/POA -Consultations reviewed for recommendations -Patient's disposition for safe discharge discussed with family preservation caseworker -radiology imaging, EKG and test results I have personally reviewed and interpreted unless otherwise specified Dictation performed by [employer] direct speech recognition software, therefore mid level clinician variants and typographical errors may occur. Hospitalist MIPS Advance Care Plan I have confirmed that the patient's Advanced Care Plan is present, code status is documented, or surrogate decision maker is listed in patient medical record.: Yes Medication Reconciliation I have utilized all available resources to obtain, update and review the patients current medications (includes all prescriptions, OTC, herbals, cannabis, and nutritional supplements).: Yes The patient is not eligible for med reconciliation; the patient is in a emergent medical situation where delaying treatment would jeopardize the patients health.: No
[2025-03-14] MEDS: ATORVASTATIN 10 MG TABLET PO (20:11)
[2025-03-14] MEDS: MIRTAZAPINE 15 MG TABLET PO (20:11)
[2025-03-14 21:18] VITALS: BP 118/62; PULSE 103; RESP 18; TEMP 36.7; O2SAT 97
[2025-03-15 05:29] LABS: Hematocrit 28.5 % (37.0-47.0); Hemoglobin 8.5 g/dL (12.0-15.0); Mean Corpuscular HGB Conc 29.8 g/dl (32-36); Mean Corpuscular Hemoglobin 24.1 pg (26-34); Mean Corpuscular Volume 80.7 fl (80-100); Platelet Count Result 600 k/mm3 (150-375); Red Blood Count 3.53 M/mm3 (4.2-5.4); White Blood Count 11.7 K/mm3 (4.5-10.0)
[2025-03-15 05:52] LABS: Alanine Aminotransferase 10 U/L (6-35); Albumin Level 2.6 g/dL (3.5-5.1); Alkaline Phosphatase 105 U/L (38-126); Anion Gap 3 mmol/L (4-12); Aspartate Amino Transferase 35 U/L (14-36); Bilirubin,Total 0.2 mg/dL (0.2-1.3); Blood Urea Nitrogen 5 mg/dL (7-17); Calcium 8.1 mg/dL (8.4-10.2); Carbon Dioxide 31 mmol/L (22-30); Chloride 101 mmol/L (98-107); Estimated CRCL calculation 94 ml/min; Estimated Glomerular Filt Rate > 60; Glucose 92 mg/dL (65-110); Magnesium 1.7 mg/dL (1.6-2.3); Potassium 2.7 mmol/L (3.4-5.0); Sodium 135 mmol/L (137-145); Total Protein 5.8 g/dL (6.3-8.2)
[2025-03-15 06:34] VITALS: BP 141/61; PULSE 104; RESP 18; TEMP 36.7; O2SAT 93
[2025-03-15] MEDS: POTASSIUM CHLORIDE 20 MEQ ER TABLET 40 MEQ PO ×2 (06:42→08:08)
[2025-03-15] MEDS: MAGNESIUM SULF 2 GM/WATER 50ML 2 GM/50 ML BAG IVPB (06:44)
[2025-03-15 08:08] VITALS: O2SAT 95
[2025-03-15] MEDS: CALCIUM/VITAMIN D 500 MG/5 MCG (200 I.U.) TABLET PO ×2 (08:08→17:19)
[2025-03-15] MEDS: ASCORBIC ACID 500 MG TABLET PO ×2 (08:08→17:19)
[2025-03-15] MEDS: DULoxetine HCL 60 MG CAPSULE.DR PO ×2 (08:08→17:19)
[2025-03-15] MEDS: MULTIVITAMINS THERAPEUTIC TAB (*BKC) 1 TABLET PO (08:08)
[2025-03-15] MEDS: ZINC SULFATE 220 MG CAPSULE PO (08:08)
[2025-03-15] MEDS: LORATADINE 10 MG TABLET PO (08:08)
[2025-03-15] MEDS: FLUTICASONE PROPIONATE 0.05% NA SPR 16 GM BTL (*BKC) 2 SPRAY NASAL (08:09)
[2025-03-15] MEDS: CHOLECALCIFEROL (VITAMIN D3) 25 MCG (1,000 UNITS) TABLET 50 MCG PO (08:09)
[2025-03-15] MEDS: DOCUSATE SODIUM 100 MG CAPSULE PO (08:09)
[2025-03-15] MEDS: CEFEPIME 2 GM in SODIUM CHLORIDE 0.9% IV 50 ML 100 ML IVPB (08:09)
[2025-03-15] MEDS: SOD HYPOCHLORITE 1/4 STRENGTH 473 ML 1 APPLIC TOPICAL (08:10)
--- NOTE | 2025-03-15 10:03 | P.DS_ITS ---
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 Qualified Code(s): C34.92 - Malignant neoplasm of unspecified part of left bronchus or lung Code(s): C34.90 - Malignant neoplasm of unspecified part of unspecified bronchus or lung Status: Chronic (3) Spina bifida of lumbar spine: Qualifiers: Presence of hydrocephalus: unspecified hydrocephalus presence Qualified Code(s): Q05.7 - Lumbar spina bifida without hydrocephalus Code(s): Q05.7 - Lumbar spina bifida without hydrocephalus Status: Chronic (4) Paraplegia: Code(s): G82.20 - Paraplegia, unspecified Status: Acute (5) Hypokalemia: Code(s): E87.6 - Hypokalemia Status: Acute (6) Hypomagnesemia: Code(s): E83.42 - Hypomagnesemia Status: Acute DS: Summary Hospital Course Reason for hospitalization: Sacral wound infection Hospital Course: Admission: 79 y/o F with PMH of sacral wounds requiring debridement, hyperlipidemia, depression, anxiety, and spina bifida presents here with chronic sacral wounds with possible infection. Patient arrived here from [facility] via EMS for further evaluation of chronic sacral wounds. The patient was admitted for the sacral wounds from 12/07/2024 to 12/15/2024. 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 She was initially started on vancomycin, cefepime, and Flagyl. Underwent debridement on 12/08/2024. Blood cultures negative, urine culture negative. Wound culture grew ESBL and MDR Proteus mirabilis and she was subsequently switched to Ertapenem on 12/13/2024 with plan for 6 weeks of therapy which has since been completed. Patient returned today, as she reported the wounds to her sacrum have worsened and are now draining. In the ED: WBC 14.6, hemoglobin 9.7 (7.9 on 12/15), sodium 135, creatinine 0.48 and GFR >60, CRP 29.7, procalcitonin 0.1, lactic 1.1. CT of the abdomen/pelvis showed a large open infected wound overlying the right inferior pubic ramus with ill- defined fluid and gas but no discrete abscess, small focal osteomyelitis along the pubic ramus with associated myositis of hamstring muscle, open wound overlying sacrum presumably infected but no abscess suspicion for chronic osteomyelitis of distal sacrum and coccyx, enlarging adrenal metastasis left side, slightly enlarged left lower lobe mass with enlarging satellite mass, stercoral colitis, subtle pyelonephritis of the right kidney not excluded. Hospital course: Patient was admitted and surgery consulted for evaluation as well as ID for ABX therapy recommendations. Patient did have surgical debridement of sacral wound with no evidence of osteomyelitis. Patient was continued on IV cefepime, Vanc, and Flagyl pending cultures which remained NGTD. There was no intraoperative wound culture sent. Patient on day of discharge with no acute distress of complaints with no complaints or fevers. Labs reviewed unremarkable and vitals stable. Per ID patient was discharged or Oral clindamycin 300mg BID x7 days and Cefdinir BID x 7 days. Patient discharged back SNF with wound instructions per surgery. Status at Discharge Functional status at discharge: bed bound Overall status at discharge: patient is back to baseline Time Spent with Patient Time attestation: Total time spent providing and/or coordinating discharge services: Time spent: Greater than 30 minutes Exam Const: General: comfortable and no acute distress Other: , female, elderly, chronically ill-appearing, nontoxic appearance Eyes: General: appearance normal, both eyes and all related structures Other: +exotropia Neck: Neck: supple Resp: Effort & Inspection: normal respiratory effort Auscultation: clear to auscultation bilaterally Cardio: Rate: regular rate Rhythm: regular rhythm GI: Other: Abdomen soft, nondistended, nontender. Normoactive bowel sounds in all quadrants. right urostomy present, stoma pink and moist with no signs of infection. Skin: Other: Sacral wound present. Wound bed peak/healthy tissue. Wound edges healthy tissue. Post debridement Second wound to the right ischial. Necrotic/bernstein wound bed with extensive brown slough, foul odor, tunneling, sharp jagged bone exposed and cavity initially Neuro: Other: Alert to self and situation. Incorrect place [facility] and no attempt at time. Extrem: Other: + 1 pitting edema to bilateral feet. DP pulses 2+ bilaterally. Psych: Other: Fair to poor insight and judgment at present, very pleasant DS: Data Data Completed and Pending Labs on day of discharge: Labs from last 24 hours 03/15/25 03/14/25 05:02 22:11 WBC 11.7 H RBC 3.53 L Hgb 8.5 L Hct 28.5 L MCV 80.7 MCH 24.1 L MCHC 29.8 L RDW 15.8 H Plt Count 600 H MPV 8.5 Sodium 135 L Potassium 2.7 L* Chloride 101 Carbon Dioxide 31 H Anion Gap 3 L BUN 5 L Creatinine 0.36 L Estim Creat Clear Calc 94 Estimated GFR > 60 Glucose 92 Calcium 8.1 L Phosphorus 3.0 Magnesium 1.7 Total Bilirubin 0.2 AST 35 ALT 10 Alkaline Phosphatase 105 Total Protein 5.8 L Albumin 2.6 L Vancomycin Trough 15.5 Imaging Radiologist's impression: Radiology Results: ITS Impressions Abdomen/Pelvis CT 03/08/25 09:50 IMPRESSION: 1. Large open infected wound overlying right inferior pubic ramus. Ill-defined fluid and gas but no discrete abscess. Small focal osteomyelitis along pubic ramus. Associated myositis of hamstring muscle. 2. Open wound overlying sacrum. Presumably infected, but no abscess. 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 3. Enlarging adrenal metastasis left side. 4. Slightly enlarged left lower lobe mass with enlarging satellite mass. 5. Stercoral colitis. 6. Subtle pyelonephritis right kidney not excluded. Discharge Plan Discharge Attending physician on discharge: Ian Pittman Consulting providers: Tony Estevez; Jerod Olson; Arias Mccain; Jaqui Bailey Discharging Clinician: Jaqui Bailey Anticipated Discharge Date/Time: 03/14/25 14:50 Patient Disposition: SNF Activity: as tolerated Diet: heart healthy Discharge Instructions: 1). Sacral wound * Continue oral ABX as prescribed * Change dressing daily with Dakin's soaked kerlix gauze, 4x4s, ABD pad, and tape * Q2hr Turns/off load How can you care for yourself at home? ? Keep track of any new symptoms or changes in your symptoms. ? Rest until you feel better. ? Be safe with medicines. Take your medicines exactly as prescribed. Call your doctor if you think you are having a problem with your medicine. ? Do not drive after taking a prescription pain medicine. ? Ensure to follow-up with primary care physician as indicated and provide updated medication list provided to you at discharge. When should you call for help? Call 911 anytime you think you may need emergency care. For example, call if: ? You passed out (lost consciousness). Call your doctor now or seek immediate medical care if: ? You have new symptoms like fever, difficulty breathing, Chest pain, vomiting, or rash. ? You have new or different pain. ? You are confused and are having trouble thinking clearly. ? Your symptoms are getting worse. Watch closely for changes in your health, and be sure to contact your doctor if: ? You do not get better as expected. Patient Instructions: Chronic Wounds (DC) Patient Language: Lebanese Stand Alone Forms: General Discharge Information, Usp Discharge Follow-up/Referrals: Abigail,MD Jimmy [Primary Care Provider, Unknown] - Keep Reg. Scheduled Appt. Discharge Medications: New potassium chloride 40 mEq/15 mL liquid 40 meq PO DAILY Qty: 473 0RF cefdinir 300 mg capsule 300 mg PO Q12H Qty: 14 0RF clindamycin HCl [Cleocin HCl] 300 mg capsule 300 mg PO TID Qty: 21 0RF Continued atorvastatin 10 mg tablet 10 mg PO HS acetaminophen 650 mg Tablet 650 mg PO Q4H PRN (Reason: mild pain) fluticasone propionate [Flonase Allergy Relief] 50 mcg/actuation Calvin,Suspension 2 spray INTRANASAL DAILY Rx Instructions: administer into each nostril duloxetine 60 mg capsule,delayed release(DR/EC) 60 mg PO BID Caltrate 600-D Plus Minerals 600 mg calcium- 800 unit-40 mg Tablet,Chewable 1 tablet PO BID loratadine 10 mg Tablet 10 mg PO DAILY nystatin 100,000 unit/gram Powder 1 applic TOPICAL DAILY Rx Instructions: APPLY DAILY SCHEDULED AND ALSO APPLY TID NEEDED PRN apply to groin and sacral area cholecalciferol (vitamin D3) 50 mcg (2,000 unit) capsule 50 mcg PO DAILY multivitamin [Daily Multi-Vitamin] Tablet 1 tablet PO DAILY lactulose 10 gram/15 mL solution 10 g PO DAILY PRN (Reason: constipation) Qty: 473 0RF Rx Instructions: Give if no BM within 72 hours prior, or if feeling constipated. ondansetron 4 mg tablet,disintegrating 4 mg PO Q6H PRN (Reason: NAUSEA ) ascorbic acid (vitamin C) [Acerola C] 500 mg tablet,chewable 500 mg PO BID zinc sulfate [Zinc-220] 50 mg zinc (220 mg) capsule 50 mg PO DAILY Dakin's Solution 0.125 % Solution 1 applic topical Q12HR Qty: 100 0RF mirtazapine 15 mg tablet 15 mg PO HS magnesium hydroxide [Dulcolax (magnesium hydroxide)] 400 mg/5 mL suspension 30 ml PO HS PRN (Reason: constipation) Other Ambulatory Orders: Comprehensive Metabolic Panel (Routine) Timeframe: 1 Week Location: Determined by Patient Ordered By: Jaqui Bailey Date of admission: 03/09/25 10:23 Primary Care Provider: Matt*Jmimy Ledbetter Admitting Provider: Raul Lopez Attending physician on admission: Raul Lopez Condition: Improved Quality VTE Prophylaxis VTE prophylaxis: mechanical ordered -Patient's previous records reviewed on admission -ER notes reviewed in detail on admission -discussed all findings and current treatment plan with patient/Family/POA -Consultations reviewed for recommendations -Patient's disposition for safe discharge discussed with therapeutic case manager -radiology imaging, EKG and test results I have personally reviewed and interpreted unless otherwise specified Dictation performed by [employer] direct speech recognition software, therefore sugar refinery supervisor variants and typographical errors may occur. Hospitalist MIPS Heart Failure (Exclusion) Patient has history of Heart Transplant or Left Ventricular Assistive Device?: No IF YES, STOP HERE Heart Failure (Qualifier) Patient has current or prior documentation of LVEF less than or equal to 40%, or mod/servere depressed LVSF?: No IF NO, STOP HERE
[2025-03-15] MEDS: POTASSIUM CHLORIDE INJ 40 MEQ in SODIUM CHLORIDE 0.9% IV 500 ML 130 MEQ IVPB (10:14)
[2025-03-15 12:48] LABS: Anion Gap 4 mmol/L (4-12); Blood Urea Nitrogen 5 mg/dL (7-17); Calcium 8.0 mg/dL (8.4-10.2); Carbon Dioxide 31 mmol/L (22-30); Chloride 100 mmol/L (98-107); Estimated CRCL calculation 84 ml/min; Estimated Glomerular Filt Rate > 60; Glucose 102 mg/dL (65-110); Potassium 4.2 mmol/L (3.4-5.0); Sodium 135 mmol/L (137-145)
--- NOTE | 2025-03-15 13:35 | WNDPHOTO ---
PHOTO ONLY - See Nursing Notes and/ or assessments for documentation.
--- NOTE | 2025-03-15 13:42 | WNDPHOTO ---
PHOTO ONLY - See Nursing Notes and/ or assessments for documentation.
== END 2025-03-15 18:56 | DRG 853 ==
LOC: ANHED 08:42 → ANHIMU 11:42 → ANH2MED 03-09 19:58
PROVIDERS: Internal Medicine; Student in an Organized Health Care Education/Training Program; Surgery; Admitting Provider General Practice; Emergency Provider Emergency Medicine; PCP Internal Medicine; Visit Provider Nurse Practitioner Family
PROC: 0KBN0ZZ Excision of Right Hip Muscle, Open Approach (ICD-10-PCS; principal; 2025-03-10 15:00)
DX: A41.9 Sepsis, unspecified organism (principal); L89.154 Pressure ulcer of sacral region, stage 4; L89.314 Pressure ulcer of right buttock, stage 4; C34.32 Malignant neoplasm of lower lobe, left bronchus or lung; G82.20 Paraplegia, unspecified; C79.72 Secondary malignant neoplasm of left adrenal gland; I10 Essential (primary) hypertension; E83.42 Hypomagnesemia; E87.6 Hypokalemia; E78.5 Hyperlipidemia, unspecified; F32.A Depression, unspecified; F41.9 Anxiety disorder, unspecified; K52.89 Other specified noninfective gastroenteritis and colitis; M60.851 Other myositis, right thigh; Z66 Do not resuscitate; Q05.9 Spina bifida, unspecified; Z74.01 Bed confinement status
CPT/HCPCS: 36415; 74177; 80048; 80053; 80202; 83605; 83735; 84100; 84132; 84145; 85025; 85027; 85610; 85730; 86140; 87040; 96361; 96365; 96367; 99212; 99285; A9270; G0378; G0463; J0692; J1836; J2003; J2704; J3010; J3373; J3475; J3480; J7040; J7120; Q9967